=== PATIENT | female | born 1945 | race Caucasian/White ===

== ENCOUNTER 2016-11-02 17:38 | Observation (INO) | payer MEDICARE ==
[2016-11-02] MEDS ORDERED: NS 0.9% 1000 ML* 1,000 ML IV SCH (18:00)
--- NOTE | 2016-11-02 18:16 | RAD ---
INDICATION: Short of breath COMPARISON: June 02, 2016 TECHNIQUE: An AP portable view obtained at 1755 hours is submitted. FINDINGS: Bones/Soft Tissues: There are no acute bony findings. Cardiomediastinal: The heart is mildly prominent. There is uncoiling of the aorta with prominence of the ascending aorta, unchanged. Central hilar structures and pulmonary interstitium are prominent compatible with moderate interstitial congestion. Lungs: There is no focal consolidation. Pleura: There are no pleural effusions. Other: None IMPRESSION: MODERATE VASCULAR CONGESTIVE FINDINGS.
[2016-11-02 18:26] LABS: Hematocrit 44 % (35-47); Hemoglobin 14.4 g/dl (12.0-16.0); Mean Corpuscular HGB Conc 33 g/dl (31-36); Mean Corpuscular Hemoglobin 28 pg (27-31); Mean Corpuscular Volume 86 fL (80-97); Mean Platelet Volume 9 um3 (7.4-10.4); Red Blood Count 5.06 10^6/ul (4.0-5.4); Red Cell Distribution Width 15 % (10.5-15); White Blood Count 7.6 10^3/ul (3.5-10.8)
[2016-11-02 18:41] LABS: Albumin 3.9 g/dL (3.2-5.2); BUN/Creatinine Ratio 11.8 (8-20); C Reactive Protein 5.28 mg/L (< 5.00); Calcium 9.2 mg/dL (8.6-10.3); EGFR African American 96.2 (>60); EGFR Non-African American 74.8 (>60); Globulin 3.3 g/dL (2-4); Magnesium 2.1 mg/dL (1.9-2.7); Potassium 3.5 mmol/L (3.5-5.0); Total Bilirubin 0.5 mg/dL (0.2-1.0); Total Protein 7.2 g/dL (6.4-8.9)
[2016-11-02 18:44] LABS: Urine Bilirubin Negative (Negative); Urine Glucose Negative (Negative); Urine Nitrite Negative (Negative)
[2016-11-02 18:48] LABS: Troponin I 0.04 ng/mL (<0.04)
--- NOTE | 2016-11-02 20:16 | ED ---
Juana Collier Michael, scribed for Ron Cooper MD on 11/02/16 at 1801 . HPI Chest Pain - HPI Summary HPI Summary: 71 y/o female was BIBA to the ED presenting with left lower sternal chest pain that started this afternoon at 1230. The pt reports that the chest pain started intermittently, and as the day went on, the chest pain become constant. She describes the chest pain as squeezing and sharp. She was given nitro in the ambulance, which alleviated the CP. The pt also c/o weakness/pain in the bilateral LE, SOB, and nausea. Her blood pressure was elevated to 234/129, and usually it is in the 140s. The pt denies diaphoresis. Her bilateral LE weakness and pain started yesterday. She was unable to ambulate normally today. The pt states that she has a hx of mitochondrial disease and aortic stenosis. She had a cardiac catheterization at [facility]. - History of Current Complaint Chief Complaint: EDChestPainROMI Hx Obtained From: Patient, Medical Records Onset/Duration: Started Hours Ago Time of Onset: 12:30 Timing: Constant Initial Severity: Mild Current Severity: Moderate Chest Pain Location: Lower Sternal - left Character: Pressure/Squeezing, Sharp/Stabbing Aggravating Factor(s): Nothing Alleviating Factor(s): NTG 123 Associated Signs and Symptoms: Positive: Weakness, Shortness of Breath, Swelling - bilat LE, Nausea, Other: - CP. Negative: Diaphoresis - Additional Pertinent History Primary Care Physician: JEFFREY - Allergy/Home Medications Allergies/Adverse Reactions: Allergies Allergy/AdvReac Type Severity Reaction Status Date / Time Albuterol Allergy Severe Swelling Verified 11/02/16 17:51 Of Face,Lips,& Throat Fluticasone Allergy Severe Swelling Verified 11/02/16 17:51 [From Advair Diskus] Of Face,Lips,& Throat Lidocaine Allergy Severe Swelling Verified 11/02/16 17:51 Milk Protein Extract Allergy Severe Swelling Verified 11/02/16 17:51 [From Advair Diskus] Of Face,Lips,& Throat Pirbuterol [From Maxair] Allergy Severe Swelling Verified 11/02/16 17:51 Of Face,Lips,& Throat Salmeterol Allergy Severe Swelling Verified 11/02/16 17:51 [From Advair Diskus] Of Face,Lips,& Throat Amlodipine [From Norvasc] Allergy Intermediate Swelling Verified 11/02/16 17:51 Clindamycin Allergy Intermediate Hives Verified 11/02/16 17:51 Iodine Allergy Intermediate Swelling Verified 11/02/16 17:51 Latex Allergy Intermediate Rash Verified 11/02/16 17:51 Levofloxacin [From Levaquin] Allergy Intermediate Hives Verified 11/02/16 17:51 Metoprolol [From Toprol XL] Allergy Intermediate Rash Verified 11/02/16 17:51 Penicillins [PCN] Allergy Intermediate Hives Verified 11/02/16 17:51 Rofecoxib [From Vioxx] Allergy Intermediate Hives Verified 11/02/16 17:51 Streptomycin Allergy Intermediate Hives Verified 11/02/16 17:51 Atenolol Allergy Unknown Unknown Verified 11/02/16 17:51 Reaction Details Beta Adrenergic Blockers Allergy Unknown Unknown Verified 11/02/16 17:51 Reaction Details Epinephrine Allergy Unknown Unknown Verified 11/02/16 17:51 Reaction Details Hydrochlorothiazide Allergy Unknown Unknown Verified 11/02/16 17:51 [From Hyzaar] Reaction Details Labetalol Allergy Unknown Unknown Verified 11/02/16 17:51 Reaction Details Lisinopril [From Prinivil] Allergy Unknown Unknown Verified 11/02/16 17:51 Reaction Details Losartan [From Hyzaar] Allergy Unknown Unknown Verified 11/02/16 17:51 Reaction Details Propofol Allergy Unknown Unknown Verified 11/02/16 17:51 Reaction Details Sulfites Allergy Unknown Unknown Verified 11/02/16 17:51 Reaction Details Terazosin [From Hytrin] Allergy Unknown Unknown Verified 11/02/16 17:51 Reaction Details Valsartan [From Diovan] Allergy Unknown Unknown Verified 11/02/16 17:51 Reaction Details Gluten Meal Allergy GI Upset Verified 11/02/16 19:06 Iodinated Diagnostic Agents Allergy Itching Verified 11/02/16 19:06 PMH/Surg Hx/FS Hx/Imm Hx Endocrine/Hematology History: Denies: Hx Diabetes Cardiovascular History: Reports: Hx Hypertension, Hx Valvular Heart Disease, Other Cardiovascular Problems/Disorders - AORTIC STENOSIS, Mitral valve prolapse without regurgitation Denies: Hx Pacemaker/ICD Respiratory History: Reports: Hx Asthma, Hx Seasonal Allergies GI History: Reports: Hx Gall Bladder Disease, Hx Gastroesophageal Reflux Disease , Hx Ileostomy, Other GI Disorders - CELIAC, rectal prolapse, colostomy and reversal Denies: Hx Obstructive Bowel History: Reports: Other Problems/Disorders - "bladder repair" Musculoskeletal History: Reports: Hx Back Problems, Other Musculoskeletal History - sciatica, saccroiliac joint dysfunction Denies: Hx Osteoporosis Sensory History: Reports: Hx Cataracts - 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 CERVICAL POLYP REMOVAL (1974). TUBAL LIGATION (1974). GALLBLADDER. BLADDER REPAIR (1984). UPPER LUBE COLOSTOMY REVERSAL. PROLAPSE OF RECTUM. OPEN REDUCTION OF LT ELBOW - Family History Known Family History: Positive: Cardiac Disease, Respiratory Disease, Other - Cancer - Social History Occupation: Retired Lives: Alone Alcohol Use: None Hx Substance Use: No Substance Use Type: Reports: None Hx Tobacco Use: Yes Smoking Status (MU): Former Smoker Review of Systems Negative: Skin Diaphoresis Positive: Chest Pain Positive: Shortness Of Breath Positive: Nausea Positive: Other - bilat LE swelling and pain All Other Systems Reviewed And Are Negative: Yes Physical Exam Triage Information Reviewed: Yes Vital Signs On Initial Exam: Initial Vitals Temp Pulse Resp BP Pulse Ox 98.4 F 104 22 234/129 99 11/02/16 18:00 11/02/16 18:00 11/02/16 18:00 11/02/16 18:00 11/02/16 18:00 Vital Signs Reviewed: Yes Appearance: Positive: Well-Appearing, No Pain Distress Skin: Positive: Warm, Skin Color Reflects Adequate Perfusion, Dry Head/Face: Positive: Normal Head/Face Inspection Eyes: Positive: EOMI, EVA ENT: Positive: Normal ENT inspection Neck: Positive: Supple, Nontender Respiratory/Lung Sounds: Positive: Clear to Auscultation, Breath Sounds Present Cardiovascular: Positive: Tachycardia Abdomen Description: Positive: Nontender, Soft Bowel Sounds: Positive: Present Musculoskeletal: Positive: Normal, Strength/ROM Intact Neurological: Positive: Normal, Sensory/Motor Intact, Alert, Oriented to Person Place, Time Psychiatric: Positive: Affect/Mood Appropriate Diagnostics - Vital Signs Vital Signs Temp Pulse Resp BP Pulse Ox 11/02/16 20:00 20 185/86 11/02/16 19:30 102 20 187/87 100 11/02/16 19:00 91 14 168/88 99 11/02/16 18:30 101 21 190/101 100 11/02/16 18:16 98.4 F 102 16 190/101 99 11/02/16 18:00 98.4 F 104 22 234/129 99 - Laboratory Lab Results: Lab Results 11/02/16 11/02/16 11/02/16 Range/Units 17:40 17:40 17:40 WBC 7.6 (3.5-10.8) 10^3/ul RBC 5.06 (4.0-5.4) 10^6/ul Hgb 14.4 (12.0-16.0) g/dl Hct 44 (35-47) % MCV 86 (80-97) fL MCH 28 (27-31) pg MCHC 33 (31-36) g/dl RDW 15 (10.5-15) % Plt Count 232 (150-450) 10^3/ul MPV 9 (7.4-10.4) um3 Neut % (Auto) 58.9 (38-83) % Lymph % (Auto) 28.2 (25-47) % Lassen % (Auto) 11.4 H (1-9) % Eos % (Auto) 1.2 (0-6) % Baso % (Auto) 0.3 (0-2) % Absolute Neuts (auto) 4.5 (1.5-7.7) 10^3/ul Absolute Lymphs (auto) 2.1 (1.0-4.8) 10^3/ul Absolute Monos (auto) 0.9 H (0-0.8) 10^3/ul Absolute Eos (auto) 0.1 (0-0.6) 10^3/ul Absolute Basos (auto) 0 (0-0.2) 10^3/ul Absolute Nucleated RBC 0 10^3/ul Nucleated RBC % 0 INR (Anticoag Therapy) 0.90 (0.89-1.11) APTT 32.8 (26.0-36.3) seconds Sodium 137 (133-145) mmol/L Potassium 3.5 (3.5-5.0) mmol/L Chloride 100 L (101-111) mmol/L Carbon Dioxide 31 (22-32) mmol/L Anion Gap 6 (2-11) mmol/L BUN 9 (6-24) mg/dL Creatinine 0.76 (0.51-0.95) mg/dL Est GFR ( Amer) 96.2 (>60) Est GFR (Non-Af Amer) 74.8 (>60) BUN/Creatinine Ratio 11.8 (8-20) Glucose 97 (70-100) mg/dL Lactic Acid (0.5-2.0) mmol/L Calcium 9.2 (8.6-10.3) mg/dL Magnesium 2.1 (1.9-2.7) mg/dL Total Bilirubin 0.50 (0.2-1.0) mg/dL AST 21 (13-39) U/L ALT 24 (7-52) U/L Alkaline Phosphatase 81 (34-104) U/L Total Creatine Kinase 146 (10-223) U/L CK-MB (CK-2) 5.6 (0.6-6.3) ng/mL Troponin I 0.04 H* (<0.04) ng/mL C-Reactive Protein 5.28 H (< 5.00) mg/L B-Natriuretic Peptide ( - 100) pg/mL Total Protein 7.2 (6.4-8.9) g/dL Albumin 3.9 (3.2-5.2) g/dL Globulin 3.3 (2-4) g/dL Albumin/Globulin Ratio 1.2 (1-3) Lipase 25 (11.0-82.0) U/L Urine Color Urine Appearance Urine pH (5-9) Ur Specific [place] (1.010-1.030) Urine Protein (Negative) Urine Ketones (Negative) Urine Blood (Negative) Urine Nitrate (Negative) Urine Bilirubin (Negative) Urine Urobilinogen (Negative) Ur Leukocyte Esterase (Negative) Urine Glucose (Negative) 11/02/16 11/02/16 11/02/16 Range/Units 17:40 17:40 18:25 WBC (3.5-10.8) 10^3/ul RBC (4.0-5.4) 10^6/ul Hgb (12.0-16.0) g/dl Hct (35-47) % MCV (80-97) fL MCH (27-31) pg MCHC (31-36) g/dl RDW (10.5-15) % Plt Count (150-450) 10^3/ul MPV (7.4-10.4) um3 Neut % (Auto) (38-83) % Lymph % (Auto) (25-47) % Lassen % (Auto) (1-9) % Eos % (Auto) (0-6) % Baso % (Auto) (0-2) % Absolute Neuts (auto) (1.5-7.7) 10^3/ul Absolute Lymphs (auto) (1.0-4.8) 10^3/ul Absolute Monos (auto) (0-0.8) 10^3/ul Absolute Eos (auto) (0-0.6) 10^3/ul Absolute Basos (auto) (0-0.2) 10^3/ul Absolute Nucleated RBC 10^3/ul Nucleated RBC % INR (Anticoag Therapy) (0.89-1.11) APTT (26.0-36.3) seconds Sodium (133-145) mmol/L Potassium (3.5-5.0) mmol/L Chloride (101-111) mmol/L Carbon Dioxide (22-32) mmol/L Anion Gap (2-11) mmol/L BUN (6-24) mg/dL Creatinine (0.51-0.95) mg/dL Est GFR ( Amer) (>60) Est GFR (Non-Af Amer) (>60) BUN/Creatinine Ratio (8-20) Glucose (70-100) mg/dL Lactic Acid 1.5 (0.5-2.0) mmol/L Calcium (8.6-10.3) mg/dL Magnesium (1.9-2.7) mg/dL Total Bilirubin (0.2-1.0) mg/dL AST (13-39) U/L ALT (7-52) U/L Alkaline Phosphatase (34-104) U/L Total Creatine Kinase (10-223) U/L CK-MB (CK-2) (0.6-6.3) ng/mL Troponin I (<0.04) ng/mL C-Reactive Protein (< 5.00) mg/L B-Natriuretic Peptide 160 H ( - 100) pg/mL Total Protein (6.4-8.9) g/dL Albumin (3.2-5.2) g/dL Globulin (2-4) g/dL Albumin/Globulin Ratio (1-3) Lipase (11.0-82.0) U/L Urine Color Straw Urine Appearance Clear Urine pH 7.0 (5-9) Ur Specific [place] 1.004 L (1.010-1.030) Urine Protein Negative (Negative) Urine Ketones Negative (Negative) Urine Blood Negative (Negative) Urine Nitrate Negative (Negative) Urine Bilirubin Negative (Negative) Urine Urobilinogen Negative (Negative) Ur Leukocyte Esterase Negative (Negative) Urine Glucose Negative (Negative) Result Diagrams: 11/02/16 17:40 11/02/16 17:40 Lab Statement: Any lab studies that have been ordered have been reviewed, and results considered in the medical decision making process. - Radiology CXR Xray Interpretation: Positive (See Comments) - MODERATE VASCULAR CONGESTIVE FINDINGS. Radiology Interpretation Completed By: Radiologist - EKG EK EKG Rhythm: Sinus Tachycardia Ectopy: None EKG Interpretation: LVH. [place] T abnormalities at inferior leads. Chest Pain Course/Dx - Course Course Of Treatment: Pt will be admitted to [facility] and was accepted by Dr. Alvarado at 1915. ADMIT HOSPITALIST STABLE. - Diagnoses Provider Diagnoses: Chest pain Discharge - Discharge Plan Condition: Stable Disposition: ADMITTED TO [facility] Discharge Disposition Comment: Accepted as an admission by Dr. Alvarado Referrals: Daniella Raoms MD [Primary Care Provider] - The documentation as recorded by the Juana chino Michael accurately reflects the service I personally performed and the decisions made by me, Ron Cooper MD.
[2016-11-02] MEDS ORDERED: GuaiFENesin DM* 5 ML UDC PO PRN (20:34)
[2016-11-02] MEDS ORDERED: Senna TAB PO PRN (20:34)
[2016-11-02] MEDS ORDERED: Glycerin ADULT SUPP PR PRN (20:34)
[2016-11-02] MEDS ORDERED: Docusate CAP* 100 MG PO PRN (20:34)
[2016-11-02] MEDS ORDERED: Nystatin TOP POWDER* 15 GM BTL TOPICAL PRN (20:34)
[2016-11-02] MEDS ORDERED: Ondansetron TAB* 4 MG PO PRN (20:34)
[2016-11-02] MEDS ORDERED: Levalbuterol HFA INHALER* 1 PUFF MDI INH PRN (20:34)
[2016-11-02] MEDS ORDERED: Polyethylene Glycol 3350* 17 GM PACKET PO PRN (20:34)
[2016-11-02] MEDS ORDERED: Sucralfate TAB* 1 GM PO PRN (20:34)
[2016-11-02] MEDS ORDERED: Levalbuterol 1.25MG/0.5ML NEB INH PRN (20:34)
[2016-11-02] MEDS ORDERED: Levalbuterol 0.63MG/3ML NEB INH PRN (20:34)
[2016-11-02] MEDS ORDERED: Mometasone 220 MCG MDI INH SCH (21:00)
[2016-11-02] MEDS ORDERED: Ramipril CAP* 10 MG PO SCH (21:00)
[2016-11-02] MEDS ORDERED: Acetaminophen TAB* 325 MG PO PRN (22:28)
[2016-11-02] MEDS: Sodium Chloride 2% OPTH.SOL* 15 ML BTL LEFT EYE SCH (23:25)
[2016-11-02] MEDS: Hydrocortisone SUPP* 25 MG SUPP (2.5%) PR SCH (23:29)
[2016-11-03] MEDS ORDERED: PTO: Levalbuterol HFA INHALER* 1 PUFF MDI INH PRN (01:12)
[2016-11-03] MEDS ORDERED: [UNRECOGNIZED DRUG - OTHER] RIGHT EYE SCH (01:30)
[2016-11-03] MEDS ORDERED: FLUOROMETHOLONE 0.1% RIGHT EYE SCH (01:30)
--- NOTE | 2016-11-03 02:52 | HP ---
HOSPITAL MEDICINE HISTORY AND PHYSICAL: DATE OF ADMISSION: 11/02/16 PRIMARY CARE PHYSICIAN: Dr. Sheridan. ATTENDING PHYSICIAN: Dr. Vitaliy Alvarado *(dictation provided by Giulia Swann NP). CHIEF COMPLAINT: Chest pain and shortness of breath. HISTORY OF PRESENT ILLNESS: Ms. Ortiz is a 71-year-old female with multiple past medical complaints including mitochondrial myopathy, icwomwbh-sf-rwijth aortic stenosis, hypertension, asthma, celiac disease and chronic pain, who presents today to the hospital with concern for chest pain and shortness of breath. Ms. Ortiz states that she recently had symptoms of a urinary tract infection with bladder spasms and frequency. For that, she was treated with nitrofurantoin, it turns out that her urine culture was negative, but she did complete the course of medication. Ms. Ortiz has a long history of intolerance to medications as she believes that all of her symptoms are related to nitrofurantoin. Symptoms included headache, chills, nausea, burning pain in her legs, chest pain, and dyspnea. Today, she was up washing dishes and straightening her home when she developed what she described as an angina to the center of her chest as well as dyspnea on exertion and she felt very unwell. She tried to use her nebulizers, but this did not help with her asthma or her feeling of shortness of breath; and therefore, she called the emergency medical services to be brought to the emergency room. Ms. Ortiz has what she describes as a mitochondrial myopathy that was diagnosed at [facility]. She is being worked up for a possible aortic valve replacement at [facility]. She states she had a cardiac catheterization and it was negative in August of 2016. In the emergency room, Ms. Ortiz had a troponin that was 0.04, which was the highest that we have seen for her. She normally runs 0.03. She had an EKG, which showed no evidence of ischemia and a chest x-ray that was negative. The remainder of her workup was unremarkable. Based on Ms. Ortiz's presentation with concern for chest pain, Hospital Medicine was called regarding admission. PAST MEDICAL HISTORY: 1. Mitochondrial myopathy. 2. Atnucezg-ef-oneegx aortic stenosis. 3. Hypertension. 4. Asthma. 5. Celiac disease. 6. History of cholecystectomy. 7. History of traumatic rectal tear with colostomy, now reversed. 8. Migraines. MEDICATIONS: 1. Astepro 0.1% nasal spray 2 sprays nasally b.i.d. 2. Azelastine and fluticasone 2 sprays both nares daily. 3. Calcium carbonate with cholecalciferol 1 tab p.o. daily. 4. Cholecalciferol 50,000 units p.o. weekly. 5. Coenzyme Q10 400 mg p.o. daily. 6. Epinephrine 0.15 mg IM p.r.n. 7. Ranitidine 150 mg po b.i.d. 8. Fexofenadine 60 mg p.o. daily. 9. Fluticasone 100 mcg 3 puffs inhaled b.i.d. 10. Hydrocortisone rectally 2.5% as needed. 11. L-Carnitine tartrate 500 mg p.o. daily. 12. Magnesium 600 mg p.o. daily. 13. Nystatin with triamcinolone as needed. 15. Polyethylene glycol, both eyes t.i.d. 16. Docusate 100 mg p.o. b.i.d. 17. Fluticasone inhaler 220 mcg 2 puffs inhaled b.i.d. 18. Fluticasone nasal spray 2 sprays both nares daily. 19. Folic acid 1 mg p.o. daily. 20. Guaifenesin DM 5 mL p.o. q.6 hours p.r.n. 21. Hydrocortisone suppository 25 mg per rectum b.i.d. 22. Lactulose 30 mL p.o. daily. 23. Levalbuterol inhaler p.r.n. 24. Levothyroxine 200 mcg p.o. daily. 25. Nystatin topical powder 1 application topical b.i.d. 26. Ondansetron 8 mg p.o. q.6 hours p.r.n. 27. MiraLAX 17 g p.o. daily p.r.n. 30. Verapamil 40 mg p.o. daily. 31. Senna 1 tab p.o. t.i.d. p.r.n. 32. Sodium chloride 2% left eye 4 times a day. 33. Sucralfate 1 g p.o. b.i.d. prn. ALLERGIES: ALBUTEROL, FLUTICASONE, though she is on this medication. LIDOCAINE , PIRBUTEROL, SALMETEROL, AMLODIPINE, CLINDAMYCIN, IODINE, LATEX, LEVOFLOXACIN, METOPROLOL, PENICILLIN, ROFECOXIB, STREPTOMYCIN, ATENOLOL, BETA ADRENERGIC BLOCKERS, EPINEPHRINE, HYDROCHLOROTHIAZIDE, LABETALOL, LISINOPRIL, LOSARTAN, PROPOFOL, SULFIDE, TERAZOSIN, VALSARTAN, GLUTEN MEALS, IODINATED DIAGNOSTIC AGENTS. FAMILY HISTORY: Reviewed and noncontributory. Note that the patient's both parents from cancer. SOCIAL HISTORY: The patient was a smoker for approximately 2 years, but quit over 50 years ago. No alcohol or drug use. The patient states her daughters, Luzmaria and Yaneli, are the healthcare proxies. REVIEW OF SYSTEMS: A 14-point review of systems was completed with Ms. Ortiz and all those not mentioned above were negative. PHYSICAL EXAMINATION GENERAL: Ms. Ortiz was sitting in the bed. She is in no acute distress. She is calm and cooperative with my examination. VITAL SIGNS: Temperature 98.4, heart rate 102, respiratory rate 20, O2 saturation 100% on room air, blood pressure 187/87. LUNGS: Clear to auscultation bilaterally. HEART: S1, S2 with a systolic murmur at the sternal border. ABDOMEN: Soft and nontender with bowel sounds positive x4. EXTREMITIES: No cyanosis or edema. SKIN: Intact. NEUROLOGIC: She is alert and oriented x3. Moves all extremities equally. There is no facial asymmetry or focal weakness. Extraocular movements are intact. DIAGNOSTIC STUDIES/LAB DATA: WBC 7.6, hemoglobin 14.4, hematocrit 44, platelet count 232. INR 0.90. Sodium 137, potassium 3.5, chloride 100, serum bicarbonate 31, BUN 9, creatinine 0.76, glucose 97. Troponin 0.04. Lactic acid 1.5. CRP is 5.28. BNP 116. Urine shows no evidence of infection. Chest x-ray shows moderate vascular congestive findings. EKG shows sinus rhythm, no evidence of ischemia. ASSESSMENT: Ms. Ortiz is a 71-year-old female with a past medical history of mitochondrial myopathy, qazjfdeq-wp-requdp aortic stenosis, hypertension, asthma and celiac disease, who presents today to the hospital with concern for multiple complaints, but primarily chest pain and shortness of breath. Our plans are for observation in the hospital for the followin. Chest pain, shortness of breath. I do note that the patient had a negative cardiac catheterization in August of this year, but she is quite concerned about the chest pain and the level of dyspnea. I suspect that perhaps these symptoms are related to her scejycme-pe-seundg aortic stenosis, which she is following up with at [facility]. Regardless, I think the patient has an elevated troponin and therefore would benefit from trending of those over the next few hours. The patient will have telemetry monitoring. Any further testing will be based on clinical course. Thus far, the patient is feeling much more comfortable after receiving nitro paste and oxygen. 2. Hypertension. The patient's blood pressure is elevated in the emergency room, is similar to past admissions. She has high blood pressure, but is resistant to trying any new medications based on her multiple allergies. Plan at this point is to continue her home medication regimen and to offer to treat for any blood pressure greater than 180. 3. Hypothyroidism. Continue levothyroxine. 4. DVT prophylaxis with SCDs as I do not want to introduce any new medication as the patient with multiple allergies and she has refused all previous medications in the past. 5. Code status is full code. 6. Disposition to telemetry floor. TIME SPENT: Approximately 60 minutes were spent on the admission of the this patient, more than half time spent with the patient at bedside reviewing the events leading up to this hospitalization, performing the physical examination, and reviewing the plan of care. GIULIA SWANN NP CC: Dr. Sheridan* [id number]/[facility] #: [id number] [place]
[2016-11-03] MEDS: Levothyroxine TAB* 100 MCG TAB PO SCH ×2 (05:23→05:25)
[2016-11-03] MEDS ORDERED: SCOP/HYOS/ATR/PB(NF) 10 ML UDC PO SCH (09:00)
[2016-11-03] MEDS ORDERED: Fluticasone NASAL SPRAY 50MCG* 16 gm SPRAY BTL BOTH NARES SCH (09:00)
[2016-11-03] MEDS ORDERED: Verapamil TAB* 80 MG PO SCH ×2 (09:00→21:00)
[2016-11-03] MEDS ORDERED: Folic Acid TAB* 1 MG PO SCH (09:00)
[2016-11-03] MEDS ORDERED: Omeprazole CAP* 20 MG PO SCH (10:00)
[2016-11-03] MEDS ORDERED: Omeprazole CAP* 20 MG ONE (10:03)
[2016-11-03] MEDS: Hydrocortisone SUPP* 25 MG SUPP (2.5%) PR SCH (10:27)
[2016-11-03] MEDS: Sodium Chloride 2% OPTH.SOL* 15 ML BTL LEFT EYE SCH ×2 (10:28→13:57)
[2016-11-03] MEDS ORDERED: Potassium Chlor TAB* 20 MEQ TAB.ER PO ONE (10:28)
--- NOTE | 2016-11-03 10:28 | PN ---
Subjective Date of Service: 11/03/16 Interval History: Patient seen and examined at bedside. She reports feeling much better after receiving IVF this morning. She also reports improvement with nitro patch, received yesterday. She feels that her recent macrodantin prescription for a presumed UTI has contributed to her symptoms and complaints. She states that she didn't have a UTI but continued to take the medicine because no one told her that the urine culture was negative. She denies any SOB, abd pain, n/v this morning. Denies CP this AM and is hopeful to go home. She reports a cardiac catheterization in August that was "completely clean." Telemetry: SR 80s-90s Family History: Unchanged from Admission Social History: Unchanged from Admission Past Medical History: Unchanged from Admission Objective Active Medications: Acetaminophen (Tylenol Tab*) 650 mg PO Q8H PRN PRN Reason: PAIN Docusate Sodium (Colace Cap*) 100 mg PO BID PRN PRN Reason: CONSTIPATION Fluorometholone Acetate (Fml 0.1% Opth.Susp*) 1 drop [facility] Last Admin: 11/03/16 02:44 Dose: 1 drop Fluticasone Propionate (Flonase Nasal [place] 50mcg*) 2 spray BOTH NARES DAILY SUSY Fluticasone Propionate (Flovent Hfa 220 Mcg(Nf)) 3 puff INH BID SUSY Folic Acid (Folvite Tab*) 1 mg PO DAILY SUSY Glycerin (Glycerin Adult Supp*) 1 supp NC DAILY PRN PRN Reason: CONSTIPATION Hydrocortisone (Anusol Hc Supp*) 25 mg NC BID [facility] Last Admin: 11/02/16 23:29 Dose: 25 mg Sodium Chloride (Ns 0.9% 1000 Ml*) 1,000 mls @ 150 mls/hr IV PER [facility] Last Admin: 11/02/16 18:41 Dose: 150 mls/hr Lactulose (Lactulose*) 30 ml PO DAILY PRN PRN Reason: CONSTIPATION Levalbuterol HCl (Xopenex 0.63mg/3ml Neb*) 0.63 mg INH Q4H PRN PRN Reason: SHORTNESS OF BREATH Levalbuterol HCl (Xopenex Hfa Inhaler*) 2 puff INH Q4H PRN PRN Reason: SHORTNESS OF BREATH Last Admin: 11/03/16 01:17 Dose: 2 puff Levothyroxine Sodium (Synthroid Tab*) 200 mcg PO 0600 [facility] Last Admin: 11/03/16 05:25 Dose: Not Given Omeprazole (Prilosec Cap*) 20 mg PO DAILY@0600 [facility] Polyethylene Glycol/Electrolytes (Miralax*) 17 gm PO DAILY PRN PRN Reason: CONSTIPATION Potassium Chloride (Klor Con Er Tab*) 40 meq PO ONCE ONE Stop: 11/03/16 10:29 Senna (Senokot Tab*) 1 tab PO TID PRN PRN Reason: CONSTIPATION Sodium Chloride (Hypertonic) (Dora 128 Opth 2% Yin*) 1 drop LEFT EYE QID [facility] Last Admin: 11/02/16 23:25 Dose: 1 drop Sucralfate (Carafate*) 1 gm PO BID PRN PRN Reason: INDIGESTION Verapamil HCl (Calan Tab*) 40 mg PO DAILY [facility] Vital Signs 11/02/16 11/02/16 11/02/16 21:00 21:30 22:20 Temperature 98.5 F Pulse Rate 98 90 100 Respiratory 18 17 19 Rate Blood Pressure 178/90 130/67 170/100 (mmHg) O2 Sat by Pulse 93 91 96 Oximetry 11/03/16 11/03/16 11/03/16 03:39 07:23 07:47 Temperature 98.5 F 98.4 F Pulse Rate 95 95 Respiratory 20 16 Rate Blood Pressure 162/78 154/74 (mmHg) O2 Sat by Pulse 95 95 94 Oximetry Oxygen Devices in Use Now: None Appearance: Female patient, lying flat in bed, in NAD Eyes: PERRLA Ears/Nose/Mouth/Throat: Mucous Membranes Moist Neck: NL Appearance and Movements; NL JVP Respiratory: Symmetrical Chest Expansion and Respiratory Effort, Clear to Auscultation Cardiovascular: RRR - systolic murmur 3/6 heard at right sternal border Abdominal: NL Sounds; No Tenderness; No Distention Extremities: No Edema Skin: No Rash or Ulcers Neurological: Alert and Oriented x 3 Lines/Tubes/Other Access: Clean, Dry and Intact Peripheral IV Result Diagrams: 11/02/16 17:40 11/02/16 17:40 Additional Lab and Data: Lab Results 11/02/16 11/02/16 11/02/16 Range/Units 17:40 17:40 17:40 WBC 7.6 (3.5-10.8) 10^3/ul RBC 5.06 (4.0-5.4) 10^6/ul Hgb 14.4 (12.0-16.0) g/dl Hct 44 (35-47) % MCV 86 (80-97) fL MCH 28 (27-31) pg MCHC 33 (31-36) g/dl RDW 15 (10.5-15) % Plt Count 232 (150-450) 10^3/ul MPV 9 (7.4-10.4) um3 Neut % (Auto) 58.9 (38-83) % Lymph % (Auto) 28.2 (25-47) % [place] % (Auto) 11.4 H (1-9) % Eos % (Auto) 1.2 (0-6) % Baso % (Auto) 0.3 (0-2) % Absolute Neuts (auto) 4.5 (1.5-7.7) 10^3/ul Absolute Lymphs (auto) 2.1 (1.0-4.8) 10^3/ul Absolute Monos (auto) 0.9 H (0-0.8) 10^3/ul Absolute Eos (auto) 0.1 (0-0.6) 10^3/ul Absolute Basos (auto) 0 (0-0.2) 10^3/ul Absolute Nucleated RBC 0 10^3/ul Nucleated RBC % 0 INR (Anticoag Therapy) 0.90 (0.89-1.11) APTT 32.8 (26.0-36.3) seconds Sodium 137 (133-145) mmol/L Potassium 3.5 (3.5-5.0) mmol/L Chloride 100 L (101-111) mmol/L Carbon Dioxide 31 (22-32) mmol/L Anion Gap 6 (2-11) mmol/L BUN 9 (6-24) mg/dL Creatinine 0.76 (0.51-0.95) mg/dL Est GFR ( Amer) 96.2 (>60) Est GFR (Non-Af Amer) 74.8 (>60) BUN/Creatinine Ratio 11.8 (8-20) Glucose 97 (70-100) mg/dL Lactic Acid (0.5-2.0) mmol/L Calcium 9.2 (8.6-10.3) mg/dL Magnesium 2.1 (1.9-2.7) mg/dL Total Bilirubin 0.50 (0.2-1.0) mg/dL AST 21 (13-39) U/L ALT 24 (7-52) U/L Alkaline Phosphatase 81 (34-104) U/L Total Creatine Kinase 146 (10-223) U/L CK-MB (CK-2) 5.6 (0.6-6.3) ng/mL Troponin I 0.04 H* (<0.04) ng/mL C-Reactive Protein 5.28 H (< 5.00) mg/L B-Natriuretic Peptide ( - 100) pg/mL Total Protein 7.2 (6.4-8.9) g/dL Albumin 3.9 (3.2-5.2) g/dL Globulin 3.3 (2-4) g/dL Albumin/Globulin Ratio 1.2 (1-3) Lipase 25 (11.0-82.0) U/L Urine Color Urine Appearance Urine pH (5-9) Ur Specific [place] (1.010-1.030) Urine Protein (Negative) Urine Ketones (Negative) Urine Blood (Negative) Urine Nitrate (Negative) Urine Bilirubin (Negative) Urine Urobilinogen (Negative) Ur Leukocyte Esterase (Negative) Urine Glucose (Negative) 11/02/16 11/02/16 11/02/16 Range/Units 17:40 17:40 18:25 WBC (3.5-10.8) 10^3/ul RBC (4.0-5.4) 10^6/ul Hgb (12.0-16.0) g/dl Hct (35-47) % MCV (80-97) fL MCH (27-31) pg MCHC (31-36) g/dl RDW (10.5-15) % Plt Count (150-450) 10^3/ul MPV (7.4-10.4) um3 Neut % (Auto) (38-83) % Lymph % (Auto) (25-47) % [place] % (Auto) (1-9) % Eos % (Auto) (0-6) % Baso % (Auto) (0-2) % Absolute Neuts (auto) (1.5-7.7) 10^3/ul Absolute Lymphs (auto) (1.0-4.8) 10^3/ul Absolute Monos (auto) (0-0.8) 10^3/ul Absolute Eos (auto) (0-0.6) 10^3/ul Absolute Basos (auto) (0-0.2) 10^3/ul Absolute Nucleated RBC 10^3/ul Nucleated RBC % INR (Anticoag Therapy) (0.89-1.11) APTT (26.0-36.3) seconds Sodium (133-145) mmol/L Potassium (3.5-5.0) mmol/L Chloride (101-111) mmol/L Carbon Dioxide (22-32) mmol/L Anion Gap (2-11) mmol/L BUN (6-24) mg/dL Creatinine (0.51-0.95) mg/dL Est GFR ( Amer) (>60) Est GFR (Non-Af Amer) (>60) BUN/Creatinine Ratio (8-20) Glucose (70-100) mg/dL Lactic Acid 1.5 (0.5-2.0) mmol/L Calcium (8.6-10.3) mg/dL Magnesium (1.9-2.7) mg/dL Total Bilirubin (0.2-1.0) mg/dL AST (13-39) U/L ALT (7-52) U/L Alkaline Phosphatase (34-104) U/L Total Creatine Kinase (10-223) U/L CK-MB (CK-2) (0.6-6.3) ng/mL Troponin I (<0.04) ng/mL C-Reactive Protein (< 5.00) mg/L B-Natriuretic Peptide 160 H ( - 100) pg/mL Total Protein (6.4-8.9) g/dL Albumin (3.2-5.2) g/dL Globulin (2-4) g/dL Albumin/Globulin Ratio (1-3) Lipase (11.0-82.0) U/L Urine Color Straw Urine Appearance Clear Urine pH 7.0 (5-9) Ur Specific [place] 1.004 L (1.010-1.030) Urine Protein Negative (Negative) Urine Ketones Negative (Negative) Urine Blood Negative (Negative) Urine Nitrate Negative (Negative) Urine Bilirubin Negative (Negative) Urine Urobilinogen Negative (Negative) Ur Leukocyte Esterase Negative (Negative) Urine Glucose Negative (Negative) Assess/Plan/Problems-Billing Assessment: Ms. Ortiz is a 71 yo female with a PMH of , mitochondrial myopathy, HTN, asthma, and celiac disease who presented to the ED on 11/02/16 with concern for multiple complaints, but primarily chest pain and SOB. - Patient Problems (1) Chest pain Code(s): R07.9 - CHEST PAIN, UNSPECIFIED Comment: Denies CP, SOB this AM. Reports improvement in symptoms with IVF. Suspect secondary to aortic stenosis. Troponins stable at 0.04 and 0.05. EKG without evidence of ischemia. Patient had a cardiac catheterization in August 2016 at [facility] that was negative. No further inpatient testing indicated. Pt to follow up with PCP and Dr. Goldsmith regarding continued management of CAD risk factors. (2) Hypertension Code(s): I10 - ESSENTIAL (PRIMARY) HYPERTENSION Comment: Continue home regimen; unable to tolerate new anti-hypertensives and has multiple allergies. SBP now down to 150s, asymptomatic, will monitor. Recommend low sodium diet. Will discuss medications with PCP and primary branch services manager. (3) GERD (gastroesophageal reflux disease) Code(s): K21.9 - GASTRO-ESOPHAGEAL REFLUX DISEASE WITHOUT ESOPHAGITIS Comment : Continue PPI. (4) Hypothyroidism Code(s): E03.9 - HYPOTHYROIDISM, UNSPECIFIED Comment: Continue levothyroxine. (5) DVT prophylaxis Code(s): MAF4853 - Comment: SCDs Status and Disposition: OBV admit, d/c to home.
[2016-11-03 12:49] VITALS: BP 162/85
[2016-11-03] MEDS: FLUTICASONE 220 MCG INH SCH ×2 (13:57→14:06)
--- NOTE | 2016-11-04 14:17 | DS ---
DISCHARGE SUMMARY: DATE OF ADMISSION: 11/02/16 DATE OF DISCHARGE: 11/03/16 PROVIDER: Flakita Sweet NP ATTENDING PHYSICIAN: Dr. Jerome Garcia *(as dictated by Flakita Sweet NP). PRIMARY CARE PHYSICIAN: Dr. Sheridan. PRIMARY FINANCIAL AID DIRECTOR: Dr. Isiah Goldsmith. PRIMARY DISCHARGE DIAGNOSES: 1. Chest pain. 2. Hypertension. SECONDARY DISCHARGE DIAGNOSES: 1. Mitochondrial myopathy. 2. [id number]-kd-ymsxpy aortic stenosis. 3. Asthma. 4. Celiac disease. 5. History of cholecystectomy. 6. History of traumatic rectal tear with colostomy, now reversed. 7. Migraines. HOME MEDICATIONS AT DISCHARGE: 1. Tylenol 650 mg q. 8 hours p.r.n. 2. Nystatin suspension 100,000 units 4 times a day p.r.n. 3. Flovent one puff inhaled b.i.d. 4. Zantac 150 mg b.i.d. 5. Verapamil 40 mg daily. 6. Fluticasone one puff inhaled b.i.d. 7. Nystatin-triamcinolone one application topical daily p.r.n. 8. Magnesium 300 mg daily. 9. Folic acid 1 mg daily. 10. Cholecalciferol 50,000 units weekly. 11. Levalbuterol inhaler two puffs inhaled q. 4 hours p.r.n. 12. Xopenex nebulizer one treatment inhaled q. 4 hours p.r.n. 13. Hydrocortisone suppository 25 mg per rectum b.i.d. 14. Azelastine two sprays nasal b.i.d. 15. Dora ophthalmic solution 2% one drop left eye q.i.d. 16. HypoTears one drop both eyes t.i.d. 17. Hydrocortisone 2.5% topical daily p.r.n. 18. Carafate 1 g b.i.d. p.r.n. 19. Zofran 8 mg q. 6 hours p.r.n. 20. Glycerine 2 g per rectum daily p.r.n. 21. Senna one tab t.i.d. p.r.n. 22. Lactulose 30 mL daily p.r.n. 23. Docusate 100 mg b.i.d. p.r.n. 24. MiraLAX 17 g daily p.r.n. 25. Levothyroxine 200 mcg daily. 26. L-Carnitine 500 mg daily. 27. Coenzyme Q10 400 mg daily. 28. Calcium 500 plus vitamin D one tab daily. 29. Robitussin 5 mL q. 6 hours p.r.n. 30. Cassie 60 mg daily. 31. Flonase nasal spray two sprays to both nares daily. 32. Epinephrine pen p.r.n. allergic reaction. 33. Dymista two sprays to both nares daily. HOSPITAL COURSE OF STAY: For full details, please refer to the H and P provided by Giulia Swann on 11/02/16. In summary, Ms. Ortiz is a 71-year-old female with a past medical history as stated above, presented to the hospital with concern for chest pain and shortness of breath. This was also compounded by a recent urinary tract infection with bladder spasms and frequency. The patient states that she was treated with nitrofurantoin but it turned out that her culture was negative. However, she had not been notified in time and she completed her course of medication. She reports that she has a long history of medication intolerance and believes that her symptoms that she presented with to the ER secondary to the nitrofurantoin, these symptoms include headache, chills, nausea, burning pain in her legs, chest pain and dyspnea. The patient was noted to have a troponin at 0.04, which was mildly above what she has had in the past for baseline, she normally runs 0.03. Her EKG showed no evidence of ischemia and a chest x-ray was negative. However, the patient was concerned for symptoms and the patient was admitted for further observation overnight. The patient was given IV hydration and was monitored on telemetry. There are no significant changes or arrhythmias noted to her telemetry and her EKG in the morning was similar to appearance of previous EKGs with no signs of acute ischemia. In fact, the following morning, the patient states that she felt much better after receiving IV fluids. She did require nitroglycerin; however, given her history of nucelejs-ej-[id number] aortic stenosis, I asked the patient to discuss this with her patient accounts clerk. Additionally, she does have multiple medication allergies and I feel that any new medication additions should be discussed with her PCP and patient accounts clerk in order to allow for appropriate monitoring. Again, it is noted that the patient did recently have a cardiac catheterization at the [facility]. I did obtain a copy of the records and her left heart catheterization findings read as follows: LM is normal, LAD is normal, LCX is normal. RCA is normal, dominant. Bilateral renal arteries are normal. Impression: Normal coronary arteries. No renal artery stenosis. Please refer to the full records from [facility] in the medical record. In terms of the patient's blood pressure, it had been elevated as has been in previous admissions. The patient is resistant to trying any new medications based on her multiple allergies. Prior to discharge, the patient's systolic blood pressure is 154 and diastolic 74, which is improved from earlier this admission. The patient requested to go home and states that she will follow up with Dr. Sheridan and has an appointment for Thursday that she has scheduled herself. She also has an appointment in a few weeks with Dr. Goldsmith, which she is also aware of. She denies any new concerns or complaints and feels stable to go home. CONCERNS AT DISCHARGE: Ms. Ortiz will be discharged to home on 11/03/16 with the plan to follow up with her PCP and Cardiology as previously mentioned. DIET: Heart healthy, low sodium diet. The patient maintains a gluten-free diet as well. ACTIVITY: As tolerated. CONDITION: Stable. DISPOSITION: To home. TIME SPENT: Time spent on this discharge was approximately 45 minutes. Again, this is only a brief summary of the patient's hospital course of stay. For full details, please refer to the full medical record. If you have any further questions or further concerns, please feel free to contact me at [phone]. FLAKITA SWEET NP CC: Dr. Jamal Sheridan; Dr. Isiah Goldsmith, Cardiology * [id number]/[facility] #: [id number] [place]
== END 2016-11-03 15:00 | disposition home or self-care (01) ==
LOC: ED 17:38 → MEDTELE 20:37
PROVIDERS: ADMIT Hospitalist; ATTEND Internal Medicine
DX: R07.9 Chest pain, unspecified (principal); I10 Essential (primary) hypertension; G71.3 Mitochondrial myopathy, not elsewhere classified; I35.0 Nonrheumatic aortic (valve) stenosis; J45.909 Unspecified asthma, uncomplicated; K90.0 Celiac disease; R06.02 Shortness of breath; Z88.1 Allergy status to other antibiotic agents; Z88.0 Allergy status to penicillin; Z88.2 Allergy status to sulfonamides; Z87.891 Personal history of nicotine dependence
CPT/HCPCS: 36415; 71010; 80053; 81003; 82550; 82553; 83605; 83690; 83735; 83880; 84484; 85025; 85610; 85730; 86140; 93005; 99285; A9270-GY; G0378

== ENCOUNTER 2016-12-04 12:53 | Emergency (ER) | payer MEDICARE ==
[2016-12-04] MEDS ORDERED: NS 0.9% 1000 ML* 1,000 ML IV ONE (14:08)
[2016-12-04 14:54] LABS: Hematocrit 43 % (35-47); Hemoglobin 13.8 g/dl (12.0-16.0); Mean Corpuscular HGB Conc 32 g/dl (31-36); Mean Corpuscular Hemoglobin 28 pg (27-31); Mean Corpuscular Volume 86 fL (80-97); Mean Platelet Volume 9 um3 (7.4-10.4); Red Blood Count 4.96 10^6/ul (4.0-5.4); Red Cell Distribution Width 15 % (10.5-15); White Blood Count 7.7 10^3/ul (3.5-10.8)
[2016-12-04 15:04] LABS: Urine Bilirubin Negative (Negative); Urine Glucose Negative (Negative); Urine Nitrite Negative (Negative)
[2016-12-04 15:09] LABS: Troponin I 0.03 ng/mL (<0.04)
[2016-12-04 15:11] LABS: Albumin 3.9 g/dL (3.2-5.2); C Reactive Protein 8.09 mg/L (< 5.00); Calcium 9.3 mg/dL (8.6-10.3); EGFR African American 97.7 (>60); Globulin 3.1 g/dL (2-4); Magnesium 2.1 mg/dL (1.9-2.7); Potassium 4.2 mmol/L (3.5-5.0); Total Bilirubin 0.7 mg/dL (0.2-1.0)
--- NOTE | 2016-12-04 15:12 | RAD ---
INDICATION: Shortness of breath. COMPARISON: Comparison is made with prior chest x-ray studies from August 08, 2015, June 02, 2016 and November 02, 2016. TECHNIQUE: A portable view of the chest was obtained. FINDINGS: The heart is moderately enlarged and unchanged from the prior exam. There is mild prominence of the interstitial markings. The lungs are otherwise clear. No pleural effusion is seen. IMPRESSION: MILD INTERSTITIAL PROMINENCE LIKELY CHRONIC ALTHOUGH MILD CONGESTIVE CHANGES CANNOT BE RULED OUT.
[2016-12-04 15:35] LABS: TSH (Thyroid Stimulating Horm) 0.94 mcIU/mL (0.34-5.60)
[2016-12-04 16:44] VITALS: BP 186/88
--- NOTE | 2016-12-04 17:01 | ED ---
Yonis Collier Billy, scribed for Evans Buck MD on 12/04/16 at 1359 . Complex/Multi-Sys Presentation - HPI Summary HPI Summary: Patient is a 71 year-old female coming to [facility] for evaluation of shortness of breath and lightheadedness for the last 2 days. Patient also states that she feels very "dry," stating that her skin and oral mucosa burn. Patient also reports bilateral flank pain, decreased urine output, nausea, and suprapubic soreness. Patient was admitted to [facility] one month ago for chest pain. - History Of Current Complaint Chief Complaint: EDShortnessOfBreath Time Seen by Provider: 12/04/16 13:48 Hx Obtained From: Patient Onset/Duration: Gradual Onset, Lasting Days, Still Present Timing: Constant Severity Currently: Moderate Severity Initially: Moderate Location: Pain At: Aggravating Factor(s): none Alleviating Factor(s): none Associated Signs And Symptoms: Positive: SOB, Nausea, Abdominal Pain - suprapubic pressure, Dysuria, Other - flank pain, lightheaded - Allergies/Home Medications Allergies/Adverse Reactions: Allergies Allergy/AdvReac Type Severity Reaction Status Date / Time Albuterol Allergy Severe Swelling Verified 11/02/16 17:51 Of Face,Lips,& Throat Fluticasone Allergy Severe Swelling Verified 11/02/16 17:51 [From Advair Diskus] Of Face,Lips,& Throat Lidocaine Allergy Severe Swelling Verified 11/02/16 17:51 Milk Protein Extract Allergy Severe Swelling Verified 11/02/16 17:51 [From Advair Diskus] Of Face,Lips,& Throat Pirbuterol [From Maxair] Allergy Severe Swelling Verified 11/02/16 17:51 Of Face,Lips,& Throat Salmeterol Allergy Severe Swelling Verified 11/02/16 17:51 [From Advair Diskus] Of Face,Lips,& Throat Amlodipine [From Norvasc] Allergy Intermediate Swelling Verified 11/02/16 17:51 Clindamycin Allergy Intermediate Hives Verified 11/02/16 17:51 Iodine Allergy Intermediate Swelling Verified 11/02/16 17:51 Latex Allergy Intermediate Rash Verified 11/02/16 17:51 Levofloxacin [From Levaquin] Allergy Intermediate Hives Verified 11/02/16 17:51 Metoprolol [From Toprol XL] Allergy Intermediate Rash Verified 11/02/16 17:51 Penicillins [PCN] Allergy Intermediate Hives Verified 11/02/16 17:51 Rofecoxib [From Vioxx] Allergy Intermediate Hives Verified 11/02/16 17:51 Streptomycin Allergy Intermediate Hives Verified 11/02/16 17:51 Atenolol Allergy Unknown Unknown Verified 11/02/16 17:51 Reaction Details Beta Adrenergic Blockers Allergy Unknown Unknown Verified 11/02/16 17:51 Reaction Details Epinephrine Allergy Unknown Unknown Verified 11/02/16 17:51 Reaction Details Hydrochlorothiazide Allergy Unknown Unknown Verified 11/02/16 17:51 [From Hyzaar] Reaction Details Labetalol Allergy Unknown Unknown Verified 11/02/16 17:51 Reaction Details Lisinopril [From Prinivil] Allergy Unknown Unknown Verified 11/02/16 17:51 Reaction Details Losartan [From Hyzaar] Allergy Unknown Unknown Verified 11/02/16 17:51 Reaction Details Propofol Allergy Unknown Unknown Verified 11/02/16 17:51 Reaction Details Sulfites Allergy Unknown Unknown Verified 11/02/16 17:51 Reaction Details Terazosin [From Hytrin] Allergy Unknown Unknown Verified 11/02/16 17:51 Reaction Details Valsartan [From Diovan] Allergy Unknown Unknown Verified 11/02/16 17:51 Reaction Details Gluten Meal Allergy GI Upset Verified 11/02/16 19:06 Iodinated Diagnostic Agents Allergy Itching Verified 11/02/16 19:06 PMH/Surg Hx/FS Hx/Imm Hx Endocrine/Hematology History: Denies: Hx Diabetes Cardiovascular History: Reports: Hx Hypertension, Hx Valvular Heart Disease, Other Cardiovascular Problems/Disorders - AORTIC STENOSIS, Mitral valve prolapse without regurgitation Denies: Hx Pacemaker/ICD Respiratory History: Reports: Hx Asthma, Hx Seasonal Allergies GI History: Reports: Hx Gall Bladder Disease, Hx Gastroesophageal Reflux Disease , Hx Ileostomy, Other GI Disorders - CELIAC, rectal prolapse, colostomy and reversal Denies: Hx Obstructive Bowel History: Reports: Other Problems/Disorders - "bladder repair" Musculoskeletal History: Reports: Hx Back Problems, Other Musculoskeletal History - sciatica, saccroiliac joint dysfunction Denies: Hx Osteoporosis Sensory History: Reports: Hx Cataracts - 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 CERVICAL POLYP REMOVAL (1974). TUBAL LIGATION (1974). GALLBLADDER. BLADDER REPAIR (1984). UPPER LUBE COLOSTOMY REVERSAL. PROLAPSE OF RECTUM. OPEN REDUCTION OF LT ELBOW Infectious Disease History: Denies: Traveled Outside the [place] in Last 30 Days - Family History Known Family History: Positive: Cardiac Disease, Respiratory Disease, Other - Cancer - Social History Alcohol Use: None Hx Substance Use: No Substance Use Type: Reports: None Hx Tobacco Use: Yes Smoking Status (MU): Former Smoker Review of Systems Positive: Other - feels dry Positive: Shortness Of Breath Positive: Abdominal Pain, Nausea Positive: see HPI, flank pain Neurological: Other - lightheaded All Other Systems Reviewed And Are Negative: Yes Physical Exam - Summary Physical Exam Summary: The patient is well-nourished in no acute distress and in no acute pain. The skin is warm and dry and skin color reflects adequate perfusion. HEENT: The head is normocephalic and atraumatic. The pupils are equal and reactive. The conjunctivae are clear and without drainage. Nares are patent and without drainage. Mouth reveals dry mucous membranes and the throat is without erythema and exudate. The external ears are intact. The ear canals are patent and without drainage. The tympanic membranes are intact. Neck is supple with full range of motion and non-tender. There are no carotid bruits. There is no neck vein distension. Respiratory: Chest is non-tender. Lungs are clear to auscultation and breath sounds are symmetrical and equal. Cardiovascular: Hear is regular rate and rhythm. There is no murmur or rub auscultated. Abdomen: There is tenderness over the bladder. There are normal bowel sounds heard in all four quadrants and there is no organomegaly palpated. Musculoskeletal: There is tenderness over the lower lumbar sacral spine. Extremities are non-tender with full range of motion. There is good capillary refill. Mild pretibial edema. Neurological: Patient is alert and oriented to person, place and time. The patient has symmetrical motor strength in all four extremities. Psychiatric: Anxious. Triage Information Reviewed: Yes Vital Signs On Initial Exam: Initial Vitals Temp Pulse Resp BP Pulse Ox 98.1 F 100 18 187/97 98 12/04/16 12:57 12/04/16 12:57 12/04/16 12:57 12/04/16 12:57 12/04/16 12:57 Vital Signs Reviewed: Yes Diagnostics - Vital Signs Vital Signs Temp Pulse Resp BP Pulse Ox 12/04/16 12:57 98.1 F 100 18 187/97 98 - Laboratory Lab Results: Lab Results 12/04/16 12/04/16 12/04/16 Range/Units 14:32 14:32 14:32 WBC 7.7 (3.5-10.8) 10^3/ul RBC 4.96 (4.0-5.4) 10^6/ul Hgb 13.8 (12.0-16.0) g/dl Hct 43 (35-47) % MCV 86 (80-97) fL MCH 28 (27-31) pg MCHC 32 (31-36) g/dl RDW 15 (10.5-15) % Plt Count 221 (150-450) 10^3/ul MPV 9 (7.4-10.4) um3 Neut % (Auto) 63.8 (38-83) % Lymph % (Auto) 24.9 L (25-47) % Collin % (Auto) 9.8 H (1-9) % Eos % (Auto) 1.1 (0-6) % Baso % (Auto) 0.4 (0-2) % Absolute Neuts (auto) 4.9 (1.5-7.7) 10^3/ul Absolute Lymphs (auto) 1.9 (1.0-4.8) 10^3/ul Absolute Monos (auto) 0.8 (0-0.8) 10^3/ul Absolute Eos (auto) 0.1 (0-0.6) 10^3/ul Absolute Basos (auto) 0 (0-0.2) 10^3/ul Absolute Nucleated RBC 0 10^3/ul Nucleated RBC % 0 Sodium 138 (133-145) mmol/L Potassium 4.2 (3.5-5.0) mmol/L Chloride 102 (101-111) mmol/L Carbon Dioxide 30 (22-32) mmol/L Anion Gap 6 (2-11) mmol/L BUN 9 (6-24) mg/dL Creatinine 0.75 (0.51-0.95) mg/dL Est GFR ( Amer) 97.7 (>60) Est GFR (Non-Af Amer) 76.0 (>60) BUN/Creatinine Ratio 12.0 (8-20) Glucose 102 H (70-100) mg/dL Lactic Acid (0.5-2.0) mmol/L Calcium 9.3 (8.6-10.3) mg/dL Magnesium 2.1 (1.9-2.7) mg/dL Total Bilirubin 0.70 (0.2-1.0) mg/dL AST 22 (13-39) U/L ALT 25 (7-52) U/L Alkaline Phosphatase 71 (34-104) U/L Troponin I 0.03 (<0.04) ng/mL C-Reactive Protein 8.09 H (< 5.00) mg/L B-Natriuretic Peptide ( - 100) pg/mL Total Protein 7.0 (6.4-8.9) g/dL Albumin 3.9 (3.2-5.2) g/dL Globulin 3.1 (2-4) g/dL Albumin/Globulin Ratio 1.3 (1-3) TSH 0.94 (0.34-5.60) mcIU/mL Urine Color Straw Urine Appearance Clear Urine pH 8.0 (5-9) Ur Specific [place] 1.005 L (1.010-1.030) Urine Protein Negative (Negative) Urine Ketones Negative (Negative) Urine Blood Negative (Negative) Urine Nitrate Negative (Negative) Urine Bilirubin Negative (Negative) Urine Urobilinogen Negative (Negative) Ur Leukocyte Esterase Negative (Negative) Urine Glucose Negative (Negative) 12/04/16 12/04/16 Range/Units 14:32 14:32 WBC (3.5-10.8) 10^3/ul RBC (4.0-5.4) 10^6/ul Hgb (12.0-16.0) g/dl Hct (35-47) % MCV (80-97) fL MCH (27-31) pg MCHC (31-36) g/dl RDW (10.5-15) % Plt Count (150-450) 10^3/ul MPV (7.4-10.4) um3 Neut % (Auto) (38-83) % Lymph % (Auto) (25-47) % Collin % (Auto) (1-9) % Eos % (Auto) (0-6) % Baso % (Auto) (0-2) % Absolute Neuts (auto) (1.5-7.7) 10^3/ul Absolute Lymphs (auto) (1.0-4.8) 10^3/ul Absolute Monos (auto) (0-0.8) 10^3/ul Absolute Eos (auto) (0-0.6) 10^3/ul Absolute Basos (auto) (0-0.2) 10^3/ul Absolute Nucleated RBC 10^3/ul Nucleated RBC % Sodium (133-145) mmol/L Potassium (3.5-5.0) mmol/L Chloride (101-111) mmol/L Carbon Dioxide (22-32) mmol/L Anion Gap (2-11) mmol/L BUN (6-24) mg/dL Creatinine (0.51-0.95) mg/dL Est GFR ( Amer) (>60) Est GFR (Non-Af Amer) (>60) BUN/Creatinine Ratio (8-20) Glucose (70-100) mg/dL Lactic Acid 1.0 (0.5-2.0) mmol/L Calcium (8.6-10.3) mg/dL Magnesium (1.9-2.7) mg/dL Total Bilirubin (0.2-1.0) mg/dL AST (13-39) U/L ALT (7-52) U/L Alkaline Phosphatase (34-104) U/L Troponin I (<0.04) ng/mL C-Reactive Protein (< 5.00) mg/L B-Natriuretic Peptide 148 H ( - 100) pg/mL Total Protein (6.4-8.9) g/dL Albumin (3.2-5.2) g/dL Globulin (2-4) g/dL Albumin/Globulin Ratio (1-3) TSH (0.34-5.60) mcIU/mL Urine Color Urine Appearance Urine pH (5-9) Ur Specific [place] (1.010-1.030) Urine Protein (Negative) Urine Ketones (Negative) Urine Blood (Negative) Urine Nitrate (Negative) Urine Bilirubin (Negative) Urine Urobilinogen (Negative) Ur Leukocyte Esterase (Negative) Urine Glucose (Negative) Result Diagrams: 12/04/16 14:32 12/04/16 14:32 Lab Statement: Any lab studies that have been ordered have been reviewed, and results considered in the medical decision making process. - Radiology CXR Radiology Interpretation Completed By: Radiologist - MILD INTERSTITIAL PROMINENCE LIKELY CHRONIC ALTHOUGH MILD CONGESTIVE CHANGES CANNOT BE RULED OUT. - EKG 1524 EKG Interpretation: NSR 88 bpm, normal axis, nonspecific ST changes, no STEMI Re-Evaluation - Re-Evaluation First Eval Re-Evaluation Time: 16:24 Comment: Labs and imaging reviewed. Second Eval Re-Evaluation Time: 16:27 Comment: Abdomen hurts, but the patient agrees with plan for discharge. Complex Multi-Symp Course/Dx Assessment/Plan: 71 year-old female to the ED with a complaint of SOB, dehydration, flank pain, and lightheadedness. CXR shows mild interstitial prominence likely chronic although mild congestive changes cannot be ruled out. EKG shows NSR with no STEMI. In the ED course, patient was hydrated with IV fluids. Labs reviewed. Patient was re-evaluated, and agrees with plan for discharge. She will follow up with PCP Dr. Sheridan. - Diagnoses Differential Diagnoses/HQI/PQRI: Metabolic Abnormality, Urinary Tract Infection , Other - dehydration, chf, mi, hypokalemia Provider Diagnoses: Dehydration, Weakness Discharge - Discharge Plan Condition: Stable Disposition: HOME Patient Education Materials: Dehydration (ED), Weakness (ED) Referrals: Jamal Sheridan MD [Primary Care Provider] - The documentation as recorded by the Yonis chino Billy accurately reflects the service I personally performed and the decisions made by , Evans Buck MD.
== END 2016-12-04 16:44 | disposition home or self-care (01) ==
LOC: ED 12:53
DX: E86.0 Dehydration (principal); R53.1 Weakness; R06.02 Shortness of breath; R11.0 Nausea; R10.9 Unspecified abdominal pain; R30.0 Dysuria; Z87.891 Personal history of nicotine dependence
CPT/HCPCS: 36415; 71010; 80053; 81003; 83605; 83735; 83880; 84443; 84484; 85025; 86140; 93005; 99283

== ENCOUNTER 2017-05-14 15:06 | Emergency (ER) | payer MEDICARE ==
[2017-05-14] MEDS ORDERED: NS 0.9% 1000 ML* 1,000 ML IV SCH (16:30)
[2017-05-14 17:00] LABS: Urine Bacteria Absent (Absent); Urine Bilirubin Negative (Negative); Urine Glucose Negative (Negative); Urine Nitrite Negative (Negative)
[2017-05-14 17:22] LABS: Hematocrit 44 % (35-47); Hemoglobin 14.4 g/dl (12.0-16.0); Mean Corpuscular HGB Conc 33 g/dl (31-36); Mean Corpuscular Hemoglobin 30 pg (27-31); Mean Corpuscular Volume 91 fL (80-97); Mean Platelet Volume 9 um3 (7.4-10.4); Red Blood Count 4.83 10^6/ul (4.0-5.4); Red Cell Distribution Width 15 % (10.5-15); White Blood Count 7.9 10^3/ul (3.5-10.8)
[2017-05-14 17:46] LABS: Albumin 3.7 g/dL (3.2-5.2); BUN/Creatinine Ratio 16.4 (8-20); C Reactive Protein 6.05 mg/L (< 5.00); Calcium 9.1 mg/dL (8.6-10.3); EGFR African American 100.5 (>60); EGFR Non-African American 78.1 (>60); Potassium 4.1 mmol/L (3.5-5.0); Total Bilirubin 0.6 mg/dL (0.2-1.0); Total Protein 6.7 g/dL (6.4-8.9)
[2017-05-14 17:48] LABS: Troponin I 0.03 ng/mL (<0.04)
--- NOTE | 2017-05-14 17:49 | RAD ---
Indication: Chest and LEFT shoulder pain radiating into the clavicle without proceeding injury. History of aortic stenosis and mitral valve prolapse. History of tobacco use and asthma. Comparison: December 04, 2016 Technique: Upright AP 1710 hours Report: Cardiomegaly. Mild prominence of the central pulmonary vasculature. Diffuse mild prominence of the interstitial markings with subtle thickened peripheral interlobular septa similar to the prior exam. Grossly clear pleural spaces. IMPRESSION: The constellation of findings favors mild pulmonary vascular congestion and interstitial edema.
[2017-05-14 18:17] LABS: TSH (Thyroid Stimulating Horm) 1.64 mcIU/mL (0.34-5.60)
--- NOTE | 2017-05-14 19:17 | RAD ---
Indication: LEFT shoulder pain with range of motion. Comparison: No relevant prior exams available on the [facility] PACS for comparison. Technique: Internal rotation AP, external rotation Grashey, scapular Y, axillary views LEFT shoulder Report: Normal acromioclavicular and glenohumeral joint alignment. Negative for fracture. Moderate osteophytosis at the acromioclavicular joint. Mild osteophytic lipping at the glenohumeral joint without significant glenohumeral joint space narrowing. Negative for fracture. Moderate burden of calcific tendinopathy at the level of the supraspinatus tendon. Unremarkable soft tissue contours. IMPRESSION: 1. 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 2. Calcific tendinopathy of the supraspinatus tendon.
--- NOTE | 2017-05-14 20:08 | ED ---
Carmine Collier Benjamin, scribed for Ron Cooper MD on 05/14/17 at 1705 . HPI Chest Pain - HPI Summary HPI Summary: 72yo female c/o sudden onset of CP today at 12:30 along with some SOB. Pain was constant until 14:30. Pt points the pain in left lower chest that spread up his left anterior and left upper chest. 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 Pt also reported DIAZ and blurry vision, but denies any nausea or diaphoresis. CP, blurry vision, and DIAZ are all gone after receiving oxygen in the ED. Pain was 5-6/10 scale. 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 Pt usually does not get CP and last CP was months ago. Pt had brief CP yesterday and then again CP, which worried her to come in. - History of Current Complaint Chief Complaint: EDChestPainROMI Time Seen by Provider: 05/14/17 16:38 Hx Obtained From: Patient Onset/Duration: Started Hours Ago - at 12:30 today, Still Present Timing: Constant Initial Severity: Mild Current Severity: Mild Pain Intensity: 3 Pain Scale Used: 0-10 Numeric Chest Pain Location: Left Anterior Chest Pain Radiates: No Aggravating Factor(s): Exertion - even minor exertion aggravates Alleviating Factor(s): Rest Associated Signs and Symptoms: Positive: Vision Changes - blurry vision, Headaches, Shortness of Breath - Additional Pertinent History Primary Care Physician: [id number] - Allergy/Home Medications Allergies/Adverse Reactions: Allergies Allergy/AdvReac Type Severity Reaction Status Date / Time Albuterol Allergy Severe Swelling Verified 05/14/17 15:59 Of Face,Lips,& Throat Fluticasone Allergy Severe Swelling Verified 05/14/17 15:59 [From Advair Diskus] Of Face,Lips,& Throat Lidocaine Allergy Severe Swelling Verified 05/14/17 15:59 Milk Protein Extract Allergy Severe Swelling Verified 05/14/17 15:59 [From Advair Diskus] Of Face,Lips,& Throat Pirbuterol [From Maxair] Allergy Severe Swelling Verified 05/14/17 15:59 Of Face,Lips,& Throat Salmeterol Allergy Severe Swelling Verified 05/14/17 15:59 [From Advair Diskus] Of Face,Lips,& Throat Amlodipine [From Norvasc] Allergy Intermediate Swelling Verified 05/14/17 15:59 Clindamycin Allergy Intermediate Hives Verified 05/14/17 15:59 Iodine Allergy Intermediate Swelling Verified 05/14/17 15:59 Latex Allergy Intermediate Rash Verified 05/14/17 15:59 Levofloxacin [From Levaquin] Allergy Intermediate Hives Verified 05/14/17 15:59 Metoprolol [From Toprol XL] Allergy Intermediate Rash Verified 05/14/17 15:59 Penicillins [PCN] Allergy Intermediate Hives Verified 05/14/17 15:59 Rofecoxib [From Vioxx] Allergy Intermediate Hives Verified 05/14/17 15:59 Streptomycin Allergy Intermediate Hives Verified 05/14/17 15:59 Atenolol Allergy Unknown Unknown Verified 05/14/17 15:59 Reaction Details Beta Adrenergic Blockers Allergy Unknown Unknown Verified 05/14/17 15:59 Reaction Details Epinephrine Allergy Unknown Unknown Verified 05/14/17 15:59 Reaction Details Hydrochlorothiazide Allergy Unknown Unknown Verified 05/14/17 15:59 [From Hyzaar] Reaction Details Labetalol Allergy Unknown Unknown Verified 05/14/17 15:59 Reaction Details Lisinopril [From Prinivil] Allergy Unknown Unknown Verified 05/14/17 15:59 Reaction Details Losartan [From Hyzaar] Allergy Unknown Unknown Verified 05/14/17 15:59 Reaction Details Propofol Allergy Unknown Unknown Verified 05/14/17 15:59 Reaction Details Sulfites Allergy Unknown Unknown Verified 05/14/17 15:59 Reaction Details Terazosin [From Hytrin] Allergy Unknown Unknown Verified 05/14/17 15:59 Reaction Details Valsartan [From Diovan] Allergy Unknown Unknown Verified 05/14/17 15:59 Reaction Details Gluten Meal Allergy GI Upset Verified 05/14/17 15:59 Iodinated Diagnostic Agents Allergy Itching Verified 05/14/17 15:59 PMH/Surg Hx/FS Hx/Imm Hx Endocrine/Hematology History: Denies: Hx Diabetes Cardiovascular History: Reports: Hx Hypertension, Hx Valvular Heart Disease, Other Cardiovascular Problems/Disorders - AORTIC STENOSIS, Mitral valve prolapse without regurgitation Denies: Hx Pacemaker/ICD Respiratory History: Reports: Hx Asthma, Hx Seasonal Allergies GI History: Reports: Hx Gall Bladder Disease, Hx Gastroesophageal Reflux Disease , Hx Ileostomy, Other GI Disorders - CELIAC, rectal prolapse, colostomy and reversal Denies: Hx Obstructive Bowel History: Reports: Other Problems/Disorders - "bladder repair" Musculoskeletal History: Reports: Hx Back Problems, Other Musculoskeletal History - sciatica, saccroiliac joint dysfunction Denies: Hx Osteoporosis Sensory History: Reports: Hx Cataracts - 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 CERVICAL POLYP REMOVAL (1974). TUBAL LIGATION (1974). GALLBLADDER. BLADDER REPAIR (1984). UPPER LUBE COLOSTOMY REVERSAL. PROLAPSE OF RECTUM. OPEN REDUCTION OF LT ELBOW Infectious Disease History: No Infectious Disease History: Denies: Traveled Outside the [place] in Last 30 Days - Family History Known Family History: Positive: Cardiac Disease, Respiratory Disease, Other - Cancer - Social History Occupation: Retired Lives: Alone Alcohol Use: None Hx Substance Use: No Substance Use Type: Reports: None Hx Tobacco Use: Yes Smoking Status (MU): Former Smoker Review of Systems Constitutional: Negative Positive: Blurred Vision ENT: Negative Positive: Chest Pain Positive: Shortness Of Breath Gastrointestinal: Negative Genitourinary: Negative Musculoskeletal: Negative Skin: Negative Positive: Headache Psychological: Normal All Other Systems Reviewed And Are Negative: Yes Physical Exam Triage Information Reviewed: Yes Vital Signs On Initial Exam: Initial Vitals Temp Pulse Resp BP Pulse Ox 98.9 F 91 16 182/77 97 05/14/17 15:25 05/14/17 15:25 05/14/17 15:25 05/14/17 15:25 05/14/17 15:25 Vital Signs Reviewed: Yes Appearance: Positive: Well-Appearing, No Pain Distress, Obese Skin: Positive: Warm, Skin Color Reflects Adequate Perfusion, Dry Head/Face: Positive: Normal Head/Face Inspection Eyes: Positive: EOMI, EVA ENT: Positive: Normal ENT inspection, Hearing grossly normal Neck: Positive: Supple, Nontender Respiratory/Lung Sounds: Positive: Clear to Auscultation, Breath Sounds Present Cardiovascular: Positive: RRR, Pulses are Symmetrical in both Upper and Lower Extremities, Murmur Abdomen Description: Positive: Nontender, Soft Bowel Sounds: Positive: Present Musculoskeletal: Positive: Strength/ROM Intact Neurological: Positive: Normal, Sensory/Motor Intact, Alert, Oriented to Person Place, Time Psychiatric: Positive: Affect/Mood Appropriate - Carin Coma Scale Coma Scale Total: 15 Diagnostics - Vital Signs Vital Signs Temp Pulse Resp BP Pulse Ox 05/14/17 16:00 91 19 180/86 97 05/14/17 15:47 99 17 95 05/14/17 15:45 182/77 05/14/17 15:25 98.9 F 91 16 182/77 97 - Laboratory Lab Results: Lab Results 05/14/17 Range/Units 16:40 Urine Color Straw Urine Appearance Clear Urine pH 7.0 (5-9) Ur Specific [place] 1.006 L (1.010-1.030) Urine Protein Negative (Negative) Urine Ketones Negative (Negative) Urine Blood Negative (Negative) Urine Nitrate Negative (Negative) Urine Bilirubin Negative (Negative) Urine Urobilinogen Negative (Negative) Ur Leukocyte Esterase 1+ H (Negative) Urine WBC (Auto) Trace(0-5/hpf) (Absent) Urine RBC (Auto) Absent (Absent) Ur Squamous Epith Cells Present H (Absent) Urine Bacteria Absent (Absent) Urine Glucose Negative (Negative) Result Diagrams: 05/14/17 17:10 05/14/17 17:10 Lab Statement: Any lab studies that have been ordered have been reviewed, and results considered in the medical decision making process. - Radiology CXR Xray Interpretation: Positive (See Comments) - IMPRESSION: The constellation of findings favors mild pulmonary vascular congestion and interstitial edema. Radiology Interpretation Completed By: Radiologist - ED physician has reviewed this radiology report and agrees. - EKG 1520. Cardiac Rate: NL - 90bpm EKG Rhythm: Sinus Rhythm Ectopy: None EKG Interpretation: LVH Chest Pain Course/Dx - Course Course Of Treatment: Reviewed pts medication and allergy lists. High blood pressure noted. Admit hospitalist. No critical care time. - Diagnoses Provider Diagnoses: Chest pain, Left shoulder pain Discharge - Discharge Plan Condition: Stable Disposition: ADMITTED TO [facility] Referrals: Jamal Sheridan MD [Primary Care Provider] - The documentation as recorded by the Carmine chino Benjamin accurately reflects the service I personally performed and the decisions made by , Ron Cooper MD.
[2017-05-14 22:38] VITALS: BP 119/69
--- NOTE | 2017-05-15 00:40 | CONS ---
CC: Dr. Ron Cooper, Dr. Vitaliy Alvarado * CONSULTATION REPORT: DATE OF CONSULT: 05/14/17 - EMERGENCY DEPT CONSULTING PROVIDER: Dr. Ron Cooper MY ATTENDING PHYSICIAN WHILE IN THE HOSPITAL: Dr. Vitaliy Alvarado (dictated by CHAPO Steele) REASON FOR CONSULTATION: To evaluate for the appropriateness of admission. HISTORY OF PRESENT ILLNESS: Pati Ortiz is a 72-year-old female with past medical history significant for aortic stenosis, hypertension, mitochondrial myopathy, asthma, celiac disease, chronic pain, who presents today with primarily over a day of intermittent chest pain and shortness of breath that is worse with activity. The patient states that the pain is somewhat squeezing and is over "her whole heart" and is moderate in intensity. The patient states that she has had similar pain in the past and has come to the emergency department, but that this pain felt different. The patient states that she also had pain in her shoulder which was hit by an elevator door recently and she has been using more often for pushing around her rollator walker. In addition to these complaints, the patient has a myriad of other complaints including weakness, headache, nausea, dry heaves, muscle pain, blurred vision, bladder spasms, GERD, flank pain, intestinal spasms, constipation, and pain in her rectum. The patient has a long medical history and is currently being worked up for complications of her mitochondrial myopathy, including autonomic neuropathy as well as peripheral neuropathy at [facility] where she is also being evaluated for a TAVR for her aortic valve. The patient, according to reports from the [facility], had an entirely benign cardiac catheterization on 08/26/16. The patient currently has a troponin of 0.03; otherwise, her only significant laboratory findings were CRP of 6.05 and a BNP of 121. The patient's troponin is usually around 0.03 and never strays much below or above that figure. The patient, throughout the course of the interview , seems to be more concerned about her overall diagnoses than her current chest pain and states that it would actually be great if she could go home tonight. PAST MEDICAL HISTORY: 1. Aortic stenosis. 2. Hypertension. 3. Asthma. 4. Celiac disease. 5. Chronic pain. 6. Mitochondrial myopathy. 7. Traumatic rectal tear with colostomy, now reversed. 8. Migraines. PAST SURGICAL HISTORY: Cholecystectomy and colostomy with reversal. MEDICATIONS: The patient's medications are: 1. Sucralfate 1 g p.o. b.i.d. as needed. 2. MiraLAX 17 g p.o. daily as needed. 3. Ondansetron 8 mg p.o. q.6 hours as needed. 4. Levothyroxine 200 mcg p.o. daily. 5. Lactulose 30 mL p.o. daily. 6. Fluticasone 2 sprays both nares daily. 7. Senna unknown dose one tablet t.i.d. p.r.n.. 8. Docusate 100 mg p.o. b.i.d. p.r.n. 9. Calcium carbonate one tablet p.o. daily. 10. Nystatin-triamcinolone 100,000-0.1 units per gram 1 topical daily. 11. Cassie 60 mg p.o. daily. 12. Folic acid 1 mg p.o. daily. 13. L-Carnitine 500 mg p.o. daily. 14. Polyethylene glycol/polyvinyl 1 drop both eyes t.i.d. 15. Sodium chloride ophthalmic solution 1 drop left eye q.i.d. 16. Hydrocortisone suppository 25 mg per rectum b.i.d. 17. Hydrocortisone rectal 2.5% topical daily. 18. Xopenex 0.63 mg inhalation q.4 hours p.r.n. 19. EpiPen. 20. Coenzyme Q10 400 mg p.o. daily. 21. Azelastine 2 sprays nasal b.i.d. 22. Glycerin 2 g p.r. daily. 23. Robitussin 5 mL p.o. q.6 hours p.r.n. 24. Fluticasone 1 puff b.i.d. 25. Magnesium 300 mg daily. 26. Verapamil 40 mg p.o. b.i.d. 27. Zantac 150 mg p.o. b.i.d. 28. Tylenol 650 mg p.o. q.8 hours. 29. Nystatin 1000 mg p.o. q.i.d. as needed. ALLERGIES: ALBUTEROL - swelling of the face, lips, and throat FLUTICASONE, LIDOCAINE, MILK PROTEIN EXTRACT, PIRBUTEROL, SALMETEROL, AMLODIPINE, CLINDAMYCIN , IODINE, LATEX, LEVOTHYROXINE, METOPROLOL, PENICILLIN, ROFECOXIB, STREPTOMYCIN , ATENOLOL, BETA-BLOCKERS, EPINEPHRINE, HYDROCHLOROTHIAZIDE, LABETALOL, LISINOPRIL, LOSARTAN, PROPOFOL, SULFATES, TERAZOSIN, VALSARTAN, GLUTEN MEAL, IODINATED DIAGNOSTIC AGENTS. FAMILY HISTORY: The patient denies any significant family history except for "all of her family from cancer 100%." The patient states that her daughter inherited her mitochondrial myelopathy syndrome and has hypertrophic cardiomyopathy. SOCIAL HISTORY: Tobacco. The patient denies the use of tobacco, alcohol or illicit drugs. The patient does not work. The patient has 3 children and lives at [facility]. REVIEW OF SYSTEMS: Pertinent positives are recorded in the HPI. All other review of systems were negative. PHYSICAL EXAM: Vital Signs: At the time of evaluation pulse 91, oxygen saturation 95%, blood pressure 140/73, temperature on arrival 98.9, respiratory rate 20. General: The patient is a 72-year-old female who appears her stated age, sitting in the ED stretcher visibly anxious, but in no other acute distress. HEENT: Head is normocephalic and atraumatic. Sclerae anicteric. Pupils equal , round, and reactive to light. The patient has a bandage below her left eye from a basal cell carcinoma removal. Pharynx is nonerythematous. Mucous membranes moist. Neck: Supple, tender around the area of the anterior lymph node chain. No lymphadenopathy. Cardiac: 3/6 systolic ejection murmur heard best at the right second intercostal space at the sternal border. No other murmurs, clicks, gallops, or rubs. Radial, posterior tibial, and dorsalis pedis pulses 2+ bilaterally. Respiratory: Clear to auscultation bilaterally. No wheezes, rales or rhonchi. Good air exchange bilaterally. Abdomen: Nondistended, obese, tender to palpation. Bowel sounds are hyperactive in all 4 quadrants. Tender to palpation , light and deep, with apparent allodynia in all 4 quadrants. No hepatosplenomegaly. Skin: [place], dry, intact. Neuro: The patient endorses decrease in sensation on the left side of her face as well as decrease in hearing in her left ear as compared to the right. Cranial nerves II through XII otherwise intact. Cash Posting Clerk strength intact and equal bilaterally. Sensation to light touch present in both the distal upper and lower extremities. Psych: The patient is alert and oriented x3. Pleasant mood and affect despite somewhat anxious and speaks with pressured sadia. DIAGNOSTIC STUDIES/LABORATORY DATA: White blood cells 7.9, hemoglobin 14.4, hematocrit 44, platelets 223. INR 0.86, APTT 32.8. D-dimer 200. Sodium 139, potassium 4.1, chloride 103, carbon dioxide 31, anion gap 5, BUN 12, creatinine 0.73, glucose 99, AST 22, ALT 26. CK-MB 5.7, troponin I 0.03, creatine kinase 134, CRP 6.05, BNP 121, TSH 1.64. Urine: straw colored, clear, +1 leukocyte esterase, squamous epithelial cells present, all others negative. Shoulder x-ray shows moderate AC joint osteoarthritis and glenohumeral joint osteoarthritis and calcific tendinopathy of supraspinatus tendon. Chest x-ray read as a constellation of findings favors mild pulmonary vascular congestion and interstitial edema. Electrocardiogram: Left axis deviation, left ventricular hypertrophy by Sokolov - Landaverde criteria. No significant ST segment changes. Nothing else of note. IMPRESSION: The patient is a 72-year-old female with a myriad of medical complaints and a complex past medical history. The patient had an absolutely normal cardiac catheterization at the [facility] on 08/26/16. The patient has known severe aortic stenosis, which would more than adequately explain her symptoms. We would recommend drawing a final troponin. If that is negative, we would recommend sending the patient home, to follow up with the [facility] to schedule the TAVR and obtain definitive treatment for this condition. Aortic stenosis: Severe. The patient has aortic stenosis demonstrated on several echocardiograms, for which she is being currently evaluated by the [facility] for a TAVR. There is no other treatment for the patient that can be provided by this institution for this condition at this time. The patient is currently normotensive despite being hypertensive upon admission, probably due to stress of the situation. The patient is on optimal antihypertensive therapy given what her significant list of allergies allows. Mitochondrial myopathy: The patient is best served following up with experts in mitochondrial myopathy, which she is already seeing at the [facility] and obtaining a definitive diagnosis to explain her myriad of complaints. Asthma. Continue with current home regimen. Celiac disease: I would recommend continued gluten avoidance. Chronic pain. Continue with the patient's home pain medication regimen. Disposition: The patient will be discharged home by ED staff pending second negative troponin. TIME SPENT: Approximately 60 minutes were spent on this consult, 40 minutes of which was spent [id number] with the patient obtaining history and physical and explaining the treatment plan. This plan has been discussed with my attending physician, Dr. Vitaliy Alvarado; Dr. Isiah Goldsmith, the scuba instructor; and Dr. Ron Cooper, the emergency department physician and everyone is in agreement with this plan. CHAPO STEELE [id number]/[facility] #: [id number] CHANDLER
== END 2017-05-14 22:36 | disposition home or self-care (01) ==
LOC: ED 15:06
DX: R07.9 Chest pain, unspecified (principal); R06.02 Shortness of breath; Z87.891 Personal history of nicotine dependence; H53.8 Other visual disturbances; M25.512 Pain in left shoulder
CPT/HCPCS: 36415; 71010; 80053; 81003; 81015; 82550; 82553; 83605; 83690; 83735; 83880; 84443; 84484; 85025; 85379; 85610; 85730; 86140; 87086; 93005; 99283

== ENCOUNTER 2017-05-30 13:45 | Emergency (ER) | payer MEDICARE ==
[2017-05-30] MEDS ORDERED: HYDROcodone/ACETAMIN 5-325 MG* 1 TAB PO ONE (14:41)
--- NOTE | 2017-05-30 15:31 | RAD ---
INDICATION: LEFT lower rib pain since 3:00 AM. Aortic stenosis and mitral valve prolapse. History of tobacco use. COMPARISON: May 14, 2017 TECHNIQUE: Dual energy PA and routine lateral views of the chest were obtained. REPORT: Moderately coarse interstitial markings without significant change accounting for minor differences in technique. Minimal linear subsegmental atelectasis at the LEFT lower lung zone without change. No new pulmonary consolidation evident. Negative for pleural effusion or pneumothorax. Negative for cardiomegaly. Prominent central pulmonary vasculature with peripheral attenuation suspicious for pulmonary arterial hypertension. No rib fracture visualized. Multilevel osteoporotic thoracic compression fractures without change compared with a lateral chest radiograph from June 02, 2016. IMPRESSION: 1. Stigmata of probable chronic obstructive pulmonary disease and pulmonary arterial hypertension. No superimposed acute pulmonary or cardiac process evident. 2. Multilevel osteoporotic thoracic compression fractures without change compared with a lateral chest radiograph from June 02, 2016.
[2017-05-30 17:29] VITALS: BP 176/83
--- NOTE | 2017-05-31 | ED ---
Alona Collier Emily, scribed for Serg Quinones MD on 05/30/17 at 1520 . Abdominal Pain/Female - HPI Summary HPI Summary: This patient is a 72 year old F presenting to [facility] accompanied by family with a chief complaint of left rib pain since this afternoon. Pt reported hearing a pop upon reaching to open a window. Pain started immediately after pt heard the noise. The CC is described as sharp. The patient rates the pain 10/10 in severity. Symptoms aggravated by movement. Symptoms alleviated by nothing. Patient reports nausea and vomiting. - History of Current Complaint Chief Complaint: EDChestWallPain Stated Complaint: LT SIDE RIB PAIN Time Seen by Provider: 05/30/17 14:13 Hx Obtained From: Patient Onset/Duration: Sudden Onset, Lasting Hours Timing: Hours Severity Initially: Severe Severity Currently: Severe Pain Intensity: 10 Pain Scale Used: 0-10 Numeric Character: Sharp Aggravating Factor(s): Movement Alleviating Factor(s): Nothing Associated Signs and Symptoms: Positive: Nausea, Vomiting Allergies/Adverse Reactions: Allergies Allergy/AdvReac Type Severity Reaction Status Date / Time Albuterol Allergy Severe Swelling Verified 05/30/17 13:52 Of Face,Lips,& Throat Fluticasone Allergy Severe Swelling Verified 05/30/17 13:52 [From Advair Diskus] Of Face,Lips,& Throat Lidocaine Allergy Severe Swelling Verified 05/30/17 13:52 Milk Protein Extract Allergy Severe Swelling Verified 05/30/17 13:52 [From Advair Diskus] Of Face,Lips,& Throat Pirbuterol [From Maxair] Allergy Severe Swelling Verified 05/30/17 13:52 Of Face,Lips,& Throat Salmeterol Allergy Severe Swelling Verified 05/30/17 13:52 [From Advair Diskus] Of Face,Lips,& Throat Amlodipine [From Norvasc] Allergy Intermediate Swelling Verified 05/30/17 13:52 Clindamycin Allergy Intermediate Hives Verified 05/30/17 13:52 Iodine Allergy Intermediate Swelling Verified 05/30/17 13:52 Latex Allergy Intermediate Rash Verified 05/30/17 13:52 Levofloxacin [From Levaquin] Allergy Intermediate Hives Verified 05/30/17 13:52 Metoprolol [From Toprol XL] Allergy Intermediate Rash Verified 05/30/17 13:52 Penicillins [PCN] Allergy Intermediate Hives Verified 05/30/17 13:52 Rofecoxib [From Vioxx] Allergy Intermediate Hives Verified 05/30/17 13:52 Streptomycin Allergy Intermediate Hives Verified 05/30/17 13:52 Atenolol Allergy Unknown Unknown Verified 05/30/17 13:52 Reaction Details Beta Adrenergic Blockers Allergy Unknown Unknown Verified 05/30/17 13:52 Reaction Details Epinephrine Allergy Unknown Unknown Verified 05/30/17 13:52 Reaction Details Hydrochlorothiazide Allergy Unknown Unknown Verified 05/30/17 13:52 [From Hyzaar] Reaction Details Labetalol Allergy Unknown Unknown Verified 05/30/17 13:52 Reaction Details Lisinopril [From Prinivil] Allergy Unknown Unknown Verified 05/30/17 13:52 Reaction Details Losartan [From Hyzaar] Allergy Unknown Unknown Verified 05/30/17 13:52 Reaction Details Propofol Allergy Unknown Unknown Verified 05/30/17 13:52 Reaction Details Sulfites Allergy Unknown Unknown Verified 05/30/17 13:52 Reaction Details Terazosin [From Hytrin] Allergy Unknown Unknown Verified 05/30/17 13:52 Reaction Details Valsartan [From Diovan] Allergy Unknown Unknown Verified 05/30/17 13:52 Reaction Details Gluten Meal Allergy GI Upset Verified 05/30/17 13:52 Iodinated Diagnostic Agents Allergy Itching Verified 05/30/17 13:52 PMH/Surg Hx/FS Hx/Imm Hx Previously Healthy: No Endocrine/Hematology History: Denies: Hx Diabetes Cardiovascular History: Reports: Hx Hypertension, Hx Valvular Heart Disease, Other Cardiovascular Problems/Disorders - AORTIC STENOSIS, Mitral valve prolapse without regurgitation Denies: Hx Pacemaker/ICD Respiratory History: Reports: Hx Asthma, Hx Seasonal Allergies GI History: Reports: Hx Gall Bladder Disease, Hx Gastroesophageal Reflux Disease , Hx Ileostomy, Other GI Disorders - CELIAC, rectal prolapse, colostomy and reversal Denies: Hx Obstructive Bowel History: Reports: Other Problems/Disorders - "bladder repair" Musculoskeletal History: Reports: Hx Back Problems, Other Musculoskeletal History - sciatica, saccroiliac joint dysfunction Denies: Hx Osteoporosis Sensory History: Reports: Hx Cataracts - 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 CERVICAL POLYP REMOVAL (1974). TUBAL LIGATION (1974). GALLBLADDER. BLADDER REPAIR (1984). UPPER LUBE COLOSTOMY REVERSAL. PROLAPSE OF RECTUM. OPEN REDUCTION OF LT ELBOW Infectious Disease History: No Infectious Disease History: Denies: Traveled Outside the [place] in Last 30 Days - Family History Known Family History: Positive: Cardiac Disease, Respiratory Disease, Other - Cancer - Social History Occupation: Retired Lives: Alone Alcohol Use: None Hx Substance Use: No Substance Use Type: Reports: None Hx Tobacco Use: Yes Smoking Status (MU): Former Smoker Review of Systems Negative: Fever Positive: Abdominal Pain - Left rib pain, Vomiting, Nausea All Other Systems Reviewed And Are Negative: Yes Physical Exam Triage Information Reviewed: Yes Vital Signs On Initial Exam: Initial Vitals Temp Pulse Resp BP Pulse Ox 97.7 F 90 20 169/85 93 05/30/17 13:47 05/30/17 13:47 05/30/17 13:47 05/30/17 13:47 05/30/17 13:47 Vital Signs Reviewed: Yes Appearance: Positive: Well-Appearing, No Pain Distress, Obese Skin: Positive: Warm, Skin Color Reflects Adequate Perfusion, Dry Head/Face: Positive: Normal Head/Face Inspection Eyes: Positive: Normal ENT: Positive: Normal ENT inspection Neck: Positive: Supple, Nontender Cardiovascular: Positive: RRR Abdomen Description: Positive: Soft, Other: - Tender on left lower chest wall Musculoskeletal: Positive: Normal Neurological: Positive: Normal Psychiatric: Positive: Affect/Mood Appropriate - [place] Coma Scale Coma Scale Total: 15 Diagnostics - Vital Signs Vital Signs Temp Pulse Resp BP Pulse Ox 05/30/17 14:39 100 93 05/30/17 14:37 177/96 05/30/17 13:47 97.7 F 90 20 169/85 93 - Laboratory Lab Statement: Any lab studies that have been ordered have been reviewed, and results considered in the medical decision making process. - Radiology CXR Radiology Interpretation Completed By: Radiologist - CXR reveals read by radiologist reveals 1. Stigmata of probable chronic obstructive pulmonary disease and pulmonary arterial hypertension. No superimposed acute pulmonary or cardiac process evident. 2. Multilevel osteoporotic thoracic compression fractures without change compared with a lateral chest radiograph from June 02, 2016. ED physician has reviewed this radiology report and agrees. Abdominal Pain Fem Course/Dx - Course Course Of Treatment: No fracture was definitively seen on CXR but we discussed the possiblility that it has been missed. She was treated for pain and given an incentive spirometer. - Diagnoses Provider Diagnoses: Rib injury Discharge - Discharge Plan Condition: Stable Disposition: HOME Prescriptions: HYDROcodone/ACETAMIN 5-325 MG* [[place] 5-325 TAB*] 1 tab PO Q6H PRN #20 tab MDD 4 PRN Reason: Pain Patient Education Materials: Rib Fracture (ED), Rib Contusion (ED) Referrals: Jamal Sheridan MD [Primary Care Provider] - Additional Instructions: TAKE IBUPROFEN NEEDED FOR PAIN. RETURN TO THE EMERGENCY DEPARTMENT FOR CHANGING OR WORSENING SYMPTOMS. The documentation as recorded by the Alona chino Emily accurately reflects the service I personally performed and the decisions made by me, Serg Quinones MD.
== END 2017-05-30 17:28 | disposition home or self-care (01) ==
LOC: ED 13:45
DX: R11.2 Nausea with vomiting, unspecified (principal); Z87.891 Personal history of nicotine dependence; R10.9 Unspecified abdominal pain; R07.81 Pleurodynia
CPT/HCPCS: 71020; 99282

== ENCOUNTER 2017-09-17 16:28 | Emergency (ER) | payer MEDICARE ==
[2017-09-17 17:55] LABS: ABS Basophils 0 10^3/ul (0-0.2); ABS Eosinophils 0.1 10^3/ul (0-0.6); ABS Lymphocytes 1.6 10^3/ul (1.0-4.8); ABS Monocytes 0.8 10^3/ul (0-0.8); ABS Neutrophils 5.5 10^3/ul (1.5-7.7); ABS Nucleated RBC 0 10^3/ul; Eosinophil % 0.7 % (0-6); Hematocrit 45 % (35-47); Lymphocyte % 20.4 % (25-47); Mean Corpuscular HGB Conc 34 g/dl (31-36); Mean Corpuscular Hemoglobin 30 pg (27-31); Mean Corpuscular Volume 90 fL (80-97); Mean Platelet Volume 9 um3 (7.4-10.4); Nucleated Red Blood Cells % 0.2; Platelet Count 217 10^3/ul (150-450); Red Blood Count 4.96 10^6/ul (4.0-5.4); Red Cell Distribution Width 14 % (10.5-15)
[2017-09-17 18:05] LABS: INR 0.93 (0.77-1.02)
[2017-09-17 18:10] LABS: EGFR Non-African American 73.5 (>60)
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
--- NOTE | 2017-09-17 20:10 | RAD ---
INDICATION: Left elbow pain COMPARISON: None TECHNIQUE: AP, lateral, and oblique views were obtained. FINDINGS: There are no acute bony findings. There are postoperative changes about the radial head with 2 orthopedic screws. There is minor spurring about the coronoid process. The elbow articulates normally. There is no effusion. IMPRESSION: POSTOPERATIVE CHANGE. NO ACUTE BONY FINDINGS.
--- NOTE | 2017-09-17 20:11 | RAD ---
INDICATION: Left humeral pain COMPARISON: None TECHNIQUE: AP, lateral, and oblique views were obtained. FINDINGS: The bony structures, joint spaces, and soft tissues are normal for age. IMPRESSION: NO ACUTE BONY FINDINGS.
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
[2017-09-17 21:59] VITALS: BP 177/76
== END 2017-09-17 21:58 | disposition home or self-care (01) ==
LOC: ED 16:28
DX: S40.019A Contusion of unspecified shoulder, initial encounter (principal); S20.219A Contusion of unspecified front wall of thorax, initial encounter; R51 Headache; R06.02 Shortness of breath; R00.2 Palpitations; Z86.79 Personal history of other diseases of the circulatory system; Z87.891 Personal history of nicotine dependence; M79.602 Pain in left arm; V49.9XXA Car occupant (driver) (passenger) injured in unspecified traffic accident, initial encounter; Y92.9 Unspecified place or not applicable
CPT/HCPCS: 36415; 70450; 71250; 72125; 74176; 80053; 82550; 82553; 83690; 83880; 84484; 85025; 85610; 85730; 93005; 99282

== ENCOUNTER → 2017-10-04 17:28 | Emergency (ER) | payer MEDICARE ==
[2017-10-04 19:53] LABS: ABS Basophils 0.1 10^3/ul (0-0.2); ABS Eosinophils 0.1 10^3/ul (0-0.6); ABS Lymphocytes 2.1 10^3/ul (1.0-4.8); ABS Monocytes 0.8 10^3/ul (0-0.8); ABS Neutrophils 5.8 10^3/ul (1.5-7.7); ABS Nucleated RBC 0 10^3/ul; Eosinophil % 0.9 % (0-6); Hematocrit 46 % (35-47); Hemoglobin 15.6 g/dl (12.0-16.0); Lymphocyte % 23.4 % (25-47); Mean Corpuscular HGB Conc 34 g/dl (31-36); Mean Corpuscular Hemoglobin 30 pg (27-31); Mean Corpuscular Volume 91 fL (80-97); Mean Platelet Volume 9 um3 (7.4-10.4); Nucleated Red Blood Cells % 0; Platelet Count 184 10^3/ul (150-450); Red Blood Count 5.13 10^6/ul (4.0-5.4); Red Cell Distribution Width 14 % (10.5-15); White Blood Count 8.8 10^3/ul (3.5-10.8)
[2017-10-04 20:08] LABS: INR 0.86 (0.77-1.02)
--- NOTE | 2017-10-04 20:13 | RAD ---
INDICATION: Dizziness COMPARISON: N 23 2016 TECHNIQUE: An AP portable view obtained at 2006 hours is submitted. FINDINGS: Bones/Soft Tissues: There are no acute bony findings. Cardiomediastinal: The cardiomediastinal silhouette is enlarged. The pulmonary interstitium is mildly prominent Lungs: There are no infiltrates. Pleura: There are no pleural effusions. Other: None IMPRESSION: ENLARGED CARDIAC SILHOUETTE WITH MILDLY PROMINENT INTERSTITIUM, UNCHANGED.
[2017-10-04 20:15] LABS: EGFR Non-African American 79.4 (>60)
[2017-10-04 20:18] VITALS: BP 187/70
--- NOTE | 2017-10-04 20:44 | RAD ---
INDICATION: Transient ischemic attack COMPARISON: September 17, 2017 TECHNIQUE: Noncontrast axial source images were acquired from the skull base to the vertex. FINDINGS: Ventricles/sulci: The ventricles and cisterns are normal in size and configuration for age. Brain parenchyma: There is mild periventricular and subcortical white matter change compatible with chronic ischemia. Intracranial hemorrhage:None. Extra-axial spaces: There are no abnormal extra axial fluid collections or evidence of extra-axial mass. Calvarium: There is no calvarial fracture or other calvarial abnormality. Scalp: There is no evidence of scalp or extracalvarial soft tissue abnormality. Paranasal sinuses/mastoid: The paranasal sinuses and mastoid air cells are clear. Other: None. IMPRESSION: MINOR CHRONIC MICROVASCULAR ISCHEMIA. NO ACUTE FINDINGS
--- NOTE | 2017-10-04 21:44 | ED ---
Ebony Collier Thomas, scribed for Rachid Holland on 10/04/17 at 1925 . Throat Pain/Nasal Congestion - HPI Summary HPI Summary: The patient is a 72 year old female presenting to the emergency department complaining of visual disturbances in both eyes that began three days ago. She describes white lightning bolts out of both eyes and white curly-Qs. The disturbances are intermittent. She has a history of vitreous detachments in both eyes (one 15 years ago and one 6 years ago). The patient had an aortic valve replacement four days ago at [facility] and was discharged yesterday. She spoke with the nurse hotline at [facility], (phone number 1 - ), who referred her to the emergency department. The symptoms are aggravated by turning her head to the side. The patient additionally complains of arthralgia, chills, and abdominal discomfort. The patient reports that she had right-sided facial numbness three days ago that is relieved in the emergency department. The patient denies fever and extremity weakness. She is on Plavix and ASA. - History of Current Complaint Chief Complaint: EDGeneral Time Seen by Provider: 10/04/17 19:13 Hx Obtained From: Patient Onset/Duration: Lasting Days - 3, Still Present Severity: Moderate Associated Signs And Symptoms: Positive: Negative - fever, extremity weakness Cough: None Related History: Other (Noted In Comments) - Aortic valve replacement four days ago - Allergies/Home Medications Allergies/Adverse Reactions: Allergies Allergy/AdvReac Type Severity Reaction Status Date / Time Albuterol Allergy Severe Swelling Verified 09/17/17 17:05 Of Face,Lips,& Throat Fluticasone Allergy Severe Swelling Verified 09/17/17 17:05 [From Advair Diskus] Of Face,Lips,& Throat Lidocaine Allergy Severe Swelling Verified 09/17/17 17:05 Milk Protein Extract Allergy Severe Swelling Verified 09/17/17 17:05 [From Advair Diskus] Of Face,Lips,& Throat Pirbuterol [From Maxair] Allergy Severe Swelling Verified 09/17/17 17:05 Of Face,Lips,& Throat Salmeterol Allergy Severe Swelling Verified 09/17/17 17:05 [From Advair Diskus] Of Face,Lips,& Throat Amlodipine [From Norvasc] Allergy Intermediate Swelling Verified 09/17/17 17:05 Clindamycin Allergy Intermediate Hives Verified 09/17/17 17:05 Iodine Allergy Intermediate Swelling Verified 09/17/17 17:05 Latex Allergy Intermediate Rash Verified 09/17/17 17:05 Levofloxacin [From Levaquin] Allergy Intermediate Hives Verified 09/17/17 17:05 Metoprolol [From Toprol XL] Allergy Intermediate Rash Verified 09/17/17 17:05 Penicillins [PCN] Allergy Intermediate Hives Verified 09/17/17 17:05 Rofecoxib [From Vioxx] Allergy Intermediate Hives Verified 09/17/17 17:05 Streptomycin Allergy Intermediate Hives Verified 09/17/17 17:05 Atenolol Allergy Unknown Unknown Verified 09/17/17 17:05 Reaction Details Beta Adrenergic Blockers Allergy Unknown Unknown Verified 09/17/17 17:05 Reaction Details Epinephrine Allergy Unknown Unknown Verified 09/17/17 17:05 Reaction Details Hydrochlorothiazide Allergy Unknown Unknown Verified 09/17/17 17:05 [From Hyzaar] Reaction Details Labetalol Allergy Unknown Unknown Verified 09/17/17 17:05 Reaction Details Lisinopril [From Prinivil] Allergy Unknown Unknown Verified 09/17/17 17:05 Reaction Details Losartan [From Hyzaar] Allergy Unknown Unknown Verified 09/17/17 17:05 Reaction Details Propofol Allergy Unknown Unknown Verified 09/17/17 17:05 Reaction Details Sulfites Allergy Unknown Unknown Verified 09/17/17 17:05 Reaction Details Terazosin [From Hytrin] Allergy Unknown Unknown Verified 09/17/17 17:05 Reaction Details Valsartan [From Diovan] Allergy Unknown Unknown Verified 09/17/17 17:05 Reaction Details Famotidine Allergy Hives/Diff. Verified 09/17/17 17:05 Breathing/I tching Gluten Meal Allergy GI Upset Verified 09/17/17 17:05 Iodinated Diagnostic Agents Allergy Itching Verified 09/17/17 17:05 PMH/Surg Hx/FS Hx/Imm Hx Endocrine/Hematology History: Denies: Hx Diabetes Cardiovascular History: Reports: Hx Hypertension, Hx Valvular Heart Disease, Other Cardiovascular Problems/Disorders - AORTIC STENOSIS, Mitral valve prolapse without regurgitation Denies: Hx Pacemaker/ICD Respiratory History: Reports: Hx Asthma, Hx Seasonal Allergies GI History: Reports: Hx Gall Bladder Disease, Hx Gastroesophageal Reflux Disease , Hx Ileostomy, Other GI Disorders - CELIAC, rectal prolapse, colostomy and reversal Denies: Hx Obstructive Bowel History: Reports: Other Problems/Disorders - "bladder repair" Musculoskeletal History: Reports: Hx Back Problems, Other Musculoskeletal History - sciatica, saccroiliac joint dysfunction Denies: Hx Osteoporosis Sensory History: Reports: Hx Cataracts - 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 CERVICAL POLYP REMOVAL (1974). TUBAL LIGATION (1974). GALLBLADDER. BLADDER REPAIR (1984). UPPER LUBE COLOSTOMY AND REVERSAL. PROLAPSE OF RECTUM. OPEN REDUCTION OF LT ELBOW - Immunization History Immunizations Up to Date: Yes Infectious Disease History: Yes Infectious Disease History: Denies: Traveled Outside the [place] in Last 30 Days - Family History Known Family History: Positive: Cardiac Disease, Respiratory Disease, Other - Cancer - Social History Alcohol Use: None Hx Substance Use: No Substance Use Type: Reports: None Hx Tobacco Use: Yes Smoking Status (MU): Former Smoker Review of Systems Positive: Chills. Negative: Fever Positive: Other - Visual disturbances Positive: Other - Abdominal discomfort Positive: Arthralgia Positive: Numbness - right-sided facial. Negative: Weakness All Other Systems Reviewed And Are Negative: Yes Physical Exam - Summary Physical Exam Summary: Appearance: Well appearing, no pain distress Skin: warm, dry, reflects adequate perfusion Head/face: normal Eyes: EOMI, EVA ENT: normal Neck: supple, non-tender Respiratory: CTA, breath sounds present Cardiovascular: RRR, pulses symmetrical Abdomen: non-tender, soft Bowel: present Musculoskeletal: normal, strength/ROM intact Extremities: She has a bruise over the right groin. Neuro: normal, sensory motor intact, A&Ox3, NIH Stroke Scale = 0 Triage Information Reviewed: Yes Vital Signs On Initial Exam: Initial Vitals Temp Pulse Resp BP Pulse Ox 97.7 F 86 16 170/73 96 10/04/17 17:53 10/04/17 17:53 10/04/17 17:53 10/04/17 17:53 10/04/17 17:53 Vital Signs Reviewed: Yes Diagnostics - Vital Signs Vital Signs Temp Pulse Resp BP Pulse Ox 10/04/17 17:53 97.7 F 86 16 170/73 96 - Laboratory Lab Results: Lab Results 10/04/17 10/04/17 10/04/17 Range/Units 19:45 19:45 19:45 WBC 8.8 (3.5-10.8) 10^3/ul RBC 5.13 (4.0-5.4) 10^6/ul Hgb 15.6 (12.0-16.0) g/dl Hct 46 (35-47) % MCV 91 (80-97) fL MCH 30 (27-31) pg MCHC 34 (31-36) g/dl RDW 14 (10.5-15) % Plt Count 184 (150-450) 10^3/ul MPV 9 (7.4-10.4) um3 Neut % (Auto) 66.2 (38-83) % Lymph % (Auto) 23.4 L (25-47) % [place] % (Auto) 8.9 (1-9) % Eos % (Auto) 0.9 (0-6) % Baso % (Auto) 0.6 (0-2) % Absolute Neuts (auto) 5.8 (1.5-7.7) 10^3/ul Absolute Lymphs (auto) 2.1 (1.0-4.8) 10^3/ul Absolute Monos (auto) 0.8 (0-0.8) 10^3/ul Absolute Eos (auto) 0.1 (0-0.6) 10^3/ul Absolute Basos (auto) 0.1 (0-0.2) 10^3/ul Absolute Nucleated RBC 0 10^3/ul Nucleated RBC % 0 INR (Anticoag Therapy) 0.86 (0.77-1.02) APTT 36.9 H (26.0-36.3) seconds Sodium 137 (133-145) mmol/L Potassium 4.2 (3.5-5.0) mmol/L Chloride 101 (101-111) mmol/L Carbon Dioxide 29 (22-32) mmol/L Anion Gap 7 (2-11) mmol/L BUN 11 (6-24) mg/dL Creatinine 0.72 (0.51-0.95) mg/dL Est GFR ( Amer) 102.1 (>60) Est GFR (Non-Af Amer) 79.4 (>60) BUN/Creatinine Ratio 15.3 (8-20) Glucose 101 H (70-100) mg/dL Calcium 9.8 (8.6-10.3) mg/dL Total Bilirubin 0.80 (0.2-1.0) mg/dL AST 23 (13-39) U/L ALT 27 (7-52) U/L Alkaline Phosphatase 78 (34-104) U/L Total Protein 7.5 (6.4-8.9) g/dL Albumin 4.0 (3.2-5.2) g/dL Globulin 3.5 (2-4) g/dL Albumin/Globulin Ratio 1.1 (1-3) Result Diagrams: 10/04/17 19:45 10/04/17 19:45 Lab Statement: Any lab studies that have been ordered have been reviewed, and results considered in the medical decision making process. - Radiology CXR Xray Interpretation: No Acute Changes - ENLARGED CARDIAC SILHOUETTE WITH MILDLY PROMINENT INTERSTITIUM, UNCHANGED. Dr. Holland has reviewed this report. Radiology Interpretation Completed By: Radiologist - CT CT Brain CT Interpretation: No Acute Changes - MINOR CHRONIC MICROVASCULAR ISCHEMIA. NO ACUTE FINDINGS. Dr. Holland has reviewed this report. CT Interpretation Completed By: Radiologist - EKG 19:49 Cardiac Rate: NL EKG Rhythm: Sinus Rhythm - at 93 BPM EKG Interpretation: Flipped T waves. EENT Course/Dx - Course Assessment/Plan: The patient is a 72 year old female presenting to the emergency department complaining of visual disturbances in both eyes that began three days ago. Bloodwork was obtained. EKG shows sinus rhythm with flipped T waves. CT Brain shows MINOR CHRONIC MICROVASCULAR ISCHEMIA. NO ACUTE FINDINGS. CXR shows ENLARGED CARDIAC SILHOUETTE WITH MILDLY PROMINENT INTERSTITIUM, UNCHANGED. The patient will be transferred to [facility] Emergency Department because there is no ophthalmology coverage at [facility]. Dr. Michaud, ED physician at [facility], accepts the patient for transfer. Diagnosis is Vitreous detachment vs retinal detachment. - Differential Diagnoses Differential Diagnoses: Other - tia/vitrious detachment/retinal detachment/s/p aortic stenosis surgery - Diagnoses Provider Diagnoses: Vitreous detachment vs retinal detachm. - Provider Notifications Discussed Care Of Patient With: Keily - ED Physician at [facility] Time Discussed With Above Provider: 21:01 Instructed by Provider To: Transfer - Dr. Michaud accepts the patient Discharge - Discharge Plan Condition: Stable Disposition: TRANS HIGHER LVL OF CARE FAC Discharge Disposition Comment: Accepted by Dr. Michaud, [facility] ED Physician. Referrals: Ofe Beck MD [Primary Care Provider] - NIH Scale - NIH Scale Level of Consciousness: Alert/Keenly Responsive Ask Patient the Month and His/Her Age: Both Correct Ask Pt to Open/Close Eyes and Improvement Nurse/Release Non-Paretic Hand: Both Correctly Best Gaze (Only Horizontal Eye Movement): Normal Visual Field Testing: No Visual Loss Facial Paresis-Pt to Smile & Close Eyes or Grimace Symmetry: Normal/Symmetrical Motor Function - Right Arm: No Drift-Holds 10 Seconds Motor Function - Left Arm: No Drift-Holds 10 Seconds Motor Function - Right Leg: No Drift-Holds 10 Seconds Motor Function - Left Leg: No Drift-Holds 10 Seconds Limb Ataxia-Must be out of Proportion to Weakness Present: Absent Sensory (Use Pinprick to Test Arms/Legs/Trunk/Face): Normal Best Language (Describe Picture, Name Items): No Aphasia Dysarthria (Read Several Words): Normal Extinction and Inattention: No Abnormality Total Score: 0 The documentation as recorded by the Ebony chino Thomas accurately reflects the service I personally performed and the decisions made by , Rachid Holland.
== END | disposition short-term general hospital (02) ==
LOC: ED 17:28
DX: H53.9 Unspecified visual disturbance (principal); Z79.82 Long term (current) use of aspirin; Z79.02 Long term (current) use of antithrombotics/antiplatelets; I10 Essential (primary) hypertension; I34.1 Nonrheumatic mitral (valve) prolapse; J45.909 Unspecified asthma, uncomplicated
CPT/HCPCS: 36415; 70450; 71045; 80053; 85025; 85610; 85730; 93005; 99283

== ENCOUNTER → 2017-11-25 16:33 | Emergency (ER) | payer MEDICARE ==
[~2017-11-25 16:33] MED LIST: Magnesium CITRATE* 300 ML BTL PO ONE; Polyethylene Glycol 3350* 17 GM PACKET PO ONE
[2017-11-25 18:28] LABS: Hematocrit 44 % (35-47); Hemoglobin 14.6 g/dl (12.0-16.0); Mean Corpuscular HGB Conc 33 g/dl (31-36); Mean Corpuscular Hemoglobin 30 pg (27-31); Mean Corpuscular Volume 89 fL (80-97); Mean Platelet Volume 8.7 um3 (7.4-10.4); Platelet Count 194 10^3/ul (150-450); Red Cell Distribution Width 14 % (10.5-15); White Blood Count 8.3 10^3/ul (3.5-10.8)
[2017-11-25 18:42] LABS: EGFR Non-African American 73.5 (>60)
--- NOTE | 2017-11-25 18:51 | RAD ---
HISTORY: Positive bowel movements, nausea COMPARISONS: April 01, 2016 VIEWS: Frontal views of the abdomen. FINDINGS: BOWEL: There is a nonobstructive bowel gas pattern. There is a large amount of stool within the colon. CALCULI: There are no abnormal calculi. BONES AND SOFT TISSUES: Degenerative changes noted of the spine. OTHER FINDINGS: The lung bases are clear. There is no subphrenic gas. A vascular stent is noted over the expected location of the aortic outflow tract. IMPRESSION: NONOBSTRUCTIVE BOWEL GAS PATTERN. LARGE AMOUNT OF STOOL THROUGHOUT THE COLON.
[2017-11-25 20:07] LABS: Urine Appearance Clear; Urine Blood Negative (Negative); Urine Color Straw; Urine Ketones Negative (Negative); Urine Protein Negative (Negative); Urine Specific Gravity 1.003 (1.010-1.030); Urine Urobilinogen Negative (Negative)
[2017-11-25 23:48] VITALS: BP 179/106
--- NOTE | 2017-11-28 13:22 | ED ---
Dariela Collier Nilda, scribed for Blake Caba MD on 11/25/17 at 1807 . GI/ HPI - HPI Summary HPI Summary: This patient is a 72 year old F presenting to [facility] with a chief complaint of constant RLQ abd pain and constipation for the past 10 days. The patient rates the current pain 0/10 in severity. Symptoms aggravated by sitting up, and alleviated by nothing including milk of magnesia, lactulose, and other OTC medications. Patient reports swollen rectum, chills, nausea, DIAZ, parathesia in bilat LE, and joints popping (past few days). Patient states shes been trying to drink fluids but that its not enough. She notes she often has constipation after Antihistamine use and she recently used antihistamine due to seasonal allergies. Patient states allergies to medications with Poly glycol which cause rash and swelling. PMHx includes mitochondrial disease, gastroparesis and diverticulosis. - History of Current Complaint Chief Complaint: EDHypertension Stated Complaint: HIGH BLOOD PRESSURE/PAIN Hx Obtained From: Patient Onset/Duration: Started Days Ago, Still Present Timing: Constant Pain Intensity: 0 Location of Pain: RLQ Associated Signs and Symptoms: Positive: Other: - RLQ pain, constipation, swollen rectum, chills, nausea, DIAZ, parathesia in bilat LE, and joints popping ( past few days). Aggravating Factor(s): Sitting Alleviating Factor(s): Nothing - Additional Pertinent History Primary Care Physician: JEFFREY - Allergy/Home Medications Allergies/Adverse Reactions: Allergies Allergy/AdvReac Type Severity Reaction Status Date / Time MS Albuterol [Albuterol] Allergy Severe Swelling Verified 09/17/17 17:05 Of Face,Lips,& Throat MS Fluticasone Allergy Severe Swelling Verified 09/17/17 17:05 [From Advair Diskus] Of Face,Lips,& Throat MS Lidocaine [Lidocaine] Allergy Severe Swelling Verified 09/17/17 17:05 MS Milk Protein Extract Allergy Severe Swelling Verified 09/17/17 17:05 [From Advair Diskus] Of Face,Lips,& Throat MS Pirbuterol [From Maxair] Allergy Severe Swelling Verified 09/17/17 17:05 Of Face,Lips,& Throat MS Salmeterol Allergy Severe Swelling Verified 09/17/17 17:05 [From Advair Diskus] Of Face,Lips,& Throat MS Amlodipine [From Norvasc] Allergy Intermediate Swelling Verified 09/17/17 17: 05 MS Clindamycin [Clindamycin] Allergy Intermediate Hives Verified 09/17/17 17:05 MS Iodine [Iodine] Allergy Intermediate Swelling Verified 09/17/17 17:05 MS Latex [Latex] Allergy Intermediate Rash Verified 09/17/17 17:05 MS Levofloxacin Allergy Intermediate Hives Verified 09/17/17 17:05 [From Levaquin] MS Metoprolol Allergy Intermediate Rash Verified 09/17/17 17:05 [From Toprol XL] MS Penicillins [PCN] Allergy Intermediate Hives Verified 09/17/17 17:05 MS Rofecoxib [From Vioxx] Allergy Intermediate Hives Verified 09/17/17 17:05 MS Streptomycin Allergy Intermediate Hives Verified 09/17/17 17:05 [Streptomycin] MS Atenolol [Atenolol] Allergy Unknown Unknown Verified 09/17/17 17:05 Reaction Details MS Beta Adrenergic Blockers Allergy Unknown Unknown Verified 09/17/17 17:05 [Beta Adrenergic Blockers] Reaction Details MS Epinephrine [Epinephrine] Allergy Unknown Unknown Verified 09/17/17 17:05 Reaction Details MS Hydrochlorothiazide Allergy Unknown Unknown Verified 09/17/17 17:05 [From Hyzaar] Reaction Details MS Labetalol [Labetalol] Allergy Unknown Unknown Verified 09/17/17 17:05 Reaction Details MS Lisinopril [From Prinivil] Allergy Unknown Unknown Verified 09/17/17 17:05 Reaction Details MS Losartan [From Hyzaar] Allergy Unknown Unknown Verified 09/17/17 17:05 Reaction Details MS Propofol [Propofol] Allergy Unknown Unknown Verified 09/17/17 17:05 Reaction Details MS Sulfites [Sulfites] Allergy Unknown Unknown Verified 09/17/17 17:05 Reaction Details MS Terazosin [From Hytrin] Allergy Unknown Unknown Verified 09/17/17 17:05 Reaction Details MS Valsartan [From Diovan] Allergy Unknown Unknown Verified 09/17/17 17:05 Reaction Details MS Famotidine [Famotidine] Allergy Hives/Diff. Verified 09/17/17 17:05 Breathing/I tching MS Gluten Meal [Gluten Meal] Allergy GI Upset Verified 09/17/17 17:05 MS Iodinated Diagnostic Allergy Itching Verified 09/17/17 17:05 Agents [Iodinated Diagnostic Agents] Home Medications: Home Medications Aspirin EC Low Dose* [Ecotrin EC Low Dose 81 MG*] 81 mg PO QAM 11/25/17 [ History Confirmed 11/25/17] Esomeprazole(NF) [NEXium(NF)] 20 mg PO DAILY 11/25/17 [History Confirmed ] Magnesium Gluconate 500 mg PO DAILY 11/25/17 [History Confirmed 11/25/17] prednisoLONE 1% OPHTH.SUSP* [Pred Forte 1%*] 1 drop BOTH EYES DAILY 11/25/17 [ History Confirmed 11/25/17] PMH/Surg Hx/FS Hx/Imm Hx Endocrine/Hematology History: Denies: Hx Diabetes Cardiovascular History: Reports: Hx Hypertension, Hx Valvular Heart Disease, Other Cardiovascular Problems/Disorders - AORTIC STENOSIS, Mitral valve prolapse without regurgitation Denies: Hx Pacemaker/ICD Respiratory History: Reports: Hx Asthma, Hx Seasonal Allergies GI History: Reports: Hx Gall Bladder Disease, Hx Gastroesophageal Reflux Disease , Hx Ileostomy, Other GI Disorders - CELIAC, rectal prolapse, colostomy and reversal Denies: Hx Obstructive Bowel History: Reports: Other Problems/Disorders - "bladder repair" Musculoskeletal History: Reports: Hx Back Problems, Other Musculoskeletal History - sciatica, saccroiliac joint dysfunction Denies: Hx Osteoporosis Sensory History: Reports: Hx Cataracts - 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 CERVICAL POLYP REMOVAL (1974). TUBAL LIGATION (1974). GALLBLADDER. BLADDER REPAIR (1984). UPPER LUBE COLOSTOMY AND REVERSAL. PROLAPSE OF RECTUM. OPEN REDUCTION OF LT ELBOW Infectious Disease History: No Infectious Disease History: Denies: Traveled Outside the [place] in Last 30 Days - Family History Known Family History: Positive: Cardiac Disease, Respiratory Disease, Other - Cancer - Social History Alcohol Use: None Hx Substance Use: No Substance Use Type: Reports: None Hx Tobacco Use: Yes Smoking Status (MU): Former Smoker Review of Systems Positive: Chills. Negative: Fever Negative: Erythema Negative: Sore Throat Negative: Chest Pain Negative: Shortness Of Breath, Cough Positive: Abdominal Pain, Nausea, Other - constipation, swollen rectum. Negative: Vomiting Negative: dysuria, hematuria Positive: Other - joints "popping". Negative: Myalgia, Edema Negative: Rash Neurological: Other - negative dizziness Positive: Headache, Paresthesia - bilat LE All Other Systems Reviewed And Are Negative: Yes Physical Exam - Summary Physical Exam Summary: Constitutional: Well-developed, Well-nourished, Alert. (-) Distressed Skin: Warm, Dry HENT: Normocephalic; Atraumatic Eyes: Conjunctiva normal Neck: Musculoskeletal ROM normal neck. (-) JVD, (-) Stridor, (-) Tracheal deviation Cardio: Rhythm regular, rate normal, Heart sounds normal; Intact distal pulses; The pedal pulses are 2+ and symmetric. Radial pulses are 2+ and symmetric. (-) Murmur Pulmonary/Chest wall: Effort normal. (-) Respiratory distress, (-) Wheezes, (-) Rales Abd: Soft, (-) Tenderness, (+) Mild Distension, (-) Guarding, (-) Rebound Musculoskeletal: (-) Edema Lymph: (-) Cervical adenopathy Neuro: Alert, Oriented x3 Psych: Mood and affect Normal Triage Information Reviewed: Yes Vital Signs On Initial Exam: Initial Vitals Temp Pulse Resp BP Pulse Ox 96.9 F 100 20 201/96 96 11/25/17 16:48 11/25/17 16:48 11/25/17 16:48 11/25/17 16:48 11/25/17 16:48 Vital Signs Reviewed: Yes Diagnostics - Vital Signs Vital Signs Temp Pulse Resp BP Pulse Ox 11/25/17 18:01 192/92 11/25/17 17:58 92 24 97 11/25/17 17:35 161/72 11/25/17 17:26 91 95 11/25/17 17:24 176/78 11/25/17 16:48 96.9 F 100 20 201/96 96 - Laboratory Result Diagrams: 11/25/17 18:16 11/25/17 18:16 Lab Statement: Any lab studies that have been ordered have been reviewed, and results considered in the medical decision making process. - Radiology Abd XR Radiology Interpretation Completed By: Radiologist - Abd XR, per radiologist, reveals non-obstructive bowel gas pattern. Large amount of stool throughout the colon. Dr. Caba has reviewed this radiology report. - EKG 2254 Cardiac Rate: NL EKG Rhythm: Sinus Rhythm - 95 bpm EKG Interpretation: no STEMI EKG Comparison: No Significant Change Re-Evaluation - Re-Evaluation First Eval Re-Evaluation Time: 23:00 Comment: Reviewed labs, imaging, and D/C plan. Pt agreeable to D/C. GIGU Course/Dx - Course Assessment/Plan: This patient is a 72 year old F presenting to [facility] with a chief complaint of constant RLQ abd pain and constipation for the past 10 days. The patient rates the current pain 0/10 in severity. Symptoms aggravated by sitting up, and alleviated by nothing including milk of magnesia, lactulose, and other OTC medications. Patient reports swollen rectum, chills, nausea, DIAZ, parathesia in bilat LE, and joints popping (past few days). Patient states shes been trying to drink fluids but that its not enough. She notes she often has constipation after Antihistamine use and she recently used antihistamine due to seasonal allergies. Patient states allergies to medications with Poly glycol which cause rash and swelling. PMHx includes mitochondrial disease, gastroparesis and diverticulosis. An EKG reveals NSR 95 bpm, no STEMI, no change. Abd XR, per radiologist, reveals non-obstructive bowel gas pattern. Large amount of stool throughout the colon. Dr. Caba has reviewed this radiology report. I have no concern for small bowel obstruction. Patient showed no signs of toxicity in ED. Abd exam was benign. Pt tolerated PO. Pt states she is willing to take Suprep. Pt given coffee and ambulating in ED to help move bowels. Patient advised to drink prune juice and eat bananas. Pt states multiple laxatives have failed. HTN has been asymptomatic. There's no indication for change in management for HTN. We left a message with the [facility] certified concierge for her PCP office that she needs a follow up appointment. Pt will be D/C with Dx of constipation and HTN, f/u with PCP, Dr. Vazquez, and Dr. Goldsmith, and a prescription for Suprep Bowel Prep Kit. Pt understands and is agreeable with this plan. - Diagnoses Provider Diagnoses: HTN (hypertension), Constipation Discharge - Sign-Out/Discharge Documenting (check all that apply): Discharge - Discharge Plan Condition: Stable Disposition: HOME Prescriptions: Sodium, Potassium,Mag Sulfates [Suprep Bowel Prep Kit] 354 ml PO ONCE #1 [email or web address] Patient Education Materials: Constipation (ED), Hypertension (ED) Referrals: Yaakov Vazquez MD [Medical Doctor] - 3 Days Isiah Goldsmith DO [Medical Doctor] - 3 Days Ofe Beck MD [Primary Care Provider] - Additional Instructions: Follow up with Dr. Vazquez in 2-3 days. Follow up with Dr. Goldsmith in 3-5 days. RETURN TO THE EMERGENCY DEPARTMENT FOR CHANGING OR WORSENING SYMPTOMS. The documentation as recorded by the Dariela chino Nilda accurately reflects the service I personally performed and the decisions made by Rosales morrison Jerry, MD.
== END | disposition home or self-care (01) ==
LOC: ED 16:33
DX: I10 Essential (primary) hypertension (principal); K59.00 Constipation, unspecified; R10.31 Right lower quadrant pain; R11.0 Nausea; Z86.79 Personal history of other diseases of the circulatory system
CPT/HCPCS: 36415; 74018; 80053; 81003; 85027; 93005; 99283; A9270-GY

== ENCOUNTER 2018-05-06 16:17 | Emergency (ER) | payer MEDICARE ==
--- OUTSIDE RECORDS SUMMARY | 2018-05-06 16:24 | XMS REPORT ---
:1945 External Reference #:[id number] Author Organization [facility] Address [address] [place] [address] [place] [address] Phone [phone] Care Team Providers Name Role Phone Palma Slaughter MD Primary Care Physician Unavailable Payers Type Date Identification Numbers Payment Provider Subscriber Medicare Primary Policy Number: [id number] Medicare Reji Almendarez PayID: [id number] [address] [place] [address] [facility] Part B Policy Number: [id number] [facility] Reji Almendarez PayID: [id number] [address] [place] [address] Workers Compensation Effective: Policy Number: State Ajay Almendarez 2017 [id number] [employer] Onset: 2017 Group Number: [id number] [address] [place] [address] Problems Date Description Provider Status Onset: 11/07/2016 Mitochondrial myopathy Jamal Sheridan M.D.,FACP Active Note: red ragged fibers Onset: 02/13/2015 Obstructive sleep apnea of Mady Maldonado DNP, RN, Active adult [employer] Onset: 11/07/2016 Aortic stenosis, non-rheumatic Jamal Sheridan M.D., FACP Active Note: mod-severe Onset: 02/07/2016 Essential hypertension Daniella Ramos M.D. Active Onset: 02/07/2016 Age-related osteoporosis w/o Daniella Ramos M.D. Active current pathological fracture Onset: 02/07/2016 Moderate persistent asthma Daniella Ramos M.D. Active Onset: 02/07/2016 Griffith's esophagus Daniella Ramos M.D. Active Onset: 02/07/2016 Anxiety state Daniella Ramos M.D. Active Onset: 02/07/2016 Vitamin B deficiency Daniella Ramos M.D. Active Onset: 02/07/2016 Hypothyroidism Daniella Ramos M.D. Active Onset: 02/07/2016 Thoracic and lumbosacral neuritis Daniella Ramos M.D. Active Onset: 02/07/2016 Central sleep apnea syndrome Magnus Lucas M.D. Active Onset: 02/07/2016 Obesity Magnus Lucas M.D. Active Onset: 02/14/2016 Asthma without status asthmaticus Marcy Reeder MD Active Onset: 03/06/2016 Peanut-induced anaphylaxis Giulia Hanks M.D. Active Onset: 11/07/2016 Celiac disease Jamal Sheridan, Active Sathish,FACP Onset: 04/06/2017 Localized, primary osteoarthritis Miroslava Membreno M.D. Active of the pelvic region and thigh Onset: 02/07/2016 Disorder of bone Daniella Ramos M.D. Inactive Inactive: 11/07/2016 Onset: 02/07/2016 Aortic valve disorder Alan Harry M.D. Inactive Inactive: 11/07/2016 Family History Date Family Member(s) Problem(s) Comments General PGF lung/liver cancer ; PGM stomach cancer General MGF cancer of unknown origin ; MGM brain tumor Father TIA's Father Celiac Disease Father Glaucoma Father Hypertension Father Prostate Cancer Father B-cell lymphoma Onset: (age 81 Father lymphoma Years) Mother age 52 cancer Mother Ami Danlos type 4 Mother Breast Cancer Mother Migraine First Daughter Mitochondrial disease with genetic mutation, cardiomyopathy, diabetes, HTN First Brother eye cancer First Brother 76 First Brother optic neuropathy First Brother Asthma First Brother Glaucoma First Brother degenerative disc disease First Sister 48 First Sister Breast Cancer First Sister Ami Danlos type 4 First Sister Glaucoma First Sister Migraine First Sister raynauds First Sister TIA First Sister aneurysm First Sister Asthma First Sister eyelid cancer Social History Type Date Description Comments Marital Status Lives With [facility] [place], aide twice a week. Drives, also uses [employer] and [email or web address] Occupation Disabled Cigarette Use Former Cigarette Smoker ETOH Use 11/07/2016 Denies alcohol use Smoking Patient is a former smoker Recreational Drug Use Denies Drug Use Smoking when 17 years old for 2 years, then quit Daily Caffeine every other day ; herbal teas as well Daily Caffeine Comsumes on average 1 cup of decaff coffee per day Exercise Type/Frequency arm chair exercises; yoga Upper Sorbian Chi Exercise Type/Frequency Exercises sporadically General Hx Text lived in [facility] and moved to [place] after corneal transplant in 2014 to be near daughter. Allergies, Adverse Reactions, Alerts Date Description Reaction Status Severity Comments 12/15/19 Levaquin active 15 12/15/19 Aleve GI reaction active 15 12/15/19 Hyzaar active Musculosketal 15 12/15/19 Ibuprofen active GI Reaction 15 12/15/19 Latex active Rash 15 12/15/19 Lidocaine active Rash 15 12/15/19 Norvasc active dermatologic 15 reaction 12/15/19 Novocain active 15 12/15/19 Penicillin active Rash 15 12/15/19 Propofol active unknown 15 12/15/19 Streptomycin active Rash 15 12/15/19 Sulfites active Hypersensitive 15 crisis 12/15/19 Diovan active Arrhythrmias 15 12/15/19 Metoprolol active 15 11/15/19 Albuterol gi upset active Moderate 16 11/15/19 Atenolol unknown active Moderate 16 11/15/19 Cardizem CD swelling active Moderate constipation 16 11/15/19 Clindamycin Urticaria active Moderate 16 11/15/19 Epinephrine Urticaria active Moderate 16 11/15/19 Flonase Anaphylaxis active Severe 16 11/15/19 Hydrochlorothiazide unknown active Moderate 16 11/15/19 Iodine swelling active Moderate 16 11/15/19 Labetalol unknown active Moderate 16 01/15/20 Norvasc active 16 01/15/20 Hytrin active 16 05/28/20 Vioxx active 16 05/28/20 Clonidine active cognitive 16 dysfunction 06/18/20 Imdur abdominal pain, active Moderate to 16 swelling Severe 08/04/20 Hydralazine active 16 08/04/20 Isosorbide active severe reaction, 16 patient cannot recall specifics 09/05/20 Prednisone active 16 11/08/19 Macrobid active Severe 17 03/23/20 Spironolactone active severe 17 constipation, dehydration, headache, nausea 12/16/19 Peanut-containing Drug Anaphylaxis active Fatal 17 Products 01/05/[address] Bradford 17 12/15/19 Versed inactive HOSE SUSPENDER CUTTER Reaction 15 06/03/20 Verapamil inactive 16 Medications Medication Date Status Form Strength Qnty SIG Indications Ordering Provider Cassie Allergy 10/12 Active Tablets 60mg 1 by mouth Isiah S. every day Goldsmith, DO FACC [place] 05/30 Active Tablets 5-325mg 20tab 1 tab q 6 s hrs prn Ordering pain Provider Bebo Gregory 04/08 Active Misc 4 wheel M16.11 rolling librado Membreno M.D. with seat Hydrocodone-Acet 04/08 Active Tablets 5-325mg 45tab 1 tab by M25.551 Miroslava aminophen s mouth Haseeb, every 6 M.D. hours as needed for pain Ondansetron 01/21 Active Tablets 8mg 30tab take 1 by Dispers s mouth Ramos Sheridan, every 6 M.D.,FACP hours as needed for nausea Sucralfate 12/30 Active Suspension 1GM/10ML 500ml 10 milliliter Ramos Sheridan, s four M.D.,FACP times a day as needed Nystatin 12/15 Active Powder [id number] 30uni apply t/GM ts daily prn Ramos Sheridan, to M.D.,FACP affected area until rash clears Furosemide 12/15 Active Tablets 20mg 14tab take 1 s tablet Ramos Sheridan, every M.D.,FACP morning as needed Verapamil HCL 09/05 Active Tablets 40mg 360ta take2 Isiah S. bs tablet in , DO the FACC morning and 2 tab at night daily Exedrin Migraine 04/03 Active as needed Giulia Sathish Hanks Oxygen 03/25 Active Misc 1unit 1 l nc at s bedtime Ordering Provider Synthroid 02/12 Active Tablets 50mcg 120ta 4 by mouth Palma /2015 bs every day Sathish Slaughter Lactulose 02/12 Active Solution 10GM/15ML as directed as needed Anusol-HC 02/12 Active Cream 1 applicatio r twice a day or as needed Dora 128 02/12 Active Solution 2% apply 4 times a day to left eye Vitamin D 02/12 Active Tablets 50,000Uni weekly ts L-Carnitine 02/12 Active Capsules 500mg as directed, 1 dailyas needed Co-Enzyme Q10 02/12 Active Capsules 400mg 1 by mouth every day Folic Acid 02/12 Active Capsules 50mg 1 by mouth every day Nystatin-Triamci 02/12 Active Cream [id number]. apply Unknown lo 1Unit/GM- small % amount on affected areas as needed Flovent HFA Active Aerosol 220mcg/Ac inhale two Unknown t puffs by mouth twice a day Dymista Active Suspension 137-50mcg 1 spray Unknown / /Act each nostril daily Epipen JR 2-Arnaldo Active Solution 0.15mg/0. use if Unknown Auto-Inject 3ML needed for peanut allergy reaction Xopenex HFA Active Aerosol 45mcg/Act 45gm 2 puffs Marcy four times MD Varinder a day as needed Xopenex Active Nebulizer 1.25mg/3M 1 vial Unknown / L every 4 hours as needed Nystatin Oral Active Liquid 400,000/1 10 ml Unknown Suspension /0000 0ML swish and swallow twice a day as needed Tylenol Active Capsules 325mg take two tablets by mouth four times a day as needed-gen juan only Magnesium Active Capsules 300mg otc once a day Aspirin 81 Low Active Chewtabs 81mg 1 by mouth Unknown Dose /0000 every day Calcium 500 + D3 Active 1 daily Unknown Cortisone Active Tablets 25mg Unknown Acetate Bi-Pap Active at night Unknown Womens Gentle Active as needed Unknown Laxative Tussin Mucus + Active Syrup 100mg/5ML 10-20 ML Unknown Chest Congestion as needed every 4-6 hours Vitamin K Active Tablets 100mcg Unknown (Phytonadione) / Digest Gold Active Unknown / Zinc Active Tablets 50mg 0nce daily Unknown Potassium Active Tablets 99mg Unknown Lidocaine Active Cream as needed Roller Walker 04/08 Hx Misc M16.11 Miroslava Haseeb, - M.D. 04/08 Hydrocodone 04/06 Hx Tablets 5-300mg 90tab 1-2 M25.551 Miroslava Bitartrate/Aceta s tablets Haseeb, minophen - q12 hours M.D. 04/08 by mouth as needed pain Rolling Walker 04/06 Hx 1unit use at all M25.551 Miroslava s times for Haseeb, - ambulation M.D. 04/21 dx - severe r hip oa Ondansetron 01/21 Hx Tablets 8mg 30tab take 1 by Dispers s mouth Ramos Sheridan, - every 6 M.D.,FACP 01/21 hours needed for nausea Sucralfate 12/30 Hx Tablets 1gm 480ta 2 teaspoon bs by mouth Ramos Sheridan, - qid as M.Ramos,FACP 12/30 needed Magnesium 11/13 Hx Solution 1.745GM/3 1unit 1 bottle 0ML s by mouth Ramos Sheridan, - x1 (PT MJared,FACP 01/17 does not take) Nexium 11/[address] 20mg 180ca 1 by mouth ps twice a Ramos Sheridan, - day M.D.,FACP 01/22 Spironolactone 11/07 Hx Tablets 25mg 30tab 1 by mouth s every day Rmaos Sheridan, - ( pt stop M.D.,FACP 11/21 taking, last week 11/21/16 Macrobid 10/28 Hx Capsules 100mg 14cap 1 cap by N39.0 Donnell s mouth q12 Divehi, FORMULA BOTTLER - hours x 7 Verapamil HCL 08/04 Hx Tablets 40mg 90tab take one Isiah S. s tablet as Agus, DO - needed for FACC 09/05 htn Hydralazine HCL 06/19 Hx Tablets 10mg 90tab 1 by mouth Isiah S. s three Agus, DO - times a FAC 08/04 day ( stop taking ) Isosorbide 06/03 Hx Tablets ER 30mg 30tab Take 12 Isiah Cruz Mononitrate ER 24HR s tablet by Agus, DO - mouth for FACC 06/18 then start taking once daily Prednisone 05/30 Hx Tablets 10mg take as directed - 06/11 Flovent Diskus 05/30 Hx Aerosol 100mcg/Bl 1 puff ist twice a - day 11/07 Prednisone 05/29 Hx Tablets 50mg 2tabs 1 tab 12 Isiah S. hours Agus, DO - before FACC 08/07 procedure and 1 tab 1 hour before procedure. Verapamil HCL ER 05/28 Hx Caps ER 100mg 30cap Take 12 I10 Isiah S. 24HR s tablet by Agus, DO - mouth for FACC 05/28 and if well tolerated increase to once daily Verapamil HCL 05/28 Hx Tablets 120mg 1 by mouth I10 Isiah S. every Goldsmith, DO - morning FACC 05/28 and 1 tab by mouth every night Verapamil HCL ER 05/28 Hx Tablets ER 120mg 30tab Take 2 Isiah S. s tablet by Agus, DO - mouth for FACC 06/03 and if well tolerated increase to once daily Aldactone 04/03 Hx Tablets 25mg 40tab 1/2 by Alan /2015 s mouth Gladys Soares M.D. 05/01 Xifaxan 02/12 Hx Tablets 550mg 1 by mouth twice a - day 02/12 Hydrocodone-Acet 01/14 Hx Tablets 5-325mg 45tab 1-2 by Cara.[id number] Shy aminophen s mouth per Sofia, - day as FORMULA BOTTLER 06/02 needed Fluticasone 12/12 Hx Suspension 50mcg/Act 16gm 1 Daniella Propionate intranasal Ramos, - puff to Sathish 03/25 nostril daily Ranitidine 150 12/05 Hx Tablets 150mg 60tab 1 tab by K22.70 Daniella Maximum Strength /2015 s mouth 2x Richard, - per dayas Sathish 03/24 needed for reflux Flonase Allergy 02/12 Hx Suspension 50mcg/Act 1 Richard, Relief intranasal Daniella, - puff to 12/12 each nostril daily Xopenex HFA 02/12 Hx Aerosol 45mcg/Act 2 puffs as needed - 11/14 Xopenex 02/12 Hx Nebulizer 0.63mg/3M 72ml 1 vial Daniella /2014 L every 4-6 Richard - hours as Sathish 05/28 needed code j45.20 last visit 12/06/15. Dulera 02/12 Hx Aerosol 100-5mcg/ 2 puff Act twice a - day 01/14 Carafate 02/12 Hx Suspension 1GM/10ML 420ml 2 teaspoon Jamal by mouth Ramos Sheridan, - qid as Sathish,FACP 12/30 needed Miralax 02/12 Hx Packet [id number] 17 gm every day - as needed 01/06 Glycerin (Adult) 02/12 Hx Suppository 2gm tid after eating - 01/06 Cortisone Cream 02/12 Hx 2.5% apply rectally - as needed 01/06 Hypotears 02/12 Hx Solution 1-1% instill 1 drop both - eyes three 01/06 times day(per pt up to 7 times a day) Optivar 08 Hx as needed in left - eye 01/22 Claritin 08 Hx Liquid as needed Unknown as - directed 12/05 Nexium [address] 40mg 1 by mouth every day - 11/14 Meloxicam 0000 Hx Tablets 7.5mg take 1 tab Unknown /0000 by mouth - two t imes 01/14 a day with food Cassie Allergy 0000 Hx Tablets 60mg 1 by mouth Unknown /0000 every day - prn 01/06 Calcium 500+D Hx Tablets 500-400mg 1 by mouth Unknown High Potency /0000 -Unit daily - 08/07 Verapamil HCL Hx Tablets 40mg 1 by mouth Unknown /0000 every day - 03/24 Colace Hx Capsules 100mg 1 by mouth Unknown /0000 up to 3 - times a Senna / Hx Tablets 8.6mg 1 po tid Unknown / prn does - not 01/22 with other meds Metronidazole Hx Tablets 250mg 1 po qid Unknown / - 03/24 Ondansetron HCL Hx Tablets 8mg 30tab take 1 by Jamal / s mouth Ramos Sheridan, - every 6 M.D.,FACP 01/21 hours needed for nausea Hx Tablets 16.2mg 1/2 po Unknown / every 6 - hours prn 08/07 abd Fluorometholone Hx Suspension 0.1% Unknown / - 03/24 Linzess Hx Unknown / - 03/[address] 40mg 1 by mouth Unknown /0000 every - day(pt not 08/07 every day only when on Abt and when doctor puts pt back on it) Cardizem Hx Tablets 30mg 60tab 1 tablet Alan / s twice a Aurea Harry, - day (held M.D. 05/24 by pt since 05/24/16 due to possible allergic reaction) Azithromycin 00 Hx Tablets 250mg 2 tabs by Unknown /0000 mouth - every day 06/11 x1 day, tab by mouth every day x 4 days Prednisolone Hx Suspension 1% 1 gtt Weisenthal Acetate / Right eye , Tim, - only daily 10/09 Ranitidine 150 Hx Tablets 150mg one by Unknown Maximum Strength /0000 mouth - twice a 11/07 day ( taking) Hydrocortisone Hx Cream 2.5% Unknown / applied to - rectum as 01/06 Claritin 00/00 Hx Tablets 10mg 1 by mouth Unknown /0000 every day - as needed 10/09 Clopidogrel Hx Tablets 75mg 1 daily Unknown Bisulf /0000 - 01/22 Colace Hx Capsules 100mg 1 tab by Unknown /0000 mouth 2-3 - times a 01/22 day needed Vital Signs Date Vital Result Comment 04/20/2018 Height 66 inches 5'6" Weight 245.00 lb Heart Rate 88 /min BP Systolic Sitting 176 mmHg Lue lg cuff BP Diastolic Sitting 80 mmHg Lue lg cuff BP Systolic Standing 178 mmHg Lue lg cuff BP Diastolic Standing 88 mmHg Lue lg cuff BMI (Body Mass Index) 39.5 kg/m2 Ejection Fraction 60-65% Echo 10/30/17 04/15/2018 Height 66 inches 5'6" Weight 245.00 lb Heart Rate 102 /min BP Systolic Sitting 160 mmHg BP Diastolic Sitting 86 mmHg Respiratory Rate 14 /min O2 % BldC Oximetry 95 % BMI (Body Mass Index) 39.5 kg/m2 03/24/2018 Height 66 inches 5'6" Weight 246.12 lb Heart Rate 80 /min BP Systolic Sitting 160 mmHg Lue large cuff BP Diastolic Sitting 78 mmHg Lue large cuff Respiratory Rate 16 /min O2 % BldC Oximetry 96 % BMI (Body Mass Index) 39.7 kg/m2 01/22/2018 Height 66 inches 5'6" Weight 241.00 lb Heart Rate 91 /min BP Systolic 160 mmHg BP Diastolic 86 mmHg Body Temperature 98.8 F O2 % BldC Oximetry 95 % BMI (Body Mass Index) 38.9 kg/m2 10/12/2017 Height 66 inches 5'6" Weight 244.25 lb without shoes Heart Rate 82 /min irreg BP Systolic Sitting 170 mmHg Rue lg cuff BP Diastolic Sitting 90 mmHg Rue lg cuff BP Systolic Standing 180 mmHg Rue lg cuff BP Diastolic Standing 82 mmHg Rue lg cuff Respiratory Rate 17 /min BMI (Body Mass Index) 39.4 kg/m2 09/25/2017 Height 65 inches 5'5" Weight 248.00 lb Heart Rate 55 /min Respiratory Rate 18 /min Body Temperature 98.3 F Pain Level 10 BMI (Body Mass Index) 41.3 kg/m2 04/21/2017 Heart Rate 106 /min BP Systolic Sitting 170 mmHg BP Diastolic Sitting 92 mmHg Body Temperature 98.7 F O2 % BldC Oximetry 96 % 04/06/2017 Height 68 inches 5'8" Weight 252.00 lb Heart Rate 100 /min BP Systolic 162 mmHg BP Diastolic 96 mmHg Respiratory Rate 20 /min Body Temperature 98.7 F Pain Level 7 BMI (Body Mass Index) 38.3 kg/m2 04/01/2017 Height 68 inches 5'8" Weight 252.12 lb Heart Rate 102 /min BP Systolic 156 mmHg BP Diastolic 84 mmHg Body Temperature 98.4 F O2 % BldC Oximetry 91 % BMI (Body Mass Index) 38.3 kg/m2 2017 Weight 251.50 lb Heart Rate 94 /min BP Systolic Sitting 168 mmHg BP Diastolic Sitting 94 mmHg Body Temperature 98.4 F O2 % BldC Oximetry 96 % 12/15/2016 Weight 253.00 lb Heart Rate 106 /min BP Systolic Sitting 190 mmHg 185/96 on home unit BP Diastolic Sitting 96 mmHg 185/96 on home unit BP Systolic Recheck 170 mmHg BP Diastolic Recheck 86 mmHg Body Temperature 99.1 F O2 % BldC Oximetry 97 % 11/27/2016 Weight 254.00 lb with shoes Heart Rate 90 /min BP Systolic Sitting 160 mmHg Lue lg cuff BP Diastolic Sitting 90 mmHg Lue lg cuff BP Systolic Standing 160 mmHg Lue lg cuff BP Diastolic Standing 94 mmHg Lue lg cuff Respiratory Rate 17 /min Ejection Fraction >54% date 08/25/16 ECHO 11/07/2016 Weight 250.50 lb Heart Rate 105 /min BP Systolic 180 mmHg BP Diastolic 94 mmHg BP Systolic Recheck 180 mmHg BP Diastolic Recheck 88 mmHg Body Temperature 98.4 F O2 % BldC Oximetry 94 % 10/28/2016 Weight 248.00 lb Heart Rate 100 /min BP Systolic Sitting 144 mmHg BP Diastolic Sitting 90 mmHg Respiratory Rate 14 /min Body Temperature 98.1 F O2 % BldC Oximetry 96 % 09/05/2016 Weight 246.00 lb Heart Rate 92 /min BP Systolic Sitting 164 mmHg LA large cuff BP Diastolic Sitting 88 mmHg LA large cuff BP Systolic Standing 170 mmHg LA BP Diastolic Standing 90 mmHg LA Respiratory Rate 18 /min 08/04/2016 Weight 252.00 lb with shoes Heart Rate 86 /min BP Systolic 178 mmHg Rue lg cuff BP Diastolic 92 mmHg Rue lg cuff BP Systolic Sitting 170 mmHg Lue lg cuff BP Diastolic Sitting 82 mmHg Lue lg cuff Respiratory Rate 16 /min 06/11/2016 Weight 251.00 lb Heart Rate 96 /min BP Systolic Sitting 184 mmHg BP Diastolic Sitting 86 mmHg Body Temperature 98.2 F O2 % BldC Oximetry 96 % 06/02/2016 Height 68 inches 5'8" Weight 250.50 lb Heart Rate 112 /min BP Systolic Sitting 210 mmHg made aware BP Diastolic Sitting 106 mmHg made aware Respiratory Rate 20 /min O2 % BldC Oximetry 98 % BMI (Body Mass Index) 38.1 kg/m2 05/28/2016 Height 68 inches 5'8" Weight 250.50 lb no shoes Heart Rate 92 /min BP Systolic Sitting 168 mmHg Ra lrg cuff BP Diastolic Sitting 90 mmHg Ra lrg cuff BP Systolic Standing 162 mmHg Ra lrg cuff BP Diastolic Standing 100 mmHg Ra lrg cuff Respiratory Rate 18 /min BMI (Body Mass Index) 38.1 kg/m2 Ejection Fraction 55-60% 03/21/16 04/03/2016 Weight 245.00 lb Heart Rate 107 /min BP Systolic Sitting 180 mmHg BP Diastolic Sitting 94 mmHg Body Temperature 99.3 F 03/25/2016 Height 64.5 inches 5'4.50" Weight 246.25 lb w/o shoes Heart Rate 84 /min BP Systolic Sitting 198 mmHg LA lg cuff BP Diastolic Sitting 98 mmHg LA lg cuff BMI (Body Mass Index) 41.6 kg/m2 Ejection Fraction 55-60% Echo 03/21/16 02/27/2016 Height 64.5 inches 5'4.50" Weight 244.00 lb Pain Level 2 BMI (Body Mass Index) 41.2 kg/m2 02/14/2016 Height 64.5 inches 5'4.50" Weight 244.00 lb Heart Rate 97 /min BP Systolic 178 mmHg BP Diastolic 94 mmHg Respiratory Rate 14 /min O2 % BldC Oximetry 98 % BMI (Body Mass Index) 41.2 kg/m2 01/25/2016 Height 64.5 inches 5'4.50" Weight 244.00 lb Pain Level 10 BMI (Body Mass Index) 41.2 kg/m2 01/15/2016 Weight 244.00 lb Heart Rate 102 /min BP Systolic Sitting 156 mmHg BP Diastolic Sitting 83 mmHg Body Temperature 98.4 F 12/18/2015 Height 64.5 inches 5'4.50" Weight 240.25 lb with shoes Heart Rate 86 /min BP Systolic 198 mmHg LA lrg cuff BP Diastolic 106 mmHg LA lrg cuff BP Systolic Sitting 198 mmHg LA repeat sitting BP Diastolic Sitting 98 mmHg LA repeat sitting BMI (Body Mass Index) 40.6 kg/m2 Ejection Fraction 55%- 60% Echocardiogram 03/01/15 12/06/2015 Height 64.5 inches 5'4.50" Weight 244.00 lb Heart Rate 101 /min BP Systolic 162 mmHg BP Diastolic 80 mmHg Body Temperature 98.7 F O2 % BldC Oximetry 96 % BMI (Body Mass Index) 41.2 kg/m2 11/15/2015 Height 64.5 inches 5'4.50" Weight 245.00 lb Heart Rate 104 /min BP Systolic 171 mmHg BP Diastolic 89 mmHg Body Temperature 99.4 F O2 % BldC Oximetry 95 % BMI (Body Mass Index) 41.4 kg/m2 09/25/2015 Height 68 inches 5'8" Weight 240.00 lb Heart Rate 95 /min BP Systolic Sitting 158 mmHg BP Diastolic Sitting 96 mmHg Respiratory Rate 18 /min O2 % BldC Oximetry 95 % BMI (Body Mass Index) 36.5 kg/m2 05/11/2015 Heart Rate 102 /min BP Systolic Sitting 166 mmHg BP Diastolic Sitting 92 mmHg O2 % BldC Oximetry 97 % 02/13/2015 Height 68 inches 5'8" Weight 237.00 lb Heart Rate 100 /min BP Systolic Sitting 150 mmHg BP Diastolic Sitting 90 mmHg Respiratory Rate 20 /min O2 % BldC Oximetry 98 % BMI (Body Mass Index) 36.0 kg/m2 12/14/2014 Height 68 inches 5'8" Weight 238.25 lb Heart Rate 95 /min BP Systolic Sitting 176 mmHg BP Diastolic Sitting 102 mmHg Respiratory Rate 20 /min Body Temperature 99.3 F O2 % BldC Oximetry 97 % BMI (Body Mass Index) 36.2 kg/m2 Neck Circumference in inches 15.5 Results Test Date Test Result H/L Range Note Comp Metabolic Panel 02/08/2018 Sodium 140 mmol/L 139-145 Potassium 4.3 mmol/L 3.5-5.0 Chloride 101 mmol/L 101-111 Co2 Carbon Dioxide 29 mmol/L 22-32 Anion Gap 10 mmol/L 2-11 Glucose 91 mg/dL 70-100 Blood Urea Nitrogen 11 mg/dL 6-24 Creatinine 0.73 mg/dL 0.51-0.95 BUN/Creatinine Ratio 15.1 8-20 Calcium 9.1 mg/dL 8.6-10.3 Total Protein 6.8 g/dL 6.4-8.9 Albumin 4.0 g/dL 3.2-5.2 Globulin 2.8 g/dL 2-4 Albumin/Globulin Ratio 1.4 1-3 Total Bilirubin 0.60 mg/dL 0.2-1.0 Alkaline Phosphatase 87 U/L 34-104 Alt 23 U/L 7-52 Ast 22 U/L 13-39 Egfr Non- 77.9 >60 Egfr 100.2 >60 1 CBC Auto Diff 02/08/2018 White Blood Count 6.3 10^3/uL 3.5-10.8 Red Blood Count 5.02 10^6/uL 4.0-5.4 Hemoglobin 15.4 g/dL 12.0-16.0 Hematocrit 46 % 35-47 Mean Corpuscular Volume 91 fL 80-97 Mean Corpuscular Hemoglobin 31 pg 27-31 Mean Corpuscular HGB Conc 34 g/dL 31-36 Red Cell Distribution Width 15 % 10.5-15 Platelet Count 200 10^3/uL 150-450 Mean Platelet Volume 8.8 um3 7.4-10.4 Abs Neutrophils 3.6 10^3/uL 1.5-7.7 Abs Lymphocytes 1.8 10^3/uL 1.0-4.8 Abs Monocytes 0.8 10^3/uL 0-0.8 Abs Eosinophils 0.1 10^3/uL 0-0.6 Abs Basophils 0 10^3/uL 0-0.2 Abs Nucleated RBC 0 10^3/uL Granulocyte % 57.3 % 38-83 Lymphocyte % 28.2 % 25-47 Monocyte % 13.0 % High 0-7 Eosinophil % 1.1 % 0-6 Basophil % 0.4 % 0-2 Nucleated Red Blood Cells % 0 Laboratory test finding 05/14/2017 Troponin-I (TnI) 0.03 ng/mL <0.04 Urine Culture And 05/14/2017 Urine Culture SEE RESULT BELOW 2 Sensitivities CBC Auto Diff 05/14/2017 White Blood Count 7.9 10^3/uL 3.5-10.8 Red Blood Count 4.83 10^6/uL 4.0-5.4 Hemoglobin 14.4 g/dL 12.0-16.0 Hematocrit 44 % 35-47 Mean Corpuscular Volume 91 fL 80-97 Mean Corpuscular Hemoglobin 30 pg 27-31 Mean Corpuscular HGB Conc 33 g/dL 31-36 Red Cell Distribution Width 15 % 10.5-15 Platelet Count 223 10^3/uL 150-450 Mean Platelet Volume 9 um3 7.4-10.4 Abs Neutrophils 5.0 10^3/uL 1.5-7.7 Abs Lymphocytes 2.1 10^3/uL 1.0-4.8 Abs Monocytes 0.6 10^3/uL 0-0.8 Abs Eosinophils 0.1 10^3/uL 0-0.6 Abs Basophils 0.1 10^3/uL 0-0.2 Abs Nucleated RBC 0 10^3/uL Granulocyte % 63.0 % 38-83 Lymphocyte % 27.1 % 25-47 Monocyte % 7.9 % 1-9 Eosinophil % 1.1 % 0-6 Basophil % 0.9 % 0-2 Nucleated Red Blood Cells % 0 Inr/Protime 05/14/2017 Inr 0.86 Low 0.89-1.11 Laboratory test finding 05/14/2017 Partial Thrombo Time 32.8 seconds 26.0 -36.3 PTT D Dimer Quantitative < 200 ng/mL Less Than 230 3 Lactic Acid 0.8 mmol/L 0.5-2.0 4 B-Type Natriuretic Peptide BNP 121 pg/mL High 5 Comp Metabolic Panel 05/14/2017 Sodium 139 mmol/L 133-145 Potassium 4.1 mmol/L 3.5-5.0 Chloride 103 mmol/L 101-111 Co2 Carbon Dioxide 31 mmol/L 22-32 Anion Gap 5 mmol/L 2-11 Glucose 99 mg/dL 70-100 Blood Urea Nitrogen 12 mg/dL 6-24 Creatinine 0.73 mg/dL 0.51-0.95 BUN/Creatinine Ratio 16.4 8-20 Calcium 9.1 mg/dL 8.6-10.3 Total Protein 6.7 g/dL 6.4-8.9 Albumin 3.7 g/dL 3.2-5.2 Globulin 3.0 g/dL 2-4 Albumin/Globulin Ratio 1.2 1-3 Total Bilirubin 0.60 mg/dL 0.2-1.0 Alkaline Phosphatase 81 U/L 34-104 Alt 26 U/L 7-52 Ast 22 U/L 13-39 Egfr Non- 78.1 >60 Egfr 100.5 >60 6 Laboratory test finding 05/14/2017 Magnesium 2.0 mg/dL 1.9-2.7 Lipase 24 U/L 11.0-82.0 Creatine Kinase(CK) 134 U/L 10-223 C Reactive Protein 6.05 mg/L High < 5.00 7 Troponin-I (TnI) 0.03 ng/mL <0.04 CKMB 05/14/2017 CKMB ng/mL 5.7 ng/mL 0.6-6.3 Laboratory test finding 05/14/2017 TSH (Thyroid Stim Horm) 1.64 mcIU/mL 0.34-5.60 Urinalysis Profile 05/14/2017 Urine Color Straw Urine Appearance Clear Urine Specific [place] 1.006 Low 1.010-1.030 Urine pH 7.0 5-9 Urine Urobilinogen Negative Negative Urine Ketones Negative Negative Urine Protein Negative Negative Urine Leukocytes 1+ Negative Urine Blood Negative Negative Urine Nitrite Negative Negative Urine Bilirubin Negative Negative Urine Glucose Negative Negative Urine White Blood Cell Trace(0-5/hpf) Absent Urine Red Blood Cell Absent Absent Urine Bacteria Absent Absent Urine Squamous Epithelial Cell Present Absent Vitamin B12 And Folate Serum 04/10/2017 Vitamin B12 > 1450 pg/mL High 180- 914 8 Folic Acid (Folate) 11.91 ng/mL >3.99 Laboratory test finding 04/10/2017 Vitamin D Total 25(Oh) 34.6 ng/mL 30- 50 Basic Metabolic Panel 04/10/2017 Sodium 138 mmol/L 133-145 Potassium 4.2 mmol/L 3.5-5.0 Chloride 102 mmol/L 101-111 Co2 Carbon Dioxide 30 mmol/L 22-32 Anion Gap 6 mmol/L 2-11 Glucose 99 mg/dL 70-100 Blood Urea Nitrogen 9 mg/dL 6-24 Creatinine 0.74 mg/dL 0.51-0.95 BUN/Creatinine Ratio 12.2 8-20 Calcium 9.1 mg/dL 8.6-10.3 Egfr Non- 76.9 >60 Egfr 98.9 >60 9 Laboratory test finding 04/10/2017 Magnesium 2.1 mg/dL 1.9-2.7 Laboratory test finding 02/23/2017 Uric Acid 4.5 mg/dL 2.3-6.6 Basic Metabolic Panel 02/23/2017 Sodium 136 mmol/L 133-145 Potassium 4.2 mmol/L 3.5-5.0 Chloride 100 mmol/L Low 101-111 Co2 Carbon Dioxide 28 mmol/L 22-32 Anion Gap 8 mmol/L 2-11 Glucose 104 mg/dL High 70-100 Blood Urea Nitrogen 9 mg/dL 6-24 Creatinine 0.71 mg/dL 0.51-0.95 BUN/Creatinine Ratio 12.7 8-20 Calcium 9.2 mg/dL 8.6-10.3 Egfr Non- 80.7 >60 Egfr 103.8 >60 10 Laboratory test finding 02/23/2017 Erythrocyte Sed Rate 20 mm/Hr 0-40 Laboratory test finding 12/04/2016 B-Type Natriuretic Peptide 148 pg/mL High 11 BNP Urinalysis Profile 12/04/2016 Urine Color Straw Urine Appearance Clear Urine Specific [place] 1.005 Low 1.010-1.030 Urine pH 8.0 5-9 Urine Urobilinogen Negative Negative Urine Ketones Negative Negative Urine Protein Negative Negative Urine Leukocytes Negative Negative Urine Blood Negative Negative Urine Nitrite Negative Negative Urine Bilirubin Negative Negative Urine Glucose Negative Negative Laboratory test finding 12/04/2016 Lactic Acid 1.0 mmol/L 0.5-2.0 12 CBC Auto Diff 12/04/2016 White Blood Count 7.7 10^3/uL 3.5-10.8 Red Blood Count 4.96 10^6/uL 4.0-5.4 Hemoglobin 13.8 g/dL 12.0-16.0 Hematocrit 43 % 35-47 Mean Corpuscular Volume 86 fL 80-97 Mean Corpuscular Hemoglobin 28 pg 27-31 Mean Corpuscular HGB Conc 32 g/dL 31-36 Red Cell Distribution Width 15 % 10.5-15 Platelet Count 221 10^3/uL 150-450 Mean Platelet Volume 9 um3 7.4-10.4 Abs Neutrophils 4.9 10^3/uL 1.5-7.7 Abs Lymphocytes 1.9 10^3/uL 1.0-4.8 Abs Monocytes 0.8 10^3/uL 0-0.8 Abs Eosinophils 0.1 10^3/uL 0-0.6 Abs Basophils 0 10^3/uL 0-0.2 Abs Nucleated RBC 0 10^3/uL Granulocyte % 63.8 % 38-83 Lymphocyte % 24.9 % Low 25-47 Monocyte % 9.8 % High 1-9 Eosinophil % 1.1 % 0-6 Basophil % 0.4 % 0-2 Nucleated Red Blood Cells % 0 Laboratory test finding 12/04/2016 Troponin-I (TnI) 0.03 ng/mL <0.04 13 Comp Metabolic Panel 12/04/2016 Sodium 138 mmol/L 133-145 Potassium 4.2 mmol/L 3.5-5.0 Chloride 102 mmol/L 101-111 Co2 Carbon Dioxide 30 mmol/L 22-32 Anion Gap 6 mmol/L 2-11 Glucose 102 mg/dL High 70-100 Blood Urea Nitrogen 9 mg/dL 6-24 Creatinine 0.75 mg/dL 0.51-0.95 BUN/Creatinine Ratio 12.0 8-20 Calcium 9.3 mg/dL 8.6-10.3 Total Protein 7.0 g/dL 6.4-8.9 Albumin 3.9 g/dL 3.2-5.2 Globulin 3.1 g/dL 2-4 Albumin/Globulin Ratio 1.3 1-3 Total Bilirubin 0.70 mg/dL 0.2-1.0 Alkaline Phosphatase 71 U/L 34-104 Alt 25 U/L 7-52 Ast 22 U/L 13-39 Egfr Non- 76.0 >60 Egfr 97.7 >60 14 Laboratory test finding 12/04/2016 Magnesium 2.1 mg/dL 1.9-2.7 C Reactive Protein 8.09 mg/L High < 5.00 15 TSH (Thyroid Stim Horm) 0.94 mcIU/mL 0.34-5.60 Ua Routine 10/28/2016 Ua Specific [place] 1.005 Ua PH 7 Ua Color yellow Ua Appera cloudy Ua WBC small Ua Protein neg Ua Glucose neg Ua Ketones neg Ua Bilirubin neg Ua Urobilinogen norm Ua Nitrite neg Ua Occult Blood neg Urine Culture And 10/28/2016 Urine Culture SEE RESULT BELOW 16 Sensitivities Laboratory test finding 07/16/2016 TSH (Thyroid Stim 1.67 mcIU/mL 0.34- 5.60 Horm) T3 Free 3.20 pg/mL 2.5-3.9 Free T4 (Free Thyroxine) 1.04 ng/dL 0.61-1.12 Laboratory test finding 06/17/2016 Latex Allergen IgE <0.35 kU/L 17 Laboratory test finding 06/06/2016 Lactic Acid 1.9 mmol/L 0.5-2.0 18 Comp Metabolic Panel 06/06/2016 Sodium 137 mmol/L 133-145 Potassium 3.9 mmol/L 3.5-5.0 Chloride 101 mmol/L 101-111 Co2 Carbon Dioxide 28 mmol/L 22-32 Anion Gap 8 mmol/L 2-11 Glucose 116 mg/dL High 70-100 Blood Urea Nitrogen 10 mg/dL 6-24 Creatinine 0.69 mg/dL 0.51-0.95 BUN/Creatinine Ratio 14.5 8-20 Calcium 9.1 mg/dL 8.6-10.3 Total Protein 7.1 g/dL 6.4-8.9 Albumin 4.0 g/dL 3.2-5.2 Globulin 3.1 g/dL 2-4 Albumin/Globulin Ratio 1.3 1-3 Total Bilirubin 0.50 mg/dL 0.2-1.0 Alkaline Phosphatase 82 U/L 34-104 Alt 31 U/L 7-52 Ast 23 U/L 13-39 Egfr Non- 83.6 >60 Egfr 107.6 >60 19 Laboratory test finding 06/06/2016 Troponin-I (TnI) 0.03 ng/mL High <0.03 20 CBC Auto Diff 06/06/2016 White Blood Count 6.6 10^3/uL 3.5-10.8 Red Blood Count 5.01 10^6/uL 4.0-5.4 Hemoglobin 14.8 g/dL 12.0-16.0 Hematocrit 45 % 35-47 Mean Corpuscular Volume 90 fL 80-97 Mean Corpuscular Hemoglobin 30 pg 27-31 Mean Corpuscular HGB Conc 33 g/dL 31-36 Red Cell Distribution Width 14 % 10.5-15 Platelet Count 242 10^3/uL 150-450 Mean Platelet Volume 9 um3 7.4-10.4 Abs Neutrophils 4.2 10^3/uL 1.5-7.7 Abs Lymphocytes 1.7 10^3/uL 1.0-4.8 Abs Monocytes 0.5 10^3/uL 0-0.8 Abs Eosinophils 0.1 10^3/uL 0-0.6 Abs Basophils 0 10^3/uL 0-0.2 Abs Nucleated RBC 0.01 10^3/uL Granulocyte % 64.1 % 38-83 Lymphocyte % 26.4 % 25-47 Monocyte % 7.6 % 1-9 Eosinophil % 1.3 % 0-6 Basophil % 0.6 % 0-2 Nucleated Red Blood Cells % 0.1 Inr/Protime 06/06/2016 Inr 0.92 0.89-1.11 Urinalysis Profile 06/06/2016 Urine Color Straw Urine Appearance Clear Urine Specific [place] 1.005 Low 1.010-1.030 Urine pH 7.0 5-9 Urine Urobilinogen Negative Negative Urine Ketones Negative Negative Urine Protein Negative Negative Urine Leukocytes Negative Negative Urine Blood Negative Negative Urine Nitrite Negative Negative Urine Bilirubin Negative Negative Urine Glucose Negative Negative Laboratory test finding 06/06/2016 B-Type Natriuretic Peptide 89 pg/mL 21 BNP Laboratory test finding 06/02/2016 Troponin-I (TnI) 0.02 ng/mL <0.03 22 Creatine Kinase(CK) 155 U/L 10-223 Blood Culture SEE RESULT BELOW 23 Comp Metabolic Panel 06/02/2016 Sodium 135 mmol/L 133-145 Potassium 3.6 mmol/L 3.5-5.0 Chloride 99 mmol/L Low 101-111 Co2 Carbon Dioxide 26 mmol/L 22-32 Anion Gap 10 mmol/L 2-11 Glucose 172 mg/dL High 70-100 Blood Urea Nitrogen 10 mg/dL 6-24 Creatinine 0.71 mg/dL 0.51-0.95 BUN/Creatinine Ratio 14.1 8-20 Calcium 9.5 mg/dL 8.6-10.3 Total Protein 7.6 g/dL 6.4-8.9 Albumin 4.2 g/dL 3.2-5.2 Globulin 3.4 g/dL 2-4 Albumin/Globulin Ratio 1.2 1-3 Total Bilirubin 0.60 mg/dL 0.2-1.0 Alkaline Phosphatase 86 U/L 34-104 Alt 27 U/L 7-52 Ast 20 U/L 13-39 Egfr Non- 80.9 >60 Egfr 104.1 >60 24 Laboratory test finding 06/02/2016 Lactic Acid 3.2 mmol/L High 0.5-2.0 25 B-Type Natriuretic Peptide BNP 211 pg/mL High 26 CBC Auto Diff 06/02/2016 White Blood Count 10.2 10^3/uL 3.5-10.8 Red Blood Count 5.11 10^6/uL 4.0-5.4 Hemoglobin 15.1 g/dL 12.0-16.0 Hematocrit 46 % 35-47 Mean Corpuscular Volume 89 fL 80-97 Mean Corpuscular Hemoglobin 30 pg 27-31 Mean Corpuscular HGB Conc 33 g/dL 31-36 Red Cell Distribution Width 14 % 10.5-15 Platelet Count 259 10^3/uL 150-450 Mean Platelet Volume 9 um3 7.4-10.4 Abs Neutrophils 9.1 10^3/uL High 1.5-7.7 Abs Lymphocytes 0.9 10^3/uL Low 1.0-4.8 Abs Monocytes 0.1 10^3/uL 0-0.8 Abs Eosinophils 0 10^3/uL 0-0.6 Abs Basophils 0 10^3/uL 0-0.2 Abs Nucleated RBC 0 10^3/uL Granulocyte % 89.7 % High 38-83 Lymphocyte % 8.6 % Low 25-47 Monocyte % 1.5 % 1-9 Eosinophil % 0 % 0-6 Basophil % 0.2 % 0-2 Nucleated Red Blood Cells % 0 CKMB 02/29/2016 CKMB ng/mL 7.8 ng/mL High 0.6-6.3 CBC Auto Diff 02/29/2016 White Blood Count 7.2 10^3/uL 3.5-10.8 Red Blood Count 5.10 10^6/uL 4.0-5.4 Hemoglobin 15.0 g/dL 12.0-16.0 Hematocrit 46 % 35-47 Mean Corpuscular Volume 89 fL 80-97 Mean Corpuscular Hemoglobin 30 pg 27-31 Mean Corpuscular HGB Conc 33 g/dL 31-36 Red Cell Distribution Width 14 % 10.5-15 Platelet Count 274 10^3/uL 150-450 Mean Platelet Volume 9 um3 7.4-10.4 Abs Neutrophils 4.2 10^3/uL 1.5-7.7 Abs Lymphocytes 2.3 10^3/uL 1.0-4.8 Abs Monocytes 0.7 10^3/uL 0-0.8 Abs Eosinophils 0.1 10^3/uL 0-0.6 Abs Basophils 0 10^3/uL 0-0.2 Abs Nucleated RBC 0.05 10^3/uL Granulocyte % 57.4 % 38-83 Lymphocyte % 31.6 % 25-47 Monocyte % 9.6 % High 1-9 Eosinophil % 1.1 % 0-6 Basophil % 0.3 % 0-2 Nucleated Red Blood Cells % 0.7 Inr/Protime 02/29/2016 Inr 0.91 0.89-1.11 Laboratory test finding 02/29/2016 Partial Thrombo Time 36.5 seconds High 26.0-36.3 PTT Laboratory test finding 02/29/2016 Lipase 21 U/L 11.0-82.0 Creatine Kinase(CK) 201 U/L 10-223 Troponin-I (TnI) 0.03 ng/mL High <0.03 27 Comp Metabolic Panel 02/29/2016 Sodium 138 mmol/L 133-145 Potassium 3.6 mmol/L 3.5-5.0 Chloride 101 mmol/L 101-111 Co2 Carbon Dioxide 31 mmol/L 22-32 Anion Gap 6 mmol/L 2-11 Glucose 97 mg/dL 70-100 Blood Urea Nitrogen 8 mg/dL 6-24 Creatinine 0.69 mg/dL 0.51-0.95 BUN/Creatinine Ratio 11.6 8-20 Calcium 9.6 mg/dL 8.6-10.3 Total Protein 7.5 g/dL 6.4-8.9 Albumin 4.2 g/dL 3.2-5.2 Globulin 3.3 g/dL 2-4 Albumin/Globulin Ratio 1.3 1-3 Total Bilirubin 0.50 mg/dL 0.2-1.0 Alkaline Phosphatase 91 U/L 34-104 Alt 28 U/L 7-52 Ast 26 U/L 13-39 Egfr Non- 83.6 >60 Egfr 107.6 >60 28 Laboratory test finding 02/29/2016 B-Type Natriuretic 117 pg/mL High 29 Peptide BNP Laboratory test finding 02/29/2016 Lactic Acid 1.1 mmol/L 0.5-2.0 30 Urinalysis Profile 01/22/2016 Urine Color Straw Urine Appearance Clear Urine Specific [place] 1.004 Low 1.010-1.030 Urine pH 8.0 5-9 Urine Urobilinogen Negative Negative Urine Ketones Negative Negative Urine Protein Negative Negative Urine Leukocytes Trace Negative Urine Blood Negative Negative Urine Nitrite Negative Negative Urine Bilirubin Negative Negative Urine Glucose Negative Negative Urine White Blood Cell Trace(0-5/hpf) Absent Urine Red Blood Cell Absent Absent Urine Bacteria Absent Absent Urine Squamous Epithelial Cell Present Absent Urine Culture And 01/22/2016 Urine Culture SEE RESULT BELOW 31 Sensitivities Laboratory test finding 12/17/2015 TSH (Thyroid Stim 4.98 ?IU/mL 0.34- 5.60 Horm) Free T4 (Free Thyroxine) 0.85 ng/dL 0.61-1.12 Laboratory test finding 12/07/2015 Vitamin D Total 25(Oh) 33.1 ng/mL 30- 50 Rheumatoid Factor <15 IU/mL <15 32 Cyclic Citrullinated Pep Igg <15.6 U 33 Vitamin B12 789 pg/mL 180-914 34 Methylmalonic Acid Mma 0.09 nmol/mL <=0.40 35 Protein Electrophoresis 12/07/2015 Total Protein(Pep) 7.0 g/dL 6.3 - 7.9 Albumin 3.3 g/dL 3.4-4.7 Alpha-1 Globulin 0.3 g/dL 0.1-0.3 Alpha-2 Globulin 1.1 g/dL 0.6-1.0 Beta Globulin 1.0 g/dL 0.7-1.2 Gamma Globulin 1.3 g/dL 0.6-1.6 Albumin/Globulin Ratio 0.88 Impression See Comment 36 Pthi 12/07/2015 Calcium (PTH Intact) 9.2 mg/dL 8.6-10.3 PTH Intact 3.8 pmol/L 1.3-9.3 1 Because ethnic data is not always readily available, this report includes an eGFR for both -Americans and non- Americans. The National Kidney Disease Education Program (NKDEP) does not endorse the use of the MDRD equation for patients that are not between the ages of 18 and 70, are , have extremes of body size, muscle mass, or nutritional status, or are non- or non-. According to the National Kidney Foundation, irrespective of diagnosis, the stage of the disease is based on the level of kidney function: Stage Description GFR(mL/min/1.73 m(2)) 1 Kidney damage with normal or decreased GFR 90 2 Kidney damage with mild decrease in GFR 60-89 3 Moderate decrease in GFR 30-59 4 Severe decrease in GFR 15-29 5 Kidney failure <15 (or dialysis) 2 SEE RESULT BELOW Name: REJI ALMENDAREZ : [address]: Ron Cooper MD Acct: [id number] Unit: [id number] AGE: 72 Location: ED Re05/14/17 SEX: F Status: DEP ER SPEC: [id number] BALDEV: 05/14/17-[address] [facility] [address]: Ron Cooper MD REQ: [id number] RECD: 05/14/17 STATUS: DAYNE ALVAREZ DR: Jamal Sheridan MD _ SOURCE: URINE SPDESC: ORDERED: Urine Culture Procedure Result Reported Site Urine Culture Final 05/16/17- 0806 ML No Growth (<1,000 CFU/mL) * ML - MAIN LAB ([facility]) . END OF REPORT * ML=Testing performed at Main Lab DEPARTMENT OF PATHOLOGY, [address] [place] [address] Weston Laura M.D. Director [facility] # [id number] 3 Please note: The following may produce a false positive D Dimer test: - Rheumatoid factor greater than 60 IU/ml - Plasma hemoglobin greater than 0.05 gm/dl - Bilirubin greater than 50 mg/dl - Lipids greater than 1000 mg/dl - FDP greater than 20 ug/ml 4 [facility] Severe Sepsis and Septic Shock Management Bundle Measure requires all lactic acids initially measuring >2.0 mmol/L be repeated. 5 >100 to <200 pg/mL: likely compensated congestive heart failure (CHF) 200 to 400 pg/mL: likely moderate CHF >400 pg/mL: likely moderate to severe CHF 6 Because ethnic data is not always readily available, this report includes an eGFR for both -Americans and non- Americans. The National Kidney Disease Education Program (NKDEP) does not endorse the use of the MDRD equation for patients that are not between the ages of 18 and 70, are , have extremes of body size, muscle mass, or nutritional status, or are non- or non-. According to the National Kidney Foundation, irrespective of diagnosis, the stage of the disease is based on the level of kidney function: Stage Description GFR(mL/min/1.73 m(2)) 1 Kidney damage with normal or decreased GFR 90 2 Kidney damage with mild decrease in GFR 60-89 3 Moderate decrease in GFR 30-59 4 Severe decrease in GFR 15-29 5 Kidney failure <15 (or dialysis) 7 Acute inflammation: >10.00 8 Normal Range 180 to 914 Indeterminate Range 145 to 180 Deficient Range <145 9 Because ethnic data is not always readily available, this report includes an eGFR for both -Americans and non- Americans. The National Kidney Disease Education Program (NKDEP) does not endorse the use of the MDRD equation for patients that are not between the ages of 18 and 70, are , have extremes of body size, muscle mass, or nutritional status, or are non- or non-. According to the National Kidney Foundation, irrespective of diagnosis, the stage of the disease is based on the level of kidney function: Stage Description GFR(mL/min/1.73 m(2)) 1 Kidney damage with normal or decreased GFR 90 2 Kidney damage with mild decrease in GFR 60-89 3 Moderate decrease in GFR 30-59 4 Severe decrease in GFR 15-29 5 Kidney failure <15 (or dialysis) 10 Because ethnic data is not always readily available, this report includes an eGFR for both -Americans and non- Americans. The National Kidney Disease Education Program (NKDEP) does not endorse the use of the MDRD equation for patients that are not between the ages of 18 and 70, are , have extremes of body size, muscle mass, or nutritional status, or are non- or non-. According to the National Kidney Foundation, irrespective of diagnosis, the stage of the disease is based on the level of kidney function: Stage Description GFR(mL/min/1.73 m(2)) 1 Kidney damage with normal or decreased GFR 90 2 Kidney damage with mild decrease in GFR 60-89 3 Moderate decrease in GFR 30-59 4 Severe decrease in GFR 15-29 5 Kidney failure <15 (or dialysis) 11 >100 to <200 pg/mL: likely compensated congestive heart failure (CHF) 200 to 400 pg/mL: likely moderate CHF >400 pg/mL: likely moderate to severe CHF 12 [facility] Severe Sepsis and Septic Shock Management Bundle Measure requires all lactic acids initially measuring >2.0 mmol/L be repeated. 13 99th percentile=0.04 ng/mL Troponin results at [facility] and [facility] are not interchangeable. 14 Because ethnic data is not always readily available, this report includes an eGFR for both -Americans and non- Americans. The National Kidney Disease Education Program (NKDEP) does not endorse the use of the MDRD equation for patients that are not between the ages of 18 and 70, are , have extremes of body size, muscle mass, or nutritional status, or are non- or non-. According to the National Kidney Foundation, irrespective of diagnosis, the stage of the disease is based on the level of kidney function: Stage Description GFR(mL/min/1.73 m(2)) 1 Kidney damage with normal or decreased GFR 90 2 Kidney damage with mild decrease in GFR 60-89 3 Moderate decrease in GFR 30-59 4 Severe decrease in GFR 15-29 5 Kidney failure <15 (or dialysis) 15 Acute inflammation: >10.00 16 SEE RESULT BELOW Name: ERICKSONREJI L : [address]: Donnell Neri [employer]MUL[employer] BOTTLER Acct: [id number] Unit: [id number] AGE: 71 Location: [facility] Re10/28/16 SEX: F Status: REG REF SPEC: [id number] BALDEV: 10/28/16-[address] [facility] [address]: Donnell Neri [employer] B[employer]TLER REQ: [id number] RECD: 10/29/161153 STATUS: COMP _ SOURCE: URINE SPDESC: ORDERED: Urine Culture COMMENTS: [id number] Urine Source: Random Procedure Result Reported Site Urine Culture Final 10/30/16- 1301 ML No growth of clinically significant organisms * ML - MAIN LAB ([facility]) . END OF REPORT * ML=Testing performed at Main Lab DEPARTMENT OF PATHOLOGY, [address] [place] [address] Weston Laura M.D. Director [facility] # [id number] 17 Class 0 (Negative <0.35) Test Performed by: [place] [address] Wire Cutter: Ron Washington II, M.D., Ph.D. 18 [facility] Severe Sepsis and Septic Shock Management Bundle Measure requires all lactic acids initially measuring >2.0 mmol/L be repeated. 19 Because ethnic data is not always readily available, this report includes an eGFR for both -Americans and non- Americans. The National Kidney Disease Education Program (NKDEP) does not endorse the use of the MDRD equation for patients that are not between the ages of 18 and 70, are , have extremes of body size, muscle mass, or nutritional status, or are non- or non-. According to the National Kidney Foundation, irrespective of diagnosis, the stage of the disease is based on the level of kidney function: Stage Description GFR(mL/min/1.73 m(2)) 1 Kidney damage with normal or decreased GFR 90 2 Kidney damage with mild decrease in GFR 60-89 3 Moderate decrease in GFR 30-59 4 Severe decrease in GFR 15-29 5 Kidney failure <15 (or dialysis) 20 Reference Range and Interpretation: TnI (ng/mL) Interpretation Less Than 0.03 ng/mL Not supportive of diagnosis of [place] 0.03 - 0.50 ng/mL Indeterminate: suggest serial studies if clinically indicated. Greater than 0.5 ng/mL Consistent with diagnosis of [place] 21 >100 to <200 pg/mL: likely compensated congestive heart failure (CHF) 200 to 400 pg/mL: likely moderate CHF >400 pg/mL: likely moderate to severe CHF 22 Reference Range and Interpretation: TnI (ng/mL) Interpretation Less Than 0.03 ng/mL Not supportive of diagnosis of [place] 0.03 - 0.50 ng/mL Indeterminate: suggest serial studies if clinically indicated. Greater than 0.5 ng/mL Consistent with diagnosis of [place] 23 SEE RESULT BELOW Name: REJI ALMENDAREZ Kelly : [address]: Evans Buck DO Acct: [id number] Unit: [id number] AGE: 71 Location: ED Re06/02/16 SEX: F Status: DEP ER SPEC: [id number] BALDEV: 06/02/[address] [facility] [address]: Evans Buck DO REQ: [id number] RECD: 06/02/16 STATUS: DAYNE ALVAREZ DR: Daniella Ramos MD _ SOURCE: [facility] ORDERED: Blood Cult Procedure Result Reported Site Aerobic Culture Bottle Final 06/07/16- 1126 ML No Growth Day 5 Anaerobic Culture Bottle Final 06/07/161126 ML No Growth Day 5 * ML - MAIN LAB ([facility]) . END OF REPORT * ML=Testing performed at Main Lab DEPARTMENT OF PATHOLOGY, [address] [place] [address] Weston Laura M.D. Director [facility] # [id number] 24 Because ethnic data is not always readily available, this report includes an eGFR for both -Americans and non- Americans. The National Kidney Disease Education Program (NKDEP) does not endorse the use of the MDRD equation for patients that are not between the ages of 18 and 70, are , have extremes of body size, muscle mass, or nutritional status, or are non- or non-. According to the National Kidney Foundation, irrespective of diagnosis, the stage of the disease is based on the level of kidney function: Stage Description GFR(mL/min/1.73 m(2)) 1 Kidney damage with normal or decreased GFR 90 2 Kidney damage with mild decrease in GFR 60-89 3 Moderate decrease in GFR 30-59 4 Severe decrease in GFR 15-29 5 Kidney failure <15 (or dialysis) 25 Critical Result LACT:3.2 Called to RANJAN at: 10:55:11 by: Read back by:RANJAN NDMallory Severe Sepsis and Septic Shock Management Bundle Measure requires all lactic acids initially measuring >2.0 mmol/L be repeated. 26 >100 to <200 pg/mL: likely compensated congestive heart failure (CHF) 200 to 400 pg/mL: likely moderate CHF >400 pg/mL: likely moderate to severe CHF 27 Reference Range and Interpretation: TnI (ng/mL) Interpretation Less Than 0.03 ng/mL Not supportive of diagnosis of [place] 0.03 - 0.50 ng/mL Indeterminate: suggest serial studies if clinically indicated. Greater than 0.5 ng/mL Consistent with diagnosis of [place] 28 Because ethnic data is not always readily available, this report includes an eGFR for both -Americans and non- Americans. The National Kidney Disease Education Program (NKDEP) does not endorse the use of the MDRD equation for patients that are not between the ages of 18 and 70, are , have extremes of body size, muscle mass, or nutritional status, or are non- or non-. According to the National Kidney Foundation, irrespective of diagnosis, the stage of the disease is based on the level of kidney function: Stage Description GFR(mL/min/1.73 m(2)) 1 Kidney damage with normal or decreased GFR 90 2 Kidney damage with mild decrease in GFR 60-89 3 Moderate decrease in GFR 30-59 4 Severe decrease in GFR 15-29 5 Kidney failure <15 (or dialysis) 29 >100 to <200 pg/mL: likely compensated congestive heart failure (CHF) 200 to 400 pg/mL: likely moderate CHF >400 pg/mL: likely moderate to severe CHF 30 [place] Severe Sepsis and Septic Shock Management Bundle Measure requires all lactic acids initially measuring >2.0 mmol/L be repeated. 31 SEE RESULT BELOW Name: REJI ALMENDAREZ Kelly : [address]: Carlos Gill MD Acct: [id number] Unit: [id number] AGE: 71 Location: ED Re01/22/16 SEX: F Status: DEP ER SPEC: [id number] BALDEV: 01/22/16-[address] [facility] [address]: Elsie Jacob NP REQ: [id number] RECD: 01/22/16 STATUS: DAYNE ALVAREZ DR: Daniella Gill MD _ SOURCE: URINE SPDESC: ORDERED: Urine Culture Procedure Result Reported Site Urine Culture Final 01/24/16- 1004 ML No growth of clinically significant organisms * ML - [facility] ([facility]) . END OF REPORT * ML=Testing performed at [facility] DEPARTMENT OF PATHOLOGY, [address] [place] [address] Weston Laura M.D. Director [facility] # [id number] 32 Test Performed by: [place] [address] Wire Cutter: Ron Washington II, M.D., Ph.D. 33 REFERENCE VALUE <20.0 (Negative) Test Performed by: [place] [address] Wire Cutter: Ron Washington II, M.D., Ph.D. 34 Normal Range 180 to 914 Indeterminate Range 145 to 180 Deficient Range <145 35 Test Performed by: [place] [address] Wire Cutter: Ron Washington II, M.D., Ph.D. 36 RESULT: No apparent monoclonal protein on serum electrophoresis. Test Performed by: [address] [address] Wire Cutter: Ron Washington II, M.D., Ph.D. Procedures Date CPT Code Description Status Comment 03/25/2018 04861 Sleep Study Unattended,HRT Completed Rate,Oxygen Sat,Resp Effort/Airflow 10/30/2017 03957 ECHO Transthoracic, Real-Time 2D Completed With Doppler And Color Flow 10/30/2017 01108 ECHO Transthoracic, Real-Time 2D Completed With Doppler And Color Flow 10/12/2017 11484 EKG Tracing & Interpretation Completed 10/05/2017 Diabetic Retinal Eye Exam Completed Document: 10/05/17 - Cons Ophthalmology-Dr. Fishman 01/06/2017 71644 Pulmonary Stress Test Simple Completed 11/03/2016 38099 EKG, Interpretation Only Completed 03/25/2016 78320 EKG Tracing & Interpretation Completed 03/21/2016 75980 ECHO Transthoracic, Real-Time 2D Completed With Doppler And Color Flow 03/01/2016 24272 EKG, Interpretation Only Completed 12/18/2015 05594 EKG Tracing & Interpretation Completed 11/21/2015 Bone Mineral Density Test Completed 08/07/2015 Mammogram Completed 03/29/2015 93457 Polysomnography Sleep Staging 4+ Completed Parameters W/Cpap 03/01/2015 87069 ECHO Transthorasic Realtime 2D W Completed Doppler & Color Flow Hosp 01/16/2015 32033 Polysomnography Sleep Staging 4+ Completed Parameters 02/16/2013 Colonoscopy Completed 1 benign polyps, [facility], [place], f/u 10 yr see [place] records for due date Encounters Type Date Location Provider CPT E/M Dx Office Visit 04/15/2018 Pul[place] [address] G47.33 11:45a [facility] J45.909 E66.09 Office Visit 03/24/2018 10:45a [facility] [place] [address] G47.33 [facility] R06.02 E66.01 Office Visit 01/22/2018 10:00a [facility] Internal Medicine Palma Slaughter, 03192 K59.00 - Renita Bower I10 E88.40 M25.551 Office Visit 10/12/2017 4:00p [facility] [place] [address] Z95.2 [facility] FAC I10 G47.33 G71.3 E66.8 Office Visit 09/25/2017 9:30a [facility] [address] M25.512 C.M.A. S43.492A M75.42 M25.512 Office Visit 05/14/2017 11:08a [facility], CHAPO Burkett 69275 I35.0 Hospitalists G71.3 K90.0 I10 Office Visit 04/21/2017 4:00p [facility] Internal Jamal Sheridan, 22099 C44.319 Leslie Maravilla M.D.,FACP L82.1 M16.11 Office Visit 04/06/2017 2:15p [facility] Miroslava Membreno M.D. 01860 M25.551 C.M.A. M16.11 Office Visit 04/01/2017 11:10a [facility] Internal Jamal Sheridan, 05999 K22.710 Medicine - [place] Bower,FACP M16.11 Office Visit 2017 2:40p [facility] Internal Jamal Sheridan, 52406 T49.3x5D Medicine - [place] Bower,FACP K22.70 G71.3 Office Visit 12/15/2016 1:40p [facility] Internal Medicine Jamal Sheridan, 87887 I10 - [place] Bower,FACP G71.3 I35.0 Office Visit 11/27/2016 11:20a [facility] Isiah Goldsmith, 50931 I35.0 [facility] I10 G71.3 G47.33 Office Visit 11/07/2016 2:40p [facility] Internal Medicine Jamal Sheriadn, 19354 G71.3 - [place] Rad Bower,FACP E87.6 I10 Office Visit 11/03/2016 2:13p [facility], [place] [address] R74.8 Hospitalists R06.02 R07.9 E88.40 Office Visit 11/02/2016 2:12p [facility], Giulia Swann, N.P. 93788 R74.8 Hospitalists R07.9 E88.40 R06.02 Office Visit 10/28/2016 2:20p [facility] Internal Medicine - Donnell Neri, GINI [address] R30.0 Office Visit 09/05/2016 4:00p [facility] [place] [address] I10 FACC I35.0 G47.33 E88.40 Office Visit 08/04/2016 1:40p [facility] [place] [address] I10 FACC I35.0 G47.33 E88.40 I27.2 Office Visit 06/11/2016 2:40p [facility] Internal Medicine - Carlos Shearer, 55977 I10 Hernandez Kirk45.909 G47.33 I35.0 Office Visit 06/02/2016 8:00a [facility] [place] [address] G47.33 [facility] J45.909 K22.70 E66.09 I10 Office Visit 05/28/2016 1:00p [facility] [place] [address] I10 FACC I35.0 G47.33 I27.2 E88.40 Office Visit 04/03/2016 1:20p [facility] Internal Medicine Giulia Hanks, 91414 G43.109 - Renita Bower I10 Office Visit 04/02/2016 9:13a [facility], 45756 G43.109 Hospitalists M.DBrain R10.13 I10 Office Visit 04/01/2016 9:11a [facility], 36665 G43.109 Hospitalists M.DBrain R10.13 I10 Office Visit 03/25/2016 11:20a [facility] Alan Harry M.D. 56716 I35.0 I10 E88.40 R94.31 Office Visit 03/01/2016 10:58a [facility], Giulia Swann N.P. 76766 I10 Hospitalists R07.9 R79.89 E88.40 Office Visit 02/29/2016 10:57a [facility], Giulia Swann N.P. 13377 I10 Hospitalists R07.9 R79.89 E88.40 Office Visit 02/27/2016 10:30a [facility] Miroslava Membreno M.D. 59488 M16.11 C.M.A. Office Visit 02/14/2016 10:15a [facility] [place] [address] G47.33 [facility] J45.909 K22.70 E66.09 Office Visit 01/25/2016 2:30p [facility] Miroslava Membreno M.D. 50381 M16.11 C.M.A. Office Visit 01/15/2016 11:20a [facility] Internal Medicine Daniella Ramos M.D. 71400 I10 - [place] M25.551 M81.0 J45.20 A04.9 Office Visit 12/18/2015 9:40a [facility] Alan Harry M.D. 98710 I10 R06.00 I35.0 R94.31 Office Visit 12/06/2015 2:00p [facility] Internal Medicine Daniella Ramos M.D. 39024 M25.551 - [place] K22.70 M81.8 F41.9 E53.9 J45.20 E03.9 Office Visit 11/15/2015 8:40a [facility] Internal Medicine Daniella Ramos M.D. 76491 M51.16 - [place] M25.551 G71.3 K22.70 M85.9 I35.0 Office Visit 09/25/2015 10:15a [facility] Mady Maldonado 46729 G47.33 [facility] PATITO BYRNE FNP-BC J30.89 Office Visit 05/11/2015 2:00p [facility] Mady Maldonado 98039 327.23 [facility] PATITO BYRNE FNP-BC 530.81 Office Visit 02/13/2015 1:30p [facility] Mady Maldonado 25919 327.23 [facility] PATITO BYRNE FNP-BC Office Visit 12/14/2014 10:45a [facility] Magnus Lucas, 29241 327.23 [facility] Sathish 327.27 278.00 Plan of Care Future Appointment(s):06/04/2018 11:30 am - Marcy Reeder MD at [facility]04/20/2018 - Isiah Goldsmith DO FACCZ95.2 Presence of prosthetic heart valveFollow up:Please schedule a 12 lead ekg within 30 days of her eye surgery in June F/u 1 yearI10 Essential (primary) fudzfoqmsahuR40.810 Encounter for preprocedural cardiovascular examinationNew Orders:EKGG47.33 Obstructive sleep apnea (adult) (pediatric)I11.9 Hypertensive heart disease without heart lclzajjZ55.20 Pulmonary hypertension, wdyawsiuuldE08.8 Other obesity
--- OUTSIDE RECORDS SUMMARY | 2018-05-06 16:25 | XMS REPORT ---
:1945 External Reference #:[id number] Author Organization [facility] Address [address] [place] [address] [place] [address] Phone [phone] Care Team Providers Name Role Phone Palma Slaughter MD Primary Care Physician Unavailable Payers Type Date Identification Numbers Payment Provider Subscriber Medicare Primary Policy Number: [id number] Medicare Reji Almendarez PayID: [id number] [address] [place] [address] [facility] Part B Policy Number: [id number] [facility] Reji Almendarez PayID: [id number] [address] [place] [address] Workers Compensation Effective: Policy Number: State Ajay Almendarez 2017 [id number] [employer] Onset: 2017 Group Number: [id number] [address] [place] [address] Problems Date Description Provider Status Onset: 11/07/2016 Mitochondrial myopathy Jamal Sheridan M.D.,FACP Active Note: red ragged fibers Onset: 02/13/2015 Obstructive sleep apnea of Mady Maldonado DNP, RN, 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 Drives, also uses [employer] and [employer] Occupation Disabled Cigarette Use Former Cigarette Smoker ETOH Use 11/07/2016 Denies alcohol use Smoking Patient is a former smoker Recreational Drug Use Denies Drug Use Smoking when 17 years old for 2 years, then quit Daily Caffeine every other day ; herbal teas as well Daily Caffeine Comsumes on average 1 cup of decaff coffee per day Exercise Type/Frequency arm chair exercises; yoga Kiswahili Chi Exercise Type/Frequency Exercises sporadically General Hx Text lived in [facility] and moved to [place] after corneal transplant in 2014 to be [...] Per Dr. 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 every day Goldsmith, DO FACC [place] 05/30 Active Tablets 5-325mg 20tab 1 tab [...] day as needed Nystatin 12/15 Active Powder [id number] 30uni apply t/GM ts daily prn Ramos [...] mouth every day Nystatin-Triamci 02/12 Active Cream 368508-2. apply Unknown lo 1Unit/GM- small % amount [...] needed Roller Walker 04/08 Hx Misc M16.11 Mrioslava Haseeb, - M.D. 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 06/02 needed Fluticasone 12/12 Hx Suspension 50mcg/Act [...] Color Straw Urine Appearance Clear Urine Specific [place] 1.006 Low 1.010-1.030 Urine pH 7.0 5-9 [...] Color Straw Urine Appearance Clear Urine Specific [place] 1.005 Low 1.010-1.030 Urine pH 8.0 5-9 [...] mcIU/mL 0.34-5.60 Ua Routine 10/28/2016 Ua Specific [place] 1.005 Ua PH 7 Ua Color yellow [...] Color Straw Urine Appearance Clear Urine Specific [place] 1.005 Low 1.010-1.030 Urine pH 7.0 5-9 [...] Color Straw Urine Appearance Clear Urine Specific [place] 1.004 Low 1.010-1.030 Urine pH 8.0 5-9 [...] [address]: Ron Cooper MD Acct: [id number] Unit: [id number] AGE: 72 Location: ED Re05/14/17 SEX: F Status: DEP ER SPEC: [id number] BALDEV: 05/14/17-[address] [facility] [address]: Ron Cooper MD REQ: [id number] RECD: 05/14/17 STATUS: DAYNE ALVAREZ DR: Jamal Sheridan MD _ SOURCE: URINE SPDESC: ORDERED: Urine Culture Procedure Result Reported Site Urine Culture Final 05/16/17- 0806 ML No Growth (<1,000 CFU/mL) * ML - MAIN LAB ([facility]) . END OF REPORT * ML=Testing performed at Main Lab DEPARTMENT OF PATHOLOGY, [address] [place] [address] Weston Laura M.D. Director [facility] # [id number] 3 Please note: The following may produce a false positive D Dimer test: - Rheumatoid factor greater than 60 IU/ml - Plasma hemoglobin greater than 0.05 gm/dl - Bilirubin greater than 50 mg/dl - Lipids greater than 1000 mg/dl - FDP greater than 20 ug/ml 4 [facility] Severe Sepsis and Septic Shock Management [...] pg/mL: likely moderate to severe CHF 12 MSS Severe Sepsis and Septic Shock Management Bundle Measure requires all lactic acids initially measuring >2.0 mmol/L be repeated. 13 99th percentile=0.04 ng/mL Troponin results at [facility] and [facility] are not interchangeable. 14 Because ethnic data [...] L : [address]: Donnell Neri CREATIVE WRITING ENGLISH PROFESSOR Acct: [id number] Unit: [id number] AGE: 71 Location: [facility] Re10/28/16 SEX: F Status: REG REF SPEC: [id number] BALDEV: 10/28/16-[address] [facility] [address]: Donnell Neri CREATIVE WRITING ENGLISH PROFESSOR REQ: [id number] RECD: 10/29/161153 STATUS: COMP _ SOURCE: URINE SPDESC: ORDERED: Urine Culture COMMENTS: [id number] Urine Source: Random Procedure Result Reported Site Urine Culture Final 10/30/16- 1301 ML No growth of clinically significant organisms * ML - MAIN LAB ([facility]) . END OF REPORT * ML=Testing performed at Main Lab DEPARTMENT OF PATHOLOGY, [address] [place] [address] Weston Laura M.D. Director [facility] # [id number] 17 Class 0 (Negative <0.35) Test Performed by: [place] [address] Button And Buckle Maker: Ron Washington II, M.D., Ph.D. 18 [facility] Severe Sepsis and Septic Shock Management [...] 0.03 ng/mL Not supportive of diagnosis of DC 0.03 - 0.50 ng/mL Indeterminate: suggest serial studies if clinically indicated. Greater than 0.5 ng/mL Consistent with diagnosis of DC 21 >100 to <200 pg/mL: likely compensated congestive heart failure (CHF) 200 to 400 pg/mL: likely moderate CHF >400 pg/mL: likely moderate to severe CHF 22 Reference Range and Interpretation: TnI (ng/mL) Interpretation Less Than 0.03 ng/mL Not supportive of diagnosis of DC 0.03 - 0.50 ng/mL Indeterminate: suggest serial studies if clinically indicated. Greater than 0.5 ng/mL Consistent with diagnosis of DC 23 SEE RESULT BELOW Name: REJI ALMENDAREZ Kelly : [address]: Evans Buck DO Acct: [id number] Unit: [id number] AGE: 71 Location: ED Re06/02/16 SEX: F Status: DEP ER SPEC: [id number] BALDEV: 06/02/[address] [facility] [address]: Evans Buck DO REQ: [id number] RECD: 06/02/16 STATUS: DAYNE ALVAREZ DR: Daniella Ramos MD _ S[facility]: [facility]: Blood Cult Procedure Result Reported Site Aerobic Culture Bottle Final 06/07/16- 1126 ML No Growth Day 5 Anaerobic Culture Bottle Final 06/07/161126 ML No Growth Day 5 * ML - MAIN LAB ([facility]) . END OF REPORT * ML=Testing performed at Main Lab DEPARTMENT OF PATHOLOGY, [address] [place] [address] Weston Laura M.D. Director [facility] # [id number] 24 Because ethnic data is not always [...] RANJAN at: 10:55:11 by: Read back by:RANJAN MSMallory Severe Sepsis and Septic Shock Management Bundle Measure requires all lactic acids initially measuring >2.0 mmol/L be repeated. 26 >100 to <200 pg/mL: likely compensated congestive heart failure (CHF) 200 to 400 pg/mL: likely moderate CHF >400 pg/mL: likely moderate to severe CHF 27 Reference Range and Interpretation: TnI (ng/mL) Interpretation Less Than 0.03 ng/mL Not supportive of diagnosis of DC 0.03 - 0.50 ng/mL Indeterminate: suggest serial studies if clinically indicated. Greater than 0.5 ng/mL Consistent with diagnosis of DC 28 Because ethnic data is not always [...] [address]: Carlos Gill MD Acct: [id number] Unit: [id number] AGE: 71 Location: ED Re01/22/16 SEX: F Status: DEP ER SPEC: [id number] BALDEV: 01/22/16-[address] [facility] [address]: Elsie Jacob NP REQ: [id number] RECD: 01/22/16 STATUS: DAYNE ALVAREZ DR: Daniella Gill MD _ SOURCE: URINE SPDESC: ORDERED: Urine Culture Procedure Result Reported Site Urine Culture Final 01/24/16- 1004 ML No growth of clinically significant organisms * ML - [facility] ([facility]) . END OF REPORT * ML=Testing performed at [facility] DEPARTMENT OF PATHOLOGY, [address] [place] [address] Weston Laura M.D. Director [facility] # [id number] 32 Test Performed by: [place] [address] Button And Buckle Maker: Ron Washington II, M.D., Ph.D. 33 REFERENCE VALUE <20.0 (Negative) Test Performed by: [place] [address] Button And Buckle Maker: Ron Washington II, M.D., Ph.D. 34 Normal Range 180 to 914 Indeterminate Range 145 to 180 Deficient Range <145 35 Test Performed by: [place] [address] Button And Buckle Maker: Ron Washington II, M.D., Ph.D. 36 RESULT: No apparent monoclonal protein on serum electrophoresis. Test Performed by: [address] [address] Button And Buckle Maker: Ron Washington II, M.D., Ph.D. Procedures Date CPT Code Description Status Comment 03/25/2018 80188 Sleep Study Unattended,HRT Completed Rate,Oxygen Sat,Resp Effort/Airflow 10/30/2017 07750 ECHO Transthoracic, Real-Time 2D Completed With Doppler And Color Flow 10/30/2017 33478 ECHO Transthoracic, Real-Time 2D Completed With Doppler And Color Flow 10/12/2017 68087 EKG Tracing & Interpretation Completed 10/05/2017 Diabetic Retinal Eye Exam Completed Document: 10/05/17 - Cons Ophthalmology-Dr. Fishman 01/06/2017 40212 Pulmonary Stress Test Simple Completed 11/03/2016 28641 EKG, Interpretation Only Completed 03/25/2016 83900 EKG Tracing & Interpretation Completed 03/21/2016 28080 ECHO Transthoracic, Real-Time 2D Completed With Doppler And Color Flow 03/01/2016 34872 EKG, Interpretation Only Completed 12/18/2015 40340 EKG Tracing & Interpretation Completed 11/21/2015 Bone Mineral Density Test Completed 08/07/2015 Mammogram Completed 03/29/2015 31687 Polysomnography Sleep Staging 4+ Completed Parameters W/Cpap 03/01/2015 58519 ECHO Transthorasic Realtime 2D W Completed Doppler & Color Flow Hosp 01/16/2015 95418 Polysomnography Sleep Staging 4+ Completed Parameters 02/16/2013 Colonoscopy Completed 1 benign polyps, [facility], [place], f/u 10 yr see [place] records for due date Encounters Type Date Location Provider CPT E/M Dx Office Visit 04/15/2018 Pulmonology [place] [address] G47.33 11:45a [facility] J45.909 E66.09 Office Visit 03/24/2018 10:45a [facility] [place] [address] G47.33 [facility] R06.02 E66.01 Office Visit 01/22/2018 10:00a [facility] Internal Medicine Palma Slaughter, 42948 K59.00 - Renita Bower I10 E88.40 M25.551 Office Visit 10/12/2017 4:00p [facility] [place] [address] Z95.2 [facility] FAC I10 G47.33 G71.3 E66.8 Office Visit 09/25/2017 9:30a [facility] [place] [address] M25.512 C.M.A. S43.492A M75.42 M25.512 Office Visit 05/14/2017 11:08a [facility], CHAPO Burkett 34770 I35.0 Hospitalists G71.3 K90.0 I10 Office Visit 04/21/2017 4:00p [facility] Internal Jamal Sheridan, 53049 C44.319 Leslie Maravilla M.D.,FACP L82.1 M16.11 Office Visit 04/06/2017 2:15p [facility] Of Miroslava Membreno M.D. 96050 M25.551 C.M.A. M16.11 Office Visit 04/01/2017 11:10a [facility] Internal Jamal Sheridan, 43727 K22.710 Medicine - [place] Rad Bower,FACP M16.11 Office Visit 2017 2:40p [facility] Internal Jamal Sheridan, 08410 T49.3x5D Medicine - [place] Bower,FACP K22.70 G71.3 Office Visit 12/15/2016 1:40p [facility] Internal Medicine Jamal Sheridan, 26388 I10 - [place] Rad Bower,FACP G71.3 I35.0 Office Visit 11/27/2016 11:20a [facility] Isiah Goldsmith, 85044 I35.0 [facility] I10 G71.3 G47.33 Office Visit 11/07/2016 2:40p [facility] Internal Medicine Jamal Sheridan, 68613 G71.3 - [place] Rad Bower,FACP E87.6 I10 Office Visit 11/03/2016 2:13p [facility], [place] [address] R74.8 Hospitalists R06.02 R07.9 E88.40 Office Visit 11/02/2016 2:12p [facility], Giulia Swann, N.P. 98922 R74.8 Hospitalists R07.9 E88.40 R06.02 Office Visit 10/28/2016 2:20p [facility] Internal Medicine - Donnell Neri, GINI [address] R30.0 Office Visit 09/05/2016 4:00p [place] [facility] [place] [address] I10 FACC I35.0 G47.33 E88.40 Office Visit 08/04/2016 1:40p [place] [facility] [place] [address] I10 FACC I35.0 G47.33 E88.40 I27.2 Office Visit 06/11/2016 2:40p [facility] Internal Medicine - Carlos Shearer, 36283 I10 Hernandez Kirk45.909 G47.33 I35.0 Office Visit 06/02/2016 8:00a [facility] [place] [address] G47.33 [facility] J45.909 K22.70 E66.09 I10 Office Visit 05/28/2016 1:00p [place] [facility] [place] [address] I10 FACC I35.0 G47.33 I27.2 E88.40 Office Visit 04/03/2016 1:20p [facility] Internal Medicine Giulia Hanks, 91716 G43.109 - Renita Bower I10 Office Visit 04/02/2016 9:13a [facility], 19682 G43.109 Hospitalists M.DBrain R10.13 I10 Office Visit 04/01/2016 9:11a [facility], 88499 G43.109 Hospitalists M.DBrain R10.13 I10 Office Visit 03/25/2016 11:20a [facility] Alan Harry M.D. 62499 I35.0 I10 E88.40 R94.31 Office Visit 03/01/2016 10:58a [facility], Giulia Swann N.P. 21918 I10 Hospitalists R07.9 R79.89 E88.40 Office Visit 02/29/2016 10:57a [facility], Giulia Swann N.P. 87846 I10 Hospitalists R07.9 R79.89 E88.40 Office Visit 02/27/2016 10:30a [facility] Miroslava Membreno M.D. 32782 M16.11 C.M.A. Office Visit 02/14/2016 10:15a [facility] [place] [address] G47.33 [facility] J45.909 K22.70 E66.09 Office Visit 01/25/2016 2:30p [facility] Of Miroslava Membreno M.D. 84078 M16.11 C.M.A. Office Visit 01/15/2016 11:20a [facility] Internal Medicine Daniella Ramos M.D. 83836 I10 - [place] M25.551 M81.0 J45.20 A04.9 Office Visit 12/18/2015 9:40a [facility] Alan Harry M.D. 25888 I10 R06.00 I35.0 R94.31 Office Visit 12/06/2015 2:00p [facility] Internal Medicine Daniella Ramos M.D. 58795 M25.551 - [place] K22.70 M81.8 F41.9 E53.9 J45.20 E03.9 Office Visit 11/15/2015 8:40a [facility] Internal Medicine Daniella Ramos M.D. 95060 M51.16 - [place] M25.551 G71.3 K22.70 M85.9 I35.0 Office Visit 09/25/2015 10:15a [facility] Mady Maldonado 55515 G47.33 [facility] PATITO BYRNE FNP-BC J30.89 Office Visit 05/11/2015 2:00p [facility] Mady Maldonado 05894 327.23 [facility] PATITO BYRNE FNP-BC 530.81 Office Visit 02/13/2015 1:30p [facility] Mady Maldonado 36366 327.23 [facility] PATITO BYRNE FNP-BC Office Visit 12/14/2014 10:45a [facility] Magnus Lucas, 09521 327.23 [facility] Sathish 327.27 278.00 Plan of Care Future Appointment(s):06/04/2018 11:30 am - Marcy Reeder MD at [facility]04/20/2018 - Isiah Goldsmith DO FACCZ95.2 Presence of prosthetic heart valveFollow up:Please schedule a 12 lead ekg within 30 days of her eye surgery in June F/u 1 yearI10 Essential (primary) aouknmtkujpeT46.810 Encounter for preprocedural cardiovascular examinationNew Orders:EKGG47.33 Obstructive sleep apnea (adult) (pediatric)
--- OUTSIDE RECORDS SUMMARY | 2018-05-06 16:26 | XMS REPORT ---
:1945 External Reference #:[id number] Author Organization [facility] Address [address] [facility] [address] [place] [address] [place] [address] Phone [phone] Care Team Providers Name Role Phone Palma Slaughter MD Primary Care Physician Unavailable Payers Type Date Identification Numbers Payment Provider Subscriber Medicare Primary Policy Number: [id number] Medicare Reji Almendarez PayID: [id number] [address] [place] [address] [facility] Part B Policy Number: [id number] [facility] Reji Almendarez PayID: [id number] [address] [place] [address] Workers Compensation Effective: Policy Number: State Ajay Almendarez 2017 [id number] [place] [employer] Onset: 2017 Group Number: [id number] [place] [address] Problems Date Description Provider Status Onset: 11/07/2016 Mitochondrial myopathy Jamal Sheridan M.D.,FACP Active Note: red ragged fibers Onset: 02/13/2015 Obstructive sleep apnea of Mady Maldonado DNP, RN, Active adult SODA FLAKER-BC Onset: 11/07/2016 Aortic stenosis, non-rheumatic Jamal Sheridan [...] Description Comments Marital Status Lives With Alone [employer] [place], aide twice a week. Drives, also uses [employer] and charming charlie Occupation Disabled Cigarette Use Former Cigarette Smoker ETOH Use 11/07/2016 Denies alcohol use Smoking Patient is a former smoker Recreational Drug Use Denies Drug Use Smoking when 17 years old for 2 years, then quit Daily Caffeine every other day ; herbal teas as well Daily Caffeine Comsumes on average 1 cup of decaff coffee per day Exercise Type/Frequency arm chair exercises; yoga Abilio Chi Exercise Type/Frequency Exercises sporadically General Hx Text lived in [facility] and moved to [place] after corneal transplant in 2014 to be [...] 12/15/19 Sulfites active Hypersensitive 15 crisis 12/15/19 Versed active 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 Bradford 17 06/03/20 Verapamil inactive 16 Medications Medication Date Status Form Strength Qnty SIG Indications Ordering Provider Cassie Allergy 10/12 Active Tablets 60mg 1 by mouth Isiah S. every day Goldsmith, DO FACC Radom 05/30 Active Tablets 5-325mg 20tab 1 tab [...] day as needed Nystatin 12/15 Active Powder [id number] 30uni apply t/GM ts daily prn Ramos [...] mouth every day Nystatin-Triamci 02/12 Active Cream 616954-7. apply Unknown 1Unit/GM- small % amount on affected areas as needed Flovent HFA Active Aerosol 220mcg/Ac inhale two Unknown / t puffs by mouth twice a day Dymista Active Suspension 137-50mcg 1 spray Unknown / /Act each nostril daily Epipen JR 2-Arnaldo Active Solution 0.15mg/0. use if Unknown / Auto-Inject 3ML needed for peanut allergy reaction Xopenex HFA Active Aerosol 45mcg/Act 2 puffs Unknown four times a day as needed Xopenex Active Nebulizer 1.25mg/3M 1 vial Unknown / L every 4 hours as needed Nystatin Oral Active Liquid 400,000/1 10 ml Unknown Suspension /0000 0ML swish and swallow twice a day as needed Tylenol Active Capsules 325mg take two tablets by mouth four times a day as needed-gen juan only Magnesium Active Capsules 300mg otc once a Unknown day Aspirin 81 Low Active Chewtabs 81mg 1 by mouth Unknown Dose /0000 every day Calcium 500 + D3 Active 1 daily Unknown Cortisone Active Tablets 25mg Unknown Acetate / Bi-Pap Active at night Unknown / Womens Gentle Active as needed Unknown Laxative / Tussin Mucus + Active Syrup 100mg/5ML 10-20 ML Unknown Chest Congestion / as needed every 4-6 hours Vitamin K Active Tablets 100mcg Unknown (Phytonadione) / Digest Gold Active Unknown /0000 Zinc Active Tablets 50mg 0nce daily Potassium Active Tablets 99mg Lidocaine Active Cream as needed Roller Walker [...] by mouth Ramos Sheridan, - qid as M.D.,FACP 12/30 needed Magnesium 11/13 Hx Solution 1.745GM/3 1unit 1 bottle 0ML s by mouth Ramos Sheridan, - x1 (PT MBrainDBrain,FACP 01/17 does not take) Nexium 11/[address] 20mg 180ca 1 by mouth ps twice a Ramos Sheridan, - day M.D.,FACP 01/22 Spironolactone 11/07 Hx Tablets 25mg 30tab 1 by mouth s every day Ramos Sheridan, - ( pt stop M.D.,FACP 11/21 taking, /2016 last week 11/21/16 Macrobid 10/28 Hx Capsules 100mg 14cap 1 cap by N39.0 Donnell s mouth q12 Slovenian, 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 s tablet as Agus, DO - needed for FACC 09/05 htn /2016 Hydralazine HCL 06/19 Hx Tablets 10mg 90tab 1 by mouth Isiah S. s three Goldsmith, DO - times a FAC 08/04 day ( stop taking ) Isosorbide 06/03 Hx Tablets ER 30mg 30tab Take 1/2 Isiah S. Mononitrate ER 24HR s tablet by Agus, DO - mouth for FACC 06/18 one then start taking once daily Prednisone 05/30 [...] 05/28 Hx Caps ER 100mg 30cap Take 09/08 I10 Isiah S. 24HR s tablet by Agus, DO - mouth for FACC 05/28 and if well tolerated increase to once daily Verapamil HCL 05/28 Hx Tablets 120mg 1 by mouth I10 Isiah S. every , DO - morning FACC 05/28 and 1 tab by mouth every night Verapamil HCL ER 05/28 Hx Tablets ER 120mg 30tab Take 09/08. s tablet by Agus, DO - mouth [...] s mouth per Sofia, - day as CRITICAL SYSTEMS TECHNICIAN 06/02 needed Fluticasone 12/12 Hx Suspension 50mcg/Act 16gm 1 Daniella Propionate intranasal Richard - thelmaff to Sathish 03/25 nostril daily Ranitidine 150 12/05 Hx Tablets 150mg 60tab 1 tab by K22.70 Daniella Maximum Strength s mouth 2x Richard, - per dayvanessa Bower 03/24 needed for reflux Flonase Allergy 02/12 Hx Suspension 50mcg/Act 1 Richard, Relief intranasal Daniella, - puff to MD 12/12 nostril daily Xopenex HFA 02/12 Hx Aerosol [...] up to 7 times a day) Optivar 02/12 Hx as needed in left - eye 01/22 Claritin 02/12 Hx Liquid as needed Unknown as - directed 12/05 Nexium [address] 40mg 1 by mouth every day - 11/14 Meloxicam Hx Tablets 7.5mg take 1 tab Unknown / by mouth - two t imes 01/14 a day with food Cassie Allergy 00 Hx Tablets 60mg 1 by mouth Unknown / every day - prn 01/06 Calcium 500+D Hx Tablets 500-400mg 1 by mouth Unknown High Potency /0000 -Unit daily - 08/07 Verapamil HCL Hx Tablets 40mg 1 by mouth Unknown /0000 every day - 03/24 Colace Hx Capsules 100mg 1 by mouth Unknown /0000 up to 3 - times a Senna Hx Tablets 8.6mg 1 po tid Unknown / prn does - not 01/22 with other meds Metronidazole Hx Tablets 250mg 1 po qid Unknown /0000 - 03/24 Ondansetron HCL Hx Tablets 8mg 30tab take 1 by Jamal /0000 s mouth Ramos Sheridan, - every 6 M.D.,FACP 01/21 hours needed for nausea Hx Tablets 16.2mg 1/2 po Unknown / every 6 - hours prn 08/07 abd pain Fluorometholone Hx Suspension 0.1% Unknown / - 03/24 Linzess Hx Unknown /0000 - 03/[address] 40mg 1 by mouth Unknown /0000 every - day(pt not 08/07 every day only when on Abt and when doctor puts pt back on it) Cardizem Hx Tablets 30mg 60tab 1 tablet Alan / s twice a F. Kamryn, - day (held M.D. 05/24 by pt /2015 since 05/24/16 due to possible allergic reaction) Azithromycin 00 Hx Tablets 250mg 2 tabs by Unknown /0000 mouth - every day 06/11 x1 day, tab by mouth every day x 4 days Prednisolone Hx Suspension 1% 1 gtt Weisenthal Acetate /0000 Right eye , Tim, - only daily 10/09 Ranitidine 150 Hx Tablets 150mg one by Unknown Maximum Strength /0000 mouth - twice a 11/07 day ( taking) Hydrocortisone Hx Cream 2.5% Unknown / applied to - rectum as 01/06 Claritin Hx Tablets 10mg 1 by mouth Unknown /0000 every day - as needed 10/09 Clopidogrel Hx Tablets 75mg 1 daily Unknown Bisulfate /0000 - 01/22 Colace Hx Capsules 100mg 1 tab by Unknown / mouth 2-3 - times a 01/22 day needed Vital Signs Date Vital Result Comment 04/15/2018 Height 66 inches 5'6" Weight 245.00 [...] 0-2 Nucleated Red Blood Cells % 0 Urine Culture And Sensitivities 05/14/2017 Urine Culture SEE RESULT BELOW 2 Urinalysis Profile 05/14/2017 Urine Color Straw Urine Appearance Clear Urine Specific [place] 1.006 Low 1.010-1.030 Urine pH 7.0 5-9 Urine Urobilinogen Negative Negative Urine Ketones Negative Negative Urine Protein Negative Negative Urine Leukocytes 1+ Negative Urine Blood Negative Negative Urine Nitrite Negative Negative Urine Bilirubin Negative Negative Urine Glucose Negative Negative Urine White Blood Cell Trace(0-5/hpf) Absent Urine Red Blood Cell Absent Absent Urine Bacteria Absent Absent Urine Squamous Epithelial Cell Present Absent Laboratory test finding 05/14/2017 Troponin-I (TnI) 0.03 ng/mL <0.04 CBC Auto Diff 05/14/2017 White Blood Count [...] 5.00 7 Troponin-I (TnI) 0.03 ng/mL <0.04 Laboratory test finding 05/14/2017 TSH (Thyroid Stim 1.64 mcIU/mL 0.34- 5.60 Horm) CKMB 05/14/2017 CKMB ng/mL 5.7 ng/mL 0.6-6.3 Vitamin B12 And Folate 04/10/2017 Vitamin B12 > 1450 pg/mL High 180-914 8 Serum Folic Acid (Folate) 11.91 ng/mL >3.99 Laboratory [...] Color Straw Urine Appearance Clear Urine Specific [place] 1.005 Low 1.010-1.030 Urine pH 8.0 5-9 [...] mcIU/mL 0.34-5.60 Ua Routine 10/28/2016 Ua Specific [place] 1.005 Ua PH 7 Ua Color yellow [...] Color Straw Urine Appearance Clear Urine Specific [place] 1.005 Low 1.010-1.030 Urine pH 7.0 5-9 Urine Urobilinogen Negative Negative Urine Ketones Negative Negative Urine Protein Negative Negative Urine Leukocytes Negative Negative Urine Blood Negative Negative Urine Nitrite Negative Negative Urine Bilirubin Negative Negative Urine Glucose Negative Negative Laboratory test finding 06/06/2016 B-Type Natriuretic 89 pg/mL 21 Peptide BNP CBC Auto Diff 06/02/2016 White Blood Count [...] Blood Cells % 0 Laboratory test finding 06/02/2016 Lactic Acid 3.2 mmol/L High 0.5-2.0 22 B-Type Natriuretic Peptide BNP 211 pg/mL High 23 Comp Metabolic Panel 06/02/2016 Sodium 135 [...] 104.1 >60 24 Laboratory test finding 06/02/2016 Troponin-I (TnI) 0.02 ng/mL <0.03 25 Creatine Kinase(CK) 155 U/L 10-223 Blood Culture SEE RESULT BELOW 26 Inr/Protime 02/29/2016 Inr 0.91 0.89-1.11 Laboratory test finding 02/29/2016 Partial Thrombo Time 36.5 seconds High 26.0-36.3 PTT CBC Auto Diff 02/29/2016 White Blood Count [...] 0-2 Nucleated Red Blood Cells % 0.7 CKMB 02/29/2016 CKMB ng/mL 7.8 ng/mL High 0.6-6.3 Laboratory test finding 02/29/2016 Lipase 21 U/L [...] 107.6 >60 28 Laboratory test finding 02/29/2016 Lactic Acid 1.1 mmol/L 0.5-2.0 29 Laboratory test finding 02/29/2016 B-Type Natriuretic 117 pg/mL High 30 Peptide BNP Urinalysis Profile 01/22/2016 Urine Color Straw Urine Appearance Clear Urine Specific [place] 1.004 Low 1.010-1.030 Urine pH 8.0 5-9 [...] (or dialysis) 2 SEE RESULT BELOW Name: ERICKSONREJI L : [address]: Ron Cooper MD Acct: [id number] Unit: [id number] AGE: 72 Location: ED Re05/14/17 SEX: F Status: DEP ER SPEC: [id number] BALDEV: 05/14/17-1639 DR: Ron Cooper MD REQ: [id number] RECD: 05/14/17 STATUS: DAYNE ALVAREZ DR: Jamal Sheridan MD _ SOURCE: URINE SPDESC: ORDERED: Urine Culture Procedure Result Reported Site Urine Culture Final 05/16/17- 0806 ML No Growth (<1,000 CFU/mL) * ML - MAIN LAB ([facility]) . END OF REPORT * ML=Testing performed at Main Lab DEPARTMENT OF PATHOLOGY, [address] [place] [address] Weston Laura M.D. Director [facility] # [id number] 3 Please note: The following may produce a false positive D Dimer test: - Rheumatoid factor greater than 60 IU/ml - Plasma hemoglobin greater than 0.05 gm/dl - Bilirubin greater than 50 mg/dl - Lipids greater than 1000 mg/dl - FDP greater than 20 ug/ml 4 [facility] Severe Sepsis and Septic Shock Management Bundle [...] pg/mL: likely moderate to severe CHF 12 [facility] Severe Sepsis and Septic Shock Management Bundle Measure requires all lactic acids initially measuring >2.0 mmol/L be repeated. 13 99th percentile=0.04 ng/mL Troponin results at [facility] and [facility] are not [...] inflammation: >10.00 16 SEE RESULT BELOW Name: REJI ALMENDAREZ Kelly : [address]: Donnell Neri CRITICAL SYSTEMS TECHNICIAN Acct: [id number] Unit: [id number] AGE: 71 Location: [facility] Re10/28/16 SEX: F Status: REG REF SPEC: [id number] BALDEV: 10/28/16-[address] [facility] [address]: Donnell Neri CRITICAL SYSTEMS TECHNICIAN REQ: [id number] RECD: 10/29/163801 STATUS: COMP _ SOURCE: URINE SPDESC: ORDERED: Urine Culture COMMENTS: [id number] Urine Source: Random Procedure Result Reported Site Urine Culture Final 10/30/16- 1301 ML No growth of clinically significant organisms * ML - MAIN LAB ([facility]) . END OF REPORT * ML=Testing performed at Main Lab DEPARTMENT OF PATHOLOGY, [address] [place] [address] Weston Laura M.D. Director [facility] # [id number] 17 Class 0 (Negative <0.35) Test Performed by: [place] [address] Eyeglass Frame Truer: Ron Washington II, M.D., Ph.D. 18 [facility] Severe Sepsis and Septic Shock Management Bundle [...] 0.03 ng/mL Not supportive of diagnosis of [place] 0.03 - 0.50 ng/mL Indeterminate: suggest serial studies if clinically indicated. Greater than 0.5 ng/mL Consistent with diagnosis of [place] 21 >100 to <200 pg/mL: likely compensated congestive heart failure (CHF) 200 to 400 pg/mL: likely moderate CHF >400 pg/mL: likely moderate to severe CHF 22 Critical Result LACT:3.2 Called to RANJAN at: 10:55:11 by: Read back by:RANJAN NDMallory Severe Sepsis and Septic Shock Management Bundle Measure requires all lactic acids initially measuring >2.0 mmol/L be repeated. 23 >100 to <200 pg/mL: likely compensated congestive heart failure (CHF) 200 to 400 pg/mL: likely moderate CHF >400 pg/mL: likely moderate to severe CHF 24 Because ethnic data is not always [...] 5 Kidney failure <15 (or dialysis) 25 Reference Range and Interpretation: TnI (ng/mL) Interpretation Less Than 0.03 ng/mL Not supportive of diagnosis of [place] 0.03 - 0.50 ng/mL Indeterminate: suggest serial studies if clinically indicated. Greater than 0.5 ng/mL Consistent with diagnosis of [place] 26 SEE RESULT BELOW Name: REJI ALMENDAREZ : [address]: Evans Buck DO Acct: [id number] Unit: [id number] AGE: 71 Location: ED Re06/02/16 SEX: F Status: DEP ER SPEC: [id number] BALDEV: 06/02/16-[address] [facility] [address]: Evans Buck DO REQ: [id number] RECD: 06/02/16 STATUS: DAYNE ALVAREZ DR: Daniella Ramos MD _ SOURCE: BLOOD,VENO SPDESC: ORDERED: Blood Cult Procedure Result Reported Site Aerobic Culture Bottle Final 06/07/16- 1126 ML No Growth Day 5 Anaerobic Culture Bottle Final 06/07/161126 ML No Growth Day 5 * ML - MAIN LAB ([facility]) . END OF REPORT * ML=Testing performed at Main Lab DEPARTMENT OF PATHOLOGY, [address] [place] [address] Weston Laura M.D. Director [facility] # [id number] 27 Reference Range and Interpretation: TnI (ng/mL) Interpretation Less Than 0.03 ng/mL Not supportive of diagnosis of [place] 0.03 - 0.50 ng/mL Indeterminate: suggest serial studies if clinically indicated. Greater than 0.5 ng/mL Consistent with diagnosis of NH 28 Because ethnic data is not always [...] 5 Kidney failure <15 (or dialysis) 29 [facility] Severe Sepsis and Septic Shock Management Bundle Measure requires all lactic acids initially measuring >2.0 mmol/L be repeated. 30 >100 to <200 pg/mL: likely compensated congestive heart failure (CHF) 200 to 400 pg/mL: likely moderate CHF >400 pg/mL: likely moderate to severe CHF 31 SEE RESULT BELOW Name: REJI ALMENDAREZ Kelly : [address]: Carlos Gill MD Acct: [id number] Unit: [id number] AGE: 71 Location: ED Re01/22/16 SEX: F Status: DEP ER SPEC: [id number] BALDEV: 01/22/16-[address] [facility] [address]: Elsie Jacob NP REQ: [id number] RECD: 01/22/16 STATUS: DAYNE ALVAREZ DR: Daniella Gill MD _ SOURCE: URINE SPDESC: ORDERED: Urine Culture Procedure Result Reported Site Urine Culture Final 01/24/16- 1004 ML No growth of clinically significant organisms * ML - [facility] ([facility]) . END OF REPORT * ML=Testing performed at [facility] DEPARTMENT OF PATHOLOGY, [address] [place] [address] Weston Laura M.D. Director [facility] # [id number] 32 Test Performed by: [place] [address] Eyeglass Frame Truer: Ron Washington II, M.D., Ph.D. 33 REFERENCE VALUE <20.0 (Negative) Test Performed by: [place] [address] Eyeglass Frame Truer: Ron Washington II, M.D., Ph.D. 34 Normal Range 180 to 914 Indeterminate Range 145 to 180 Deficient Range <145 35 Test Performed by: [place] [address] Eyeglass Frame Truer: Ron Washington II, M.D., Ph.D. 36 RESULT: No apparent monoclonal protein on serum electrophoresis. Test Performed by: [place] [address] Eyeglass Frame Truer: Ron Washington II, M.D., Ph.D. Procedures Date CPT Code Description Status Comment 10/30/2017 70814 ECHO Transthoracic, Real-Time 2D Completed With Doppler And Color Flow 10/30/2017 59574 ECHO Transthoracic, Real-Time 2D Completed With Doppler And Color Flow 10/12/2017 92890 EKG Tracing & Interpretation Completed 10/05/2017 Diabetic Retinal Eye Exam Completed Document: 10/05/17 - Cons Ophthalmology-Dr. Fishman 01/06/2017 67112 Pulmonary Stress Test Simple Completed 11/03/2016 94924 EKG, Interpretation Only Completed 03/25/2016 01213 EKG Tracing & Interpretation Completed 03/21/2016 26566 ECHO Transthoracic, Real-Time 2D Completed With Doppler And Color Flow 03/01/2016 21510 EKG, Interpretation Only Completed 12/18/2015 49513 EKG Tracing & Interpretation Completed 11/21/2015 Bone Mineral Density Test Completed 08/07/2015 Mammogram Completed 03/29/2015 16826 Polysomnography Sleep Staging 4+ Completed Parameters W/Cpap 03/01/2015 10977 ECHO Transthorasic Realtime 2D W Completed Doppler & Color Flow Hosp 01/16/2015 73285 Polysomnography Sleep Staging 4+ Completed Parameters 02/16/2013 Colonoscopy Completed 1 benign polyps, [facility], [place], f/u 10 yr see Roberta records for due date Encounters Type Date Location Provider CPT E/M Dx Office Visit 04/15/2018 Pul[place] [address] G47.33 11:45a [facility] J45.909 E66.09 Office Visit 03/24/2018 10:45a [facility] [address] G47.33 [facility] R06.02 E66.01 Office Visit 01/22/2018 10:00a [facility] Internal Medicine Palma Slaughter, 38537 K59.00 - Renita Bower I10 E88.40 M25.551 Office Visit 10/12/2017 4:00p [place] [facility] [place] [address] Z95.2 [facility] FACC I10 G47.33 G71.3 E66.8 Office Visit 09/25/2017 9:30a [facility] [address] M25.512 C.M.A. S43.492A M75.42 M25.512 Office Visit 05/14/2017 11:08a [facility], CHAPO Burkett 35167 I35.0 Hospitalists G71.3 K90.0 I10 Office Visit 04/21/2017 4:00p [facility] Internal Jamal Sheridan, 19237 C44.319 Leslie Renita Bower,FACP L82.1 M16.11 Office Visit 04/06/2017 2:15p [facility] Miroslava Membreno M.D. 18620 M25.551 C.M.ABrain M16.11 Office Visit 04/01/2017 11:10a [facility] Internal Jamal Sheridan, 14630 K22.710 Medicine - [place] Rad Bower,FACP M16.11 Office Visit 2017 2:40p [facility] Internal Jamal Sheridan, 26026 T49.3x5D Medicine - [place] Rad Bower,FACP K22.70 G71.3 Office Visit 12/15/2016 1:40p [facility] Internal Medicine Jamal Sheridan, 38663 I10 - [place] Rad Bower,FACP G71.3 I35.0 Office Visit 11/27/2016 11:20a [facility] [place] [address] I35.0 [facility] FACC I10 G71.3 G47.33 Office Visit 11/07/2016 2:40p [facility] Internal Medicine Jamal Sheridan, 46962 G71.3 - [place] Rad Bower,FACP E87.6 I10 Office Visit 11/03/2016 2:13p [facility], [place] [address] R74.8 Hospitalists R06.02 R07.9 E88.40 Office Visit 11/02/2016 2:12p [facility], Giulia Swann, N.P. 17640 R74.8 Hospitalists R07.9 E88.40 R06.02 Office Visit 10/28/2016 2:20p [facility] Internal Medicine - Donnell Neri, GINI [address] R30.0 Office Visit 09/05/2016 4:00p [place] [facility] [address] I10 FACC I35.0 G47.33 E88.40 Office Visit 08/04/2016 1:40p [place] [facility] [address] I10 FACC I35.0 G47.33 E88.40 I27.2 Office Visit 06/11/2016 2:40p [facility] Internal Medicine - Carlos Shearer, 63070 I10 Hernandez Bower J45.909 G47.33 I35.0 Office Visit 06/02/2016 8:00a [facility] [place] [address] G47.33 [facility] J45.909 K22.70 E66.09 I10 Office Visit 05/28/2016 1:00p [place] [facility] [address] I10 FACC I35.0 G47.33 I27.2 E88.40 Office Visit 04/03/2016 1:20p [facility] Internal Medicine Giulia Hanks, 21106 G43.109 - Renita Bower I10 Office Visit 04/02/2016 9:13a [facility], 39134 G43.109 Hospitalists MJared R10.13 I10 Office Visit 04/01/2016 9:11a [facility], 09074 G43.109 Hospitalists M.DBrain R10.13 I10 Office Visit 03/25/2016 11:20a [facility] Alan Harry M.D. 22667 I35.0 I10 E88.40 R94.31 Office Visit 03/01/2016 10:58a [facility], Giulia Swann, N.P. 00968 I10 Hospitalists R07.9 R79.89 E88.40 Office Visit 02/29/2016 10:57a [facility], Giulia Swann, N.P. 10461 I10 Hospitalists R07.9 R79.89 E88.40 Office Visit 02/27/2016 10:30a [facility] Miroslava Membreno M.D. 69815 M16.11 C.M.A. Office Visit 02/14/2016 10:15a [facility] [address] G47.33 [facility] J45.909 K22.70 E66.09 Office Visit 01/25/2016 2:30p [facility] Miroslava Membreno M.D. 66937 M16.11 C.M.A. Office Visit 01/15/2016 11:20a [facility] Internal Medicine Daniella Ramos M.D. 55027 I10 - [place] M25.551 M81.0 J45.20 A04.9 Office Visit 12/18/2015 9:40a [facility] Alan Harry M.D. 64261 I10 R06.00 I35.0 R94.31 Office Visit 12/06/2015 2:00p [facility] Internal Medicine Daniella Ramos M.D. 57318 M25.551 - [place] K22.70 M81.8 F41.9 E53.9 J45.20 E03.9 Office Visit 11/15/2015 8:40a [facility] Internal Medicine Daniella Ramos M.D. 27382 M51.16 - [place] M25.551 G71.3 K22.70 M85.9 I35.0 Office Visit 09/25/2015 10:15a [facility] Mady Maldonado 73538 G47.33 [facility] PATITO BYRNE, MARK J30.89 Office Visit 05/11/2015 2:00p [facility] Mady Maldonado 78265 327.23 [facility] PATITO BYRNE, MARK 530.81 Office Visit 02/13/2015 1:30p [facility] Mady Maldonado 04394 327.23 [facility] PATITO BYRNE, TASHA-CARLIE Office Visit 12/14/2014 10:45a [facility] Sleep Magnus Lucas, 99941 327.23 Services Of Connie Bower 327.27 278.00 Plan of Care Future Appointment(s):06/04/2018 11:30 am - Marcy Reeder MD at [facility]04/20/2018 10:20 am - Isiah Goldsmith DO FAC at [place] [facility]04/15/2018 - Marcy Reeder MDG47.33 Obstructive sleep apnea (adult) (pediatric)New Orders:Sleep-HomecareFollow up:6 nzhfiR62.909 Unspecified asthma, comtyirzpeteyU90.09 Other obesity due to excess calories
[2018-05-06 16:32] VITALS: BP 178/98
--- NOTE | 2018-05-06 17:04 | UC ---
Lower Extremity/Ankle HPI - HPI Summary HPI Summary: A 73 y/o female presents to [facility] [place] [facility] c/o left foot small toe pain reaching 9/10 in severity. As per triage, "Left foot small toe feels broken- walked into leg of commode". According to the patient, she thinks she may have broke her left metatarsal toe after she accidentally walked into the leg of a commode. She stated that her eyes were dry and burning as she didn't put in her regular eye drops and when she turned on the light, she was blinded. This led to her walking into the leg of the commode and hitting her foot on the object. She stated that she had a lot of pain. It was noted that the patient feels like the bone is broken when ambulating. Besides the chief complaint, she has no other medical issues. - History of Current Complaint Chief Complaint: UCLowerExtremity Stated Complaint: FOOT INJURY Time Seen by Provider: 05/06/18 16:44 Hx Obtained From: Patient Onset/Duration: Sudden Onset, Lasting Hours, Still Present Severity Initially: Severe Severity Currently: Severe Pain Intensity: 9 Pain Scale Used: 0-10 Numeric Aggravating Factor(s): Ambulation Alleviating Factor(s): Nothing - Allergies/Home Medications Allergies/Adverse Reactions: Allergies Allergy/AdvReac Type Severity Reaction Status Date / Time albuterol Allergy Severe Swelling Verified 05/06/18 16:34 Of Face,Lips,& Throat famotidine Allergy Severe Hives/Diff. Verified 05/06/18 16:34 Breathing/I tching fluticasone Allergy Severe Swelling Verified 05/06/18 16:34 Of Face,Lips,& Throat lidocaine Allergy Severe Swelling Verified 05/06/18 16:34 pirbuterol Allergy Severe Swelling Verified 05/06/18 16:34 Of Face,Lips,& Throat salmeterol Allergy Severe Swelling Verified 05/06/18 16:34 Of Face,Lips,& Throat amlodipine Allergy Intermediate Swelling Verified 05/06/18 16:34 clindamycin Allergy Intermediate Hives Verified 05/06/18 16:34 Iodinated Contrast- Oral and Allergy Intermediate Itching Verified 05/06/18 16: 34 IV Dye iodine Allergy Intermediate Swelling Verified 05/06/18 16:34 latex Allergy Intermediate Rash Verified 05/06/18 16:34 levofloxacin Allergy Intermediate Hives Verified 05/06/18 16:34 metoprolol Allergy Intermediate Rash Verified 05/06/18 16:34 Penicillins Allergy Intermediate Hives Verified 05/06/18 16:34 rofecoxib Allergy Intermediate Hives Verified 05/06/18 16:34 streptomycin Allergy Intermediate Hives Verified 05/06/18 16:34 atenolol Allergy Unknown Unknown Verified 05/06/18 16:34 Reaction Details Beta-Adrenergic Agents Allergy Unknown Unknown Verified 05/06/18 16:34 Reaction Details epinephrine Allergy Unknown Unknown Verified 05/06/18 16:34 Reaction Details hydrochlorothiazide Allergy Unknown Unknown Verified 05/06/18 16:34 Reaction Details labetalol Allergy Unknown Unknown Verified 05/06/18 16:34 Reaction Details lisinopril Allergy Unknown Unknown Verified 05/06/18 16:34 Reaction Details losartan Allergy Unknown Unknown Verified 05/06/18 16:34 Reaction Details propofol Allergy Unknown Unknown Verified 05/06/18 16:34 Reaction Details sulfite Allergy Unknown Unknown Verified 05/06/18 16:34 Reaction Details terazosin Allergy Unknown Unknown Verified 05/06/18 16:34 Reaction Details valsartan Allergy Unknown Unknown Verified 05/06/18 16:34 Reaction Details gluten AdvReac Intermediate GI Upset Verified 05/06/18 16:34 PMH/Surg Hx/FS Hx/Imm Hx - Additional Past Medical History Additional PMH: Diverticulitis, Diverticulosis, Mitochondrial disease, Aortic Value Replacement , Hashimotos, celiac disease Endocrine History: Hypothyroidism Cardiovascular History: Hypertension Respiratory History: Asthma - Surgical History Surgical History: Yes Surgery Procedure, Year, and Place: REMOVAL OF OVARIAN CYST AND ADHESIONS IN FALLOPIAN TUBES (1971). CERVICAL POLYP REMOVAL (1974). TUBAL LIGATION (1974). GALLBLADDER. BLADDER REPAIR (1984). UPPER LUBE COLOSTOMY AND REVERSAL. PROLAPSE OF RECTUM. OPEN REDUCTION OF LT ELBOW - Family History Known Family History: Positive: Cardiac Disease, Respiratory Disease, Other - Cancer - Social History Alcohol Use: None Substance Use Type: None Smoking Status (MU): Former Smoker - Immunization History Most Recent Influenza Vaccination: unk Most Recent Tetanus Shot: within 5 yrs. Most Recent Pneumonia Vaccination: 2010 Review of Systems Constitutional: Negative Skin: Negative Eyes: Negative ENT: Negative Respiratory: Negative Cardiovascular: Negative Gastrointestinal: Negative Genitourinary: Negative Motor: Negative Neurovascular: Negative Musculoskeletal: Other: - POSITIVE: Left foot small toe pain. Neurological: Negative Psychological: Negative Is Patient Immunocompromised?: No All Other Systems Reviewed And Are Negative: Yes Physical Exam - Summary Physical Exam Summary: General: well-appearing, no pain distress Skin: warm, color reflects adequate perfusion, dry Head: normal Eyes: EOMI, EVA ENT: normal Neck: supple, nontender Respiratory: CTA, breath sounds present Cardiovascular: RRR Abdomen: soft, nontender Bowel: present Musculoskeletal: strength/ROM intact, Tender to palpation in the left fourth and fifith toes and in left fourth and fifth metatarsal. Neurological: sensory/motor intact, A&O x3 Psychological: affect/mood appropriate Triage Information Reviewed: Yes Vital Signs: Initial Vital Signs Temp 99.1 F 05/06/18 16:24 Pulse 93 05/06/18 16:24 Resp 22 05/06/18 16:24 BP 178/98 05/06/18 16:24 Pulse Ox 96 05/06/18 16:24 Vital Signs Reviewed: Yes Diagnostics - Radiology Foot XR Radiology Interpretation Completed By: Radiologist - POSSIBLE NONDISPLACED FRACTURE OF THE FIFTH PROXIMAL PHALANX. ED physician reviewed this radiology report. Re-Evaluation - Re-Evaluation First Eval Re-Evaluation Time: 17:33 Comment: Discussed results and plan with patient. Lower Extremity Course/Dx - Course Course Of Treatment: Medications reviewed. Allergies noted. BP noted and advised to follow up with PCP. DISCUSSED X-RAY RESULTS WITH THE PATIENT. 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 - Differential Dx/Diagnosis Provider Diagnoses: LEFT FIFTH TOE NON DISPLACED CLOSED FRACTURE Discharge - Sign-Out/Discharge Documenting (check all that apply): Patient Departure - DISCHARGE All imaging exams completed and their final reports reviewed: Yes - Foot XR - Discharge Plan Condition: Stable Disposition: HOME Prescriptions: HYDROcodone/ACETAMIN 5-325 MG* [Anderson 5-325 TAB*] 1 tab PO Q8H PRN #10 tab MDD 3 PRN Reason: Pain Patient Education Materials: Toe Fracture (ED) Referrals: Palma Slaughter MD [Primary Care Provider] - Moon Vallecillo DPM [Doctor of Podiatric Medicine] - Additional Instructions: FOLLOW UP WITH YOUR PRIMARY CARE DOCTOR OR BOARD STACKER. GET RECHECKED FOR ANY WORSENING OF YOUR CONDITION OR QUESTIONS OR CONCERNS. - Billing Disposition and Condition Condition: STABLE Disposition: Home - Attestation Statements Document Initiated by Scribe: Yes Documenting Scribe: José Antonio Tong Provider For Whom Scribe is Documenting (Include Credential): Ron Cooper Scribfitz Attestation: José Antonio Collier, scribed for Ron Cooper on 05/06/18 at 1756. Scribe Documentation Reviewed: Yes Provider Attestation: The documentation as recorded by the José Antonio chino accurately reflects the service I personally performed and the decisions made by Ron morrison
--- NOTE | 2018-05-06 17:20 | RAD ---
INDICATION: Left foot injury. TECHNIQUE: 3 views of the left foot were obtained. FINDINGS: The bones appear osteopenic and in normal alignment. There is cortical irregularity in the mid diaphysis of the fifth proximal phalanx possibly representing a nondisplaced fracture. No other fractures are seen. IMPRESSION: POSSIBLE NONDISPLACED FRACTURE OF THE FIFTH PROXIMAL PHALANX.
== END 2018-05-06 17:45 | disposition home or self-care (01) ==
LOC: UCEAST 16:17
DX: S92.912A Unspecified fracture of left toe(s), initial encounter for closed fracture (principal); H57.8 Other specified disorders of eye and adnexa; J45.909 Unspecified asthma, uncomplicated; I10 Essential (primary) hypertension; Z88.8 Allergy status to other drugs, medicaments and biological substances; Z88.6 Allergy status to analgesic agent; Z88.1 Allergy status to other antibiotic agents; Z91.041 Radiographic dye allergy status; Z91.09 Other allergy status, other than to drugs and biological substances; Z91.040 Latex allergy status; Z88.0 Allergy status to penicillin; Z88.2 Allergy status to sulfonamides; Z91.018 Allergy to other foods; Z95.2 Presence of prosthetic heart valve; Z87.891 Personal history of nicotine dependence; W22.8XXA Striking against or struck by other objects, initial encounter; Y93.01 Activity, walking, marching and hiking; Y92.9 Unspecified place or not applicable
CPT/HCPCS: 99212; 99213; G0463

== ENCOUNTER 2018-05-08 13:59 | Emergency (ER) | payer MEDICARE ==
--- NOTE | 2018-05-08 15:35 | UC ---
Eye Complaint HPI - HPI Summary HPI Summary: 73 y/o female presents to the urgent care c/o B/L eye Sticky mucous in both eyes, "swollen corneas," itchy and burning. - History of Current Complaint Chief Complaint: UCEye Stated Complaint: EYE ISSUE Time Seen by Provider: 05/08/18 15:29 Hx Obtained From: Patient Pain Intensity: 7 - Allergies/Home Medications Allergies/Adverse Reactions: Allergies Allergy/AdvReac Type Severity Reaction Status Date / Time albuterol Allergy Severe Swelling Verified 05/06/18 16:34 Of Face,Lips,& Throat famotidine Allergy Severe Hives/Diff. Verified 05/06/18 16:34 Breathing/I tching fluticasone Allergy Severe Swelling Verified 05/06/18 16:34 Of Face,Lips,& Throat lidocaine Allergy Severe Swelling Verified 05/06/18 16:34 pirbuterol Allergy Severe Swelling Verified 05/06/18 16:34 Of Face,Lips,& Throat salmeterol Allergy Severe Swelling Verified 05/06/18 16:34 Of Face,Lips,& Throat amlodipine Allergy Intermediate Swelling Verified 05/06/18 16:34 clindamycin Allergy Intermediate Hives Verified 05/06/18 16:34 Iodinated Contrast- Oral and Allergy Intermediate Itching Verified 05/06/18 16: 34 IV Dye iodine Allergy Intermediate Swelling Verified 05/06/18 16:34 latex Allergy Intermediate Rash Verified 05/06/18 16:34 levofloxacin Allergy Intermediate Hives Verified 05/06/18 16:34 metoprolol Allergy Intermediate Rash Verified 05/06/18 16:34 Penicillins Allergy Intermediate Hives Verified 05/06/18 16:34 rofecoxib Allergy Intermediate Hives Verified 05/06/18 16:34 streptomycin Allergy Intermediate Hives Verified 05/06/18 16:34 atenolol Allergy Unknown Unknown Verified 05/06/18 16:34 Reaction Details Beta-Adrenergic Agents Allergy Unknown Unknown Verified 05/06/18 16:34 Reaction Details epinephrine Allergy Unknown Unknown Verified 05/06/18 16:34 Reaction Details hydrochlorothiazide Allergy Unknown Unknown Verified 05/06/18 16:34 Reaction Details labetalol Allergy Unknown Unknown Verified 05/06/18 16:34 Reaction Details lisinopril Allergy Unknown Unknown Verified 05/06/18 16:34 Reaction Details losartan Allergy Unknown Unknown Verified 05/06/18 16:34 Reaction Details propofol Allergy Unknown Unknown Verified 05/06/18 16:34 Reaction Details sulfite Allergy Unknown Unknown Verified 05/06/18 16:34 Reaction Details terazosin Allergy Unknown Unknown Verified 05/06/18 16:34 Reaction Details valsartan Allergy Unknown Unknown Verified 05/06/18 16:34 Reaction Details gluten AdvReac Intermediate GI Upset Verified 05/06/18 16:34 PMH/Surg Hx/FS Hx/Imm Hx - Surgical History Surgical History: Yes Surgery Procedure, Year, and Place: REMOVAL OF OVARIAN CYST AND ADHESIONS IN FALLOPIAN TUBES (1971). CERVICAL POLYP REMOVAL (1974). TUBAL LIGATION (1974). GALLBLADDER. BLADDER REPAIR (1984). UPPER LUBE COLOSTOMY AND REVERSAL. PROLAPSE OF RECTUM. OPEN REDUCTION OF LT ELBOW - Family History Known Family History: Positive: Cardiac Disease, Respiratory Disease, Other - Cancer - Social History Alcohol Use: None Substance Use Type: None Smoking Status (MU): Former Smoker - Immunization History Most Recent Influenza Vaccination: Most Recent Tetanus Shot: within 5 yrs. Most Recent Pneumonia Vaccination: 2010 Physical Exam Vital Signs: Initial Vital Signs Temp 98.4 F 05/08/18 15:27 Pulse 90 05/08/18 15:27 Resp 20 05/08/18 15:27 BP 0/0 05/08/18 15:27 Pulse Ox 96 05/08/18 15:27 Eye Complaint Course/Dx - Differential Dx/Diagnosis Provider Diagnoses: 1- B/L bacterial conjunctivitis Discharge - Sign-Out/Discharge Documenting (check all that apply): Patient Departure - D/C home All imaging exams completed and their final reports reviewed: No Studies - Discharge Plan Condition: Stable Disposition: HOME Prescriptions: Polymyx/Trimethoprim OPTH* [Polytrim OPHTH*] 1 drop BOTH EYES Q3H #1 btl Patient Education Materials: Conjunctivitis (ED) Referrals: Palma Slaughter MD [Primary Care Provider] - 3 Days Tim Valdez MD [Medical Doctor] - 3 Days Additional Instructions: 1-Please apply Polytrim Ophthalmic drops in both eyes as directed . Please wash your face, eyebrows and eyelashes w/ baby Michele shampoo and water 2--If symptoms do not improve or worsen please f/u w/ your Stenciling Machine Tender or Dr Valdez in 2-3 days for further evaluation and treatment - Billing Disposition and Condition Condition: STABLE Disposition: Home
[2018-05-08 16:27] VITALS: BP 160/82
== END 2018-05-08 16:30 | disposition home or self-care (01) ==
LOC: UCEAST 13:59
DX: H10.9 Unspecified conjunctivitis (principal); B96.89 Other specified bacterial agents as the cause of diseases classified elsewhere; Z88.8 Allergy status to other drugs, medicaments and biological substances; Z88.4 Allergy status to anesthetic agent; Z88.1 Allergy status to other antibiotic agents; Z91.041 Radiographic dye allergy status; Z91.09 Other allergy status, other than to drugs and biological substances; Z91.040 Latex allergy status; Z88.0 Allergy status to penicillin; Z88.2 Allergy status to sulfonamides; Z91.018 Allergy to other foods; Z87.891 Personal history of nicotine dependence
CPT/HCPCS: 99202; G0463

== ENCOUNTER 2018-07-14 13:10 | Emergency (ER) | payer MEDICARE ==
--- OUTSIDE RECORDS SUMMARY | 2018-07-14 13:16 | XMS REPORT ---
:1945 External Reference #:[id number] Author Organization [facility] Address [address] [facility] [place] [address] [place] [address] Phone [phone] Care Team Providers Name Role Phone Palma Slaughter MD Primary Care Physician Unavailable Payers Type Date Identification Numbers Payment Provider Subscriber Medicare Primary Policy Number: [id number] Medicare Reji Almendarez PayID: [id number] [address] [place] [address] [facility] Part B Policy Number: [id number] [facility] Reji Almendarez PayID: [id number] [address] [place] [address] Workers Compensation Effective: Policy Number: State Ajay Almendarez 2017 [id number] [employer] Onset: 2017 Group Number: [id number] [place] [address] Problems Date Description Provider Status Onset: 11/07/2016 Mitochondrial myopathy Jamal Sheridan M.D.,FACP Active Note: red ragged fibers Onset: 02/13/2015 Obstructive sleep apnea of Mady Maldonado DNP, RN, Active adult 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 Drives, also uses [employer] Occupation Disabled Cigarette Use Former Cigarette Smoker ETOH Use 11/07/2016 Denies alcohol use Smoking Patient is a former smoker Recreational Drug Use Denies Drug Use Smoking when 17 years old for 2 years, then quit Daily Caffeine every other day ; herbal teas as well Daily Caffeine Comsumes on average 1 cup of decaff coffee per day Exercise Type/Frequency arm chair exercises; yoga Burmese Chi Exercise Type/Frequency Exercises sporadically General Hx Text lived in [facility] and moved to [place] after corneal transplant in 2014 to be [...] 11/15/19 Epinephrine Urticaria active Moderate 16 11/15/19 Hydrochlorothiazide unknown active Moderate 16 [...] active 16 11/08/19 Macrobid active Severe 17 11/28/19 Spironolactone active severe 17 constipation, dehydration, headache, nausea 12/16/19 Peanut-containing Drug Anaphylaxis active Fatal 17 Products 01/05/[address] Bradford 17 12/15/19 Versed inactive DIRECTOR INSTRUMENTATION Reaction 15 11/15/19 Flonase Anaphylaxis inactive Severe 16 06/03/20 Verapamil inactive 16 Medications Medication Date Status Form Strength Qnty SIG Indications Ordering Provider Megazymes 05/28 Active 1 PO with every meal Sathish Slaughter Cassie Allergy 10/12 Active Tablets 60mg 1 by mouth Isiah S. every day Goldsmith, DO prn FACC Bennet 05/30 Active Tablets 5-325mg 20tab 1 tab q 6 s hrs prn Ordering pain Provider Bebo Gregory 04/08 Active Misc 4 wheel M16.11 rolling librado Membreno M.D. with seat Hydrocodone-Acet 04/08 Active Tablets 5-325mg 45tab 1 tab by M25.551 Miroslava amino s mouth Haseeb, every 6 M.D. hours as needed for pain Ondansetron 01/21 Active Tablets 8mg 30tab take 1 by Dispers s mouth Ramos Sheridan, every 6 M.D.,FACP hours as needed for nausea Sucralfate 12/30 Active Suspension 1GM/10ML 500ml 10 milliliter Ramos Sheridan, s four M.D.,FACP times a day as needed Nystatin 12/15 Active Powder [id number] 30uni apply t/GM ts daily prn Ramos Sheridan, to M.D.,FACP affected area until rash clears Verapamil HCL 09/05 Active Tablets 40mg 360ta take2 bs tablet in , DO the FACC morning and 2 tab at night daily Exedrin Migraine 04/03 Active as needed Giulia /2016 Sathish Hanks Oxygen 03/25 Active Misc 1unit 1 l nc at s bedtime Ordering Provider Synthroid 02/12 Active Tablets 50mcg 120ta 4 by mouth bs every m, Sukhjinder, w, f and M.DBrain 4.5 tablets on t, th, sa and ferris. Lactulose 02/12 Active Solution 10GM/15ML as directed [...] mouth every day Nystatin-Triamci 02/12 Active Cream [id number]. apply Unknown 1Unit/GM- small % amount on [...] Active Aerosol 45mcg/Act 45gm 2 puffs Marcy 0000 four times MD Varinder a day as needed Xopenex Active Nebulizer 1.25mg/3M 1 vial Unknown / L every 4 hours as needed Nystatin Oral Active Liquid 400,000/1 10 ml Unknown Suspension /0000 0ML swish and swallow twice a day as needed Tylenol Active Capsules 500mg take two Unknown tablets by mouth four times a day as needed-gen juan only Magnesium Active Capsules 550 once a day Unknown / Aspirin 81 Low Active Chewtabs 81mg 1 by mouth Unknown Dose /0000 every day Calcium 500 + D3 Active 1 daily Unknown / Cortisone Active Tablets 25mg cream prn Unknown Acetate Bi-Pap Active at night Unknown / Tussin Mucus + Active Syrup 100mg/5ML 10-20 ML Unknown Chest Congestion /0000 as needed every 4-6 hours Vitamin K Active Tablets Unknown (Phytonadione) / Zinc Active Tablets 50mg 0nce daily Potassium Active Tablets 99mg Lidocaine Active Cream as needed Colace Active Capsules 100mg 1 tab by mouth 2-3 times a day as needed Milk Of Magnesia Active Unknown Neomycin Active Apply to right eye only. Roller Walker 04/08 Hx Misc M16.11 Miroslava [...] Sheridan, - qid as M.D.,FACP 12/30 needed Furosemide 12/15 Hx Tablets 20mg 14tab take 1 s tablet Ramos Sheridan, - every M.D.,FACP 05/26 morning needed Magnesium 11/13 Hx Solution 1.745GM/3 1unit 1 bottle Jamal 0ML s by mouth Ramos Sheridan, - x1 (PT M.D.,FACP 01/17 does take) Nexium 11/[address] 20mg 180ca 1 by mouth ps twice a Ramos Sheridan, - day M.D.,FACP 01/22 Spironolactone 11/07 Hx Tablets 25mg 30tab 1 by mouth s every day Ramos Sheridan, - ( pt stop M.D.,FACP 11/21 taking, /2016 last week 11/21/16 Macrobid 10/28 Hx Capsules 100mg 14cap 1 cap by N39.0 Donnell s mouth q12 Pashto, OPENER TENDER - hours x 7 Verapamil HCL 08/04 Hx Tablets 40mg 90tab take one Isiah S. s tablet as Agus, DO - needed for FACC 09/05 Hydralazine HCL 06/19 Hx Tablets 10mg 90tab 1 by mouth Isiah S. s three Agus, DO - times a FACC 08/04 day ( stop taking ) Isosorbide 06/03 Hx Tablets ER 30mg 30tab Take 1 Isiah SBrain Mononitrate ER 24HR s tablet by Agus, [...] ER 100mg 30cap Take 09/08 I10 Isiah S 24HR s tablet by Agus, DO - [...] daily Aldactone 04/03 Hx Tablets 25mg 40tab /2 by Alan s mouth Gladys Soares M.D. 05/01 Xifaxan 02/12 Hx Tablets 550mg 1 by mouth twice a - day 02/12 Hydrocodone-Acet 01/14 Hx Tablets 5-325mg 45tab 1-2 by M25.551 Shy aminophen /2015 s mouth per Sofia, - day as OPENER TENDER 06/02 needed Fluticasone 12/12 Hx Suspension 50mcg/Act 16gm 1 Daniella Propionate intranasal Richard, - puff to M.Ramos 03/25 each nostril daily Ranitidine 150 12/05 Hx Tablets 150mg 60tab 1 tab by K22.70 Daniella Maximum Strength /2015 s mouth 2x Richard, - per dayas M.Ramos 03/24 needed for reflux Flonase Allergy 02/12 Hx Suspension 50mcg/Act 1 Richard, Relief intranasal Daniella, - puff to MD 12/12 each nostril daily Xopenex HFA 02/12 Hx Aerosol 45mcg/Act 2 puffs as needed - 11/14 Xopenex 02/12 Hx Nebulizer 0.63mg/3M 72ml 1 vial Daniella /2014 L every 4-6 Richard, - hours as M.Ramos 05/28 needed dx code j45.20 last visit 12/06/15. Dulera 02/12 Hx Aerosol 100-5mcg/ 2 puff Unknown Act twice a - day 01/14 Carafate 02/12 Hx Suspension 1GM/10ML 420ml 2 teaspoon Jamal by mouth Ramos Sheridan, - qid as MJared,FACP 12/30 needed Miralax 02/12 Hx Packet [id number] [...] needed Unknown as - directed 12/05 Nexium /[address] 40mg 1 by mouth every day - 11/14 Meloxicam Hx Tablets 7.5mg take 1 tab Unknown / by mouth - two t imes 01/14 a day with food Cassie Allergy Hx Tablets 60mg 1 by mouth Unknown / every day - prn 01/06 Calcium 500+D Hx Tablets 500-400mg 1 by mouth Unknown High Potency /0000 -Unit daily - 08/07 Verapamil HCL Hx Tablets 40mg 1 by mouth Unknown / every day - 03/24 Colace Hx Capsules 100mg 1 by mouth Unknown / up to 3 - times a Senna [...] Linzess Hx Unknown / - 03/24 [address] 40mg 1 by mouth Unknown /0000 every - day(pt not 08/07 every day only when on Abt and when doctor puts pt back on it) Cardizem Hx Tablets 30mg 60tab 1 tablet Alan / s twice a FBrain Harry, - day (held M.D. 05/24 by [...] ( taking) Hydrocortisone Hx Cream 2.5% Unknown /0000 applied to - rectum as 01/06 Claritin Hx Tablets 10mg 1 by mouth Unknown /0000 every day - as needed 10/09 Clopidogrel Hx Tablets 75mg 1 daily Unknown Bisulfate / - 01/22 Colace Hx Capsules 100mg 1 tab by Unknown /0000 mouth 2-3 - times a 01/22 day needed Womens Gentle Hx as needed Unknown Laxative - 05/24 Digest Gold Hx Unknown /0000 - 06/21 Levothyroxine Hx Tablets 150mcg 1 by mouth Unknown Sodium /0000 every day - 06/07 Vital Signs Date Vital Result Comment 06/22/2018 Height 66 inches 5'6" Weight 252.00 lb Heart Rate 100 /min BP Systolic Sitting 160 mmHg Lue large cuff BP Diastolic Sitting 80 mmHg Lue large cuff Respiratory Rate 20 /min O2 % BldC Oximetry 97 % BMI (Body Mass Index) 40.7 kg/m2 05/28/2018 Height 66 inches 5'6" Weight 250.00 lb Heart Rate 91 /min BP Systolic 140 mmHg right arm, 160/98 left arm BP Diastolic 82 mmHg right arm, 160/98 left arm O2 % BldC Oximetry 94 % BMI (Body Mass Index) 40.3 kg/m2 05/27/2018 Height 66 inches 5'6" Heart Rate 84 /min BP Systolic 144 mmHg manual cuff BP Diastolic 86 mmHg manual cuff Pain Level 7 back/abdomen 04/20/2018 Height 66 inches 5'6" Weight 245.00 [...] Test Date Test Result H/L Range Note Laboratory test finding 05/28/2018 Vitamin D Total 34.6 ng/mL 20-50 25(Oh) Vitamin B12 And Folate 05/28/2018 Vitamin B12 545 pg/mL 180-914 1 Serum Folic Acid (Folate) > 20.00 ng/mL >3.99 Laboratory test finding 05/28/2018 TSH (Thyroid Stim 7.60 mcIU/mL High 0.34-5.60 Horm) Comp Metabolic Panel 05/28/2018 Sodium 139 mmol/L 135-145 Potassium 4.3 mmol/L 3.5-5.0 Chloride 102 mmol/L 101-111 Co2 Carbon Dioxide 29 mmol/L 22-32 Anion Gap 8 mmol/L 2-11 Glucose 112 mg/dL High 70-100 Blood Urea Nitrogen 11 mg/dL 6-24 Creatinine 0.77 mg/dL 0.51-0.95 BUN/Creatinine Ratio 14.3 8-20 Calcium 9.5 mg/dL 8.6-10.3 Total Protein 7.0 g/dL 6.4-8.9 Albumin 4.1 g/dL 3.2-5.2 Globulin 2.9 g/dL 2-4 Albumin/Globulin Ratio 1.4 1-3 Total Bilirubin 0.70 mg/dL 0.2-1.0 Alkaline Phosphatase 91 U/L 34-104 Alt 25 U/L 7-52 Ast 23 U/L 13-39 Egfr Non- 73.3 >60 Egfr 88.7 >60 2 CBC Auto Diff 05/28/2018 White Blood Count 6.6 10^3/uL 3.5-10.8 Red Blood Count 4.99 10^6/uL 4.00-5.40 Hemoglobin 15.4 g/dL 12.0-16.0 Hematocrit 45 % 35-47 Mean Corpuscular Volume 91 fL 80-97 Mean Corpuscular Hemoglobin 31 pg 27-31 Mean Corpuscular HGB Conc 34 g/dL 31-36 Red Cell Distribution Width 15 % 10.5-15 Platelet Count 187 10^3/uL 150-450 Mean Platelet Volume 9.7 um3 7.4-10.4 Abs Neutrophils 3.9 10^3/uL 1.5-7.7 Abs Lymphocytes 2.0 10^3/uL 1.0-4.8 Abs Monocytes 0.6 10^3/uL 0-0.8 Abs Eosinophils 0.1 10^3/uL 0-0.6 Abs Basophils 0 10^3/uL 0-0.2 Abs Nucleated RBC 0 10^3/uL Granulocyte % 58.8 % 38-83 Lymphocyte % 30.3 % 25-47 Monocyte % 9.6 % High 0-7 Eosinophil % 1.1 % 0-6 Basophil % 0.2 % 0-2 Nucleated Red Blood Cells % 0.1 Comp Metabolic Panel 02/08/2018 Sodium 140 mmol/L [...] Egfr Non- 77.9 >60 Egfr 100.2 >60 3 CBC Auto Diff 02/08/2018 White Blood Count [...] Quantitative < 200 ng/mL Less Than 230 4 Lactic Acid 0.8 mmol/L 0.5-2.0 5 B-Type Natriuretic Peptide BNP 121 pg/mL High 6 Comp Metabolic Panel 05/14/2017 Sodium 139 mmol/L [...] Egfr Non- 78.1 >60 Egfr 100.5 >60 7 Laboratory test finding 05/14/2017 Magnesium 2.0 mg/dL 1.9-2.7 Lipase 24 U/L 11.0-82.0 Creatine Kinase(CK) 134 U/L 10-223 C Reactive Protein 6.05 mg/L High < 5.00 8 Troponin-I (TnI) 0.03 ng/mL <0.04 CKMB 05/14/2017 CKMB ng/mL 5.7 ng/mL 0.6-6.3 Laboratory test finding 05/14/2017 TSH (Thyroid Stim Horm) 1.64 mcIU/mL 0.34-5.60 Urinalysis Profile 05/14/2017 Urine Color Straw Urine Appearance Clear Urine Specific Duson 1.006 Low 1.010-1.030 Urine pH 7.0 5-9 [...] Epithelial Cell Present Absent Urine Culture And 05/14/2017 Urine Culture SEE RESULT BELOW 9 Sensitivities Vitamin B12 And Folate 04/10/2017 Vitamin B12 > 1450 pg/mL High 180-914 10 Serum Folic Acid (Folate) 11.91 ng/mL >3.99 [...] Egfr Non- 76.9 >60 Egfr 98.9 >60 11 Laboratory test finding 04/10/2017 Magnesium 2.1 mg/dL [...] Egfr Non- 80.7 >60 Egfr 103.8 >60 12 Laboratory test finding 02/23/2017 Erythrocyte Sed Rate 20 mm/Hr 0-40 Laboratory test finding 12/04/2016 B-Type Natriuretic Peptide 148 pg/mL High 13 BNP Urinalysis Profile 12/04/2016 Urine Color Straw Urine Appearance Clear Urine Specific Duson 1.005 Low 1.010-1.030 Urine pH 8.0 5-9 Urine Urobilinogen Negative Negative Urine Ketones Negative Negative Urine Protein Negative Negative Urine Leukocytes Negative Negative Urine Blood Negative Negative Urine Nitrite Negative Negative Urine Bilirubin Negative Negative Urine Glucose Negative Negative Laboratory test finding 12/04/2016 Lactic Acid 1.0 mmol/L 0.5-2.0 14 CBC Auto Diff 12/04/2016 White Blood Count [...] finding 12/04/2016 Troponin-I (TnI) 0.03 ng/mL <0.04 15 Comp Metabolic Panel 12/04/2016 Sodium 138 mmol/L [...] Egfr Non- 76.0 >60 Egfr 97.7 >60 16 Laboratory test finding 12/04/2016 Magnesium 2.1 mg/dL 1.9-2.7 C Reactive Protein 8.09 mg/L High < 5.00 17 TSH (Thyroid Stim Horm) 0.94 mcIU/mL 0.34-5.60 Urine Culture And 10/28/2016 Urine Culture SEE RESULT BELOW 18 Sensitivities Ua Routine 10/28/2016 Ua Specific Duson 1.005 Ua PH 7 Ua Color yellow Ua Appera cloudy Ua WBC small Ua Protein neg Ua Glucose neg Ua Ketones neg Ua Bilirubin neg Ua Urobilinogen norm Ua Nitrite neg Ua Occult Blood neg Laboratory test finding 07/16/2016 TSH (Thyroid Stim Horm) 1.67 mcIU/mL 0.34-5.60 T3 Free 3.20 pg/mL 2.5-3.9 Free T4 (Free Thyroxine) 1.04 ng/dL 0.61-1.12 Laboratory test finding 06/17/2016 Latex Allergen IgE <0.35 kU/L 19 Laboratory test finding 06/06/2016 Lactic Acid 1.9 mmol/L 0.5-2.0 20 Comp Metabolic Panel 06/06/2016 Sodium 137 mmol/L [...] Egfr Non- 83.6 >60 Egfr 107.6 >60 21 Laboratory test finding 06/06/2016 Troponin-I (TnI) 0.03 ng/mL High <0.03 22 CBC Auto Diff 06/06/2016 White Blood Count [...] Color Straw Urine Appearance Clear Urine Specific Duson 1.005 Low 1.010-1.030 Urine pH 7.0 5-9 Urine Urobilinogen Negative Negative Urine Ketones Negative Negative Urine Protein Negative Negative Urine Leukocytes Negative Negative Urine Blood Negative Negative Urine Nitrite Negative Negative Urine Bilirubin Negative Negative Urine Glucose Negative Negative Laboratory test finding 06/06/2016 B-Type Natriuretic Peptide 89 pg/mL 23 BNP Laboratory test finding 06/02/2016 Troponin-I (TnI) 0.02 ng/mL <0.03 24 Creatine Kinase(CK) 155 U/L 10-223 Blood Culture SEE RESULT BELOW 25 Comp Metabolic Panel 06/02/2016 Sodium 135 mmol/L [...] Egfr Non- 80.9 >60 Egfr 104.1 >60 26 CBC Auto Diff 06/02/2016 White Blood [...] 06/02/2016 Lactic Acid 3.2 mmol/L High 0.5-2.0 27 B-Type Natriuretic Peptide BNP 211 pg/mL High 28 CBC Auto Diff 02/29/2016 White Blood Count [...] 10-223 Troponin-I (TnI) 0.03 ng/mL High <0.03 29 Comp Metabolic Panel 02/29/2016 Sodium 138 mmol/L [...] Egfr Non- 83.6 >60 Egfr 107.6 >60 30 Laboratory test 02/29/2016 B-Type Natriuretic 117 pg/mL High 31 finding Peptide BNP Laboratory test 02/29/2016 Lactic Acid 1.1 mmol/L 0.5-2.0 32 finding Inr/Protime 02/29/2016 Inr 0.91 0.89-1.11 Laboratory test 02/29/2016 Partial Thrombo Time 36.5 seconds High 26.0- 36.3 finding PTT Urinalysis Profile 01/22/2016 Urine Color Straw Urine Appearance Clear Urine Specific Duson 1.004 Low 1.010-1.030 Urine pH 8.0 5-9 [...] And 01/22/2016 Urine Culture SEE RESULT BELOW 33 Sensitivities Laboratory test finding 12/17/2015 TSH (Thyroid Stim 4.98 ?IU/mL 0.34- 5.60 Horm) Free T4 (Free Thyroxine) 0.85 ng/dL 0.61-1.12 Pthi 12/07/2015 Calcium (PTH Intact) 9.2 mg/dL 8.6-10.3 PTH Intact 3.8 pmol/L 1.3-9.3 Protein Electrophoresis 12/07/2015 Total Protein(Pep) 7.0 g/dL 6.3 - 7.9 Albumin 3.3 g/dL 3.4-4.7 Alpha-1 Globulin 0.3 g/dL 0.1-0.3 Alpha-2 Globulin 1.1 g/dL 0.6-1.0 Beta Globulin 1.0 g/dL 0.7-1.2 Gamma Globulin 1.3 g/dL 0.6-1.6 Albumin/Globulin Ratio 0.88 Impression See Comment 34 Laboratory test finding 12/07/2015 Vitamin D Total 25(Oh) 33.1 ng/mL 30- 50 Rheumatoid Factor <15 IU/mL <15 35 Cyclic Citrullinated Pep Igg <15.6 U 36 Vitamin B12 789 pg/mL 180-914 37 Methylmalonic Acid Mma 0.09 nmol/mL <=0.40 38 1 Normal Range 180 to 914 Indeterminate Range 145 to 180 Deficient Range <145 2 Because ethnic data is not always readily [...] 15-29 5 Kidney failure <15 (or dialysis) 3 Because ethnic data is not always readily [...] 15-29 5 Kidney failure <15 (or dialysis) 4 Please note: The following may produce a false positive D Dimer test: - Rheumatoid factor greater than 60 IU/ml - Plasma hemoglobin greater than 0.05 gm/dl - Bilirubin greater than 50 mg/dl - Lipids greater than 1000 mg/dl - FDP greater than 20 ug/ml 5 [facility] Severe Sepsis and Septic Shock Management Bundle Measure requires all lactic acids initially measuring >2.0 mmol/L be repeated. 6 >100 to <200 pg/mL: likely compensated congestive heart failure (CHF) 200 to 400 pg/mL: likely moderate CHF >400 pg/mL: likely moderate to severe CHF 7 Because ethnic data is not always readily [...] 15-29 5 Kidney failure <15 (or dialysis) 8 Acute inflammation: >10.00 9 SEE RESULT BELOW Name: REJI ALMENDAREZ : [address]: Ron Cooper MD Acct: [id number] Unit: [id number] AGE: 72 Location: ED Re05/14/17 SEX: F Status: DEP ER SPEC: [id number] BALDEV: 05/14/17-1639 DR: Ron Cooper MD REQ: [id number] RECD: 05/14/17 STATUS: DAYNE ALVAREZ DR: Jamal Sheridan MD _ SOURCE: URINE SPDESC: ORDERED: Urine Culture Procedure Result Reported Site Urine Culture Final 05/16/17- 0806 ML No Growth (<1,000 CFU/mL) * ML - MAIN LAB ([facility]) . END OF REPORT * ML=Testing performed at Main Lab DEPARTMENT OF PATHOLOGY, [address] [place] [address] Weston Laura M.D. Director [facility] # [id number] 10 Normal Range 180 to 914 Indeterminate Range 145 to 180 Deficient Range <145 11 Because ethnic data is not always readily [...] 15-29 5 Kidney failure <15 (or dialysis) 12 Because ethnic data is not always readily [...] 15-29 5 Kidney failure <15 (or dialysis) 13 >100 to <200 pg/mL: likely compensated congestive heart failure (CHF) 200 to 400 pg/mL: likely moderate CHF >400 pg/mL: likely moderate to severe CHF 14 [place] Severe Sepsis and Septic Shock Management Bundle Measure requires all lactic acids initially measuring >2.0 mmol/L be repeated. 15 99th percentile=0.04 ng/mL Troponin results at [facility] and [facility] are not interchangeable. 16 Because ethnic data is not always readily [...] 15-29 5 Kidney failure <15 (or dialysis) 17 Acute inflammation: >10.00 18 SEE RESULT BELOW Name: ERICKSONREJI L : [address]: Donnell Neri NP Acct: [id number] Unit: [id number] AGE: 71 Location: [facility] Re10/28/16 SEX: F Status: REG REF SPEC: [id number] BALDEV: 10/28/16-[address] [facility] [address]: Donnell Ghotra Pashto OPENER TENDER REQ: [id number] RECD: 10/29/161153 STATUS: COMP _ SOURCE: URINE SPDESC: ORDERED: Urine Culture COMMENTS: [id number] Urine Source: Random Procedure Result Reported Site Urine Culture Final 10/30/16- 1301 ML No growth of clinically significant organisms * ML - MA[facility] LAB ([facility]) . END OF REPORT * ML=Testing performed at Main Lab DEPARTMENT OF PATHOLOGY, [address] [place] [address] Weston Laura M.D. Director [facility] # [id number] 19 Class 0 (Negative <0.35) Test Performed by: [place] [address] Desktop Engineer: Ron Washington II, M.D., Ph.D. 20 [facility] Severe Sepsis and Septic Shock Management Bundle Measure requires all lactic acids initially measuring >2.0 mmol/L be repeated. 21 Because ethnic data is not always readily [...] 15-29 5 Kidney failure <15 (or dialysis) 22 Reference Range and Interpretation: TnI (ng/mL) Interpretation Less Than 0.03 ng/mL Not supportive of diagnosis of OR 0.03 - 0.50 ng/mL Indeterminate: suggest serial studies if clinically indicated. Greater than 0.5 ng/mL Consistent with diagnosis of OR 23 >100 to <200 pg/mL: likely compensated congestive heart failure (CHF) 200 to 400 pg/mL: likely moderate CHF >400 pg/mL: likely moderate to severe CHF 24 Reference Range and Interpretation: TnI (ng/mL) Interpretation Less Than 0.03 ng/mL Not supportive of diagnosis of OR 0.03 - 0.50 ng/mL Indeterminate: suggest serial studies if clinically indicated. Greater than 0.5 ng/mL Consistent with diagnosis of OR 25 SEE RESULT BELOW Name: REJI ALMENDAREZ : [address]: Evans Buck DO Acct: [id number] Unit: [id number] AGE: 71 Location: ED Re06/02/16 SEX: F Status: DEP ER SPEC: [id number] BALDEV: 06/02/[address] [facility] [address]: Evans Buck DO REQ: [id number] RECD: 06/02/16 STATUS: DAYNE ALVAREZ DR: Daniella Ramos MD _ SOURCE: BLOOD,VENO SPDES: ORDERED: Blood Cult Procedure Result Reported Site Aerobic Culture Bottle Final 06/07/16- 1126 ML No Growth Day 5 Anaerobic Culture Bottle Final 06/07/16- 1126 ML No Growth Day 5 * ML - MAIN LAB ([facility]) . END OF REPORT * ML=Testing performed at Main Lab DEPARTMENT OF PATHOLOGY, [address] [place] [address] Weston Laura M.D. Director [facility] # [id number] 26 Because ethnic data is not always readily [...] 15-29 5 Kidney failure <15 (or dialysis) 27 Critical Result LACT:3.2 Called to RANJAN at: 10:55:11 by: Read back by:RANJAN VAMallory Severe Sepsis and Septic Shock Management Bundle Measure requires all lactic acids initially measuring >2.0 mmol/L be repeated. 28 >100 to <200 pg/mL: likely compensated congestive heart failure (CHF) 200 to 400 pg/mL: likely moderate CHF >400 pg/mL: likely moderate to severe CHF 29 Reference Range and Interpretation: TnI (ng/mL) Interpretation Less Than 0.03 ng/mL Not supportive of diagnosis of OR 0.03 - 0.50 ng/mL Indeterminate: suggest serial studies if clinically indicated. Greater than 0.5 ng/mL Consistent with diagnosis of OR 30 Because ethnic data is not always readily [...] 15-29 5 Kidney failure <15 (or dialysis) 31 >100 to <200 pg/mL: likely compensated congestive heart failure (CHF) 200 to 400 pg/mL: likely moderate CHF >400 pg/mL: likely moderate to severe CHF 32 [place] Severe Sepsis and Septic Shock Management Bundle Measure requires all lactic acids initially measuring >2.0 mmol/L be repeated. 33 SEE RESULT BELOW Name: REJI ALMENDAREZ Kelly : [address]: Carlos Gill MD Acct: [id number] Unit: [id number] AGE: 71 Location: ED Re01/22/16 SEX: F Status: DEP ER SPEC: [id number] BALDEV: 01/22/16-[address] [facility] [address]: Elsie Jacob NP REQ: [id number] RECD: 01/22/16 STATUS: COMP [facility] DR: Daniella Gill MD _ SOURCE: URINE SPDESC: ORDERED: Urine Culture Procedure Result Reported Site Urine Culture Final 01/24/16- 1004 ML No growth of clinically significant organisms * ML - [facility] ([facility]) . END OF REPORT * ML=Testing performed at Main Lab DEPARTMENT OF PATHOLOGY, [address] [place] [address] Weston Laura M.D. Director [facility] # [id number] 34 RESULT: No apparent monoclonal protein on serum electrophoresis. Test Performed by: [place] [address] Desktop Engineer: Ron Washington II, M.D., Ph.D. 35 Test Performed by: [address] [address] Desktop Engineer: Ron Washington II, M.D., Ph.D. 36 REFERENCE VALUE <20.0 (Negative) Test Performed by: [address] [address] Desktop Engineer: Ron Washington II, M.D., Ph.D. 37 Normal Range 180 to 914 Indeterminate Range 145 to 180 Deficient Range <145 38 Test Performed by: [address] [address] Desktop Engineer: Ron Washington II, M.D., Ph.D. Procedures Date CPT Code Description Status Comment 05/27/2018 66957 EKG Tracing & Interpretation Completed 03/25/2018 60114 Sleep Study Unattended,HRT Completed Rate,Oxygen Sat,Resp Effort/Airflow 10/30/2017 83481 ECHO Transthoracic, Real-Time 2D Completed With Doppler And Color Flow 10/30/2017 12277 ECHO Transthoracic, Real-Time 2D Completed With Doppler And Color Flow 10/12/2017 14214 EKG Tracing & Interpretation Completed 10/05/2017 Diabetic Retinal Eye Exam Completed Document: 10/05/17 - Cons Ophthalmology-Dr. Fishman 01/06/2017 07607 Pulmonary Stress Test Simple Completed 11/03/2016 52237 EKG, Interpretation Only Completed 03/25/2016 74638 EKG Tracing & Interpretation Completed 03/21/2016 49955 ECHO Transthoracic, Real-Time 2D Completed With Doppler And Color Flow 03/01/2016 58772 EKG, Interpretation Only Completed 12/18/2015 94754 EKG Tracing & Interpretation Completed 11/21/2015 Bone Mineral Density Test Completed 08/07/2015 Mammogram Completed 03/29/2015 97319 Polysomnography Sleep Staging 4+ Completed Parameters W/Cpap 03/01/2015 80068 ECHO Transthorasic Realtime 2D W Completed Doppler & Color Flow Hosp 01/16/2015 66303 Polysomnography Sleep Staging 4+ Completed Parameters 02/16/2013 Colonoscopy Completed 1 benign polyps, KIN Mcmahon, f/u 10 yr see [facility] records for due date Encounters Type Date Location Provider CPT E/M Dx Office Visit 06/22/2018 Pul[place] [address] G47.33 11:30a Services Of [facility] E66.09 Office Visit 05/28/2018 11:40a [facility] Internal Medicine Palma Slaughter M.D. 54156 I10 - Renita R53.83 K90.0 E03.9 K59.00 Office Visit 04/20/2018 10:20a [facility] 87336 Z95.2 [facility] FACC I10 Z01.810 G47.33 I11.9 I27.20 E66.8 Office Visit 04/15/2018 11:45a [facility] [place] [address] G47.33 [facility] J45.909 E66.09 Office Visit 03/24/2018 10:45a [facility] [place] [address] G47.33 [facility] R06.02 E66.01 Office Visit 01/22/2018 10:00a [facility] Internal Medicine Palma Slaughter, 76078 K59.00 - Renita Bower I10 E88.40 M25.551 Office Visit 10/12/2017 4:00p [facility] 50015 Z95.2 [facility] FAC I10 G47.33 G71.3 E66.8 Office Visit 09/25/2017 9:30a [facility] [place] [address] M25.512 C.M.A. S43.492A M75.42 M25.512 Office Visit 05/14/2017 11:08a [facility], [place] [address] I35.0 Hospitalists G71.3 K90.0 I10 Office Visit 04/21/2017 4:00p [facility] Internal Jamal Sheridan, 60623 C44.319 Leslie Maravilla M.D.,FACP L82.1 M16.11 Office Visit 04/06/2017 2:15p [facility] Miroslava Membreno M.D. 85734 M25.551 C.M.A. M16.11 Office Visit 04/01/2017 11:10a [facility] Internal Jamal Sheridan, [address], M.D.,FACP M16.11 Office Visit 2017 2:40p [facility] Internal Jamal Ramos [place], 49130 T49.3x5D Medicine - [place] [facility] Bower,FACP K22.70 G71.3 Office Visit 12/15/2016 1:40p [facility] Internal Medicine Jamal Sheridan, 81018 I10 - [place] [facility] Bower,FACP G71.3 I35.0 Office Visit 11/27/2016 11:20a [facility] [address] I35.0 [facility] FACC I10 G71.3 G47.33 Office Visit 11/07/2016 2:40p [facility] Internal Medicine Jamal Sheridan, 79933 G71.3 - [place] [facility] Bower,FACP E87.6 I10 Office Visit 11/03/2016 2:13p [facility], [place] [address] R74.8 Hospitalists R06.02 R07.9 E88.40 Office Visit 11/02/2016 2:12p [facility], Giulia Swann, N.P. 69921 R74.8 Hospitalists R07.9 E88.40 R06.02 Office Visit 10/28/2016 2:20p [facility] Internal [place] [address] R30.0 Office Visit 09/05/2016 4:00p [facility] Of [facility] [place] [address] I10 FACC I35.0 G47.33 E88.40 Office Visit 08/04/2016 1:40p [facility] Of [facility] [place] [address] I10 FACC I35.0 G47.33 E88.40 I27.2 Office Visit 06/11/2016 2:40p [facility] Internal Medicine - Carlos Shearer, 66364 I10 Hernandez Kirk45.909 G47.33 I35.0 Office Visit 06/02/2016 8:00a [facility] [place] [address] G47.33 [facility] J45.909 K22.70 E66.09 I10 Office Visit 05/28/2016 1:00p [facility] Of [facility] Isiah TejadaBrain Goldsmith, [address]95[address] I10 [facility] I35.0 G47.33 I27.2 E88.40 Office Visit 04/03/2016 1:20p [facility] Internal Medicine Giulia Hanks, 40487 G43.109 - Renita Bower I10 Office Visit 04/02/2016 9:13a [facility] 93873 G43.109 Hospitalists M.DBrain R10.13 I10 Office Visit 04/01/2016 9:11a [facility] 26611 G43.109 Hospitalists M.DBrain R10.13 I10 Office Visit 03/25/2016 11:20a [facility] Alan Harry M.D. 73932 I35.0 I10 E88.40 R94.31 Office Visit 03/01/2016 10:58a [facility], Giulia Swann N.P. 12159 I10 Hospitalists R07.9 R79.89 E88.40 Office Visit 02/29/2016 10:57a [facility], Giulia Swann, N.P. 39776 I10 Hospitalists R07.9 R79.89 E88.40 Office Visit 02/27/2016 10:30a [facility] Miroslava Membreno M.D. 19598 M16.11 C.M.A. Office Visit 02/14/2016 10:15a [facility] [place] [address] G47.33 [facility] J45.909 K22.70 E66.09 Office Visit 01/25/2016 2:30p [facility] Miroslava Membreno M.D. 91723 M16.11 C.M.A. Office Visit 01/15/2016 11:20a [facility] Internal Medicine Daniella Ramos M.D. 32871 I10 - Renita M25.551 M81.0 J45.20 A04.9 Office Visit 12/18/2015 9:40a [facility] Alan Harry M.D. 24673 I10 R06.00 I35.0 R94.31 Office Visit 12/06/2015 2:00p [facility] Internal Medicine Daniella Ramos M.D. 81611 M25.551 - [place] K22.70 M81.8 F41.9 E53.9 J45.20 E03.9 Office Visit 11/15/2015 8:40a [facility] Internal Medicine Daniella Ramos M.D. 15280 M51.16 - [place] M25.551 G71.3 K22.70 M85.9 I35.0 Office Visit 09/25/2015 10:15a [facility] Mady Maldonado 14754 G47.33 [facility] PATITO BYRNE, SOFTWARE DEVELOPMENT TEST ENGINEER-CARLIE J30.89 Office Visit 05/11/2015 2:00p [facility] Mady Maldonado 05020 327.23 [facility] PATITO BYRNE, SOFTWARE DEVELOPMENT TEST ENGINEERMARY CARMEN 530.81 Office Visit 02/13/2015 1:30p [facility] Mady Maldonado 48816 327.23 [facility] PATITO BYRNE, SOFTWARE DEVELOPMENT TEST ENGINEERMARY CARMEN Office Visit 12/14/2014 10:45a [facility] Magnus Lucas, 10739 327.23 [facility] Sathish 327.27 278.00 Plan of Care Future Appointment(s):08/19/2018 11:00 am - Marcy Reeder MD at [facility]08/27/2018 1:00 pm - Palma Slaughter M.D. at [facility] Internal Medicine [facility]06/22/2018 - Marcy Reeder MDG47.33 Obstructive sleep apnea (adult) (pediatric)Follow up:6 howfjP02.09 Other obesity due to excess calories
[2018-07-14] MEDS ORDERED: Levalbuterol 0.63MG/3ML NEB* UNIT OF USE INH ONE (14:59)
[2018-07-14] MEDS ORDERED: Ipratropium 0.5MG/2.5ML NEB* 0.5 MG/2.5 ML NEB.SOLN INH ONE (14:59)
[2018-07-14 15:15] VITALS: BP 177/88
--- NOTE | 2018-07-14 15:16 | UC ---
Respiratory Complaint HPI - HPI Summary HPI Summary: The patient is a 73-year-old female with a 2 day history of cough and mild shortness of breath. She complains of severe nasal congestion and inability to breathe through her nose. She has had postnasal drip. She has a cough that has been primarily nonproductive. He denies any fever or chills. She has no allergies. She has a history of asthma and has had bronchitis as well as pneumonia. She had an aortic valve replacement in September of this year. She has some chest pain when she coughs or takes a deep breath in. - History of Current Complaint Chief Complaint: UCRespiratory Stated Complaint: SOB, COUGH Time Seen by Provider: 07/14/18 14:24 Hx Obtained From: Patient Onset/Duration: Gradual Onset, Lasting Days Timing: Constant Severity Currently: Moderate Pain Intensity: 8 Pain Scale Used: 0-10 Numeric Character: Cough: Nonproductive Aggravating Factors: Exertion Alleviating Factors: Nothing Associated Signs And Symptoms: Positive: Nasal Congestion, Hoarseness, Sinus Discomfort - Allergies/Home Medications Allergies/Adverse Reactions: Allergies Allergy/AdvReac Type Severity Reaction Status Date / Time albuterol Allergy Severe Swelling Verified 07/14/18 13:42 Of Face,Lips,& Throat famotidine Allergy Severe Hives/Diff. Verified 07/14/18 13:42 Breathing/I tching fluticasone Allergy Severe Swelling Verified 07/14/18 13:42 Of Face,Lips,& Throat lidocaine Allergy Severe Swelling Verified 07/14/18 13:42 pirbuterol Allergy Severe Swelling Verified 07/14/18 13:42 Of Face,Lips,& Throat salmeterol Allergy Severe Swelling Verified 07/14/18 13:42 Of Face,Lips,& Throat amlodipine Allergy Intermediate Swelling Verified 07/14/18 13:42 clindamycin Allergy Intermediate Hives Verified 07/14/18 13:42 Iodinated Contrast- Oral and Allergy Intermediate Itching Verified 07/14/18 13: 42 IV Dye iodine Allergy Intermediate Swelling Verified 07/14/18 13:42 latex Allergy Intermediate Rash Verified 07/14/18 13:42 levofloxacin Allergy Intermediate Hives Verified 07/14/18 13:42 metoprolol Allergy Intermediate Rash Verified 07/14/18 13:42 Penicillins Allergy Intermediate Hives Verified 07/14/18 13:42 rofecoxib Allergy Intermediate Hives Verified 07/14/18 13:42 streptomycin Allergy Intermediate Hives Verified 07/14/18 13:42 atenolol Allergy Unknown Unknown Verified 07/14/18 13:42 Reaction Details Beta-Adrenergic Agents Allergy Unknown Unknown Verified 07/14/18 13:42 Reaction Details epinephrine Allergy Unknown Unknown Verified 07/14/18 13:42 Reaction Details hydrochlorothiazide Allergy Unknown Unknown Verified 07/14/18 13:42 Reaction Details labetalol Allergy Unknown Unknown Verified 07/14/18 13:42 Reaction Details lisinopril Allergy Unknown Unknown Verified 07/14/18 13:42 Reaction Details losartan Allergy Unknown Unknown Verified 07/14/18 13:42 Reaction Details propofol Allergy Unknown Unknown Verified 07/14/18 13:42 Reaction Details sulfite Allergy Unknown Unknown Verified 07/14/18 13:42 Reaction Details terazosin Allergy Unknown Unknown Verified 07/14/18 13:42 Reaction Details valsartan Allergy Unknown Unknown Verified 07/14/18 13:42 Reaction Details gluten AdvReac Intermediate GI Upset Verified 07/14/18 13:42 PMH/Surg Hx/FS Hx/Imm Hx Endocrine History: Dyslipidemia Cardiovascular History: Hypertension, Congestive Heart Failure Respiratory History: Asthma, Bronchitis, Pneumonia - Surgical History Surgical History: Yes Surgery Procedure, Year, and Place: REMOVAL OF OVARIAN CYST AND ADHESIONS IN FALLOPIAN TUBES (1971). CERVICAL POLYP REMOVAL (1974). TUBAL LIGATION (1974). GALLBLADDER. BLADDER REPAIR (1984). UPPER LUBE COLOSTOMY AND REVERSAL. PROLAPSE OF RECTUM. OPEN REDUCTION OF LT ELBOW - Family History Known Family History: Positive: Cardiac Disease, Respiratory Disease, Other - Cancer - Social History Alcohol Use: None Substance Use Type: None Smoking Status (MU): Former Smoker - Immunization History Most Recent Influenza Vaccination: unk Most Recent Tetanus Shot: within 5 yrs. Most Recent Pneumonia Vaccination: 2010 Review of Systems Constitutional: Negative Skin: Negative Eyes: Negative ENT: Sore Throat, Nasal Discharge, Sinus Congestion, Sinus Pain/Tenderness Respiratory: Shortness Of Breath, Cough Cardiovascular: Negative Gastrointestinal: Negative Genitourinary: Negative Motor: Negative Neurovascular: Negative Musculoskeletal: Negative Neurological: Negative Psychological: Negative All Other Systems Reviewed And Are Negative: Yes Physical Exam Triage Information Reviewed: Yes Appearance: Well-Appearing, No Pain Distress, Well-Nourished Vital Signs: Initial Vital Signs Temp 98.7 F 07/14/18 13:33 Pulse 99 07/14/18 13:33 Resp 18 07/14/18 13:33 BP 183/91 07/14/18 13:33 Pulse Ox 91 07/14/18 13:33 Vital Signs Reviewed: Yes Eyes: Positive: Conjunctiva Clear ENT: Positive: Hearing grossly normal. Negative: Nasal congestion, Nasal drainage, Tonsillar swelling, Tonsillar exudate, Muffled voice, Hoarse voice, Sinus tenderness Neck: Positive: Supple, Nontender, No Lymphadenopathy Respiratory: Positive: Chest non-tender, Lungs clear, Normal breath sounds, No respiratory distress, No accessory muscle use Cardiovascular: Positive: RRR, No Murmur. Negative: Tachycardia, Bradycardia Musculoskeletal: Positive: Edema @ - pretibial Skin Exam: Normal UC Diagnostic Evaluation - Laboratory O2 Sat by Pulse Oximetry: 91 - on recheck it was 96%,,,normal/not hypoxic - Radiology Radiology Interpretation Completed By: Radiologist Summary of Radiographic Findings: NAD Re-Evaluation - Re-Evaluation First Eval Re-Evaluation Time: 15:35 Change: Improved - feels markedly improved/better air movement Respiratory Course/Dx - Differential Dx/Diagnosis Provider Diagnoses: sinusitis. bronchospasm Discharge - Sign-Out/Discharge Documenting (check all that apply): Patient Departure All imaging exams completed and their final reports reviewed: Yes - Discharge Plan Condition: Stable Disposition: HOME Prescriptions: Cephalexin CAP* [Keflex CAP*] 250 mg PO QID #28 cap Fluticasone NASAL SPRAY 50MCG* [Flonase NASAL SPRAY 50MCG*] 2 spray BOTH NARES BID #1 btl Patient Education Materials: Sinusitis (ED) Referrals: Palma Slaughter MD [Primary Care Provider] - 5 Days - Billing Disposition and Condition Condition: STABLE Disposition: Home
== END 2018-07-14 15:59 | disposition home or self-care (01) ==
LOC: UCEAST 13:10
DX: J32.9 Chronic sinusitis, unspecified (principal); J98.01 Acute bronchospasm; Z95.2 Presence of prosthetic heart valve; Z88.0 Allergy status to penicillin; Z88.8 Allergy status to other drugs, medicaments and biological substances; Z88.4 Allergy status to anesthetic agent; Z88.1 Allergy status to other antibiotic agents; Z91.041 Radiographic dye allergy status; Z91.040 Latex allergy status; Z87.891 Personal history of nicotine dependence
CPT/HCPCS: 71046; 99212; G0463

== ENCOUNTER 2018-10-30 17:50 | Emergency (ER) | payer MEDICARE ==
[2018-10-30] MEDS ORDERED: NS 0.9% 1000 ML** 1,000 ML IV ONE (18:43)
--- NOTE | 2018-10-30 18:46 | ED ---
GI/ HPI - HPI Summary HPI Summary: This patient is a 73 year old F brought in by ambulance BLS with a chief complaint of worsening GI pain and bloody stool since 1 week ago. The pain is located at her rectum and radiates down her legs. Patient reports nausea, dry- heaving, chills, migraines, muscle spasms, increased urinary frequency, constipation, and elevated BP. Patient denies fever. The patient was very constipated one week ago due to her chronic neuromuscular disease, so her PCP advised she take MOM and laxatives. Following, she had large amounts of stool painfully released from her rectum that opened up her anal fissures. She states that she became dehydrated, which causes migraines and elevated BP. The muscle spasms in her legs are new and make it difficult for her to ambulate. PMHX Neuromuscular disease. SHX lives alone. Vitals in the room: HR 91 bpm, BP 203/ 100. - History of Current Complaint Chief Complaint: EDGeneral Time Seen by Provider: 10/30/18 18:27 Stated Complaint: GENERAL ILLNESS Hx Obtained From: Patient Onset/Duration: Started Weeks Ago - 1 Pain Intensity: 0 Location of Pain: Anal Associated Signs and Symptoms: Positive: Nausea, Rectal Pain, External Hemorrhoid, Constipation, Chills. Negative: Fever - Additional Pertinent History Primary Care Physician: JEFFREY - Allergy/Home Medications Allergies/Adverse Reactions: Allergies Allergy/AdvReac Type Severity Reaction Status Date / Time albuterol Allergy Severe Swelling Verified 07/14/18 13:42 Of Face,Lips,& Throat famotidine Allergy Severe Hives/Diff. Verified 07/14/18 13:42 Breathing/I tching fluticasone Allergy Severe Swelling Verified 07/14/18 13:42 Of Face,Lips,& Throat lidocaine Allergy Severe Swelling Verified 07/14/18 13:42 pirbuterol Allergy Severe Swelling Verified 07/14/18 13:42 Of Face,Lips,& Throat salmeterol Allergy Severe Swelling Verified 07/14/18 13:42 Of Face,Lips,& Throat amlodipine Allergy Intermediate Swelling Verified 07/14/18 13:42 clindamycin Allergy Intermediate Hives Verified 07/14/18 13:42 Iodinated Contrast- Oral and Allergy Intermediate Itching Verified 07/14/18 13: 42 IV Dye iodine Allergy Intermediate Swelling Verified 07/14/18 13:42 latex Allergy Intermediate Rash Verified 07/14/18 13:42 levofloxacin Allergy Intermediate Hives Verified 07/14/18 13:42 metoprolol Allergy Intermediate Rash Verified 07/14/18 13:42 Penicillins Allergy Intermediate Hives Verified 07/14/18 13:42 rofecoxib Allergy Intermediate Hives Verified 07/14/18 13:42 streptomycin Allergy Intermediate Hives Verified 07/14/18 13:42 atenolol Allergy Unknown Unknown Verified 07/14/18 13:42 Reaction Details Beta-Adrenergic Agents Allergy Unknown Unknown Verified 07/14/18 13:42 Reaction Details epinephrine Allergy Unknown Unknown Verified 07/14/18 13:42 Reaction Details hydrochlorothiazide Allergy Unknown Unknown Verified 07/14/18 13:42 Reaction Details labetalol Allergy Unknown Unknown Verified 07/14/18 13:42 Reaction Details lisinopril Allergy Unknown Unknown Verified 07/14/18 13:42 Reaction Details losartan Allergy Unknown Unknown Verified 07/14/18 13:42 Reaction Details propofol Allergy Unknown Unknown Verified 07/14/18 13:42 Reaction Details sulfite Allergy Unknown Unknown Verified 07/14/18 13:42 Reaction Details terazosin Allergy Unknown Unknown Verified 07/14/18 13:42 Reaction Details valsartan Allergy Unknown Unknown Verified 07/14/18 13:42 Reaction Details gluten AdvReac Intermediate GI Upset Verified 07/14/18 13:42 PMH/Surg Hx/FS Hx/Imm Hx Endocrine/Hematology History: Reports: Hx Thyroid Disease - hypo Denies: Hx Diabetes Cardiovascular History: Reports: Hx Congestive Heart Failure, Hx Hypertension, Hx Valvular Heart Disease, Other Cardiovascular Problems/Disorders - AORTIC STENOSIS, Mitral valve prolapse without regurgitation Denies: Hx Pacemaker/ICD Respiratory History: Reports: Hx Asthma, Hx Seasonal Allergies GI History: Reports: Hx Gall Bladder Disease, Hx Gastroesophageal Reflux Disease , Hx Ileostomy, Other GI Disorders - CELIAC, rectal prolapse, colostomy and reversal Denies: Hx Obstructive Bowel History: Reports: Other Problems/Disorders - "bladder repair" Musculoskeletal History: Reports: Hx Back Problems, Other Musculoskeletal History - sciatica, saccroiliac joint dysfunction Denies: Hx Osteoporosis Sensory History: Reports: Hx Cataracts - 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 CERVICAL POLYP REMOVAL (1974). TUBAL LIGATION (1974). GALLBLADDER. BLADDER REPAIR (1984). UPPER LUBE COLOSTOMY AND REVERSAL. PROLAPSE OF RECTUM. OPEN REDUCTION OF LT ELBOW Infectious Disease History: No Infectious Disease History: Denies: Traveled Outside the [place] in Last 30 Days - Family History Known Family History: Positive: Cardiac Disease, Respiratory Disease, Other - Cancer - Social History Alcohol Use: None Hx Substance Use: No Substance Use Type: Reports: None Hx Tobacco Use: No Smoking Status (MU): Former Smoker Review of Systems Positive: Chills. Negative: Fever Positive: Nausea, Other - constipation, bloody stool Positive: frequency - increased Musculoskeletal: Other - leg muscle spasms Positive: Headache All Other Systems Reviewed And Are Negative: Yes Physical Exam - Summary Physical Exam Summary: Appearance: Well appearing, no pain distress Skin: warm, dry, reflects adequate perfusion Head/face: normal Eyes: EOMI, EVA ENT: normal Neck: supple, non-tender Respiratory: CTA, breath sounds present Cardiovascular: RRR, pulses symmetrical GI: External hemorrhoids, tenderness in the anal area. Abdomen: soft, diffuse tenderness. Musculoskeletal: normal, strength/ROM intact Neuro: normal, sensory motor intact, A&Ox3 Triage Information Reviewed: Yes Vital Signs On Initial Exam: Initial Vitals Temp Pulse Resp BP Pulse Ox 98.6 F 101 16 203/100 96 10/30/18 18:00 10/30/18 18:00 10/30/18 18:00 10/30/18 18:00 10/30/18 18:00 Vital Signs Reviewed: Yes Diagnostics - Vital Signs Vital Signs Temp Pulse Resp BP Pulse Ox 10/30/18 18:00 98.6 F 101 16 203/100 96 - Laboratory Result Diagrams: 10/30/18 19:16 10/30/18 19:16 Lab Statement: Any lab studies that have been ordered have been reviewed, and results considered in the medical decision making process. - Radiology CXR Radiology Interpretation Completed By: ED Physician Summary of Radiographic Findings: No acute disease. Pending official radiology report. - CT Abd/Pelvis CT Interpretation Completed By: Radiologist Summary of CT Findings: 1. No CT findings to correlate with patient's symptomatology. Specifically no. diverticulitis. 2. Multiple chronic spine compression fractures. ED physician has reviewed this report - EKG 19:04 Cardiac Rate: NL - 85 bpm EKG Rhythm: Sinus Rhythm Summary of EKG Findings: No acute changes GIGU Course/Dx - Course Course Of Treatment: This patient is a 73 year old F brought in by ambulance BLS with a chief complaint of worsening GI pain and bloody stool since 1 week ago. The pain is located at her rectum and radiates down her legs. Patient reports nausea, dry-heaving, chills, migraines, muscle spasms, increased urinary frequency, constipation, and elevated BP. Patient denies fever. An EKG reveals NSR 85 bpm, no acute changes. Abd/Pelvis CT reveals, per radiologist, 1. No CT findings to correlate with patient's symptomatology. Specifically no. diverticulitis. 2. Multiple chronic spine compression fractures. ED physician has reviewed this report. CXR reveals, per ED physician, no acute disease. Pending official radiology report. Blood work/UA obtained. In the ED course the patient was given IV fluids. Patient will be discharged with follow up from Dr. Slaughter. The patient is agreeable with this plan. - Diagnoses Differential Diagnoses - Female: Diverticulitis, Pancreatitis, Ureteral Calculi Provider Diagnoses: Nonspecific abdominal pain Discharge - Sign-Out/Discharge Documenting (check all that apply): Patient Departure - discharge Patient Received Moderate/Deep Sedation with Procedure: No - Discharge Plan Condition: Stable Disposition: HOME Patient Education Materials: Acute Abdominal Pain (ED) Referrals: Palma Slaughter MD [Primary Care Provider] - 3 Days Additional Instructions: Follow up with Dr. Slaughter within 3 days. - Billing Disposition and Condition Condition: STABLE Disposition: Home - Attestation Statements Document Initiated by Kely: Yes Documenting Scribe: Yan Tomlin Provider For Whom Kely is Documenting (Include Credential): Rachid Holland MD Scribe Attestation: Yan Collier, shahabibed for Rachid Holland MD on 10/31/18 at 1419. Scribe Documentation Reviewed: Yes Provider Attestation: The documentation as recorded by the scribe, Yan Tomlin accurately reflects the service I personally performed and the decisions made by me, Rachid Holland MD Status of Kely Document: Viewed
[2018-10-30 19:30] LABS: ABS Basophils 0 10^3/ul (0-0.2); ABS Eosinophils 0.1 10^3/ul (0-0.6); ABS Lymphocytes 2.1 10^3/ul (1.0-4.8); ABS Monocytes 0.7 10^3/ul (0-0.8); ABS Neutrophils 5.4 10^3/ul (1.5-7.7); ABS Nucleated RBC 0 10^3/ul; Hematocrit 45 % (35-47); Hemoglobin 15.1 g/dl (12.0-16.0); Lymphocyte % 25.2 %; Mean Corpuscular HGB Conc 34 g/dl (31-36); Mean Corpuscular Hemoglobin 30 pg (27-31); Mean Corpuscular Volume 90 fL (80-97); Mean Platelet Volume 8.6 fL (7.4-10.4); Nucleated Red Blood Cells % 0.1; Platelet Count 224 10^3/ul (150-450); Red Blood Count 4.96 10^6/ul (4.00-5.40); Red Cell Distribution Width 14 % (10.5-15); White Blood Count 8.2 10^3/ul (3.5-10.8)
[2018-10-30 19:38] LABS: Activated Partial Thrombo Time 34.8 seconds (26.0-36.3); INR 0.88 (0.77-1.02)
[2018-10-30 19:49] LABS: Albumin 4.2 g/dL (3.2-5.2); Albumin/Globulin Ratio 1.3 (1-3); BUN/Creatinine Ratio 18.6 (8-20); C Reactive Protein 5.28 mg/L (<8.01); Calcium 9.4 mg/dL (8.6-10.3); EGFR Non-African American 81.8 (>60); Globulin 3.2 g/dL (2-4); Potassium 4.2 mmol/L (3.5-5.0); Total Bilirubin 0.5 mg/dL (0.2-1.0); Total Protein 7.4 g/dL (6.4-8.9)
[2018-10-30 19:52] LABS: Troponin I 0.01 ng/mL (<0.04)
[2018-10-30 22:10] VITALS: BP 180/82
== END 2018-10-30 22:09 | disposition home or self-care (01) ==
LOC: ED 17:50
DX: R10.9 Unspecified abdominal pain (principal); R11.0 Nausea; K62.89 Other specified diseases of anus and rectum; K64.4 Residual hemorrhoidal skin tags; I10 Essential (primary) hypertension; Z87.891 Personal history of nicotine dependence; Z88.0 Allergy status to penicillin
CPT/HCPCS: 36415; 71045; 74176; 80053; 83605; 83690; 84484; 85025; 85610; 85730; 86140; 93005; 96360; 99283

== ENCOUNTER 2019-02-15 16:34 | Emergency (ER) | payer MEDICARE ==
--- NOTE | 2019-02-15 18:08 | UC ---
Complaint Female HPI - HPI Summary HPI Summary: 3-4 DAYS OF INCREASING VAGINAL BURNING AND LOW BACK PAIN. REPORTS DYSURIA. STATES THE BURNING IS ALSO IN HER RECTAL AREA. SHE IS CONCERNED SHE HAS BEEN STRUGGLING WITH BEING IN A RELATIVELY HYPERTHYROID STATE FOR SOME MONTHS. SHE STATES HER TSH HAS BEEN LOW SINCE SEPTEMBER AND THAT SHE HAS BEEN UNSUCCESSFUL IN SECURING AN ENDOCRINOLOGY REFERRAL. SHE IS CONCERNED THAT HER PCP OFFICES NOT ADDRESSING HER MEDICATIONS IN A TIMELY MANNER SO SHE TOOK IT UPON HERSELF TO REDUCE HER DOSE 250 G DAILY. SHE HAS BEEN DOING THIS FOR ABOUT 2 DAYS. STATES SHE HAS NOT HAD HER FREE T4 OR T3 LEVELS EVALUATED RECENTLY. MOST RECENT TSH ON 01/27/19 WAS 0.33. PATIENT REPORTS HER BLOOD PRESSURE IS VERY HIGH, SHE FEELS DRY AND JITTERY AND HER BLOOD PRESSURE IS ELEVATED AND SHE IS CONCERNED THIS IS ALL DUE TO HER THYROID BEING UNCONTROLLED. - History Of Current Complaint Chief Complaint: UCGU Stated Complaint: UTI Time Seen by Provider: 02/15/19 16:47 Hx Obtained From: Patient Onset/Duration: Gradual Onset, Lasting Days, Still Present Timing: Constant Severity Initially: Moderate Severity Currently: Moderate Pain Intensity: 10 Pain Scale Used: 0-10 Numeric Character: Dull Aggravating Factor(s): Urination Alleviating Factor(s): Nothing Associated Signs And Symptoms: Positive: Back Pain, Nausea. Negative: Fever, Vaginal Discharge - Allergies/Home Medications Allergies/Adverse Reactions: Allergies Allergy/AdvReac Type Severity Reaction Status Date / Time albuterol Allergy Severe Swelling Verified 12/14/18 10:54 Of Face,Lips,& Throat famotidine Allergy Severe Hives/Diff. Verified 12/14/18 10:54 Breathing/I tching fluticasone Allergy Severe Swelling Verified 12/14/18 10:54 Of Face,Lips,& Throat lidocaine Allergy Severe Swelling Verified 12/14/18 10:54 pirbuterol Allergy Severe Swelling Verified 12/14/18 10:54 Of Face,Lips,& Throat salmeterol Allergy Severe Swelling Verified 12/14/18 10:54 Of Face,Lips,& Throat amlodipine Allergy Intermediate Swelling Verified 12/14/18 10:54 clindamycin Allergy Intermediate Hives Verified 12/14/18 10:54 Iodinated Contrast- Oral and Allergy Intermediate Itching Verified 12/14/18 10: 54 IV Dye iodine Allergy Intermediate Swelling Verified 12/14/18 10:54 latex Allergy Intermediate Rash Verified 12/14/18 10:54 levofloxacin Allergy Intermediate Hives Verified 12/14/18 10:54 metoprolol Allergy Intermediate Rash Verified 12/14/18 10:54 Penicillins Allergy Intermediate Hives Verified 12/14/18 10:54 rofecoxib Allergy Intermediate Hives Verified 12/14/18 10:54 streptomycin Allergy Intermediate Hives Verified 12/14/18 10:54 Sulfa (Sulfonamide Allergy Intermediate GI Upset Verified 02/15/19 17:10 Antibiotics) atenolol Allergy Unknown Unknown Verified 12/14/18 10:54 Reaction Details Beta-Adrenergic Agents Allergy Unknown Unknown Verified 12/14/18 10:54 Reaction Details epinephrine Allergy Unknown Unknown Verified 12/14/18 10:54 Reaction Details hydrochlorothiazide Allergy Unknown Unknown Verified 12/14/18 10:54 Reaction Details labetalol Allergy Unknown Unknown Verified 12/14/18 10:54 Reaction Details lisinopril Allergy Unknown Unknown Verified 12/14/18 10:54 Reaction Details losartan Allergy Unknown Unknown Verified 12/14/18 10:54 Reaction Details propofol Allergy Unknown Unknown Verified 12/14/18 10:54 Reaction Details sulfite Allergy Unknown Unknown Verified 12/14/18 10:54 Reaction Details terazosin Allergy Unknown Unknown Verified 12/14/18 10:54 Reaction Details valsartan Allergy Unknown Unknown Verified 12/14/18 10:54 Reaction Details peanut Allergy Anaphylatic Verified 02/15/19 16:45 Shock gluten AdvReac Intermediate GI Upset Verified 12/14/18 10:54 quinalones Allergy See Comment Uncoded 02/15/19 17:11 PMH/Surg Hx/FS Hx/Imm Hx - Additional Past Medical History Additional PMH: CELIAC, MITOCHONDRIAL MYOPATHY Endocrine History: Hypothyroidism Cardiovascular History: Cardiac Disease - VALVULAR DISEASE, Hypertension Respiratory History: COPD, Asthma Psychological History: Anxiety - Surgical History Surgical History: Yes Surgery Procedure, Year, and Place: REMOVAL OF OVARIAN CYST AND ADHESIONS IN FALLOPIAN TUBES (1971). CERVICAL POLYP REMOVAL (1974). TUBAL LIGATION (1974). GALLBLADDER. BLADDER REPAIR (1984). UPPER LUBE COLOSTOMY AND REVERSAL. PROLAPSE OF RECTUM. OPEN REDUCTION OF LT ELBOW. AORTIC VALVE REPLACEMENT 2018-SHAH GLENNA 3-PT WILL BRING CARD-CONDITIONAL UP 3T-INSTRUCTIONS SCANNED IN CHART - Family History Known Family History: Positive: Cardiac Disease, Respiratory Disease, Other - Cancer - Social History Alcohol Use: None Substance Use Type: Prescribed Smoking Status (MU): Former Smoker - Immunization History Most Recent Influenza Vaccination: unk Most Recent Tetanus Shot: within 5 yrs. Most Recent Pneumonia Vaccination: 2010 Review of Systems All Other Systems Reviewed And Are Negative: Yes Constitutional: Positive: Chills Respiratory: Positive: Negative Cardiovascular: Positive: Negative Gastrointestinal: Positive: Nausea Genitourinary: Positive: Dysuria, Frequency, Urgency, Vaginal/Penile Burning, Vaginal/Penile Pain, Vaginal/Penile Tenderness Musculoskeletal: Positive: Arthralgia, Decreased ROM Physical Exam Triage Information Reviewed: Yes Appearance: Well-Nourished, Ill-Appearing, Pain Distress - MODERATE, Obese Vital Signs: Initial Vital Signs Temp 98.6 F 02/15/19 16:37 Pulse 96 02/15/19 16:37 Resp 18 02/15/19 16:37 BP 189/87 02/15/19 16:37 Pulse Ox 96 02/15/19 16:37 Laboratory Tests 02/15/19 17:04 POC Urine Color Yellow POC Urine Clarity Clear POC Urine pH 7.0 POC Ur Specif Rittman 1.015 POC Urine Protein Negative POC Ur Glucose (UA) Negative POC Urine Ketones Negative POC Urine Blood Negative POC Urine Nitrite Negative POC Urine Bilirubin Negative POC Urine Urobilinogen 0.2 POC U Leukocyte Esteras 1+ A Eyes: Positive: Conjunctiva Clear ENT: Positive: Hearing grossly normal Neck: Positive: Supple Respiratory: Positive: No respiratory distress, No accessory muscle use Cardiovascular: Positive: Pulses Normal Abdomen Description: Positive: Soft. Negative: CVA Tenderness (R), CVA Tenderness (L) Pelvic Exam: Positive: Other - LABIA RED AND TENDER. <1CM AREA OF RAW, TENDER MUCOSA LEFT LABIA MINORA JUST AT INTROITUS. NO DISCHARGE. MILD BLADDER PROLAPSE. EXTERNAL HEMORRHOIDS. Negative: Cervicitis, Discharge Musculoskeletal: Positive: No Edema Neurological: Positive: Muscle Tone Normal Psychological: Positive: Age Appropriate Behavior Skin: Negative: Rashes Complaint Female Dx - Course Course Of Treatment: PATIENT WITH A COMPLEX CONSTELLATION OF SYMPTOMS WHICH MAY ALL BE RELATED TO UNCONTROLLED THYROID DISEASE. TSH ON 01/27/19 WAS 0.33. PATIENT STATES SHE FEELS JITTERY, DRY, ANXIOUS AND HER BLOOD PRESSURE IS ELEVATED. SHE HAS BEEN IN CONTACT WITH HER PCP OFFICE ABOUT THIS BUT PROGRESS HAS BEEN SLOW. SHE DOES HAVE AN ENDOCRINOLOGY APPOINTMENT BUT NOT UNTIL 03/15/19. SHE HAS TAKEN IT UPON HERSELF TO DECREASE HER LEVOTHYROXINE DOSE TO 150 G DAILY. SHE HAS BEEN DOING THIS FOR 2 DAYS. SHE DOES NOT RECALL RECENT FREE T4 OR T3 TESTS SO WE WILL DRAW THIS TODAY ALONG WITH A REPEAT TSH. GIVEN HER SYMPTOMS OF DYSURIA AND 1+ LEUKOCYTES ON URINE DIP WILL GO AHEAD AND COVER FOR UTI WITH KEFLEX. HER PELVIC EXAM MAY HAVE SOME INDICATION OF YEAST VAGINITIS SO WE'LL GO AHEAD AND GIVE DIFLUCAN WELL. HAVE ENCOURAGED PATIENT TO KEEP HER FOLLOW-UP APPOINTMENT AND TO ALSO SCHEDULE APPOINTMENT WITH AN SWITCH ADJUSTER ON EXAM SHE WAS SEEN TO HAVE SOME LEVEL OF PROLAPSE LIKELY OF HER BLADDER. SHE IS ALSO INTERESTED IN SEEING A PELVIC PAIN CLINIC IN [place] WHICH I THINK COULD ONLY HELP HER SITUATION. - Differential Dx/Diagnosis Provider Diagnosis: Dysuria, Vaginitis, Hyperthyroidism Discharge - Sign-Out/Discharge Documenting (check all that apply): Patient Departure All imaging exams completed and their final reports reviewed: No Studies - Discharge Plan Condition: Stable Disposition: HOME Prescriptions: Cephalexin CAP* [Keflex 500 CAP*] 500 mg PO BID #10 cap Fluconazole 150 MG (NF) [Diflucan 150 mg (NF)] 150 mg PO ONCE #2 tab Phenazopyridine TAB* [Pyridium TAB*] 200 mg PO TID #6 tab Patient Education Materials: Hyperthyroidism (ED), Vaginitis (ED) Referrals: [facility] [Provider Group] - As Soon As Possible Palma Slaughter MD [Primary Care Provider] - As Soon As Possible Additional Instructions: I AGREE WITH YOUR CONCERN THAT MANY OF YOUR SYMPTOMS CAN BE EXPLAINED BY YOUR STATE OF PROBABLE HYPERTHYROIDISM. WE HAVE DRAWN YOUR TSH, FREE T4 AND T FREE T3 TODAY. WE WILL CALL YOU WITH ANY ABNORMAL RESULTS. CONTINUE YOUR LOWER DOSE OF LEVOTHYROXINE AND KEEP YOUR FOLLOW-UP APPOINTMENT WITH YOUR CAR CONSTRUCTION SUPERINTENDENT ON 03/15/19. YOU DID HAVE SOME BACTERIA ON URINE TEST TODAY. WILL COVER FOR INFECTION WITH KEFLEX TWICE DAILY FOR 5 DAYS. GIVEN YOUR RED, IRRITATED EXTERNAL GENITALIA IT' S POSSIBLE THAT YOU HAVE A VAGINITIS THAT MAY BE YEASTY. VAGINAL SWAB OBTAINED TODAY. BE SURE TO KEEP THE AREA COOL CLEAN AND DRY ABLE. I'M CONCERNED FOR SOME LEVEL OF POSSIBLE BLADDER PROLAPSE. I RECOMMEND YOU FOLLOW-UP WITH AN OB/ SCRAP PILER THANIA OR WITH THE [facility] AT THE [facility] INDICATED BELOW. CALL THE NUMBER BELOW FOR ASSISTANCE IN ESTABLISHING WITH A PCP An additional resource available to assist in finding the appropriate physician for your health care needs is the Physician Referral Center (Yaritza Cox). You may contact them by calling [phone]. [facility] [address] [place] [address], [place] [address] PHONE: - Billing Disposition and Condition Condition: STABLE Disposition: Home
[2019-02-15 19:04] VITALS: BP 194/84
[2019-02-16 11:24] LABS: TSH (Thyroid Stimulating Horm) 1.07 mcIU/mL (0.34-5.60)
[2019-02-16 11:26] LABS: Free T3 3.2 pg/mL (2.5-3.9)
[2019-02-16 11:28] LABS: Free T4 0.91 ng/dL (0.61-1.12)
--- NOTE | 2019-02-18 15:33 | UC ---
- Progress Note Progress Note: Urine culture showed 10-25,000 Proteus mirabilis and normal vini. The patient was treated with cephalexin and it is sensitive to the cephalosporins. Course/Dx - Diagnoses Provider Diagnoses: Dysuria, Vaginitis, Hyperthyroidism Discharge - Sign-Out/Discharge Documenting (check all that apply): Post-Discharge Follow Up All imaging exams completed and their final reports reviewed: No Studies - Discharge Plan Condition: Stable Disposition: HOME Prescriptions: Cephalexin CAP* [Keflex 500 CAP*] 500 mg PO BID #10 cap Fluconazole 150 MG (NF) [Diflucan 150 mg (NF)] 150 mg PO ONCE #2 tab Phenazopyridine TAB* [Pyridium TAB*] 200 mg PO TID #6 tab Patient Education Materials: Hyperthyroidism (ED), Vaginitis (ED) Referrals: [facility] [Provider Group] - As Soon As Possible Palma Slaughter MD [Primary Care Provider] - As Soon As Possible Additional Instructions: I AGREE WITH YOUR CONCERN THAT MANY OF YOUR SYMPTOMS CAN BE EXPLAINED BY YOUR STATE OF PROBABLE HYPERTHYROIDISM. WE HAVE DRAWN YOUR TSH, FREE T4 AND T FREE T3 TODAY. WE WILL CALL YOU WITH ANY ABNORMAL RESULTS. CONTINUE YOUR LOWER DOSE OF LEVOTHYROXINE AND KEEP YOUR FOLLOW-UP APPOINTMENT WITH YOUR OFFSET PRINTING PRESSMEN ON 03/15/19. YOU DID HAVE SOME BACTERIA ON URINE TEST TODAY. WILL COVER FOR INFECTION WITH KEFLEX TWICE DAILY FOR 5 DAYS. GIVEN YOUR RED, IRRITATED EXTERNAL GENITALIA IT' S POSSIBLE THAT YOU HAVE A VAGINITIS THAT MAY BE YEASTY. VAGINAL SWAB OBTAINED TODAY. BE SURE TO KEEP THE AREA COOL CLEAN AND DRY ABLE. I'M CONCERNED FOR SOME LEVEL OF POSSIBLE BLADDER PROLAPSE. I RECOMMEND YOU FOLLOW-UP WITH AN OB/ PRINTED CIRCUIT BOARD PANELS DEVELOPER THANIA OR WITH THE [facility] AT THE [facility] INDICATED BELOW. CALL THE NUMBER BELOW FOR ASSISTANCE IN ESTABLISHING WITH A PCP An additional resource available to assist in finding the appropriate physician for your health care needs is the Physician Referral Center (Yaritza Cox). You may contact them by calling [phone]. [facility] [address] [place] [address], [address] [place] [address] PHONE: - Billing Disposition and Condition Condition: STABLE Disposition: Home
== END 2019-02-15 19:04 | disposition home or self-care (01) ==
LOC: UCEAST 16:34
DX: R30.0 Dysuria (principal); N76.0 Acute vaginitis; E05.90 Thyrotoxicosis, unspecified without thyrotoxic crisis or storm; Z88.0 Allergy status to penicillin; Z88.1 Allergy status to other antibiotic agents; Z88.2 Allergy status to sulfonamides; Z87.891 Personal history of nicotine dependence
CPT/HCPCS: 36415; 81003; 84439; 84443; 84481; 87077; 87086; 87186; 87480; 87510; 99212; G0463

== ENCOUNTER 2019-02-18 17:33 | Emergency (ER) | payer MEDICARE ==
--- OUTSIDE RECORDS SUMMARY | 2019-02-18 18:02 | XMS REPORT | Continuity of Care Document ---
:1945 External Reference #:[id number] Author Name Kay Blackburn Care Team Providers Name Role Phone Palma Slaughter MD Primary Care Physician Unavailable Payers Date Identification Numbers Payment Provider Subscriber Policy Number: [id number] Medicare Reji Almendarez PayID: [id number] [address] [place] [address] Policy Number: [id number] [facility] Reji Almendarez PayID: [id number] [address] [place] [address] Effective: 2017 Policy Number: [id number] [facility] [employer] Reji Almendarez Ins Onset: 2017 Group Number: [id number] [address] [place] [address] Problems Active Problems Provider Date Mitochondrial myopathy Jamal Sheridan M.D.,FACP Onset: 11/07/2016 Note: red ragged fibers Obstructive sleep apnea of adult Mady Maldonado DNP, RN, 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 Onset: 02/07/2016 Age-related osteoporosis without Daniella Ramos M.D. Onset: 02/07/2016 current pathological fracture Moderate persistent asthma Daniella Ramos M.D. Onset: 02/07/2016 Griffith's esophagus Daniella Ramos M.D. Onset: 02/07/2016 Anxiety state Daniella Ramos M.D. Onset: 02/07/2016 Vitamin B deficiency Daniella Ramos M.D. Onset: 02/07/2016 Hypothyroidism Daniella Ramos M.D. Onset: 02/07/2016 Thoracic and lumbosacral neuritis Daniella Ramos M.D. Onset: 02/07/2016 Central sleep apnea syndrome Magnus Lucas M.D. Onset: 02/07/2016 Obesity Magnus Lucas M.D. Onset: 02/07/2016 Asthma without status asthmaticus Marcy Reeder MD Onset: 02/14/2016 Peanut-induced anaphylaxis Giulia Hanks M.D. Onset: 03/06/2016 Celiac disease Jamal Sheridan M.D.,FACP Onset: 11/07/2016 Localized, primary osteoarthritis of Miroslava Membreno M.D. Onset: 04/06/2017 the pelvic region and thigh Inactive Problems Disorder of bone Daniella Ramos M.D. Onset: 02/07/2016 Inactive: 11/07/2016 Aortic valve disorder Alan Harry M.D. Onset: 02/07/2016 Inactive: 11/07/2016 Family History Date Family Member(s) Observation Comments General PGF lung/liver cancer ; PGM [...] cancer Social History Type Date Description Comments Sex Unknown Marital Status Lives With [place], aide twice a week. Drives, also uses [employer] and [employer] Occupation Disabled Tobacco Use Start: Unknown End: Former Cigarette Smoker Smoking Status Reviewed: 02/16/19 Former Cigarette Smoker ETOH Use 11/07/2016 Denies alcohol use Tobacco Use Start: Unknown End: Patient is a former Unknown smoker Recreational Drug Use Denies Drug Use Smoking when 17 years old for 2 years, then quit Exercise Type/Frequency arm chair exercises; Romansh Chi yoga Exercise Type/Frequency Exercises sporadically Allergies, Adverse Reactions, Alerts Active Allergies Reaction Severity Comments Date Levaquin 12/14/2014 Aleve GI reaction 12/14/2014 Hyzaar Musculosketal 12/14/2014 Ibuprofen GI Reaction 12/14/2014 Latex Rash 12/14/2014 Lidocaine Rash 12/14/2014 Norvasc dermatologic reaction 12/14/2014 Novocain 12/14/2014 Penicillin Rash 12/14/2014 Propofol unknown 12/14/2014 Streptomycin Rash 12/14/2014 Sulfites Hypersensitive crisis 12/14/2014 Diovan Arrhythrmias 12/14/2014 Metoprolol 12/14/2014 Albuterol gi upset Moderate 11/15/2015 Atenolol unknown Moderate 11/15/2015 Cardizem CD swelling Moderate constipation 11/15/2015 Clindamycin Urticaria Moderate 11/15/2015 Epinephrine Urticaria Moderate 11/15/2015 Hydrochlorothiazide unknown Moderate 11/15/2015 Iodine swelling Moderate 11/15/2015 Labetalol unknown Moderate 11/15/2015 Norvasc 01/15/2016 Hytrin 01/15/2016 Vioxx 05/28/2016 Clonidine cognitive dysfunction 05/28/2016 Imdur abdominal pain, Severe 06/18/2016 swelling Hydralazine 08/04/2016 Isosorbide severe reaction, 08/04/2016 patient cannot recall specifics Prednisone 09/05/2016 Macrobid Severe 11/07/2016 Spironolactone severe constipation, 11/27/2016 dehydration, headache, nausea Peanut-containing Drug Anaphylaxis Severe 12/15/[address] 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 5-325mg Tablets hours as needed for pain Ondansetron prn Tejal Johnson, 08/30/2018 8mg N.P. Tablets Dispers Flonase Allergy Twice Daily 1units Unknown 07/14/2018 Relief 50mcg/Act Suspension Megazymes 1 PO with every Palma 05/28/2018 meal Sathish Slaughter Cassie Allergy 1 by mouth every Isiah MalloryBrain Goldsmith, 10/12/2017 60mg day prn DO FACC Tablets Roller Walker 4 wheel rolling M16.11 Miroslava Membreno, 04/08/2017 [facility] walker with seat M.DBrain Nystatin apply twice daily 120gm Palma 12/15/2016 as needed to Sathish Slaughter [id number]/GM Powder affected area until rash clears Verapamil HCL take 4 tablet in 540tabs Isiah Goldsmith, 09/05/2016 40mg the morning and 4 DO FACC Tablets tab at night daily Exedrin Migraine as needed Giulia Hanks, 04/03/2016 MBrainDBrain Oxygen 1 l nc at bedtime 1units Other Ordering 03/25/2016 [facility] Provider Nystatin-Triamcinolo apply small amount Unknown 02/12/2015 ne on affected areas as needed 625402-5.1Unit/GM-% Cream Folic Acid 1 by mouth every Unknown 02/12/2015 50mg day Capsules Co-Enzyme Q10 1 by mouth every Unknown 02/12/2015 400mg day Capsules L-Carnitine as directed, 1 Unknown 02/12/2015 500mg dailyas needed Capsules Vitamin D weekly Unknown 02/12/2015 50,000Units Tablets Dora 128 apply 4 times a Unknown 02/12/2015 2% Solution day to left eye Anusol-HC 1 applicatior Unknown 02/12/2015 Cream twice a day or as needed Lactulose as directed as Unknown 02/12/2015 10GM/15ML needed Solution Synthroid 4 by mouth every 150tabs Palma 02/12/2015 50mcg m, w, f and 4.5 Sathish Slaughter Tablets tablets on t, th, sa and ferris. Vitamin K 1 po qday Unknown (Phytonadione) Tablets Zinc 0nce daily Unknown 50mg Tablets Potassium 1 po qday Unknown 99mg Tablets Lidocaine as needed Unknown Cream Colace 1 tab by mouth 2-3 Unknown 100mg Capsules times a day as needed Milk Of Magnesia as needed Unknown FML Apply to right eye Unknown only, one drop per day Erythromycin Apply To Sutures Unknown 5mg/GM Four Times Daily Ointment For 7 To 10 Days (Below left eye) Hypotears Apply to both eyes Unknown 1-1% three to five Solution times per day as needed Simethicone once a day as Unknown 125mg needed Capsules Esomeprazole 1 by mouth two Unknown Magnesium times per day 20mg Capsules DR Diltiazem Ointment Apply bid for anal Unknown 2% fissure Flovent HFA inhale two puffs 12gm Palma by mouth twice a Cotton, M.D. 220mcg/Act Aerosol day Dymista 1 spray each Unknown 137-50mcg/Act nostril daily Suspension Epipen JR 2-Arnaldo use if needed for Unknown peanut allergy 0.15mg/0.3ML reaction Solution Auto-Inject Xopenex HFA 2 puffs four times 45gm Marcy Varinder, 45mcg/Act a day as needed MD Aerosol Xopenex 1 vial every 4 Unknown 1.25mg/3ML hours as needed Nebulizer Nystatin Oral 10 ml swish and Unknown Suspension swallow twice a day as needed 400,000/10ML Liquid Tylenol take two tablets Unknown 500mg by mouth four Capsules times a day as needed-generic only Magnesium once a day Unknown 550 Capsules Aspirin 81 Low Dose 1 by mouth every Unknown day 81mg Chewtabs Calcium 500 + D3 1 daily Unknown Cortisone Acetate cream prn Unknown 25mg Tablets Bi-Pap at night Unknown Tussin Mucus + Chest 10-20 ML as needed Unknown Congestion every 4-6 hours 100mg/5ML Syrup History Medications Ondansetron take 1 by 30tabs Palma 08/30/2018 - 8mg Tablets sublingual every 6 Cotton, M.D. 02/16/2019 Dispers hours as needed for nausea Sulfamethoxazole/Trime 1 tablet twice 14tabs Palma 07/28/2018 - thoprim DS daily for 7 days Sathish Slaughter 08/02/2018 800-160mg Tablets Keflex Four Times Daily 28caps Unknown 07/14/2018 - 250mg Capsules 08/10/2018 [place] 1 tab every 6 30tabs Palma 05/30/2017 - 5-325mg Tablets hours as needed Sathish Slaughter 02/16/2019 pain Roller Walker M16.11 Miroslava Membreno, 04/08/2017 - Misc M.DBrain 04/08/2017 Hydrocodone-Acetaminop 1 tab by mouth 45tabs M25.55 Miroslava Membreno, 2016 - hen every 6 hours as 1 M.DBrain 01/21/2019 5-325mg Tablets needed for pain Hydrocodone 1-2 tablets q12 90tabs M25.55 Miroslava Membreno, 04/06/2017 - Bitartrate/Acetaminoph hours by mouth as 1 M.DBrain 04/08/2017 en needed pain 5-300mg Tablets Rolling Walker use at all times 1units M25.55 Miroslava Membreno, 04/06/2017 - for ambulation dx 1 M.D. 04/21/2017 - severe r hip oa Ondansetron take 1 by mouth 30tabs Jamal Beasley 01/21/2017 - 8mg Tablets every 6 hours as Sathish Sheridan,[facility] 01/21/2017 Dispers needed for nausea Ondansetron take 1 by mouth 30tabs Jamal Beasley 01/21/2017 - 8mg Tablets every 6 hours as [facility] 08/30/2018 Dispers needed for nausea Sucralfate 10 milliliters 500ml Palma 12/30/2016 - 1GM/10ML four times a day Sathish Slaughter 12/08/2018 Suspension as needed Sucralfate 2 teaspoon by 480tabs Jamal Beasley 12/30/2016 - 1gm Tablets mouth qid as Sathish Sheridan,[facility] 12/30/2016 needed Furosemide take 1 tablet 14tabs Jamal Beasley 12/15/2016 - 20mg Tablets every morning as Sathish Sheridan,[facility] 05/26/2018 needed Magnesium Citrate 1 bottle by mouth 1units Jamal Beasley 11/13/2016 - x1 (PT does not Sathish Sheridan,[facility] 01/17/2017 1.745GM/30ML Solution take) Nexium 1 by mouth twice a 180caps Jamal Beasley 11/07/2016 - 20mg Capsules DR ange Sheridan M.D.,[facility] 01/22/2018 Spironolactone 1 by mouth every 30tabs Jamal Beasley 11/07/2016 - 25mg day ( pt stop Sathish Sheridan,[facility] 11/21/2016 Tablets taking, last week 11/21/16 Macrobid 1 cap by mouth q12 14caps N39.0 Donnell Neri, 10/28/2016 - 100mg Capsules hours x 7 days 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 08/04/2016 - 40mg needed for htn DO Agus [facility] 09/05/2016 Tablets Hydralazine HCL 1 by mouth three 90tabs Isiah S. 06/19/2016 - 10mg times a day ( PT Agus DO [facility] 08/04/2016 Tablets stop taking ) Isosorbide Mononitrate Take 1/2 tablet by 30tabs Isiah S. 06/03/2016 - ER mouth for one week DO Agus [facility] 06/18/2016 30mg Tablets ER 24HR then start taking once daily Prednisone take as directed Unknown 05/30/2016 - 10mg Tablets 06/11/2016 Flovent Diskus 1 puff twice a day Unknown 05/30/2016 - 11/07/2016 100mcg/Blist Aerosol Prednisone 1 tab 12 hours 2tabs Isiah S. 05/29/2016 - 50mg Tablets before procedure DO Agus [facility] 08/07/2016 and 1 tab 1 hour before procedure. Verapamil HCL ER Take 1/2 tablet by 30tabs Isiah S. 05/28/2016 - 120mg mouth for one week DO Agus [facility] 06/03/2016 Tablets ER and if well tolerated increase to once daily Verapamil HCL 1 by mouth every I10 Isiah S. 05/28/2016 - 120mg morning and 1 tab Goldsmith, DO FACC 05/28/2016 Tablets by mouth every night Verapamil HCL ER Take 1/2 tablet by 30caps I10 Isiah Cruz 05/28/2016 - 100mg mouth for one week Goldsmith, DO [facility] 05/28/2016 Caps ER 24HR and if well tolerated increase to once daily Aldactone 1/2 by mouth Tiw 40tabs Alan Villar 04/03/2016 - 25mg Tablets Sathish Harry 05/01/2016 Xifaxan 1 by mouth twice a Unknown 02/13/2016 - 550mg Tablets day 02/13/2016 Hydrocodone-Acetaminop 1-2 by mouth per 45tabs M25.55 Shy 2015 - hen day as needed 1 GINI Black 06/02/2016 5-325mg Tablets Fluticasone Propionate 1 intranasal puff 16gm Daniella Ramos, 12/13/2015 - to each nostril MBrainDBrain 03/25/2016 50mcg/Act Suspension daily Ranitidine 150 Maximum 1 tab by mouth 2x 60tabs K22.70 Daniella Ramos, - Strength per dayas needed M.DBrain 03/24/2016 150mg Tablets for reflux Nexium 1 by mouth every Unknown 02/12/2015 - 40mg Capsules DR day 11/15/2015 Claritin Childrens as needed as Unknown 02/12/2015 - directed 12/06/2015 Liquid Optivar as needed in left Unknown 02/12/2015 - eye 01/22/2018 Hypotears instill 1 drop Unknown 02/12/2015 - 1-1% Solution both eyes three 01/06/2017 times a day(per pt up to 7 times a day) Cortisone Cream apply rectally as Unknown 02/12/2015 - 2.5% needed 01/06/2017 Glycerin (Adult) tid after eating Unknown 02/12/2015 - 2gm 01/06/2017 Suppository Miralax 17 gm every day as Unknown 02/12/2015 - 3350NF Packet needed 01/06/2017 Carafate 2 teaspoon by 420ml Jamal Beasley 02/12/2015 - 1GM/10ML mouth qid as Sathish Sheridan,FAC 12/30/2016 Suspension needed Dulera 2 puff twice a day Unknown 02/12/2015 - 100-5mcg/Act 01/15/2016 Aerosol Xopenex 1 vial every 4-6 72ml Daniella Ramos, 02/12/2015 - 0.63mg/3ML hours as needed therese Bower 05/28/2016 Nebulizer code j45.20 last visit 12/06/15. Xopenex HFA 2 puffs as Unknown 02/12/2015 - 45mcg/Act needed 11/15/2015 Aerosol Flonase Allergy Relief 1 intranasal puff Daniella Ramos, 02/12/2015 - to each nostril 12/13/2015 50mcg/Act Suspension daily Cardizem 1 tablet twice a 60tabs Alan Villar - 30mg Tablets day (held by pt Sathish Harry 05/24/2016 since 05/24/16 due to possible allergic reaction) Azithromycin 2 tabs by mouth Unknown - 250mg every day x1 day, 06/11/2016 Tablets 1 tab by mouth every day x 4 days Prednisolone Acetate 1 gtt Right eye Laura, - 1% only daily MD Tim 10/09/2017 Suspension Ranitidine 150 Maximum one by mouth twice Unknown - Strength a day (not taking) 11/07/2016 150mg Tablets Hydrocortisone 2.5% applied to Unknown - Cream rectum as needed 01/06/2017 Claritin 1 by mouth every Unknown - 10mg Tablets day as needed 10/09/2017 Clopidogrel Bisulfate 1 daily Unknown - 01/22/2018 75mg Tablets Colace 1 tab by mouth 2-3 Unknown - 100mg Capsules times a day as 01/22/2018 needed Womens Gentle Laxative as needed Unknown - 05/24/2018 Digest Gold Unknown - 06/21/2018 Levothyroxine Sodium 1 by mouth every Unknown - day 06/07/2018 150mcg Tablets Nexium 1 by mouth every Unknown - 40mg Capsules DR day(pt not using 08/07/2016 every day only when on Abt and when doctor puts pt back on it) Mitazess Unknown - 03/24/2016 Fluorometholone Unknown - 0.1% 03/24/2016 Suspension 1/2 po every 6 Unknown - 16.2mg Tablets hours prn abd pain 08/07/2016 Ondansetron HCL take 1 by mouth 30tabs Jamal Beasley - 8mg every 6 hours as Sathish Sheridan,FACP 01/21/2017 Tablets needed for nausea Metronidazole 1 po qid Unknown - 250mg 03/24/2016 Tablets Senna 1 po tid prn does Unknown - 8.6mg Tablets not combined with 01/22/2018 other meds Colace 1 by mouth up to 3 Unknown - 100mg Capsules times a day 01/06/2017 Verapamil HCL 1 by mouth every Unknown - 40mg day 03/24/2016 Tablets Calcium 500+D High 1 by mouth daily Unknown - Potency 08/07/2016 [id number] Tablets Cassie Allergy 1 by mouth every Unknown - 60mg day prn 01/06/2017 Tablets Meloxicam take 1 tab by Unknown - 7.5mg Tablets mouth two t imes a 01/15/2016 day with food Vital Signs Date Vital Result Comment 02/16/2019 11:42am Height 66 inches 5'6" Weight 255.25 lb Heart Rate 98 /min BP Systolic 161 mmHg recheck 143/80 BP Diastolic 76 mmHg recheck 143/80 Body Temperature 98.1 F O2 % BldC Oximetry 94 % BMI (Body Mass Index) 41.2 kg/m2 01/26/2019 2:24pm Height 66 inches 5'6" Weight 256.38 lb Heart Rate 102 /min BP Systolic Sitting 164 mmHg BP Diastolic Sitting 78 mmHg Respiratory Rate 16 /min Pain Level 8 BMI (Body Mass Index) 41.4 kg/m2 01/21/2019 1:33pm Height 66 inches 5'6" Weight 243.00 lb Heart Rate 78 /min BP Systolic 160 mmHg BP Diastolic 90 mmHg Respiratory Rate 14 /min Pain Level 10 BMI (Body Mass Index) 39.2 kg/m2 01/04/2019 11:34am Height 66 inches 5'6" Weight 250.00 lb Heart Rate 88 /min BP Systolic Sitting 144 mmHg left upper arm large cuff BP Diastolic Sitting 80 mmHg left upper arm large cuff Respiratory Rate 16 /min O2 % BldC Oximetry 97 % BMI (Body Mass Index) 40.3 kg/m2 11/26/2018 2:29pm Height 66 inches 5'6" Weight 253.00 lb Heart Rate 91 /min BP Systolic Sitting 182 mmHg BP Diastolic Sitting 75 mmHg O2 % BldC Oximetry 93 % BMI (Body Mass Index) 40.8 kg/m2 11/02/2018 4:09pm Height 66 inches 5'6" Weight 245.00 lb Heart Rate 88 /min BP Systolic Sitting 159 mmHg BP Diastolic Sitting 78 mmHg O2 % BldC Oximetry 94 % BMI (Body Mass Index) 39.5 kg/m2 08/19/2018 11:21am Height 66 inches 5'6" Weight 249.25 lb Heart Rate 86 /min BP Systolic Sitting 186 mmHg Lue large cuff BP Diastolic Sitting 86 mmHg Lue large cuff Respiratory Rate 14 /min O2 % BldC Oximetry 95 % On Ra BMI (Body Mass Index) 40.2 kg/m2 08/12/2018 11:48am Height 66 inches 5'6" Weight 252.00 lb Heart Rate 86 /min BP Systolic Sitting 182 mmHg BP Diastolic Sitting 89 mmHg Body Temperature 97.6 F O2 % BldC Oximetry 96 % BMI (Body Mass Index) 40.7 kg/m2 07/27/2018 10:32am Height 66 inches 5'6" Weight 250.00 lb Heart Rate 90 /min BP Systolic 190 mmHg home reading 155/80 BP Diastolic 84 mmHg home reading 155/80 BP Systolic Sitting 199 mmHg BP Diastolic Sitting 91 mmHg Body Temperature 98.4 F O2 % BldC Oximetry 92 % BMI (Body Mass Index) 40.3 kg/m2 06/22/2018 11:43am Height 66 inches 5'6" Weight 252.00 lb Heart Rate 100 /min BP Systolic Sitting 160 mmHg Lue large cuff BP Diastolic Sitting 80 mmHg Lue large cuff Respiratory Rate 20 /min O2 % BldC Oximetry 97 % BMI (Body Mass Index) 40.7 kg/m2 05/28/2018 11:59am Height 66 inches 5'6" Weight 250.00 lb Heart Rate 91 /min BP Systolic 140 mmHg right arm, 160/98 left arm BP Diastolic 82 mmHg right arm, 160/98 left arm O2 % BldC Oximetry 94 % BMI (Body Mass Index) 40.3 kg/m2 05/27/2018 2:04pm Height 66 inches 5'6" Heart Rate 84 /min BP Systolic 144 mmHg manual cuff BP Diastolic 86 mmHg manual cuff Pain Level 7 back/abdomen 04/20/2018 10:19am Height 66 inches 5'6" Weight 245.00 lb Heart Rate 88 /min BP Systolic Sitting 176 mmHg Lue lg cuff BP Diastolic Sitting 80 mmHg Lue lg cuff BP Systolic Standing 178 mmHg Lue lg cuff BP Diastolic Standing 88 mmHg Lue lg cuff BMI (Body Mass Index) 39.5 kg/m2 Ejection Fraction 60-65% Echo 10/30/17 04/15/2018 11:51am Height 66 inches 5'6" Weight 245.00 lb Heart Rate 102 /min BP Systolic Sitting 160 mmHg BP Diastolic Sitting 86 mmHg Respiratory Rate 14 /min O2 % BldC Oximetry 95 % BMI (Body Mass Index) 39.5 kg/m2 03/24/2018 10:56am Height 66 inches 5'6" Weight 246.12 lb Heart Rate 80 /min BP Systolic Sitting 160 mmHg Lue large cuff BP Diastolic Sitting 78 mmHg Lue large cuff Respiratory Rate 16 /min O2 % BldC Oximetry 96 % BMI (Body Mass Index) 39.7 kg/m2 01/22/2018 9:59am Height 66 inches 5'6" Weight 241.00 lb Heart Rate 91 /min BP Systolic 160 mmHg BP Diastolic 86 mmHg Body Temperature 98.8 F O2 % BldC Oximetry 95 % BMI (Body Mass Index) 38.9 kg/m2 10/12/2017 3:53pm Height 66 inches 5'6" Weight 244.25 lb without shoes Heart Rate 82 /min irreg BP Systolic Sitting 170 mmHg Rue lg cuff BP Diastolic Sitting 90 mmHg Rue lg cuff BP Systolic Standing 180 mmHg Rue lg cuff BP Diastolic Standing 82 mmHg Rue lg cuff Respiratory Rate 17 /min BMI (Body Mass Index) 39.4 kg/m2 09/25/2017 10:46am Height 65 inches 5'5" Weight 248.00 lb Heart Rate 55 /min Respiratory Rate 18 /min Body Temperature 98.3 F Pain Level 10 BMI (Body Mass Index) 41.3 kg/m2 04/21/2017 3:35pm Heart Rate 106 /min BP Systolic Sitting 170 mmHg BP Diastolic Sitting 92 mmHg Body Temperature 98.7 F O2 % BldC Oximetry 96 % 04/06/2017 2:38pm Height 68 inches 5'8" Weight 252.00 lb Heart Rate 100 /min BP Systolic 162 mmHg BP Diastolic 96 mmHg Respiratory Rate 20 /min Body Temperature 98.7 F Pain Level 7 BMI (Body Mass Index) 38.3 kg/m2 04/01/2017 11:18am Height 68 inches 5'8" Weight 252.12 lb Heart Rate 102 /min BP Systolic 156 mmHg BP Diastolic 84 mmHg Body Temperature 98.4 F O2 % BldC Oximetry 91 % BMI (Body Mass Index) 38.3 kg/m2 2017 2:40pm Weight 251.50 lb Heart Rate 94 /min BP Systolic Sitting 168 mmHg BP Diastolic Sitting 94 mmHg Body Temperature 98.4 F O2 % BldC Oximetry 96 % 12/15/2016 1:37pm Weight 253.00 lb Heart Rate 106 /min BP Systolic Sitting 190 mmHg 185/96 on home unit BP Diastolic Sitting 96 mmHg 185/96 on home unit BP Systolic Recheck 170 mmHg BP Diastolic Recheck 86 mmHg Body Temperature 99.1 F O2 % BldC Oximetry 97 % 11/27/2016 11:34am Weight 254.00 lb with shoes Heart Rate 90 /min BP Systolic Sitting 160 mmHg Lue lg cuff BP Diastolic Sitting 90 mmHg Lue lg cuff BP Systolic Standing 160 mmHg Lue lg cuff BP Diastolic Standing 94 mmHg Lue lg cuff Respiratory Rate 17 /min Ejection Fraction >54% date 08/25/16 ECHO 11/07/2016 2:28pm Weight 250.50 lb Heart Rate 105 /min BP Systolic 180 mmHg BP Diastolic 94 mmHg BP Systolic Recheck 180 mmHg BP Diastolic Recheck 88 mmHg Body Temperature 98.4 F O2 % BldC Oximetry 94 % 10/28/2016 2:36pm Weight 248.00 lb Heart Rate 100 /min BP Systolic Sitting 144 mmHg BP Diastolic Sitting 90 mmHg Respiratory Rate 14 /min Body Temperature 98.1 F O2 % BldC Oximetry 96 % 09/05/2016 4:11pm Weight 246.00 lb Heart Rate 92 /min BP Systolic Sitting 164 mmHg LA large cuff BP Diastolic Sitting 88 mmHg LA large cuff BP Systolic Standing 170 mmHg LA BP Diastolic Standing 90 mmHg LA Respiratory Rate 18 /min 08/04/2016 1:45pm Weight 252.00 lb with shoes Heart Rate 86 /min BP Systolic 178 mmHg Rue lg cuff BP Diastolic 92 mmHg Rue lg cuff BP Systolic Sitting 170 mmHg Lue lg cuff BP Diastolic Sitting 82 mmHg Lue lg cuff Respiratory Rate 16 /min 06/11/2016 2:42pm Weight 251.00 lb Heart Rate 96 /min BP Systolic Sitting 184 mmHg BP Diastolic Sitting 86 mmHg Body Temperature 98.2 F O2 % BldC Oximetry 96 % 06/02/2016 8:13am Height 68 inches 5'8" Weight 250.50 lb Heart Rate 112 /min BP Systolic Sitting 210 mmHg made aware BP Diastolic Sitting 106 mmHg made aware Respiratory Rate 20 /min O2 % BldC Oximetry 98 % BMI (Body Mass Index) 38.1 kg/m2 05/28/2016 1:09pm Height 68 inches 5'8" Weight 250.50 lb no shoes Heart Rate 92 /min BP Systolic Sitting 168 mmHg Ra lrg cuff BP Diastolic Sitting 90 mmHg Ra lrg cuff BP Systolic Standing 162 mmHg Ra lrg cuff BP Diastolic Standing 100 mmHg Ra lrg cuff Respiratory Rate 18 /min BMI (Body Mass Index) 38.1 kg/m2 Ejection Fraction 55-60% 03/21/16 04/03/2016 1:45pm Weight 245.00 lb Heart Rate 107 /min BP Systolic Sitting 180 mmHg BP Diastolic Sitting 94 mmHg Body Temperature 99.3 F 03/25/2016 11:37am Height 64.5 inches 5'4.50" Weight 246.25 lb w/o shoes Heart Rate 84 /min BP Systolic Sitting 198 mmHg LA lg cuff BP Diastolic Sitting 98 mmHg LA lg cuff BMI (Body Mass Index) 41.6 kg/m2 Ejection Fraction 55-60% Echo 03/21/16 02/27/2016 10:39am Height 64.5 inches 5'4.50" Weight 244.00 lb Pain Level 2 BMI (Body Mass Index) 41.2 kg/m2 02/14/2016 10:31am Height 64.5 inches 5'4.50" Weight 244.00 lb Heart Rate 97 /min BP Systolic 178 mmHg BP Diastolic 94 mmHg Respiratory Rate 14 /min O2 % BldC Oximetry 98 % BMI (Body Mass Index) 41.2 kg/m2 01/25/2016 3:13pm Height 64.5 inches 5'4.50" Weight 244.00 lb Pain Level 10 BMI (Body Mass Index) 41.2 kg/m2 01/15/2016 11:11am Weight 244.00 lb Heart Rate 102 /min BP Systolic Sitting 156 mmHg BP Diastolic Sitting 83 mmHg Body Temperature 98.4 F 12/18/2015 9:50am Height 64.5 inches 5'4.50" Weight 240.25 lb with shoes Heart Rate 86 /min BP Systolic 198 mmHg LA lrg cuff BP Diastolic 106 mmHg LA lrg cuff BP Systolic Sitting 198 mmHg LA repeat sitting BP Diastolic Sitting 98 mmHg LA repeat sitting BMI (Body Mass Index) 40.6 kg/m2 Ejection Fraction 55%- 60% Echocardiogram 03/01/15 12/06/2015 2:12pm Height 64.5 inches 5'4.50" Weight 244.00 lb Heart Rate 101 /min BP Systolic 162 mmHg BP Diastolic 80 mmHg Body Temperature 98.7 F O2 % BldC Oximetry 96 % BMI (Body Mass Index) 41.2 kg/m2 11/15/2015 8:44am Height 64.5 inches 5'4.50" Weight 245.00 lb Heart Rate 104 /min BP Systolic 171 mmHg BP Diastolic 89 mmHg Body Temperature 99.4 F O2 % BldC Oximetry 95 % BMI (Body Mass Index) 41.4 kg/m2 09/25/2015 10:15am Height 68 inches 5'8" Weight 240.00 lb Heart Rate 95 /min BP Systolic Sitting 158 mmHg BP Diastolic Sitting 96 mmHg Respiratory Rate 18 /min O2 % BldC Oximetry 95 % BMI (Body Mass Index) 36.5 kg/m2 05/11/2015 2:00pm Heart Rate 102 /min BP Systolic Sitting 166 mmHg BP Diastolic Sitting 92 mmHg O2 % BldC Oximetry 97 % 02/13/2015 1:56pm Height 68 inches 5'8" Weight 237.00 lb Heart Rate 100 /min BP Systolic Sitting 150 mmHg BP Diastolic Sitting 90 mmHg Respiratory Rate 20 /min O2 % BldC Oximetry 98 % BMI (Body Mass Index) 36.0 kg/m2 12/14/2014 11:11am Height 68 inches 5'8" Weight 238.25 lb Heart Rate 95 /min BP Systolic Sitting 176 mmHg BP Diastolic Sitting 102 mmHg Respiratory Rate 20 /min Body Temperature 99.3 F O2 % BldC Oximetry 97 % BMI (Body Mass Index) 36.2 kg/m2 Neck Circumference in inches 15.5 Results Test Date Facility Test Result H/L Range Note Laboratory test 02/15/2019 [facility] TSH 1.07 mcIU/mL N 0.34- 5.60 1, [address] ([place] [address] Stim Horm) [phone] T3 Free 3.20 pg/mL N 2.5-3.9 3 Free T4 (Free Thyroxine) 0.91 ng/dL N 0.61-1.12 4 Laboratory test 02/15/2019 [facility] Gardnerella/Yeast: SEE RESULT 5, finding [address] Vaginal Dna BELOW 6 [place] [address] [phone] Urine Culture 02/15/2019 [facility] Urine Culture SEE RESULT 7, And [address] BELOW 8 [place] [address] [phone] Poc Urinalysis 02/15/2019 [facility] Poc Glucose, Urine Negative Negative [address] [place] [address] [phone] Poc Bilirubin, Urine Negative Negative Poc Ketone, Urine Negative Negative Poc Specific [place], Urine 1.015 N 1.010-1.030 Poc Blood, Urine Negative Negative Poc pH, Urine 7.0 N 5-9 Poc Protein, Urine Negative Negative Poc Urobilinogen, Urine 0.2 Negative Poc Nitrite, Urine Negative Negative Poc Leukocytes, Urine 1+ Abnormal Negative Poc Color, Urine Yellow Poc Clarity, Urine Clear 9 Laboratory 01/27/2019 [facility] TSH (Thyroid 0.33 Low 0.34- 5.60 10 test finding [address] Stim Horm) mcIU/mL [place], [place] [id number] [phone] Drug Abuse 20 12/14/2018 [facility] Urine Negative [address] Amphetamine ng/[place] [address] [phone] Urine Barbiturates Negative ng/mL 12 Urine Benzodiazepines Negative ng/mL 13 Urine Cocaine Negative ng/mL 14 Urine Phencyclidine Negative ng/mL Cutoff: 25 Urine Tetrahydrocannabinol Negative ng/mL Cutoff: 50 15 Creatinine, Urine 27.6 mg/dL Specific Warren 1.004 pH 7.5 Oxidants Negative 16 Adulterants Comment Normal Codeine, Ur Not Detected ng/mL Cutoff: 25 17 Uwzfgaf-8-oxsg-glucuronide, Ur Not Detected ng/mL 18 Morphine, Ur Not Detected ng/mL Cutoff: 25 19 Xglklwcx-8-tsww-glucuronide, U Not Detected ng/mL 20 6-monoacetylmorphine, Ur Not Detected ng/mL Cutoff: 25 21 Hydrocodone, Ur Not Detected ng/mL Cutoff: 25 22 Norhydrocodone, Ur Not Detected ng/mL Cutoff: 25 23 Dihydrocodeine, Ur Not Detected ng/mL Cutoff: 25 24 Hydromorphone, Ur Not Detected ng/mL Cutoff: 25 25 Qsnabjtujjucx1oeazbttvvfvompv Not Detected ng/mL 26 Oxycodone, Ur Not Detected ng/mL Cutoff: 25 27 Noroxycodone, Ur Not Detected ng/mL Cutoff: 25 28 Oxymorphone, Ur Not Detected ng/mL Cutoff: 25 29 Xbgiztrrlwf-8-cuzd-glucuronide Not Detected ng/mL 30 Noroxymorphone, Ur Not Detected ng/mL Cutoff: 25 31 Fentanyl, Ur Not Detected ng/mL Cutoff: 2 32 Norfentanyl, Ur Not Detected ng/mL Cutoff: 2 33 Meperidine, Ur Not Detected ng/mL Cutoff: 25 34 Normeperidine, Ur Not Detected ng/mL Cutoff: 25 35 Naloxone, Ur Not Detected ng/mL Cutoff: 25 36 Fbrzrrom-8-rgat-glucuronide, U Not Detected ng/mL 37 Methadone, Ur Not Detected ng/mL Cutoff: 25 38 Eddp, Ur Not Detected ng/mL Cutoff: 25 39 Propoxyphene, Ur Not Detected ng/mL Cutoff: 25 40 Norpropoxyphene, Ur Not Detected ng/mL Cutoff: 25 41 Tramadol, Ur Not Detected ng/mL Cutoff: 25 42 O-desmethyltramadol, Ur Not Detected ng/mL Cutoff: 25 43 Tapentadol, Ur Not Detected ng/mL Cutoff: 25 44 N-desmethyltapentadol, Ur Not Detected ng/mL Cutoff: 50 45 Vimcmlzpdv-dsuz-uqdddvuqjug, U Not Detected ng/mL 46 Buprenorphine, Ur Not Detected ng/mL Cutoff: 5 47 Norbuprenorphine, Ur Not Detected ng/mL Cutoff: 5 48 Norbuprenorphine glucuronide Not Detected ng/mL Cutoff: 20 49 Opioid Interpretation See Comment 50 Laboratory test 10/30/2018 [facility] Lactic Acid 0.8 mmol/L N 0.5-2.0 [address] [place] [address] [phone] Laboratory test 10/30/2018 [facility] Lipase 19 U/L N 11.0- 82.[address] [place] [address] [phone] C Reactive Protein 5.28 mg/L N <8.01 Troponin-I (TnI) 0.01 ng/mL <0.04 52 Comp Metabolic Panel 10/30/2018 [facility] Sodium 137 mmol/L N 135-145 [address] [place] [address] [phone] Potassium 4.2 mmol/L N 3.5-5.0 Chloride 103 mmol/L N 101-111 Co2 Carbon Dioxide 31 mmol/L N 22-32 Anion Gap 3 mmol/L N 2-11 Glucose 94 mg/dL N 70-100 Blood Urea Nitrogen 13 mg/dL N 6-24 Creatinine 0.70 mg/dL N 0.51-0.95 BUN/Creatinine Ratio 18.6 N 8-20 Calcium 9.4 mg/dL N 8.6-10.3 Total Protein 7.4 g/dL N 6.4-8.9 Albumin 4.2 g/dL N 3.2-5.2 Globulin 3.2 g/dL N 2-4 Albumin/Globulin Ratio 1.3 N 1-3 Total Bilirubin 0.50 mg/dL N 0.2-1.0 Alkaline Phosphatase 95 U/L N 34-104 Alt 23 U/L N 7-52 Ast 20 U/L N 13-39 Egfr Non- 81.8 >60 Egfr 99.0 >60 53 CBC Auto Diff 10/30/2018 [facility] White Blood 8.2 10^3/uL N 3.5-10.[address] [place] [address] [phone] Red Blood Count 4.96 10^6/uL N 4.00-5.40 Hemoglobin 15.1 g/dL N 12.0-16.0 Hematocrit 45 % N 35-47 Mean Corpuscular Volume 90 fL N 80-97 Mean Corpuscular Hemoglobin 30 pg N 27-31 Mean Corpuscular HGB Conc 34 g/dL N 31-36 Red Cell Distribution Width 14 % N 10.5-15 Platelet Count 224 10^3/uL N 150-450 Mean Platelet Volume 8.6 fL N 7.4-10.4 Abs Neutrophils 5.4 10^3/uL N 1.5-7.7 Abs Lymphocytes 2.1 10^3/uL N 1.0-4.8 Abs Monocytes 0.7 10^3/uL N 0-0.8 Abs Eosinophils 0.1 10^3/uL N 0-0.6 Abs Basophils 0 10^3/uL N 0-0.2 Abs Nucleated RBC 0 10^3/uL Granulocyte % 65.2 % Lymphocyte % 25.2 % Monocyte % 8.0 % Eosinophil % 1.0 % Basophil % 0.6 % Nucleated Red Blood Cells % 0.1 Laboratory test 10/30/2018 [facility] Partial 34.8 seconds N 26.0-36.[address] [place] [address] PTT [phone] Inr/Protime 10/30/2018 [facility] Inr 0.88 N 0.77-1.[address] [place] [address] [phone] Laboratory test 10/12/2018 [facility] TSH (Thyroid 1.10 mcIU/mL N 0.34-5.[address] Stim Horm) [place] [address] [phone] CBC No Diff 10/12/2018 [facility] White Blood 7.7 10^3/uL N 3.5-10.8 [place] [address] [phone] Red Blood Count 4.99 10^6/uL N 4.00-5.40 Hemoglobin 15.0 g/dL N 12.0-16.0 Hematocrit 46 % N 35-47 Mean Corpuscular Volume 92 fL N 80-97 Mean Corpuscular Hemoglobin 30 pg N 27-31 Mean Corpuscular HGB Conc 33 g/dL N 31-36 Red Cell Distribution Width 14 % N 10.5-15 Platelet Count 205 10^3/uL N 150-450 Mean Platelet Volume 9.8 fL N 7.4-10.4 Urinalysis Profile 07/27/2018 [facility] Urine Color Yellow [address] [place] [address] [phone] Urine Appearance Clear Urine Specific Warren 1.011 N 1.010-1.030 Urine pH 8.0 N 5-9 Urine Urobilinogen Negative Negative Urine Ketones Negative Negative Urine Protein Negative Negative Urine Leukocytes 2+ Abnormal Negative Urine Blood Negative Negative Urine Nitrite Negative Negative Urine Bilirubin Negative Negative Urine Glucose Negative Negative Urine White Blood Cell 2+(11-20/hpf) Abnormal Absent Urine Red Blood Cell Absent Absent Urine Bacteria Absent Absent Urine Squamous Epithelial Cell Present Abnormal Absent Urine Culture And 07/27/2018 [facility] Urine Culture SEE RESULT [address] [place] [address] [phone] CBC Auto Diff 07/27/2018 [facility] White Blood 7.0 10^3/uL N 3.5-[address] Count 0.8 [place] [address] [phone] Red Blood Count 4.90 10^6/uL N 4.00-5.40 Hemoglobin 15.1 g/dL N 12.0-16.0 Hematocrit 45 % N 35-47 Mean Corpuscular Volume 92 fL N 80-97 Mean Corpuscular Hemoglobin 31 pg N 27-31 Mean Corpuscular HGB Conc 33 g/dL N 31-36 Red Cell Distribution Width 14 % N 10.5-15 Platelet Count 201 10^3/uL N 150-450 Mean Platelet Volume 9.0 fL N 7.4-10.4 Abs Neutrophils 4.1 10^3/uL N 1.5-7.7 Abs Lymphocytes 1.9 10^3/uL N 1.0-4.8 Abs Monocytes 0.8 10^3/uL N 0-0.8 Abs Eosinophils 0.1 10^3/uL N 0-0.6 Abs Basophils 0 10^3/uL N 0-0.2 Abs Nucleated RBC 0 10^3/uL Granulocyte % 59.3 % N 38-83 Lymphocyte % 27.4 % N 25-47 Monocyte % 11.4 % High 0-7 Eosinophil % 1.5 % N 0-6 Basophil % 0.4 % N 0-2 Nucleated Red Blood Cells % 0.1 Laboratory test 07/27/2018 [facility] C Reactive 4.10 mg/L N < 8.[address] [place] [address] [phone] Comp Metabolic 07/27/2018 [facility] Sodium 139 mmol/L N 135- [address] [place] [address] [phone] Potassium 4.6 mmol/L N 3.5-5.0 Chloride 102 mmol/L N 101-111 Co2 Carbon Dioxide 30 mmol/L N 22-32 Anion Gap 7 mmol/L N 2-11 Glucose 91 mg/dL N 70-100 Blood Urea Nitrogen 13 mg/dL N 6-24 Creatinine 0.62 mg/dL N 0.51-0.95 BUN/Creatinine Ratio 21.0 High 8-20 Calcium 9.6 mg/dL N 8.6-10.3 Total Protein 6.7 g/dL N 6.4-8.9 Albumin 4.0 g/dL N 3.2-5.2 Globulin 2.7 g/dL N 2-4 Albumin/Globulin Ratio 1.5 N 1-3 Total Bilirubin 0.50 mg/dL N 0.2-1.0 Alkaline Phosphatase 94 U/L N 34-104 Alt 32 U/L N 7-52 Ast 23 U/L N 13-39 Egfr Non- 94.1 >60 Egfr 113.9 >60 55 Laboratory test 07/27/2018 [facility] TSH (Thyroid 0.22 Low 0.34-5.[address] Stim Horm) mcIU/[place] [address] [phone] Laboratory test 05/28/2018 [facility] Vitamin D 34.6 ng/mL N 20-[address] Total 25(Oh) [place] [address] [phone] Vitamin B12 And 05/28/2018 [facility] Vitamin B12 545 pg/mL N 180-914 56 Folate Serum [address] [place] [address] [phone] Folic Acid (Folate) > 20.00 ng/mL >3.99 Laboratory test 05/28/2018 [facility] TSH (Thyroid 7.60 High 0.34-5.[address] Stim Horm) mcIU/mL [place], [place] [id number] [phone] Comp Metabolic 05/28/2018 [facility] Sodium 139 mmol/L N 135- [address] [place] [address] [phone] Potassium 4.3 mmol/L N 3.5-5.0 Chloride 102 mmol/L N 101-111 Co2 Carbon Dioxide 29 mmol/L N 22-32 Anion Gap 8 mmol/L N 2-11 Glucose 112 mg/dL High 70-100 Blood Urea Nitrogen 11 mg/dL N 6-24 Creatinine 0.77 mg/dL N 0.51-0.95 BUN/Creatinine Ratio 14.3 N 8-20 Calcium 9.5 mg/dL N 8.6-10.3 Total Protein 7.0 g/dL N 6.4-8.9 Albumin 4.1 g/dL N 3.2-5.2 Globulin 2.9 g/dL N 2-4 Albumin/Globulin Ratio 1.4 N 1-3 Total Bilirubin 0.70 mg/dL N 0.2-1.0 Alkaline Phosphatase 91 U/L N 34-104 Alt 25 U/L N 7-52 Ast 23 U/L N 13-39 Egfr Non- 73.3 >60 Egfr 88.7 >60 57 CBC Auto Diff 05/28/2018 [facility] White Blood 6.6 10^3/uL N 3.5-10.[address] [place] [address] [phone] Red Blood Count 4.99 10^6/uL N 4.00-5.40 Hemoglobin 15.4 g/dL N 12.0-16.0 Hematocrit 45 % N 35-47 Mean Corpuscular Volume 91 fL N 80-97 Mean Corpuscular Hemoglobin 31 pg N 27-31 Mean Corpuscular HGB Conc 34 g/dL N 31-36 Red Cell Distribution Width 15 % N 10.5-15 Platelet Count 187 10^3/uL N 150-450 Mean Platelet Volume 9.7 um3 N 7.4-10.4 Abs Neutrophils 3.9 10^3/uL N 1.5-7.7 Abs Lymphocytes 2.0 10^3/uL N 1.0-4.8 Abs Monocytes 0.6 10^3/uL N 0-0.8 Abs Eosinophils 0.1 10^3/uL N 0-0.6 Abs Basophils 0 10^3/uL N 0-0.2 Abs Nucleated RBC 0 10^3/uL Granulocyte % 58.8 % N 38-83 Lymphocyte % 30.3 % N 25-47 Monocyte % 9.6 % High 0-7 Eosinophil % 1.1 % N 0-6 Basophil % 0.2 % N 0-2 Nucleated Red Blood Cells % 0.1 Comp Metabolic Panel 02/08/2018 [facility] Sodium 140 mmol/L N 139-[address] [place] [address] [phone] Potassium 4.3 mmol/L N 3.5-5.0 Chloride 101 mmol/L N 101-111 Co2 Carbon Dioxide 29 mmol/L N 22-32 Anion Gap 10 mmol/L N 2-11 Glucose 91 mg/dL N 70-100 Blood Urea Nitrogen 11 mg/dL N 6-24 Creatinine 0.73 mg/dL N 0.51-0.95 BUN/Creatinine Ratio 15.1 N 8-20 Calcium 9.1 mg/dL N 8.6-10.3 Total Protein 6.8 g/dL N 6.4-8.9 Albumin 4.0 g/dL N 3.2-5.2 Globulin 2.8 g/dL N 2-4 Albumin/Globulin Ratio 1.4 N 1-3 Total Bilirubin 0.60 mg/dL N 0.2-1.0 Alkaline Phosphatase 87 U/L N 34-104 Alt 23 U/L N 7-52 Ast 22 U/L N 13-39 Egfr Non- 77.9 >60 Egfr 100.2 >60 58 CBC Auto Diff 02/08/2018 [facility] White Blood 6.3 10^3/uL N 3.5-10.[address] [place] [address] [phone] Red Blood Count 5.02 10^6/uL N 4.0-5.4 Hemoglobin 15.4 g/dL N 12.0-16.0 Hematocrit 46 % N 35-47 Mean Corpuscular Volume 91 fL N 80-97 Mean Corpuscular Hemoglobin 31 pg N 27-31 Mean Corpuscular HGB Conc 34 g/dL N 31-36 Red Cell Distribution Width 15 % N 10.5-15 Platelet Count 200 10^3/uL N 150-450 Mean Platelet Volume 8.8 um3 N 7.4-10.4 Abs Neutrophils 3.6 10^3/uL N 1.5-7.7 Abs Lymphocytes 1.8 10^3/uL N 1.0-4.8 Abs Monocytes 0.8 10^3/uL N 0-0.8 Abs Eosinophils 0.1 10^3/uL N 0-0.6 Abs Basophils 0 10^3/uL N 0-0.2 Abs Nucleated RBC 0 10^3/uL Granulocyte % 57.3 % N 38-83 Lymphocyte % 28.2 % N 25-47 Monocyte % 13.0 % High 0-7 Eosinophil % 1.1 % N 0-6 Basophil % 0.4 % N 0-2 Nucleated Red Blood Cells % 0 Laboratory test 05/14/2017 [facility] Troponin-I 0.03 ng/mL N <0.[address] (TnI) [place] [address] [phone] CBC Auto Diff 05/14/2017 [facility] White Blood 7.9 N 3.5- 10.[address] Count 10^3/[place] [address] [phone] Red Blood Count 4.83 10^6/uL N 4.0-5.4 Hemoglobin 14.4 g/dL N 12.0-16.0 Hematocrit 44 % N 35-47 Mean Corpuscular Volume 91 fL N 80-97 Mean Corpuscular Hemoglobin 30 pg N 27-31 Mean Corpuscular HGB Conc 33 g/dL N 31-36 Red Cell Distribution Width 15 % N 10.5-15 Platelet Count 223 10^3/uL N 150-450 Mean Platelet Volume 9 um3 N 7.4-10.4 Abs Neutrophils 5.0 10^3/uL N 1.5-7.7 Abs Lymphocytes 2.1 10^3/uL N 1.0-4.8 Abs Monocytes 0.6 10^3/uL N 0-0.8 Abs Eosinophils 0.1 10^3/uL N 0-0.6 Abs Basophils 0.1 10^3/uL N 0-0.2 Abs Nucleated RBC 0 10^3/uL N Granulocyte % 63.0 % N 38-83 Lymphocyte % 27.1 % N 25-47 Monocyte % 7.9 % N 1-9 Eosinophil % 1.1 % N 0-6 Basophil % 0.9 % N 0-2 Nucleated Red Blood Cells % 0 N Inr/Protime 05/14/2017 [facility] Inr 0.86 Low 0.89-1.[address] [place] [address] [phone] Laboratory test 05/14/2017 [facility] Partial 32.8 N 26.0- 36.[address] [place] [address] PTT [phone] D Dimer Quantitative < 200 ng/mL N Less Than 230 59 Lactic Acid 0.8 mmol/L N 0.5-2.0 60 B-Type Natriuretic Peptide BNP 121 pg/mL High 61 Comp Metabolic Panel 05/14/2017 [facility] Sodium 139 mmol/L N 133-[address] [place] [address] [phone] Potassium 4.1 mmol/L N 3.5-5.0 Chloride 103 mmol/L N 101-111 Co2 Carbon Dioxide 31 mmol/L N 22-32 Anion Gap 5 mmol/L N 2-11 Glucose 99 mg/dL N 70-100 Blood Urea Nitrogen 12 mg/dL N 6-24 Creatinine 0.73 mg/dL N 0.51-0.95 BUN/Creatinine Ratio 16.4 N 8-20 Calcium 9.1 mg/dL N 8.6-10.3 Total Protein 6.7 g/dL N 6.4-8.9 Albumin 3.7 g/dL N 3.2-5.2 Globulin 3.0 g/dL N 2-4 Albumin/Globulin Ratio 1.2 N 1-3 Total Bilirubin 0.60 mg/dL N 0.2-1.0 Alkaline Phosphatase 81 U/L N 34-104 Alt 26 U/L N 7-52 Ast 22 U/L N 13-39 Egfr Non- 78.1 N >60 Egfr 100.5 N >60 62 Laboratory test 05/14/2017 [facility] Magnesium 2.0 mg/dL N 1.9-2.[address] [place] [address] [phone] Lipase 24 U/L N 11.0-82.0 Creatine Kinase(CK) 134 U/L N 10-223 C Reactive Protein 6.05 mg/L High < 5.00 63 Troponin-I (TnI) 0.03 ng/mL N <0.04 CKMB 05/14/2017 [facility] CKMB ng/mL 5.7 ng/mL N 0.6-6.[address] [place] [address] [phone] Laboratory test 05/14/2017 [facility] TSH 1.64 N 0.34-5.[address] (Thyroid mcIU/[place] [address] Stim Rjmq) [phone] Urinalysis 05/14/2017 [facility] Urine Color Straw N Profile [address] [place] [address] [phone] Urine Appearance Clear N Urine Specific Warren 1.006 Low 1.010-1.030 Urine pH 7.0 N 5-9 Urine Urobilinogen Negative N Negative Urine Ketones Negative N Negative Urine Protein Negative N Negative Urine Leukocytes 1+ Abnormal Negative Urine Blood Negative N Negative Urine Nitrite Negative N Negative Urine Bilirubin Negative N Negative Urine Glucose Negative N Negative Urine White Blood Cell Trace(0-5/hpf) N Absent Urine Red Blood Cell Absent N Absent Urine Bacteria Absent N Absent Urine Squamous Epithelial Cell Present Abnormal Absent Urine Culture And 05/14/2017 [facility] Urine Culture SEE RESULT [address] [place] [address] [phone] Laboratory test 04/10/2017 [facility] Magnesium 2.1 mg/dL N 1.9-[address] .7 [place] [address] [phone] Basic Metabolic 04/10/2017 [facility] Sodium 138 mmol/L N 133- [address] [place] [address] [phone] Potassium 4.2 mmol/L N 3.5-5.0 Chloride 102 mmol/L N 101-111 Co2 Carbon Dioxide 30 mmol/L N 22-32 Anion Gap 6 mmol/L N 2-11 Glucose 99 mg/dL N 70-100 Blood Urea Nitrogen 9 mg/dL N 6-24 Creatinine 0.74 mg/dL N 0.51-0.95 BUN/Creatinine Ratio 12.2 N 8-20 Calcium 9.1 mg/dL N 8.6-10.3 Egfr Non- 76.9 N >60 Egfr 98.9 N >60 65 Laboratory test 04/10/2017 [facility] Vitamin D 34.6 ng/mL N 30-[address] Total 25(Oh) [place] [address] [phone] Vitamin B12 And 04/10/2017 [facility] Vitamin B12 > 1450 High 180-914 66 Folate Serum [address] pg/[place] [address] [phone] Folic Acid (Folate) 11.91 ng/mL N >3.99 Laboratory test 02/23/2017 [facility] Uric Acid 4.5 mg/dL N 2.3-6.[address] [place] [address] [phone] Basic Metabolic 02/23/2017 [facility] Sodium 136 mmol/L N 133- [address] [place] [address] [phone] Potassium 4.2 mmol/L N 3.5-5.0 Chloride 100 mmol/L Low 101-111 Co2 Carbon Dioxide 28 mmol/L N 22-32 Anion Gap 8 mmol/L N 2-11 Glucose 104 mg/dL High 70-100 Blood Urea Nitrogen 9 mg/dL N 6-24 Creatinine 0.71 mg/dL N 0.51-0.95 BUN/Creatinine Ratio 12.7 N 8-20 Calcium 9.2 mg/dL N 8.6-10.3 Egfr Non- 80.7 N >60 Egfr 103.8 N >60 67 Laboratory test 02/23/2017 [facility] Erythrocyte Sed 20 mm/Hr N 0-[address] Rate [place], [place] [id number] [phone] Laboratory test 12/04/2016 [facility] B-Type 148 pg/mL High [address] [address] Peptide BNP [phone] Urinalysis 12/04/2016 [facility] Urine Color Straw N Profile [address] [place] [address] [phone] Urine Appearance Clear N Urine Specific Warren 1.005 Low 1.010-1.030 Urine pH 8.0 N 5-9 Urine Urobilinogen Negative N Negative Urine Ketones Negative N Negative Urine Protein Negative N Negative Urine Leukocytes Negative N Negative Urine Blood Negative N Negative Urine Nitrite Negative N Negative Urine Bilirubin Negative N Negative Urine Glucose Negative N Negative Laboratory test 12/04/2016 [facility] Lactic Acid 1.0 mmol/L N 0.5-2.0 [address] [place] [address] [phone] CBC Auto Diff 12/04/2016 [facility] White Blood 7.7 10^3/uL N 3.5-10.[address] [place] [address] [phone] Red Blood Count 4.96 10^6/uL N 4.0-5.4 Hemoglobin 13.8 g/dL N 12.0-16.0 Hematocrit 43 % N 35-47 Mean Corpuscular Volume 86 fL N 80-97 Mean Corpuscular Hemoglobin 28 pg N 27-31 Mean Corpuscular HGB Conc 32 g/dL N 31-36 Red Cell Distribution Width 15 % N 10.5-15 Platelet Count 221 10^3/uL N 150-450 Mean Platelet Volume 9 um3 N 7.4-10.4 Abs Neutrophils 4.9 10^3/uL N 1.5-7.7 Abs Lymphocytes 1.9 10^3/uL N 1.0-4.8 Abs Monocytes 0.8 10^3/uL N 0-0.8 Abs Eosinophils 0.1 10^3/uL N 0-0.6 Abs Basophils 0 10^3/uL N 0-0.2 Abs Nucleated RBC 0 10^3/uL N Granulocyte % 63.8 % N 38-83 Lymphocyte % 24.9 % Low 25-47 Monocyte % 9.8 % High 1-9 Eosinophil % 1.1 % N 0-6 Basophil % 0.4 % N 0-2 Nucleated Red Blood Cells % 0 N Laboratory test 12/04/2016 [facility] Troponin-I 0.03 ng/mL N <0.04 [address] (TnI) [place] [address] [phone] Comp Metabolic 12/04/2016 [facility] Sodium 138 mmol/L N 133- [address] [place] [address] [phone] Potassium 4.2 mmol/L N 3.5-5.0 Chloride 102 mmol/L N 101-111 Co2 Carbon Dioxide 30 mmol/L N 22-32 Anion Gap 6 mmol/L N 2-11 Glucose 102 mg/dL High 70-100 Blood Urea Nitrogen 9 mg/dL N 6-24 Creatinine 0.75 mg/dL N 0.51-0.95 BUN/Creatinine Ratio 12.0 N 8-20 Calcium 9.3 mg/dL N 8.6-10.3 Total Protein 7.0 g/dL N 6.4-8.9 Albumin 3.9 g/dL N 3.2-5.2 Globulin 3.1 g/dL N 2-4 Albumin/Globulin Ratio 1.3 N 1-3 Total Bilirubin 0.70 mg/dL N 0.2-1.0 Alkaline Phosphatase 71 U/L N 34-104 Alt 25 U/L N 7-52 Ast 22 U/L N 13-39 Egfr Non- 76.0 N >60 Egfr 97.7 N >60 71 Laboratory test 12/04/2016 [facility] Magnesium 2.1 mg/dL N 1.9-2.[address] [place] [address] [phone] C Reactive Protein 8.09 mg/L High < 5.00 72 TSH (Thyroid Stim Horm) 0.94 mcIU/mL N 0.34-5.60 Ua Routine 10/28/2016 [facility] In House Ua Specific [place] 1.005 Ua PH 7 Ua Color yellow Ua Appera cloudy Ua WBC small Ua Protein neg Ua Glucose neg Ua Ketones neg Ua Bilirubin neg Ua Urobilinogen norm Ua Nitrite neg Ua Occult Blood neg Urine Culture And 10/28/2016 [facility] Urine Culture SEE RESULT [address] [place] [address] [phone] Laboratory test 07/16/2016 [facility] TSH (Thyroid 1.67 mcIU/mL N 0.34- finding [address] Stim Horm) 5.60 [place] [address] [phone] T3 Free 3.20 pg/mL N 2.5-3.9 Free T4 (Free Thyroxine) 1.04 ng/dL N 0.61-1.12 Laboratory test 06/17/2016 [facility] Latex Allergen <0.35 kU/L N [address] [place] [address] [phone] Laboratory test 06/06/2016 [facility] Lactic Acid 1.9 mmol/L N 0.5-2. [address] [place] [address] [phone] Comp Metabolic 06/06/2016 [facility] Sodium 137 mmol/L N 133- [address] [place] [address] [phone] Potassium 3.9 mmol/L N 3.5-5.0 Chloride 101 mmol/L N 101-111 Co2 Carbon Dioxide 28 mmol/L N 22-32 Anion Gap 8 mmol/L N 2-11 Glucose 116 mg/dL High 70-100 Blood Urea Nitrogen 10 mg/dL N 6-24 Creatinine 0.69 mg/dL N 0.51-0.95 BUN/Creatinine Ratio 14.5 N 8-20 Calcium 9.1 mg/dL N 8.6-10.3 Total Protein 7.1 g/dL N 6.4-8.9 Albumin 4.0 g/dL N 3.2-5.2 Globulin 3.1 g/dL N 2-4 Albumin/Globulin Ratio 1.3 N 1-3 Total Bilirubin 0.50 mg/dL N 0.2-1.0 Alkaline Phosphatase 82 U/L N 34-104 Alt 31 U/L N 7-52 Ast 23 U/L N 13-39 Egfr Non- 83.6 N >60 Egfr 107.6 N >60 76 Laboratory test 06/06/2016 [facility] Troponin-I 0.03 High < 0.03 [address] (TnI) ng/[place] [address] [phone] CBC Auto Diff 06/06/2016 [facility] White Blood 6.6 N 3.5- 10.[address] Count 10^3/uL [place] [address] [phone] Red Blood Count 5.01 10^6/uL N 4.0-5.4 Hemoglobin 14.8 g/dL N 12.0-16.0 Hematocrit 45 % N 35-47 Mean Corpuscular Volume 90 fL N 80-97 Mean Corpuscular Hemoglobin 30 pg N 27-31 Mean Corpuscular HGB Conc 33 g/dL N 31-36 Red Cell Distribution Width 14 % N 10.5-15 Platelet Count 242 10^3/uL N 150-450 Mean Platelet Volume 9 um3 N 7.4-10.4 Abs Neutrophils 4.2 10^3/uL N 1.5-7.7 Abs Lymphocytes 1.7 10^3/uL N 1.0-4.8 Abs Monocytes 0.5 10^3/uL N 0-0.8 Abs Eosinophils 0.1 10^3/uL N 0-0.6 Abs Basophils 0 10^3/uL N 0-0.2 Abs Nucleated RBC 0.01 10^3/uL N Granulocyte % 64.1 % N 38-83 Lymphocyte % 26.4 % N 25-47 Monocyte % 7.6 % N 1-9 Eosinophil % 1.3 % N 0-6 Basophil % 0.6 % N 0-2 Nucleated Red Blood Cells % 0.1 N Inr/Protime 06/06/2016 [facility] Inr 0.92 N 0.89-1.11 [address] [place] [address] [phone] Urinalysis Profile 06/06/2016 [facility] Urine Color Straw N [address] [place] [address] [phone] Urine Appearance Clear N Urine Specific Warren 1.005 Low 1.010-1.030 Urine pH 7.0 N 5-9 Urine Urobilinogen Negative N Negative Urine Ketones Negative N Negative Urine Protein Negative N Negative Urine Leukocytes Negative N Negative Urine Blood Negative N Negative Urine Nitrite Negative N Negative Urine Bilirubin Negative N Negative Urine Glucose Negative N Negative Laboratory test 06/06/2016 [facility] B-Type 89 pg/mL N [address] [place] [address] Peptide BNP [phone] Laboratory test 06/02/2016 [facility] Lactic Acid 3.2 mmol/L High 0.5-[address]0 [place] [address] [phone] B-Type Natriuretic Peptide BNP 211 pg/mL High 80 Comp Metabolic Panel 06/02/2016 [facility] Sodium 135 mmol/L N 133-145 [address] [place] [address] [phone] Potassium 3.6 mmol/L N 3.5-5.0 Chloride 99 mmol/L Low 101-111 Co2 Carbon Dioxide 26 mmol/L N 22-32 Anion Gap 10 mmol/L N 2-11 Glucose 172 mg/dL High 70-100 Blood Urea Nitrogen 10 mg/dL N 6-24 Creatinine 0.71 mg/dL N 0.51-0.95 BUN/Creatinine Ratio 14.1 N 8-20 Calcium 9.5 mg/dL N 8.6-10.3 Total Protein 7.6 g/dL N 6.4-8.9 Albumin 4.2 g/dL N 3.2-5.2 Globulin 3.4 g/dL N 2-4 Albumin/Globulin Ratio 1.2 N 1-3 Total Bilirubin 0.60 mg/dL N 0.2-1.0 Alkaline Phosphatase 86 U/L N 34-104 Alt 27 U/L N 7-52 Ast 20 U/L N 13-39 Egfr Non- 80.9 N >60 Egfr 104.1 N >60 81 Laboratory test 06/02/2016 [facility] Troponin-I (TnI) 0.02 ng/ mL N <0.03 [address] [place] [address] [phone] Creatine Kinase(CK) 155 U/L N 10-223 Blood Culture SEE RESULT BELOW 83 CBC Auto Diff 06/02/2016 [facility] White Blood 10.2 10^3/uL N 3.5-10.[address] [place] [address] [phone] Red Blood Count 5.11 10^6/uL N 4.0-5.4 Hemoglobin 15.1 g/dL N 12.0-16.0 Hematocrit 46 % N 35-47 Mean Corpuscular Volume 89 fL N 80-97 Mean Corpuscular Hemoglobin 30 pg N 27-31 Mean Corpuscular HGB Conc 33 g/dL N 31-36 Red Cell Distribution Width 14 % N 10.5-15 Platelet Count 259 10^3/uL N 150-450 Mean Platelet Volume 9 um3 N 7.4-10.4 Abs Neutrophils 9.1 10^3/uL High 1.5-7.7 Abs Lymphocytes 0.9 10^3/uL Low 1.0-4.8 Abs Monocytes 0.1 10^3/uL N 0-0.8 Abs Eosinophils 0 10^3/uL N 0-0.6 Abs Basophils 0 10^3/uL N 0-0.2 Abs Nucleated RBC 0 10^3/uL N Granulocyte % 89.7 % High 38-83 Lymphocyte % 8.6 % Low 25-47 Monocyte % 1.5 % N 1-9 Eosinophil % 0 % N 0-6 Basophil % 0.2 % N 0-2 Nucleated Red Blood Cells % 0 N Inr/Protime 02/29/2016 [facility] Inr 0.91 N 0.89-1.[address] [place] [address] [phone] CBC Auto Diff 02/29/2016 [facility] White Blood 7.2 10^3/uL N 3.5-10.[address] [place] [address] [phone] Red Blood Count 5.10 10^6/uL N 4.0-5.4 Hemoglobin 15.0 g/dL N 12.0-16.0 Hematocrit 46 % N 35-47 Mean Corpuscular Volume 89 fL N 80-97 Mean Corpuscular Hemoglobin 30 pg N 27-31 Mean Corpuscular HGB Conc 33 g/dL N 31-36 Red Cell Distribution Width 14 % N 10.5-15 Platelet Count 274 10^3/uL N 150-450 Mean Platelet Volume 9 um3 N 7.4-10.4 Abs Neutrophils 4.2 10^3/uL N 1.5-7.7 Abs Lymphocytes 2.3 10^3/uL N 1.0-4.8 Abs Monocytes 0.7 10^3/uL N 0-0.8 Abs Eosinophils 0.1 10^3/uL N 0-0.6 Abs Basophils 0 10^3/uL N 0-0.2 Abs Nucleated RBC 0.05 10^3/uL N Granulocyte % 57.4 % N 38-83 Lymphocyte % 31.6 % N 25-47 Monocyte % 9.6 % High 1-9 Eosinophil % 1.1 % N 0-6 Basophil % 0.3 % N 0-2 Nucleated Red Blood Cells % 0.7 N CKMB 02/29/2016 [facility] CKMB ng/mL 7.8 ng/mL High 0.6-6.[address] [place] [address] [phone] Laboratory test 02/29/2016 [facility] Lipase 21 U/L N 11.0- 82.[address] [place] [address] [phone] Creatine Kinase(CK) 201 U/L N 10-223 Troponin-I (TnI) 0.03 ng/mL High <0.03 84 Comp Metabolic Panel 02/29/2016 [facility] Sodium 138 mmol/L N 133-[address] [place] [address] [phone] Potassium 3.6 mmol/L N 3.5-5.0 Chloride 101 mmol/L N 101-111 Co2 Carbon Dioxide 31 mmol/L N 22-32 Anion Gap 6 mmol/L N 2-11 Glucose 97 mg/dL N 70-100 Blood Urea Nitrogen 8 mg/dL N 6-24 Creatinine 0.69 mg/dL N 0.51-0.95 BUN/Creatinine Ratio 11.6 N 8-20 Calcium 9.6 mg/dL N 8.6-10.3 Total Protein 7.5 g/dL N 6.4-8.9 Albumin 4.2 g/dL N 3.2-5.2 Globulin 3.3 g/dL N 2-4 Albumin/Globulin Ratio 1.3 N 1-3 Total Bilirubin 0.50 mg/dL N 0.2-1.0 Alkaline Phosphatase 91 U/L N 34-104 Alt 28 U/L N 7-52 Ast 26 U/L N 13-39 Egfr Non- 83.6 N >60 Egfr 107.6 N >60 85 Laboratory test 02/29/2016 [facility] B-Type 117 pg/mL High [address] [place] [address] Peptide BNP [phone] Laboratory test 02/29/2016 [facility] Lactic Acid 1.1 mmol/L N 0.5- [address] 2.0 [place] [address] [phone] Laboratory test 02/29/2016 [facility] Partial Thrombo 36.5 seconds High 26.[address] Time PTT -36[place] [address] 3 [phone] Urinalysis 01/22/2016 [facility] Urine Color Straw N Profile [address] [place] [address] [phone] Urine Appearance Clear N Urine Specific Warren 1.004 Low 1.010-1.030 Urine pH 8.0 N 5-9 Urine Urobilinogen Negative N Negative Urine Ketones Negative N Negative Urine Protein Negative N Negative Urine Leukocytes Trace Abnormal Negative Urine Blood Negative N Negative Urine Nitrite Negative N Negative Urine Bilirubin Negative N Negative Urine Glucose Negative N Negative Urine White Blood Cell Trace(0-5/hpf) N Absent Urine Red Blood Cell Absent N Absent Urine Bacteria Absent N Absent Urine Squamous Epithelial Cell Present Abnormal Absent Urine Culture And 01/22/2016 [facility] Urine Culture SEE RESULT [address] [place] [address] [phone] Laboratory test 12/17/2015 [facility] TSH (Thyroid 4.98 ?IU/mL N 0.34- finding [address] Stim Horm) 5.60 [place] [address] [phone] Free T4 (Free Thyroxine) 0.85 ng/dL N 0.61-1.12 Laboratory test 12/07/2015 [facility] Vitamin D 33.1 ng/mL N 30-[address] Total 25(Oh) [place] [address] [phone] Rheumatoid Factor <15 IU/mL N <15 89 Cyclic Citrullinated Pep Igg <15.6 U N 90 Vitamin B12 789 pg/mL N 180-914 91 Methylmalonic Acid Mma 0.09 nmol/mL N <=0.40 92 Pthi 12/07/2015 [facility] Calcium (PTH Intact) 9.2 mg/dL N 8.6-10.[address] [place] [address] [phone] PTH Intact 3.8 pmol/L N 1.3-9.3 Protein 12/07/2015 [facility] Total 7.0 g/dL N 6.3 - Electrophoresis [address] Protein(Pep) 7.9 [place] [address] [phone] Albumin 3.3 g/dL Abnormal 3.4-4.7 Alpha-1 Globulin 0.3 g/dL N 0.1-0.3 Alpha-2 Globulin 1.1 g/dL Abnormal 0.6-1.0 Beta Globulin 1.0 g/dL N 0.7-1.2 Gamma Globulin 1.3 g/dL N 0.6-1.6 Albumin/Globulin Ratio 0.88 N Impression See Comment N 93 1 [id number] 2 [id number] 3 [id number] 4 [id number] 5 Would you like to order Trichomonas Vaginalis RNA testing? N [id number] 6 SEE RESULT BELOW Name: REJI ALMENDAREZ : [address]: Alexandrea Cross MD Acct: [id number] Unit: [id number] AGE: 74 Location: [facility] Re02/15/19 SEX: F Status: DEP ER SPEC: [id number] BALDEV: 02/15/[address] [facility] [address]: Alexandrea Cross MD REQ: [id number] RECD: 02/16/19 STATUS: DAYNE ALVAREZ DR: Palma Slaughter MD _ SOURCE: VAGINAL SPDESC: ORDERED: Lane,Yeast DNA COMMENTS: Would you like to order Trichomonas Vaginalis RNA testing? N [id number] Procedure Result Reported Site Gardnerella/Yeast: Vaginal DNA Final 02/16/19- 1501 ML Organism 1 Negative Kaylene Organism 2 Negative Gardnerella The presence of G. vaginalis, although suggestive, is not diagnostic for bacterial vaginosis. Results should be interpreted in conjuction with other clinical and laboratory data available. Women with vaginal discharge should be evaluated for risk factors of cervicitis and pelvic inflammatory disease, toxic shock syndrome (S.aureus), and if present, evaluated for organisms not included in this assay such as N. gonorrhoeae, C. trachomatis, Mobiluncus, Mycoplasma and/or Prevotella. Mixed infections may occur. The performance of this test on patient specimens collected during or immediately after antimicrobial therapy is unknown. The presence or absence of Kaylene species, or G. vaginalis cannot be used as a test for therapeutic success or failure. * ML - Main Lab . END OF REPORT DEPARTMENT OF PATHOLOGY, [address] [place] [address] Weston Laura M.D. Director [facility] # [id number] SEE RESULT BELOW Name: REJI ALMENDAREZ : [address]: Alexandrea Cross MD Acct: [id number] Unit: [id number] AGE: 74 Location: [facility] Re02/15/19 SEX: F Status: DEP ER SPEC: [id number] BALDEV: 02/15/19-[address]: Alexandrea Cross MD REQ: [id number] RECD: 02/16/19-1115 STATUS: RES OTHR DR: Palma Slaughter MD _ SOURCE: URINE SPDESC: ORDERED: Urine Culture COMMENTS: [id number] Procedure Result Reported Site Urine Culture Preliminary 02/17/19- 1021 ML Organism 1 PROTEUS MIRABILIS [place] Count 10-25,000 (Moderate) CFU/ML * - [facility] . END OF REPORT DEPARTMENT OF PATHOLOGY, [address] [place] [address] Weston Laura M.D. Director [facility] # [id number] Fabric Worker Supervisor: [id number] DO THIS IN ABOUT 6 WEEK - MID SEPTEMBER 17 REFERENCE VALUE Cutoff: 500 12 REFERENCE VALUE Cutoff: 200 13 REFERENCE VALUE Cutoff: 100 14 REFERENCE VALUE Cutoff: 150 15 ADDITIONAL INFORMATION This report is intended for use in clinical monitoring or management of patients. It is not intended for use in employment-related testing. 16 REFERENCE VALUE Cutoff: 200 mg/L 17 Tylenol 3 18 Metabolite of codeine REFERENCE VALUE Cutoff: 100 19 Avinza, Sarah, MS Contin; Also a minor metabolite (10%) of codeine and can be seen in low concentrations (<2,000 ng/mL) with poppy seed ingestion. 20 Metabolite of morphine REFERENCE VALUE Cutoff: 100 21 Metabolite of heroin 22 Lortab, [place], Vicodin; Also a very minor metabolite of codeine and impurity (<1%) of oxycodone. 23 Metabolite of hydrocodone 24 Metabolite of hydrocodone 25 Dilaudid, Exalgo; Also a metabolite of hydrocodone and a minor (<5%) metabolite of morphine. 26 Metabolite of hydromorphone REFERENCE VALUE Cutoff: 100 27 Endocet, Percocet, Oxycontin 28 Metabolite of oxycodone 29 Numorphan, Opana; Also a metabolite of oxycodone. 30 Metabolite of oxymorphone REFERENCE VALUE Cutoff: 100 31 Metabolite of oxymorphone 32 Actiq, Duragesic, Fentora 33 Metabolite of fentanyl 34 Demerol 35 Metabolite of meperidine 36 Narcan 37 Metabolite of naloxone REFERENCE VALUE Cutoff: 100 38 Dolophine 39 Metabolite of methadone 40 Darvon, Darvocet 41 Metabolite of propoxyphene 42 Tradol, Ultram, Ultracet 43 Metabolite of tramadol 44 Nucynta 45 Metabolite of tapentadol 46 Metabolite of tapentadol REFERENCE VALUE Cutoff: 100 47 Buprenex, Suboxone 48 Metabolite of buprenorphine 49 Metabolite of buprenorphine 50 No opioids were detected. The absence of expected drug(s) and/or drug metabolite(s) may indicate non-compliance, altered pharmacokinetics, inappropriate timing of specimen collection relative to drug administration, diluted/adulterated urine, or limitations of testing. ADDITIONAL INFORMATION This test was developed and its performance characteristics determined by [facility] in a manner consistent with CLIA requirements. This test has not been cleared or approved by the U.S. Food and Drug Administration. Test Performed by: [facility] [address] [place] [address] 51 [facility] Severe Sepsis and Septic Shock Management Bundle Measure requires all lactic acids initially measuring >2.0 mmol/L be repeated. 52 Troponin-I testing on Plasma Separator Tubes (PST) has a known false positive rate of 0.20-0.40%. All positive troponins reflex immediate secondary confirmatory testing. 53 Because ethnic data is not always readily [...] 15-29 5 Kidney failure <15 (or dialysis) 54 SEE RESULT BELOW Name: REJI ALMENDAREZ : [address]: Palma Slaughter MD Acct: [id number] Unit: [id number] AGE: 73 Location: [facility] Re07/27/18 SEX: F Status: REG REF SPEC: [id number] BALDEV: 07/27/[address]: Palma Slaughter MD REQ: [id number] RECD: 07/27/18 STATUS: COMP _ SOURCE: URINE SPDESC: ORDERED: Urine Culture Urine Source: Clean Catch Procedure Result Reported Site Urine Culture Final 07/28/18- 1210 ML Mixed vini; possible contamination. Suggest resubmission. * ML - Main Lab . END OF REPORT DEPARTMENT OF PATHOLOGY, [address] [place] [address] Weston Laura M.D. Director [facility] # [id number] 55 Because ethnic data is not always readily [...] 15-29 5 Kidney failure <15 (or dialysis) 56 Normal Range 180 to 914 Indeterminate Range 145 to 180 Deficient Range <145 57 Because ethnic data is not always readily [...] 15-29 5 Kidney failure <15 (or dialysis) 58 Because ethnic data is not always readily [...] 15-29 5 Kidney failure <15 (or dialysis) 59 Please note: The following may produce a false positive D Dimer test: - Rheumatoid factor greater than 60 IU/ml - Plasma hemoglobin greater than 0.05 gm/dl - Bilirubin greater than 50 mg/dl - Lipids greater than 1000 mg/dl - FDP greater than 20 ug/ml 60 [facility] Severe Sepsis and Septic Shock Management Bundle Measure requires all lactic acids initially measuring >2.0 mmol/L be repeated. 61 >100 to <200 pg/mL: likely compensated congestive heart failure (CHF) 200 to 400 pg/mL: likely moderate CHF >400 pg/mL: likely moderate to severe CHF 62 Because ethnic data is not always readily [...] 15-29 5 Kidney failure <15 (or dialysis) 63 Acute inflammation: >10.00 64 SEE RESULT BELOW Name: REJI ALMENDAREZ Kelly : [address]: Ron Cooper MD Acct: [id number] Unit: [id number] AGE: 72 Location: ED Re05/14/17 SEX: F Status: DEP ER SPEC: [id number] BALDEV: 05/14/17-[address] [facility] [address]: Ron Cooper MD REQ: [id number] RECD: 05/14/17 STATUS: DAYNE ALVAREZ DR: Jamal Sheridan MD _ SOURCE: URINE SPDESC: ORDERED: Urine Culture Procedure Result Reported Site Urine Culture Final 05/16/17- 0806 ML No Growth (<1,000 CFU/mL) * ML - MAIN LAB ([facility]) . END OF REPORT * ML=Testing performed at Main Lab DEPARTMENT OF PATHOLOGY, [address] [place] [address] Weston Laura M.D. Director [facility] # [id number] 65 Because ethnic data is not always readily [...] 15-29 5 Kidney failure <15 (or dialysis) 66 Normal Range 180 to 914 Indeterminate Range 145 to 180 Deficient Range <145 67 Because ethnic data is not always readily [...] 15-29 5 Kidney failure <15 (or dialysis) 68 >100 to <200 pg/mL: likely compensated congestive heart failure (CHF) 200 to 400 pg/mL: likely moderate CHF >400 pg/mL: likely moderate to severe CHF 69 [facility] Severe Sepsis and Septic Shock Management Bundle Measure requires all lactic acids initially measuring >2.0 mmol/L be repeated. 70 99th percentile=0.04 ng/mL Troponin results at [facility] and [facility] are not interchangeable. 71 Because ethnic data is not always readily [...] 15-29 5 Kidney failure <15 (or dialysis) 72 Acute inflammation: >10.00 73 SEE RESULT BELOW Name: REJI ALMENDAREZ : [address]: Donnell Neri NP Acct: [id number] Unit: [id number] AGE: 71 Location: [facility] Re10/28/16 SEX: F Status: REG REF SPEC: [id number] BALDEV: 10/28/16-[address]: Donnell Neri HAZARDOUS MATERIAL SPECIALIST REQ: [id number] RECD: 10/29/16 STATUS: COMP _ SOURCE: URINE SPDESC: ORDERED: Urine Culture COMMENTS: [id number] Urine Source: Random Procedure Result Reported Site Urine Culture Final 10/30/16- 1301 ML No growth of clinically significant organisms * ML - MAIN LAB ([facility]) . END OF REPORT * ML=Testing performed at Main Lab DEPARTMENT OF PATHOLOGY, [address] [place] [address] Weston Laura M.D. Director [facility] # [id number] 74 Class 0 (Negative <0.35) Test Performed by: [place] [address] Front Sight Attacher: Ron Washington II, M.D., Ph.D. 75 [facility] Severe Sepsis and Septic Shock Management Bundle Measure requires all lactic acids initially measuring >2.0 mmol/L be repeated. 76 Because ethnic data is not always readily [...] 15-29 5 Kidney failure <15 (or dialysis) 77 Reference Range and Interpretation: TnI (ng/mL) Interpretation Less Than 0.03 ng/mL Not supportive of diagnosis of MD 0.03 - 0.50 ng/mL Indeterminate: suggest serial studies if clinically indicated. Greater than 0.5 ng/mL Consistent with diagnosis of MD 78 >100 to <200 pg/mL: likely compensated congestive heart failure (CHF) 200 to 400 pg/mL: likely moderate CHF >400 pg/mL: likely moderate to severe CHF 79 Critical Result LACT:3.2 Called to RANJAN at: 10:55:11 by: Read back by:RANJAN [facility] Severe Sepsis and Septic Shock Management Bundle Measure requires all lactic acids initially measuring >2.0 mmol/L be repeated. 80 >100 to <200 pg/mL: likely compensated congestive heart failure (CHF) 200 to 400 pg/mL: likely moderate CHF >400 pg/mL: likely moderate to severe CHF 81 Because ethnic data is not always readily [...] 15-29 5 Kidney failure <15 (or dialysis) 82 Reference Range and Interpretation: TnI (ng/mL) Interpretation Less Than 0.03 ng/mL Not supportive of diagnosis of MD 0.03 - 0.50 ng/mL Indeterminate: suggest serial studies if clinically indicated. Greater than 0.5 ng/mL Consistent with diagnosis of MD 83 SEE RESULT BELOW Name: REJI ALMENDAREZ Kelly : [address]: Evans Buck DO Acct: [id number] Unit: [id number] AGE: 71 Location: ED Re06/02/16 SEX: F Status: DEP ER SPEC: [id number] BALDEV: 06/02/[address] [facility] [address]: Evans Buck DO REQ: [id number] RECD: 06/02/16 STATUS: DAYNE ALVAREZ DR: Daniella Ramos MD _ SOURCE: [facility] ORDERED: Blood Cult Procedure Result Reported Site Aerobic Culture Bottle Final 06/07/16- 1126 ML No Growth Day 5 Anaerobic Culture Bottle Final 06/07/161126 ML No Growth Day 5 * ML - MAIN LAB ([facility]) . END OF REPORT * ML=Testing performed at Main Lab DEPARTMENT OF PATHOLOGY, [address] [place] [address] Weston Laura M.D. Director [facility] # [id number] 84 Reference Range and Interpretation: TnI (ng/mL) Interpretation Less Than 0.03 ng/mL Not supportive of diagnosis of MD 0.03 - 0.50 ng/mL Indeterminate: suggest serial studies if clinically indicated. Greater than 0.5 ng/mL Consistent with diagnosis of MD 85 Because ethnic data is not always readily [...] 15-29 5 Kidney failure <15 (or dialysis) 86 >100 to <200 pg/mL: likely compensated congestive heart failure (CHF) 200 to 400 pg/mL: likely moderate CHF >400 pg/mL: likely moderate to severe CHF 87 [facility] Severe Sepsis and Septic Shock Management Bundle Measure requires all lactic acids initially measuring >2.0 mmol/L be repeated. 88 SEE RESULT BELOW Name: FEDERICO ALMENDAREZAMRIK Mendoza : [address]: Carlos Gill MD Acct: [id number] Unit: [id number] AGE: 71 Location: ED Re01/22/16 SEX: F Status: DEP ER SPEC: [id number] BALDEV: 01/22/16-[address] [facility] [address]: Elsie Jacob NP REQ: [id number] RECD: 01/22/16 STATUS: DAYNE ALVAREZ DR: Daniella Gill MD _ SOURCE: URINE SPDESC: ORDERED: Urine Culture Procedure Result Reported Site Urine Culture Final 01/24/16- 1004 ML No growth of clinically significant organisms * ML - MAIN LAB ([facility]) . END OF REPORT * ML=Testing performed at Main Lab DEPARTMENT OF PATHOLOGY, [address] [place] [address] Weston Laura M.D. Director [facility] # [id number] 89 Test Performed by: [place] [address] Front Sight Attacher: Ron Washington II, M.D., Ph.D. 90 REFERENCE VALUE <20.0 (Negative) Test Performed by: [place] [address] Front Sight Attacher: Ron Washington II, M.D., Ph.D. 91 Normal Range 180 to 914 Indeterminate Range 145 to 180 Deficient Range <145 92 Test Performed by: [place] [address] Front Sight Attacher: Ron Washington II, M.D., Ph.D. 93 RESULT: No apparent monoclonal protein on serum electrophoresis. Test Performed by: [place] [address] Front Sight Attacher: Ron Washington II, M.D., Ph.D. Procedures Date Code Description Status 12/27/2018 [id number] Diabetic Retinal Eye Exam Completed 06/04/2018 56672 Polysomnography Sleep Staging 4+ Parameters W/Cpap Completed 05/27/2018 04889 EKG Tracing & Interpretation Completed 03/25/2018 28921 Sleep Study Unattended,HRT Rate,Oxygen Sat,Resp Completed Effort/Airflow 10/30/2017 19012 ECHO Transthoracic, Real-Time 2D With Doppler And Completed Color Flow 10/30/2017 81783 ECHO Transthoracic, Real-Time 2D With Doppler And Completed Color Flow 10/12/2017 38860 EKG Tracing & Interpretation Completed 10/05/2017 [id number] Diabetic Retinal Eye Exam Completed 01/06/2017 28051 Pulmonary Stress Test Simple Completed 11/03/2016 32302 EKG, Interpretation Only Completed 03/25/2016 07552 EKG Tracing & Interpretation Completed 03/21/2016 78285 ECHO Transthoracic, Real-Time 2D With Doppler And Completed Color Flow 03/01/2016 93730 EKG, Interpretation Only Completed 12/18/2015 17024 EKG Tracing & Interpretation Completed 11/21/2015 [id number] Bone Mineral Density Test Completed 08/07/2015 [id number] Mammogram Completed 03/29/2015 58552 Polysomnography Sleep Staging 4+ Parameters W/Cpap Completed 03/01/2015 00204 ECHO Transthorasic Realtime 2D W Doppler & Color Flow Completed Hosp 01/16/2015 43626 Polysomnography Sleep Staging 4+ Parameters Completed 02/16/2013 [id number] Colonoscopy Completed Encounters Type Date Location Provider Dx Diagnosis Office Visit 02/03/2019 [facility] Mike Figueroa MD L30.4 Erythema intertrigo 10:30a L82.1 Other seborrheic keratosis L91.8 Other hypertrophic disorders of the skin Office Visit 01/21/2019 [facility] 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, right hip Z68.39 Body mass index (BMI) 39.0-39.9, adult E66.01 Morbid (severe) obesity due to excess calories M25.552 Pain in left hip M25.551 Pain in right hip M54.31 Sciatica, right side M54.32 Sciatica, left side Office Visit 01/04/2019 11:45a Pulmonology And Marcy G47.33 Obstructive sleep [facility] Varinder apnea (adult) [facility] (pediatric) J45.909 Unspecified asthma, uncomplicated Office Visit 11/26/2018 2:00p [facility] Morena Slaughter, R12 Heartburn Medicine - Aileen Bower I10 Essential (primary) hypertension Office 11/02/2018 DoNotUse [facility] Internal Palma E03.9 Hypothyroidism, Visit 3:40p Medicine-Hernandez Slaughter M.D. unspecified K60.2 Anal fissure, unspecified I10 Essential (primary) hypertension M54.31 Sciatica, right side M54.32 Sciatica, left side Office Visit 08/19/2018 11:00a Pulmonology And Mar[facility] G47.33 Obstructive sleep Sleep Services Of MD Varinder apnea (adult) [facility] (pediatric) K21.9 Gastro-esophageal reflux disease without esophagitis E66.09 Other obesity due to excess calories Office Visit 08/12/2018 11:40a [facility] [place] R21 Rash and other Medicine - Aileen Slaughter M.D. nonspecific skin eruption K59.00 Constipation, unspecified E03.9 Hypothyroidism, unspecified I10 Essential (primary) hypertension Office Visit 07/27/2018 10:20a DoNotUse [facility] [place] Sukhjinder, R05 Cough Medicine-Hernandez Bower R30.0 Dysuria R10.84 Generalized abdominal pain E03.9 Hypothyroidism, unspecified Office Visit 06/22/2018 11:30a [facility] G47.33 Obstructive sleep Sleep Services Of MD Varinder apnea (adult) [facility] (ped[facility]) E66.09 Other obesity due to excess calories Office Visit 05/28/2018 11:40a [facility] [place] I10 Essential ( primary) Leslie Slaughter M.D. hypertension Ccmob R53.83 Other fatigue K90.0 Celiac disease E03.9 Hypothyroidism, unspecified K59.00 Constipation, unspecified Office Visit 04/20/2018 10:20a [facility] Isiah S. 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 I10 Essential (primary) hypertension Z01.810 Encounter for preprocedural cardiovascular examination G47.33 Obstructive sleep apnea (adult) (pediatric) I11.9 Hypertensive heart disease without heart failure I27.20 Pulmonary hypertension, unspecified E66.8 Other obesity Office Visit 04/15/2018 11:45a [facility] G47.33 Obstructive sleep Sleep Services Of MD Varinder apnea (adult) [facility] (ped[facility]) J45.909 Unspecified asthma, uncomplicated E66.09 Other obesity due to excess calories Office Visit 03/24/2018 10:45a [facility] G47.33 Obstructive sleep Sleep Services Of MD Varinder apnea (adult) [facility] (pediatric) R06.02 Shortness of breath E66.01 Morbid (severe) obesity due to excess calories Office Visit 01/22/2018 10:00a [facility] [place] K59.00 Constipation, Leslie Slaughter M.D. 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 M.D. 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, not elsewhere classified G47.33 Obstructive sleep apnea (adult) (pediatric) Office Visit 11/07/2016 2:40p [facility] Jamal Beasley G71.3 Mitochondrial Medicine - Sathish Sheridan,FACP myopathy, not Suite R elsewhere classified E87.6 Hypokalemia I10 Essential (primary) hypertension Office Visit 11/03/2016 2:13p [facility] Lyndsay Connelly, R74.8 Abnormal Assoc,pc [employer]ARD[employer] SPECIALIST levels of Hospitalists other serum enzymes R06.02 Shortness of breath R07.9 Chest pain, unspecified 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 (primary) hypertension J45.909 Unspecified asthma, uncomplicated G47.33 Obstructive sleep apnea (adult) (pediatric) I35.0 Nonrheumatic aortic (valve) stenosis Office Visit 06/02/2016 8:00a [facility] G47.33 Obstructive sleep Sleep Services Of MD Varinder apnea (adult) [facility] (pediatric) J45.909 Unspecified asthma, uncomplicated K22.70 Griffith's esophagus without dysplasia E66.09 Other obesity due to excess calories I10 Essential (primary) hypertension Office Visit 05/28/2016 1:00p [facility] Isiah Cruz I10 Essential ( primary) Of [facility] DO Agus hypertension FACC I35.0 Nonrheumatic aortic (valve) stenosis G47.33 Obstructive sleep apnea (adult) (pediatric) I27.2 Other secondary pulmonary hypertension 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 aura, not Ccmob intractable, w/o status migrainosus I10 Essential (primary) hypertension Office Visit 04/02/2016 [facility] Jared G43.109 Migraine with 9:13a Assjanell gomes M.D. aura, not Hospitalists intractable, w/o status migrainosus R10.13 Epigastric pain I10 Essential (primary) hypertension Office Visit 04/01/2016 [facility] Jared G43.109 Migraine with 9:11a Assjanell gomes M.D. 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 right hip Office Visit 02/14/2016 [facility] G47.33 Obstructive sleep 10:15a Sleep Services Of MD Varinder apnea (adult) [facility] (pediatric) J45.909 Unspecified asthma, uncomplicated K22.70 Griffith's esophagus without dysplasia E66.09 Other obesity due to excess calories Office Visit 01/25/2016 Orthopedic Miroslava Membreno, M16.11 Unilateral primary 2:30p Services Of Sathish osteoarthritis, right C.M.A. hip Office Visit 01/15/2016 [facility] Daniella I10 Essential (primary) 11:20a Medicine - Aileen Ramos M.D. hypertension M25.551 Pain in right hip M81.0 Age-related osteoporosis w/o current pathological fracture J45.20 Mild intermittent asthma, uncomplicated A04.9 Bacterial intestinal infection, unspecified Office Visit 12/18/2015 9:40a [facility] Alan Villar I10 Essential (primary) Sathish Harry hypertension R06.00 Dyspnea, unspecified I35.0 Nonrheumatic aortic (valve) stenosis R94.31 Abnormal electrocardiogram [ECG] [EKG] Office Visit 12/06/2015 2:00p [facility] Daniella Ramos, M25.551 Pain in right Medicine - [facility] M.DBrain hip K22.70 Griffith's esophagus without dysplasia M81.8 Other osteoporosis without current pathological fracture F41.9 Anxiety disorder, unspecified E53.9 Vitamin B deficiency, unspecified J45.20 Mild intermittent asthma, uncomplicated E03.9 Hypothyroidism, unspecified Office Visit 11/15/2015 8:40a [facility] [place] M51.16 Intervertebral disc 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, not elsewhere classified K22.70 Griffith's esophagus without dysplasia M85.9 Disorder of bone density and structure, unspecified I35.0 Nonrheumatic aortic (valve) stenosis Office Visit 09/25/2015 [facility] G47.33 Obstructive sleep 10:15a Sleep Services Of CHAVEZ Maldonado RN, apnea (adult) [facility] (pediatric) J30.89 Other allergic rhinitis Office Visit 05/11/2015 [facility] 327.23 Obstructive Sleep 2:00p Sleep Services Of CHAVEZ Maldonado RN, Apnea Adult & [facility] Pediatric 530.81 Esophageal Reflux Office Visit 02/13/2015 [facility] 327.23 Obstructive Sleep 1:30p Sleep Services Of CHAVEZ Maldonado RN, Apnea Adult & [facility]- Pediatric Office Visit 12/14/2014 Pulmonology And Magnus Lucas 327.23 Obstructive Sleep 10:45a Sleep Services Of Sathish Apnea Adult & [facility] 327.27 Central Sleep Apnea In Conditions Classified Elsewhere 278.00 Obesity Unspec Plan of Treatment Future Appointment(s):06/02/2019 10:40 am - [facility] Slaughter M.D. at [facility] - [facility]06/02/2019 10:20 am - [facility] Slaughter M.D. at [facility]03/15/2019 12:00 pm - Pete Schilling MD at [facility]02/25/2019 11:20 am - Mike Figueroa [facility] at [facility] Eoptlwqiksu47/31/2019 11:30 am - Marcy Reeder MD at [facility]/16/2019 - Chace Ann, FNPE03.9 Hypothyroidism, unspecifiedNew Labs:TSH (Thyroid Stim Horm), Ordered: 02/16/19T3 Total, Ordered : 02/16/19Free T4 (Free Thyroxine), Ordered: 02/16/19Comments:Please follow up with Dr. Schilling.Get labs a few days priorYou may restart cardiac rehab but avoid exertion when you are not closely monitoredFollow up:Physical with Dr. Slaughter 3- 4 rnaqsB06.0 Urinary tract infection, site not specifiedComments:Please complete treatment.Make sure you drink adequate water and you are not styhwuqyqxR93.89 Other female genital prolapseReferral:Chantel Medina M.D., Gynecology
[2019-02-18] MEDS ORDERED: NS 0.9% 1000 ML** 1,000 ML IV ONE (19:06)
[2019-02-18 19:15] LABS: ABS Basophils 0.1 10^3/ul (0-0.2); ABS Eosinophils 0.1 10^3/ul (0-0.6); ABS Lymphocytes 2.4 10^3/ul (1.0-4.8); ABS Monocytes 0.7 10^3/ul (0-0.8); ABS Neutrophils 5.3 10^3/ul (1.5-7.7); Hematocrit 46 % (35-47); Hemoglobin 15.2 g/dL (12.0-16.0); Lymphocyte % 27.7 %; Mean Corpuscular HGB Conc 33 g/dL (31-36); Mean Corpuscular Hemoglobin 30 pg (27-31); Mean Corpuscular Volume 91 fL (80-97); Mean Platelet Volume 8.3 fL (7.4-10.4); Platelet Count 225 10^3/uL (150-450); Red Blood Count 5.02 10^6 /uL (3.70-4.87); Red Cell Distribution Width 14 % (10-15); White Blood Count 8.5 10^3/uL (3.5-10.8)
[2019-02-18 19:23] LABS: INR 0.91 (0.82-1.09)
[2019-02-18 19:25] LABS: Albumin 4.1 g/dL (3.2-5.2); Albumin/Globulin Ratio 1.3 (1-3); BUN/Creatinine Ratio 16.4 (8-20); Calcium 9.5 mg/dL (8.6-10.3); EGFR Non-African American 77.7 (>60); Globulin 3.2 g/dL (2-4); Total Bilirubin 0.5 mg/dL (0.2-1.0); Total Protein 7.3 g/dL (6.4-8.9)
[2019-02-18 19:27] LABS: Troponin I 0.03 ng/mL (<0.04)
--- NOTE | 2019-02-18 19:39 | ED ---
HPI Chest Pain - HPI Summary HPI Summary: 74-year-old female presents with chest pressure earlier today. It started at 4: 00pm she developed a substernal pressure that lasted 30 mins and has since resolved. She states she had some shortness of breath at this time that has resolved. She has been having palpitations. She states that she feels that she is hyperthyroid and has been decreasing her amount of Synthroid on her own. She also feels dehydrated. She states she is currently trying to get into an dental assistant. She states that the chest pressure was in the center of her chest. She denies any pain to her arms. No nausea and no vomiting. She has a previous history of a valve replacement. States she's having issues with her blood pressure. She states that the only medication she can take was verapamil. She is currently being treated for a uti that was diagnosed at urgent care. She states that it feels like her mouth is dry. She does have a family history of cardiac disease. - History of Current Complaint Chief Complaint: EDChestPainROMI Time Seen by Provider: 02/18/19 18:52 Pain Intensity: 7 - Additional Pertinent History Primary Care Physician: [id number] - Allergy/Home Medications Allergies/Adverse Reactions: Allergies Allergy/AdvReac Type Severity Reaction Status Date / Time albuterol Allergy Severe Swelling Verified 02/18/19 17:43 Of Face,Lips,& Throat famotidine Allergy Severe Hives/Diff. Verified 02/18/19 17:43 Breathing/I tching fluticasone Allergy Severe Swelling Verified 02/18/19 17:43 Of Face,Lips,& Throat lidocaine Allergy Severe Swelling Verified 02/18/19 17:43 pirbuterol Allergy Severe Swelling Verified 02/18/19 17:43 Of Face,Lips,& Throat salmeterol Allergy Severe Swelling Verified 02/18/19 17:43 Of Face,Lips,& Throat amlodipine Allergy Intermediate Swelling Verified 02/18/19 17:43 clindamycin Allergy Intermediate Hives Verified 02/18/19 17:43 Iodinated Contrast- Oral and Allergy Intermediate Itching Verified 02/18/19 17: 43 IV Dye iodine Allergy Intermediate Swelling Verified 02/18/19 17:43 latex Allergy Intermediate Rash Verified 02/18/19 17:43 levofloxacin Allergy Intermediate Hives Verified 02/18/19 17:43 metoprolol Allergy Intermediate Rash Verified 02/18/19 17:43 Penicillins Allergy Intermediate Hives Verified 02/18/19 17:43 rofecoxib Allergy Intermediate Hives Verified 02/18/19 17:43 streptomycin Allergy Intermediate Hives Verified 02/18/19 17:43 Sulfa (Sulfonamide Allergy Intermediate GI Upset Verified 02/18/19 17:43 Antibiotics) atenolol Allergy Unknown Unknown Verified 02/18/19 17:43 Reaction Details Beta-Adrenergic Agents Allergy Unknown Unknown Verified 02/18/19 17:43 Reaction Details epinephrine Allergy Unknown Unknown Verified 02/18/19 17:43 Reaction Details hydrochlorothiazide Allergy Unknown Unknown Verified 02/18/19 17:43 Reaction Details labetalol Allergy Unknown Unknown Verified 02/18/19 17:43 Reaction Details lisinopril Allergy Unknown Unknown Verified 02/18/19 17:43 Reaction Details losartan Allergy Unknown Unknown Verified 02/18/19 17:43 Reaction Details propofol Allergy Unknown Unknown Verified 02/18/19 17:43 Reaction Details sulfite Allergy Unknown Unknown Verified 02/18/19 17:43 Reaction Details terazosin Allergy Unknown Unknown Verified 02/18/19 17:43 Reaction Details valsartan Allergy Unknown Unknown Verified 02/18/19 17:43 Reaction Details peanut Allergy Anaphylatic Verified 02/18/19 17:43 Shock gluten AdvReac Intermediate GI Upset Verified 02/18/19 17:43 quinalones Allergy See Comment Uncoded 02/18/19 17:43 Home Medications: Home Medications Azelastine/Fluticasone ANAYELI(NF [Dymista(NF)] 1 spray INTRANASAL DAILY 02/18/19 [ History Confirmed 02/18/19] Fexofenadine (NF) [Cassie (NF)] 60 mg PO DAILY PRN 02/18/19 [History Confirmed 02/18/19] Fluticasone HFA 220 mcg(NF) [Flovent Hfa 220 Mcg(NF)] 2 puff INH BID 02/18/19 [ History Confirmed 02/18/19] Hydrocodone/Acetaminophen [Hydrocodone-Acetamin 5-325 mg] 1 tab PO Q6HR PRN [History Confirmed 02/18/19] Verapamil HCl 4 tab PO BID 02/18/19 [History Confirmed 02/18/19] PMH/Surg Hx/FS Hx/Imm Hx Endocrine/Hematology History: Reports: Hx Thyroid Disease, Hx Anemia Denies: Hx Diabetes Cardiovascular History: Reports: Hx Congestive Heart Failure, Hx Hypertension, Hx Valvular Heart Disease - Artificial Valves, Other Cardiovascular Problems/ Disorders - AORTIC STENOSIS, Mitral valve prolapse without regurgitation Denies: Hx Pacemaker/ICD Respiratory History: Reports: Hx Asthma, Hx Chronic Obstructive Pulmonary Disease (COPD), Hx Seasonal Allergies, Hx Sleep Apnea GI History: Reports: Hx Gall Bladder Disease, Hx Gastroesophageal Reflux Disease , Hx Ileostomy, Hx Ulcer, Other GI Disorders - CELIAC, rectal prolapse, colostomy and reversal Liver Problems Denies: Hx Obstructive Bowel History: Reports: Other Problems/Disorders - "bladder repair" Denies: Hx Renal Disease Musculoskeletal History: Reports: Hx Arthritis, Hx Back Problems - Cervical Pain , Hx Osteoporosis, Other Musculoskeletal History - sciatica, saccroiliac joint dysfunction Denies: Hx Rheumatoid Arthritis Sensory History: Reports: Hx Cataracts - 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 CERVICAL POLYP REMOVAL (1974). TUBAL LIGATION (1974). GALLBLADDER. BLADDER REPAIR (1984). UPPER LUBE COLOSTOMY AND REVERSAL. PROLAPSE OF RECTUM. OPEN REDUCTION OF LT ELBOW. AORTIC VALVE REPLACEMENT 2018-[facility] GLENNA 3-PT WILL BRING CARD-CONDITIONAL UP 3T-INSTRUCTIONS SCANNED IN CHART Infectious Disease History: No Infectious Disease History: Reports: Hx Clostridium Difficile - from abx use Denies: Traveled Outside the [place] in Last 30 Days - Family History Known Family History: Positive: Cardiac Disease, Respiratory Disease, Other - Cancer - Social History Alcohol Use: None Hx Substance Use: No Substance Use Type: Reports: Prescribed Hx Tobacco Use: No Smoking Status (MU): Former Smoker Review of Systems Negative: Fever Positive: Palpitations, Chest Pain - resolved Negative: Shortness Of Breath, Cough Negative: Abdominal Pain, Vomiting, Nausea All Other Systems Reviewed And Are Negative: Yes Physical Exam Triage Information Reviewed: Yes Vital Signs On Initial Exam: Initial Vitals Temp Pulse Resp BP Pulse Ox 98.3 F 105 20 194/96 93 02/18/19 17:37 02/18/19 17:37 02/18/19 17:37 02/18/19 17:37 02/18/19 17:37 Vital Signs Reviewed: Yes Appearance: Positive: Well-Appearing Skin: Positive: Warm, Dry Head/Face: Positive: Normal Head/Face Inspection Eyes: Positive: Normal, Conjunctiva Clear ENT: Positive: Pharynx normal Respiratory/Lung Sounds: Positive: Clear to Auscultation, Breath Sounds Present Cardiovascular: Positive: Normal, RRR Abdomen Description: Positive: Nontender, Soft Bowel Sounds: Positive: Present Musculoskeletal: Positive: Normal Neurological: Positive: Normal Psychiatric: Positive: Normal Diagnostics - Vital Signs Vital Signs Temp Pulse Resp BP Pulse Ox 02/18/19 17:37 98.3 F 105 20 194/96 93 - Laboratory Lab Results: Lab Results 02/18/19 02/18/19 02/18/19 Range/Units 19:00 19:00 19:00 WBC 8.5 (3.5-10.8) 10^3/uL RBC 5.02 H (3.70-4.87) 10^6 /uL Hgb 15.2 (12.0-16.0) g/dL Hct 46 (35-47) % MCV 91 (80-97) fL MCH 30 (27-31) pg MCHC 33 (31-36) g/dL RDW 14 (10-15) % Plt Count 225 (150-450) 10^3/uL MPV 8.3 (7.4-10.4) fL Neut % (Auto) 62.0 % Lymph % (Auto) 27.7 % Cherry % (Auto) 8.5 % Eos % (Auto) 1.0 % Baso % (Auto) 0.8 % Absolute Neuts (auto) 5.3 (1.5-7.7) 10^3/ul Absolute Lymphs (auto) 2.4 (1.0-4.8) 10^3/ul Absolute Monos (auto) 0.7 (0-0.8) 10^3/ul Absolute Eos (auto) 0.1 (0-0.6) 10^3/ul Absolute Basos (auto) 0.1 (0-0.2) 10^3/ul Absolute Nucleated RBC 0.0 10^3/ul Nucleated RBC % 0.0 INR (Anticoag Therapy) 0.91 (0.82-1.09) D-Dimer, Quantitative < 200 (Less Than 230) ng/mL Sodium 137 (135-145) mmol/L Potassium 4.0 (3.5-5.0) mmol/L Chloride 102 (101-111) mmol/L Carbon Dioxide 29 (22-32) mmol/L Anion Gap 6 (2-11) mmol/L BUN 12 (6-24) mg/dL Creatinine 0.73 (0.51-0.95) mg/dL Est GFR ( Amer) 94.0 (>60) Est GFR (Non-Af Amer) 77.7 (>60) BUN/Creatinine Ratio 16.4 (8-20) Glucose 99 (70-100) mg/dL Calcium 9.5 (8.6-10.3) mg/dL Total Bilirubin 0.50 (0.2-1.0) mg/dL AST 21 (13-39) U/L ALT 23 (7-52) U/L Alkaline Phosphatase 81 (34-104) U/L Troponin I 0.03 (<0.04) ng/mL Total Protein 7.3 (6.4-8.9) g/dL Albumin 4.1 (3.2-5.2) g/dL Globulin 3.2 (2-4) g/dL Albumin/Globulin Ratio 1.3 (1-3) TSH Pending Free T4 Pending Free T3 Pending Result Diagrams: 02/18/19 19:00 02/18/19 19:00 Lab Statement: Any lab studies that have been ordered have been reviewed, and results considered in the medical decision making process. - Radiology chest Radiology Interpretation Completed By: ED Physician Summary of Radiographic Findings: no active disease - EKG No standard instances Cardiac Rate: NL EKG Rhythm: Sinus Rhythm EKG Comparison: No Significant Change Summary of EKG Findings: sinus rhythm Re-Evaluation - Re-Evaluation First Eval Re-Evaluation Time: 21:21 Change: Improved Comment: feeling better after fluids Second Eval Re-Evaluation Time: 22:17 Comment: discussed options and patient has been on spironolactone before so will restart that. no chest pain still. 6 hours troponin is zero. Chest Pain Course/Dx - Course Course Of Treatment: 74-year-old female presents with chest pressure earlier today. It started at 4:00pm she developed a substernal pressure that lasted 30 mins and has since resolved. She states she had some shortness of breath at this time that has resolved. She has been having palpitations. She states that she feels that she is hyperthyroidism and has been decreasing her amount of Synthroid. She also feels dehydrated. She states she is currently trying to get into an dental assistant. She states the chest pain felt like pressure in the center of her chest. She denies any pain to her arms. No nausea and no vomiting. no diaphoresis. She has a previous history of a valve replacement. States she's having issues with her blood pressure. She states that the only medication she can take was verapamil. On exam lungs clear to auscultation. EKG sinus rhythm similar to previous. Troponin is 0.03 and repeat is .02. D- dimer is negative. TSH is within normal limits so told to keep synthyroid dose the same. Gave fluids and is feeling better. had a length discussion about blood pressure medications patient is allergic to every htn medication beside vermapril and spironolactone. discussed will add on spironolactone on for blood pressure. patient states does not want to stay to get stress test when offered admission. states will follow up with cardiology or primary for further management. patient has been chest free for 6 hours. told if develop chest pain again to return. patient understand and agrees with plan. - Chest Pain Differential Diagnosis/HQI/PQRI: Acute NE, Chest Wall, Pulmonary Embolism - Diagnoses Provider Diagnoses: Chest pain, Hypertension Discharge - Sign-Out/Discharge Documenting (check all that apply): Patient Departure Patient Received Moderate/Deep Sedation with Procedure: No - Discharge Plan Condition: Good Disposition: HOME Prescriptions: Spironolactone TAB* [Aldactone TAB 25 MG*] 25 mg PO DAILY #30 tab Patient Education Materials: Hypertension (ED) Referrals: Palma Slaughter MD [Primary Care Provider] - Isiah Goldsmith DO [Medical Doctor] - Additional Instructions: add on spironolactone once a day Follow up with primary or cardiology about blood pressure and chest pain within 5 days limit salt intake Return to ED if develop any new or worsening symptoms - Billing Disposition and Condition Condition: GOOD Disposition: Home
[2019-02-18 19:54] LABS: TSH (Thyroid Stimulating Horm) 1.29 mcIU/mL (0.34-5.60)
[2019-02-18 19:55] LABS: Free T3 3.1 pg/mL (2.5-3.9)
[2019-02-18 19:56] LABS: Free T4 1.02 ng/dL (0.61-1.12)
[2019-02-18] MEDS ORDERED: cloNIDine TAB* 0.1 MG PO ONE (19:56)
[2019-02-18] MEDS ORDERED: Chlorthalidone TAB* 50 MG PO ONE (21:33)
[2019-02-18] MEDS ORDERED: Spironolactone TAB* 25 MG PO ONE (22:17)
[2019-02-18 22:47] VITALS: BP 188/90
== END 2019-02-18 22:46 | disposition home or self-care (01) ==
LOC: ED 17:33
DX: R07.9 Chest pain, unspecified (principal); I11.0 Hypertensive heart disease with heart failure; I50.9 Heart failure, unspecified; Z79.899 Other long term (current) drug therapy; Z87.891 Personal history of nicotine dependence; Z88.2 Allergy status to sulfonamides; Z88.8 Allergy status to other drugs, medicaments and biological substances; Z91.041 Radiographic dye allergy status; Z91.040 Latex allergy status
CPT/HCPCS: 36415; 71045; 80053; 83880; 84439; 84443; 84481; 84484; 85025; 85379; 85610; 93005; 96360; 96361; 99283; A9270-GY

== ENCOUNTER 2019-06-12 15:21 | Emergency (ER) | payer MEDICARE ==
--- NOTE | 2019-06-12 15:31 | ED ---
Palpitations / Dysrhythmia - HPI Summary HPI Summary: The patient is a 74 y/o F presenting to [facility] with a chief complaint of edema in the bilateral lower extremities for the last week with onset of fast palpitations today. She reports that the edema is accompanied by erythema on the legs. The palpitations occur intermittently and last for only a few seconds before resolving. She additionally c/o back pain, burning with urination, and shortness of breath. She denies any chest pain. Currently, her symptoms are rated 6/10 in severity. She notes that she has recently been on various antibiotics for bronchitis and sinusitis. PMHx: anemia, CHF, HTN, aortic stenosis, mitral valve prolapse, asthma, COPD. FHx: cardiac disease. Former smoker, no EtOH, no substance use. Medications reviewed. Allergies noted. - History of Current Complaint Hx Obtained From: Patient Onset/Duration: Gradual Onset, Lasting Hours, Still Present Timing: Intermittent Episodes Lasting: - seconds Severity Initially: Moderate Severity Currently: Mild Character: Fast Aggravating: Nothing Alleviating: Nothing Associated Signs & Symptoms: Shortness of Breath - Risk Factors Cardiac: Hypertension, Smoking, CHF, Family History Pulmonary Embolism: Smoking Atrial Fibrillation: Hypertension, Mitral Valve Disease - Allergy/Home Medications Allergies/Adverse Reactions: Allergies Allergy/AdvReac Type Severity Reaction Status Date / Time albuterol Allergy Severe Swelling Verified 06/12/19 15:35 Of Face,Lips,& Throat famotidine Allergy Severe Hives/Diff. Verified 06/12/19 15:35 Breathing/I tching fluticasone Allergy Severe Swelling Verified 06/12/19 15:35 Of Face,Lips,& Throat lidocaine Allergy Severe Swelling Verified 06/12/19 15:35 pirbuterol Allergy Severe Swelling Verified 06/12/19 15:35 Of Face,Lips,& Throat salmeterol Allergy Severe Swelling Verified 06/12/19 15:35 Of Face,Lips,& Throat amlodipine Allergy Intermediate Swelling Verified 06/12/19 15:35 clindamycin Allergy Intermediate Hives Verified 06/12/19 15:35 Iodinated Contrast Media Allergy Intermediate Itching Verified 06/12/19 15:35 [Iodinated Contrast- Oral and IV Dye] iodine Allergy Intermediate Swelling Verified 06/12/19 15:35 latex Allergy Intermediate Rash Verified 06/12/19 15:35 levofloxacin Allergy Intermediate Hives Verified 06/12/19 15:35 metoprolol Allergy Intermediate Rash Verified 06/12/19 15:35 Penicillins Allergy Intermediate Hives Verified 06/12/19 15:35 rofecoxib Allergy Intermediate Hives Verified 06/12/19 15:35 streptomycin Allergy Intermediate Hives Verified 06/12/19 15:35 Sulfa (Sulfonamide Allergy Intermediate GI Upset Verified 06/12/19 15:35 Antibiotics) atenolol Allergy Unknown Unknown Verified 06/12/19 15:35 Reaction Details Beta-Adrenergic Agents Allergy Unknown Unknown Verified 06/12/19 15:35 Reaction Details epinephrine Allergy Unknown Unknown Verified 06/12/19 15:35 Reaction Details hydrochlorothiazide Allergy Unknown Unknown Verified 06/12/19 15:35 Reaction Details labetalol Allergy Unknown Unknown Verified 06/12/19 15:35 Reaction Details lisinopril Allergy Unknown Unknown Verified 06/12/19 15:35 Reaction Details losartan Allergy Unknown Unknown Verified 06/12/19 15:35 Reaction Details propofol Allergy Unknown Unknown Verified 06/12/19 15:35 Reaction Details sulfite Allergy Unknown Unknown Verified 06/12/19 15:35 Reaction Details terazosin Allergy Unknown Unknown Verified 06/12/19 15:35 Reaction Details valsartan Allergy Unknown Unknown Verified 06/12/19 15:35 Reaction Details doxycycline Allergy See Comment Verified 06/12/19 15:36 peanut Allergy Anaphylatic Verified 06/12/19 15:35 Shock gluten AdvReac Intermediate GI Upset Verified 06/12/19 15:35 quinalones Allergy See Comment Uncoded 04/06/19 09:53 PMH/Surg Hx/FS Hx/Imm Hx Endocrine/Hematology History: Reports: Hx Thyroid Disease, Hx Anemia Denies: Hx Diabetes Cardiovascular History: Reports: Hx Congestive Heart Failure, Hx Hypertension, Hx Valvular Heart Disease - Artificial Valves, Other Cardiovascular Problems/ Disorders - AORTIC STENOSIS, Mitral valve prolapse without regurgitation Denies: Hx Hypercholesterolemia, Hx Pacemaker/ICD Respiratory History: Reports: Hx Asthma, Hx Chronic Obstructive Pulmonary Disease (COPD), Hx Seasonal Allergies, Hx Sleep Apnea GI History: Reports: Hx Gall Bladder Disease, Hx Gastroesophageal Reflux Disease , Hx Ileostomy, Hx Ulcer, Other GI Disorders - CELIAC, rectal prolapse, colostomy and reversal Liver Problems Denies: Hx Obstructive Bowel History: Reports: Other Problems/Disorders - "bladder repair" Denies: Hx Renal Disease Musculoskeletal History: Reports: Hx Arthritis, Hx Back Problems - Cervical Pain , Hx Osteoporosis, Other Musculoskeletal History - sciatica, saccroiliac joint dysfunction Denies: Hx Rheumatoid Arthritis Sensory History: Reports: Hx Cataracts - 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 CERVICAL POLYP REMOVAL (1974). TUBAL LIGATION (1974). GALLBLADDER. BLADDER REPAIR (1984). UPPER LUBE COLOSTOMY AND REVERSAL. PROLAPSE OF RECTUM. OPEN REDUCTION OF LT ELBOW. AORTIC VALVE REPLACEMENT 2018-[facility] GLENNA 3-PT WILL BRING CARD-CONDITIONAL UP 3T-INSTRUCTIONS SCANNED IN CHART Infectious Disease History: No Infectious Disease History: Reports: Hx Clostridium Difficile - from abx use Denies: Traveled Outside the [place] in Last 30 Days - Family History Known Family History: Positive: Cardiac Disease, Respiratory Disease, Other - Cancer - Social History Alcohol Use: None Hx Substance Use: No Substance Use Type: Reports: None Hx Tobacco Use: No Smoking Status (MU): Former Smoker Review of Systems Positive: Palpitations - fast. Negative: Chest Pain Positive: Shortness Of Breath Positive: burning Positive: Edema - BLE, Other - low back pain Positive: Other - erythematous BLE All Other Systems Reviewed And Are Negative: Yes Physical Exam - Summary Physical Exam Summary: VITAL SIGNS: Reviewed. GENERAL: Patient is a well-developed and obese female who is lying comfortable in the stretcher. Patient is not in any acute respiratory distress. HEAD AND FACE: No signs of trauma. No ecchymosis, hematomas or skull depressions. No sinus tenderness. EYES: PERRLA, EOMI x 2, No injected conjunctiva, no nystagmus. EARS: Hearing grossly intact. Ear canals and tympanic membranes are within normal limits. MOUTH: Oropharynx within normal limits. NECK: Supple, trachea is midline, no adenopathy, no JVD, no carotid bruit, no c- spine tenderness, neck with full ROM. CHEST: Symmetric, no tenderness at palpation. LUNGS: Clear to auscultation bilaterally. No wheezing or crackles. CVS: Regular rate and rhythm, S1 and S2 present, no murmurs or gallops appreciated. ABDOMEN: Soft, non-tender. No signs of distention. No rebound, no guarding, and no masses palpated. Bowel sounds are normal. EXTREMITIES: 2+ edema in the bilateral lower extremities. FROM in all major joints, no cyanosis or clubbing. NEURO: Alert and oriented x 3. No acute neurological deficits. Speech is normal and follows commands. SKIN: Dry and warm. Triage Information Reviewed: Yes Vital Signs On Initial Exam: Initial Vitals Temp Pulse Resp BP Pulse Ox 98.3 F 112 20 226/93 98 06/12/19 15:27 06/12/19 15:27 06/12/19 15:27 06/12/19 15:27 06/12/19 15:27 Vital Signs Reviewed: Yes Procedures - Sedation Patient Received Moderate/Deep Sedation with Procedure: No Diagnostics - Vital Signs Vital Signs Temp Pulse Resp BP Pulse Ox 06/12/19 15:27 98.3 F 112 20 226/93 98 - Laboratory Result Diagrams: 06/12/19 16:04 06/12/19 16:04 Lab Statement: Any lab studies that have been ordered have been reviewed, and results considered in the medical decision making process. - Radiology Chest X-Ray Radiology Interpretation Completed By: Radiologist Summary of Radiographic Findings: Impression: 1. Findings consistent with copd, no evidence for acute finding. 2. Multiple chronic dorsal vertebral compression fractures. ED physician has reviewed this report. - EKG 1522 Cardiac Rate: Tachycardia - 108 bpm EKG Rhythm: Sinus Tachycardia Summary of EKG Findings: EKG at 1522 reveals sinus tachycardia at [address] depressions in V4, V5, V6. No ST elevations. ED physician has reviewed and interpreted this EKG. Re-Evaluation - Re-Evaluation First Eval Re-Evaluation Time: 17:45 Change: Improved Comment: Patient's pain has been relieved with Tylenol. Second Eval Re-Evaluation Time: 18:15 Change: Unchanged Comment: We discussed all results and plan for discharge. Course/Dx - Course Assessment/Plan: Patient is a 74 y/o F with chief complaint of fast palpitations lasting seconds throughout the day with shortness of breath but no chest pain, and edema in the bilateral lower extremities onset about a week ago. Additionally c/o back pain and burning with urination. Blood work without any significant abnormality except for glucose of 107. Urinalysis is negative for UTI. I gave the patient one dose of Tylenol for the bilateral extremity pain. Symptoms have improved. I discussed the findings and test results with the patient, and she is to follow up with primary care physician. She was asked to continue wearing compression socks that she has a home that she hasnt been wearing. I discussed all the findings and test results with the patient. Patient was instructed to return to the emergency room immediately if any of the symptoms return or worsen. Plan of care was discussed with the patient and understands and agrees. All questions were answered at patient satisfaction. There were no further complaints or concerns. Lung exam before discharge: CTA B/ L. Good air exchange. No wheezing or crackles heard. CVS: S1 and S2 present. No murmurs appreciated. Patient is alert and oriented x 3. Patient is hemodynamically stable. Patient will be discharged home with follow up PCP in the next 2-3 days. - Diagnoses Provider Diagnoses: Bilateral lower extremity edema Discharge ED - Sign-Out/Discharge Documenting (check all that apply): Patient Departure - Patient will be discharged home. - Discharge Plan Condition: Stable Disposition: HOME Patient Education Materials: Leg Edema (ED) Referrals: Palma Slaughter MD [Primary Care Provider] - 3 Days Additional Instructions: Follow up with your primary care provider in 2-3 days. Return to the emergency department for any new or worsening symptoms. - Billing Disposition and Condition Condition: STABLE Disposition: Home - Attestation Statements Document Initiated by Kely: Yes Documenting Scribe: Ani Rodriguez Provider For Whom Kely is Documenting (Include Credential): Dr. Carlos Tapia MD Scribe Attestation: Ani Collier scribed for Dr. Carlos Tapia MD on 06/12/19 at 184. Scribe Documentation Reviewed: Yes Provider Attestation: The documentation as recorded by the Ani chino accurately reflects the service I personally performed and the decisions made by me, Dr. Carlso Tapia MD Status of Scribe Document: Viewed
[2019-06-12 16:15] LABS: ABS Basophils 0.1 10^3/ul (0-0.2); ABS Eosinophils 0.1 10^3/ul (0-0.6); ABS Lymphocytes 1.5 10^3/ul (1.0-4.8); ABS Monocytes 0.6 10^3/ul (0-0.8); ABS Neutrophils 5.2 10^3/ul (1.5-7.7); Eosinophil % 0.8 %; Hematocrit 45 % (35-47); Hemoglobin 14.9 g/dL (12.0-16.0); Lymphocyte % 20.1 %; Mean Corpuscular HGB Conc 33 g/dL (31-36); Mean Corpuscular Hemoglobin 30 pg (27-31); Mean Corpuscular Volume 90 fL (80-97); Mean Platelet Volume 8.1 fL (7.4-10.4); Nucleated Red Blood Cells % 0.1; Platelet Count 215 10^3/uL (150-450); Red Blood Count 4.96 10^6 /uL (3.70-4.87); Red Cell Distribution Width 15 % (10-15); White Blood Count 7.4 10^3/uL (3.5-10.8)
[2019-06-12 16:23] LABS: INR 0.91 (0.82-1.09)
[2019-06-12 16:33] LABS: Albumin 3.9 g/dL (3.2-5.2); Albumin/Globulin Ratio 1.3 (1-3); BUN/Creatinine Ratio 10.9 (8-20); C Reactive Protein 6.42 mg/L (<8.01); Calcium 9.3 mg/dL (8.6-10.3); EGFR Non-African American 59.5 (>60); Globulin 2.9 g/dL (2-4); Total Bilirubin 0.5 mg/dL (0.2-1.0); Total Protein 6.8 g/dL (6.4-8.9)
[2019-06-12 16:34] LABS: Troponin I 0.02 ng/mL (<0.04)
--- OUTSIDE RECORDS SUMMARY | 2019-06-12 16:34 | XMS REPORT | Continuity of Care Document ---
:1945 External Reference #:[id number] Author Name Tejal Johnson N.P. (transmitted by agent of provider Melisa Rasmussen) Address [address] [facility] [address] [facility] [address], [place] [address] Care Team Providers Name Role Phone Keith Pope MD - Internal Care Team Information Area Director Of Home Health Sales [phone] Medicine Miroslava Membreno MD - Adult Care Team Information Area Director Of Home Health Sales [phone] Reconstructive Orthopaedic Surgery Juan Garcia MD - Care Team Information Area Director Of Home Health Sales [phone] Otolaryngology Jenelle Singleton MD - Surgery Care Team Information Area Director Of Home Health Sales [phone] Milton Bradford MD - Allergy & Care Team Information Area Director Of Home Health Sales [phone] Immunology Palma Slaughter MD - Internal Care Team Information Area Director Of Home Health Sales Medicine [facility] - Pain Care Team Information Area Director Of Home Health Sales [phone] Michel Funk MD - Care Team Information Area Director Of Home Health Sales [phone] Gastroenterology Keely Shahid MD - Physical Care Team Information Area Director Of Home Health Sales Medicine & Rehabilitation Pete Schilling MD - Endocrinology, Care Team Information Area Director Of Home Health Sales Diabetes & Metabolism Kelley Guzman MD - Care Team Information Area Director Of Home Health Sales [phone] Obstetrics & Gynecology Nathaly Rizzo M.D. 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 Onset: 03/06/2016 Celiac disease Jamal Sheridan M.D.,[facility] Onset: 11/07/2016 Localized, primary osteoarthritis of Miroslava Membreno M.D. Onset: 04/06/2017 the pelvic region and thigh Social History Type Date Description Comments Sex Unknown Tobacco Use Start: Unknown End: Former Cigarette Smoker Smoking Status Reviewed: 05/03/19 Former Cigarette Smoker ETOH Use 11/07/2016 Denies alcohol use Tobacco Use Start: Unknown End: Patient is a former smoker Unknown Recreational Drug Use Denies Drug Use Smoking when 17 years old for 2 years, then quit Exercise Type/Frequency arm chair exercises; yoga Abilio Chi Exercise Type/Frequency Exercises sporadically Allergies, Adverse Reactions, [...] 11/07/2016 Spironolactone severe constipation, 11/27/2016 dehydration, headache, nausea, rash Peanut-containing Drug Anaphylaxis Severe 12/15/[address] 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 9 gone Cheratussin ac take 5-10 118ml J45.41 Tejal Varn, 100-10mg/5ML milliliters every N.P. 9 Syrup 4-6 hours as needed for cough. Methylprednisolone take 6 tablets 21units J45.41 Tejal Johnson, 4mg TBPK day 1, 5 tablets N.P. 9 day 2, 4 tablets day 3, 3 tablets day 4 2 tablets day 5, and 1 tablet day 6 Furosemide 1 by mouth as 30tabs Isiah S. 20mg Tablets needed for edema Goldsmith, DO FACC 9 Flovent Diskus 2 puff twice a Palma 50mcg/Blist day Sathish Slaughter 9 Aerosol Lactobacillus 1 by mouth twice 60tabs Other Ordering Tablets a day Provider 9 Carafate one tablet on 30tabs Other Ordering 1gm Tablets empty stomach one Provider 9 hour before meals daily. Hydrocodone-Acetaminophe 1 or 2 tabs by 30tabs M25.552 Palma n mouth every 6-8 Sathish Slaughter 9 5-325mg Tablets hours as needed for pain Ondansetron as needed 10tabs Carlos James 8mg Tablets Sathish Shearer 8 Dispers Flonase Allergy Relief Twice Daily 1units Unknown 8 50mcg/Act Suspension Megazymes 1 PO with every Palma meal Sathish Slaughter 8 Cassie Allergy 1 by mouth every Isiah S. 60mg Tablets day prn Agus DO FACC 8 Roller Walker 4 wheel rolling M16.11 Miroslava Membreno, [facility] [place] M.DBrain 7 Verapamil HCL take 4 tablet in 540tabs Isiah S. 40mg Tablets the morning and 4 Goldsmith, DO FACC 6 tab at night daily Exedrin Migraine as needed Giulia Hanks, M.DBrain 6 Oxygen 1 l nc at bedtime 1units Other Ordering [facility] [place] 6 Nystatin-Triamcinolone apply small Unknown amount on 5 919075-6.1Unit/GM-% affected areas as Cream needed Folic Acid 1 by mouth every Unknown 50mg Capsules day 5 Co-Enzyme Q10 1 by mouth every Unknown 400mg Capsules day 5 L-Carnitine as directed, 1 Unknown 500mg Capsules dailyas needed 5 Vitamin D weekly Unknown 50,000Units Tablets 5 Dora 128 apply 4 times a Unknown 2% Solution day to left eye 5 Anusol-HC 1 applicatior Unknown Cream twice a day or as 5 needed Lactulose as directed as Unknown 10GM/15ML Solution needed 5 Synthroid 4 by mouth every 150tabs Palma 50mcg Tablets day, 3.5 tablets Sathish Slaughter 5 sa and ferris. Epipen 2-Arnaldo use as directed Unknown 0.3mg/0.3ML 0 Solution Auto-Inject Diltiazem Ointment 2% Apply bid for Unknown anal fissure 0 Esomeprazole Magnesium 1 by mouth two Unknown 20mg times per day [address] Simethicone once a day as Unknown 125mg Capsules needed 0 Hypotears Apply to both Unknown 1-1% Solution eyes three to 0 five times per day as needed FML Apply to right Unknown eye only, one 0 drop per day Milk Of Magnesia as needed Unknown 0 Colace 1 tab by mouth Unknown 100mg Capsules 2-3 times a day 0 as needed Lidocaine as needed Unknown Cream 0 Zinc 0nce daily Unknown 50mg Tablets 0 Vitamin K (Phytonadione) 1 po qday Unknown 0 Tablets Tussin Mucus + Chest 10-20 ML as Unknown Congestion needed every 4-6 0 100mg/5ML Syrup hours Bi-Pap at night Unknown 0 Cortisone Acetate cream prn Unknown 25mg 0 Tablets Calcium 500 + D3 1 daily Unknown 0 Aspirin 81 Low Dose 1 by mouth every Unknown 81mg day 0 Chewtabs Magnesium once a day Unknown 550 Capsules 0 Tylenol take two tablets Unknown 500mg Capsules by mouth four 0 times a day as needed-generic only Xopenex 1 vial every 4 36ml J45.909 Tejal Johnson, 1.25mg/3ML Nebulizer hours as needed N.P. 0 Xopenex HFA 2 puffs four 45gm Tejal Johnson, 45mcg/Act Aerosol times a day as N.P. 0 needed Dymista 1 spray each Unknown 137-50mcg/Act nostril daily 0 Suspension History Medications Cefdinir 2 caps by mouth 20caps Other Ordering 03/11/2019 - 300mg every day for Provider 03/13/2019 Capsules urinary complaint Aspirin 81 Low 1 by mouth every 30units Palma Slaughter, 02/22/2019 - Dose day M.D. 02/22/2019 81mg Chewtabs Immunizations Description No Information Available Vital Signs Date Vital Result Comment 05/03/2019 11:42am Height 66 inches 5'6" Weight 257.25 lb Heart Rate 93 /min BP Systolic 163 mmHg BP Diastolic 83 mmHg Body Temperature 98.1 F O2 % BldC Oximetry 95 % BMI (Body Mass Index) 41.5 kg/m2 04/14/2019 1:26pm Height 66 inches 5'6" Weight 251.00 lb BP Systolic Sitting 154 mmHg BP Diastolic Sitting 72 mmHg BP Systolic Standing 162 mmHg BP Diastolic Standing 82 mmHg BMI (Body Mass Index) 40.5 kg/m2 Results Test Date Facility Test Result H/L Range Note Laboratory test 03/14/2019 [facility] T3 Free 2.70 pg/mL Normal 2.5-3.9 finding [address] [place] [address] [phone] Basic Metabolic 03/14/2019 [facility] Sodium 141 mmol/L Normal 135-145 Panel [address] [place] [address] [phone] Potassium 4.0 mmol/L Normal 3.5-5.0 Chloride 104 mmol/L Normal 101-111 Co2 Carbon Dioxide 28 mmol/L Normal 22-32 Anion Gap 9 mmol/L Normal 2-11 Glucose 107 mg/dL High 70-100 Blood Urea Nitrogen 10 mg/dL Normal 6-24 Creatinine 0.61 mg/dL Normal 0.51-0.95 BUN/Creatinine Ratio 16.4 Normal 8-20 Calcium 9.7 mg/dL Normal 8.6-10.3 Egfr Non- 95.6 >60 Egfr 115.7 >60 1 Laboratory 03/14/2019 [facility] TSH (Thyroid 1.66 Normal 0.34 -5.[address] Stim Horm) mcIU/[place] [address] [phone] Free T4 (Free Thyroxine) 1.04 ng/dL Normal 0.61-1.12 Laboratory test 02/18/2019 [facility] Troponin-I 0.02 <0.[address] (TnI) ng/[place] [address] [phone] CBC Auto Diff 02/18/2019 [facility] White Blood 8.5 Normal 3.5 -10.8 Count 10^3/[place] [address] [phone] Red Blood Count 5.02 10^6/uL High 3.70-4.87 Hemoglobin 15.2 g/dL Normal 12.0-16.0 Hematocrit 46 % Normal 35-47 Mean Corpuscular Volume 91 fL Normal 80-97 Mean Corpuscular Hemoglobin 30 pg Normal 27-31 Mean Corpuscular HGB Conc 33 g/dL Normal 31-36 Red Cell Distribution Width 14 % Normal 10-15 Platelet Count 225 10^3/uL Normal 150-450 Mean Platelet Volume 8.3 fL Normal 7.4-10.4 Abs Neutrophils 5.3 10^3/uL Normal 1.5-7.7 Abs Lymphocytes 2.4 10^3/uL Normal 1.0-4.8 Abs Monocytes 0.7 10^3/uL Normal 0-0.8 Abs Eosinophils 0.1 10^3/uL Normal 0-0.6 Abs Basophils 0.1 10^3/uL Normal 0-0.2 Abs Nucleated RBC 0.0 10^3/uL Granulocyte % 62.0 % Lymphocyte % 27.7 % Monocyte % 8.5 % Eosinophil % 1.0 % Basophil % 0.8 % Nucleated Red Blood Cells % 0.0 Inr/Protime 02/18/2019 [facility] Inr 0.91 Normal 0.82-1.[address] [place] [address] [phone] Laboratory 02/18/2019 [facility] D Dimer < 200 Normal Less Than [address] Quantitative ng/mL [address] [place], [place] [id number] [phone] Comp Metabolic 02/18/2019 [facility] Sodium 137 Normal 135- 145 Panel 101 mmol/L [place], [place] [address] [phone] Potassium 4.0 mmol/L Normal 3.5-5.0 Chloride 102 mmol/L Normal 101-111 Co2 Carbon Dioxide 29 mmol/L Normal 22-32 Anion Gap 6 mmol/L Normal 2-11 Glucose 99 mg/dL Normal 70-100 Blood Urea Nitrogen 12 mg/dL Normal 6-24 Creatinine 0.73 mg/dL Normal 0.51-0.95 BUN/Creatinine Ratio 16.4 Normal 8-20 Calcium 9.5 mg/dL Normal 8.6-10.3 Total Protein 7.3 g/dL Normal 6.4-8.9 Albumin 4.1 g/dL Normal 3.2-5.2 Globulin 3.2 g/dL Normal 2-4 Albumin/Globulin Ratio 1.3 Normal 1-3 Total Bilirubin 0.50 mg/dL Normal 0.2-1.0 Alkaline Phosphatase 81 U/L Normal 34-104 Alt 23 U/L Normal 7-52 Ast 21 U/L Normal 13-39 Egfr Non- 77.7 >60 Egfr 94.0 >60 5 Laboratory test 02/18/2019 [facility] Troponin-I (TnI) 0.03 ng/ mL <0.04 6 finding [address] [place] [address] [phone] TSH (Thyroid Stim Horm) 1.29 mcIU/mL Normal 0.34-5.60 T3 Free 3.10 pg/mL Normal 2.5-3.9 Free T4 (Free Thyroxine) 1.02 ng/dL Normal 0.61-1.12 B-Type Natriuretic Peptide BNP 74 pg/mL <=100 Laboratory 02/15/2019 [facility] TSH 1.07 Normal 0.34-5.60 7 , [address] (Thyroid mcIU/[place] [address] Stim Horm) [phone] T3 Free 3.20 pg/mL Normal 2.5-3.9 9 Free T4 (Free Thyroxine) 0.91 ng/dL Normal 0.61-1.12 10 Laboratory test 02/15/2019 [facility] Gardnerella/Yeast: SEE 11, finding [address] Vaginal Dna RESULT 12 [place] [address] BELOW [phone] Urine Culture 02/15/2019 [facility] Urine Culture SEE 13, And [address] RESULT 14 [place] [address] BELOW [phone] Poc Urinalysis 02/15/2019 [facility] Poc Glucose, Urine Negative Negative [address] [place] [address] [phone] Poc Bilirubin, Urine Negative Negative Poc Ketone, Urine Negative Negative Poc Specific [place], Urine 1.015 Normal 1.010-1.030 Poc Blood, Urine Negative Negative Poc pH, Urine 7.0 Normal 5-9 Poc Protein, Urine Negative Negative Poc Urobilinogen, Urine 0.2 Negative Poc Nitrite, Urine Negative Negative Poc Leukocytes, Urine 1+ Abnormal Negative Poc Color, Urine Yellow Poc Clarity, Urine Clear 15 Laboratory 01/27/2019 [facility] TSH (Thyroid 0.33 Low 0.34- 5.60 16 test finding [address] Stim Horm) mcIU/[place] [address] [phone] Drug Abuse 20 12/14/2018 [facility] Urine Negative [address] Amphetamine ng/[place] [address] [phone] Urine Barbiturates Negative ng/mL 18 Urine Benzodiazepines Negative ng/mL 19 Urine Cocaine Negative ng/mL 20 Urine Phencyclidine Negative ng/mL Cutoff: 25 Urine Tetrahydrocannabinol Negative ng/mL Cutoff: 50 21 Creatinine, Urine 27.6 mg/dL Specific [place] 1.004 pH 7.5 Oxidants Negative 22 Adulterants Comment Normal Codeine, Ur Not Detected ng/mL Cutoff: 25 23 Jifrwki-2-qwgd-glucuronide, Ur Not Detected ng/mL 24 Morphine, Ur Not Detected ng/mL Cutoff: 25 25 Xtjheloq-0-hdgw-glucuronide, U Not Detected ng/mL 26 6-monoacetylmorphine, Ur Not Detected ng/mL Cutoff: 25 27 Hydrocodone, Ur Not Detected ng/mL Cutoff: 25 28 Norhydrocodone, Ur Not Detected ng/mL Cutoff: 25 29 Dihydrocodeine, Ur Not Detected ng/mL Cutoff: 25 30 Hydromorphone, Ur Not Detected ng/mL Cutoff: 25 31 Bvobbbmtdmqoh6kvzyphwtciatmbc Not Detected ng/mL 32 Oxycodone, Ur Not Detected ng/mL Cutoff: 25 33 Noroxycodone, Ur Not Detected ng/mL Cutoff: 25 34 Oxymorphone, Ur Not Detected ng/mL Cutoff: 25 35 Xilngddysgq-4-mqab-glucuronide Not Detected ng/mL 36 Noroxymorphone, Ur Not Detected ng/mL Cutoff: 25 37 Fentanyl, Ur Not Detected ng/mL Cutoff: 2 38 Norfentanyl, Ur Not Detected ng/mL Cutoff: 2 39 Meperidine, Ur Not Detected ng/mL Cutoff: 25 40 Normeperidine, Ur Not Detected ng/mL Cutoff: 25 41 Naloxone, Ur Not Detected ng/mL Cutoff: 25 42 Wkrbavik-7-gdns-glucuronide, U Not Detected ng/mL 43 Methadone, Ur Not Detected ng/mL Cutoff: 25 44 Eddp, Ur Not Detected ng/mL Cutoff: 25 45 Propoxyphene, Ur Not Detected ng/mL Cutoff: 25 46 Norpropoxyphene, Ur Not Detected ng/mL Cutoff: 25 47 Tramadol, Ur Not Detected ng/mL Cutoff: 25 48 O-desmethyltramadol, Ur Not Detected ng/mL Cutoff: 25 49 Tapentadol, Ur Not Detected ng/mL Cutoff: 25 50 N-desmethyltapentadol, Ur Not Detected ng/mL Cutoff: 50 51 Ixyvftzher-nrau-efbogpyxbvp, U Not Detected ng/mL 52 Buprenorphine, Ur Not Detected ng/mL Cutoff: 5 53 Norbuprenorphine, Ur Not Detected ng/mL Cutoff: 5 54 Norbuprenorphine glucuronide Not Detected ng/mL Cutoff: 20 55 Opioid Interpretation See Comment 56 1 Because ethnic data is not always [...] 5 Kidney failure <15 (or dialysis) 2 Troponin-I testing on Plasma Separator Tubes (PST) has a known false positive rate of 0.20-0.40%. All positive troponins reflex immediately to secondary confirmatory testing. Using the [employer] DxI 800 Access Immunoassay systems, the 99th percentile upper reference limit was demonstrated to be < 0.03 ng/mL. 3 Standard intensity warfarin therapeutic range: 2.0-3.0 High intensity warfarin therapeutic range: 2.5-3.5 4 Please note: The following may produce a false positive D Dimer test: - Rheumatoid factor greater than 60 IU/ml - Plasma hemoglobin greater than 0.05 gm/dl - Bilirubin greater than 50 mg/dl - Lipids greater than 1000 mg/dl - FDP greater than 20 ug/ml 5 Because ethnic data is not always readily [...] 15-29 5 Kidney failure <15 (or dialysis) 6 Troponin-I testing on Plasma Separator Tubes (PST) has a known false positive rate of 0.20-0.40%. All positive troponins reflex immediately to secondary confirmatory testing. Using the [employer] DxI 800 Access Immunoassay systems, the 99th percentile upper reference limit was demonstrated to be < 0.03 ng/mL. 7 [id number] 8 [id number] 9 [id number] 10 [id number] 11 Would you like to order Trichomonas Vaginalis RNA testing? N [id number] 12 SEE RESULT BELOW Name: REJI ALMENDAREZ Kelly : [address]: Alexandrea Cross MD Acct: [id number] Unit: [id number] AGE: 74 Location: [facility] Re02/15/19 SEX: F Status: DEP ER SPEC: [id number] BALDEV: 02/15/[address] [facility] [address]: Alexandrea Cross MD REQ: [id number] RECD: 02/16/19 STATUS: DAYNE ALVAREZ DR: Palma Slaughter MD _ SOURCE: VAGINAL SPDESC: ORDERED: Lane,Yeast DNA COMMENTS: Would you like to order Trichomonas Vaginalis RNA testing? N [id number] Procedure Result Reported Site Gardnerella/Yeast: Vaginal DNA [...] . END OF REPORT DEPARTMENT OF PATHOLOGY, [address] [place] [address] Weston Laura M.D. Director [facility] # [id number] 13 [id number] 14 SEE RESULT BELOW Name: REJI ALMENDAREZ : [address]: Alexandrea Cross MD Acct: [id number] Unit: [id number] AGE: 74 Location: [facility] Re02/15/19 SEX: F Status: DEP ER SPEC: [id number] BALDEV: 02/15/19-[address] [facility] [address]: Alexandrea Cross MD REQ: [id number] RECD: 02/16/19 STATUS: DAYNE ALVAREZ DR: Palma Slaughter MD _ SOURCE: URINE SPDESC: ORDERED: Urine Culture COMMENTS: [id number] Procedure Result Reported Site Urine Culture Final 02/18/19- 0854 ML Organism 1 PROTEUS MIRABILIS [place] Count 10-25,000 (Moderate) CFU/ML Organism 2 NORMAL CHASTITY [place] Count 1-10,000 (Few) CFU/ML 1. PROTEUS MIRABILIS M.I.C. RX --------- ------ Ampicillin <=2 S Cefazolin <=4 S Cefepime <=1 S Ceftriaxone <=1 S Ciprofloxacin <=0.25 S Gentamicin <=1 S Levofloxacin <=0.12 S Meropenem 0.5 S Nitrofurantoin 128 R Tetracycline >=16 R Pipercillin/Tazobactam <=4 S Trimethoprim/Sulfamethoxazole <=20 S Amoxicillin/Clavulanic Acid <=2 S Aztreonam <=1 S Contact the Microbiology Department for any additional antibiotic reporting. * - Main Lab . END OF REPORT DEPARTMENT OF PATHOLOGY, [address] [place] [address] Weston Laura M.D. Director [facility] # [id number] 15 Quartz Orientator: [id number] DO THIS IN ABOUT 6 WEEK - MID SEPTEMBER 23 REFERENCE VALUE Cutoff: 500 18 REFERENCE VALUE Cutoff: 200 19 REFERENCE VALUE Cutoff: 100 20 REFERENCE VALUE Cutoff: 150 21 ADDITIONAL INFORMATION This report is intended for use in clinical monitoring or management of patients. It is not intended for use in employment-related testing. 22 REFERENCE VALUE Cutoff: 200 mg/L 23 Tylenol 3 24 Metabolite of codeine REFERENCE VALUE Cutoff: 100 25 Sarah Ware, MS Contin; Also a minor metabolite (10%) of codeine and can be seen in low concentrations (<2,000 ng/mL) with poppy seed ingestion. 26 Metabolite of morphine REFERENCE VALUE Cutoff: 100 27 Metabolite of heroin 28 Lortab, [place], Vicodin; Also a very minor metabolite of codeine and impurity (<1%) of oxycodone. 29 Metabolite of hydrocodone 30 Metabolite of hydrocodone 31 Dilaudid, Exalgo; Also a metabolite of hydrocodone and a minor (<5%) metabolite of morphine. 32 Metabolite of hydromorphone REFERENCE VALUE Cutoff: 100 33 Endocet, Percocet, Oxycontin 34 Metabolite of oxycodone 35 Numorphan, Opana; Also a metabolite of oxycodone. 36 Metabolite of oxymorphone REFERENCE VALUE Cutoff: 100 37 Metabolite of oxymorphone 38 Actiq, Duragesic, Fentora 39 Metabolite of fentanyl 40 Demerol 41 Metabolite of meperidine 42 Narcan 43 Metabolite of naloxone REFERENCE VALUE Cutoff: 100 44 Dolophine 45 Metabolite of methadone 46 Darvon, Darvocet 47 Metabolite of propoxyphene 48 Tradol, Ultram, Ultracet 49 Metabolite of tramadol 50 Nucynta 51 Metabolite of tapentadol 52 Metabolite of tapentadol REFERENCE VALUE Cutoff: 100 53 Buprenex, Suboxone 54 Metabolite of buprenorphine 55 Metabolite of buprenorphine 56 No opioids were detected. The absence of expected drug(s) and/or drug metabolite(s) may indicate non-compliance, altered pharmacokinetics, inappropriate timing of specimen collection relative to drug administration, diluted/adulterated urine, or limitations of testing. ADDITIONAL INFORMATION This test was developed and its performance characteristics determined by [facility] in a manner consistent with CLIA requirements. This test has not been cleared or approved by the U.S. Food and Drug Administration. Test Performed by: [facility] [address] [place] [address] Procedures Date Code Description Status 04/26/2019 96109 ECHO Transthoracic, Real-Time 2D With Doppler And Completed Color Flow 12/27/2018 [id number] Diabetic Retinal Eye Exam Completed 10/05/2017 [id number] Diabetic Retinal Eye Exam Completed 11/21/2015 [id number] Bone Mineral Density Test Completed 08/07/2015 [id number] Mammogram Completed 02/16/2013 [id number] Colonoscopy Completed Medical Devices Description No Information Available Encounters Type Date Location Provider Dx Diagnosis Office Visit 04/14/2019 [facility] Isiah Goldsmith, 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 w/o perforation Ccmob or abscess w/o bleeding M13.0 Polyarthritis, unspecified Office Visit 02/22/2019 [facility] Internal Palma E03.9 Hypothyroidism, 3:00p Leslie Slaughter M.D. 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 I10 Essential (primary) hypertension Assessments Date Code Description Provider 05/03/2019 J45.41 Moderate persistent asthma with (acute) Tejal Johnson, N.P. exacerbation 04/26/2019 Z95.2 Presence of prosthetic heart valve Ica ECHO Schedule 04/14/2019 Z95.2 Presence of prosthetic heart valve Isiah Goldsmith, DO [facility] 04/14/2019 I10 Essential (primary) hypertension Isiah Goldsmith, DO [facility] 04/14/2019 I11.9 Hypertensive heart disease without heart Isiah Goldsmith DO [facility] failure 04/14/2019 E66.8 Other obesity Isiah Goldsmith, [facility] 04/14/2019 G47.33 Obstructive sleep apnea (adult) Isiah Goldsmith DO [facility] (pediatric) 04/14/2019 I27.20 Pulmonary hypertension, unspecified Isiah Goldsmith [facility] 03/15/2019 E03.9 Hypothyroidism, unspecified Pete Schilling MD 03/15/2019 M81.0 Age-related osteoporosis without current Pete Schilling MD pathological fractu 03/14/2019 K57.32 Diverticulitis of large intestine without Palma Slaughter M.D. perforation or abs 03/14/2019 M13.0 Polyarthritis, unspecified Palma Slaughter M.D. 02/22/2019 E03.9 Hypothyroidism, unspecified Palma Slaughter M.D. 02/22/2019 G43.009 Migraine without aura, not intractable, Palma Slaughter M.D. without status migra 02/22/2019 R07.9 Chest pain, unspecified Palma Slaughter M.D. 02/22/2019 I10 Essential (primary) hypertension Palma Slaughter M.D. 02/22/2019 N81.6 Rectocele Palma Slaughter M.D. 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 hip 01/21/2019 M16.11 Unilateral primary osteoarthritis, right Miroslava Membreno M.D. hip 01/21/2019 Z68.39 Body mass index (BMI) 39.0-39.9, adult Miroslava Membreno M.D. 01/21/2019 E66.01 Morbid (severe) obesity due to excess Miroslava Membreno M.D. calories 01/21/2019 M25.552 Pain in left hip Miroslava Membreno M.D. 01/21/2019 M25.551 Pain in right hip Miroslava Membreno M.D. 01/21/2019 M54.31 Sciatica, right side Miroslava Membreno M.D. 01/21/2019 M54.32 Sciatica, left side Miroslava Membreno M.D. 01/04/2019 G47.33 Obstructive sleep apnea (adult) Marcy Reeder MD (pediatric) 01/04/2019 J45.909 Unspecified asthma, uncomplicated Marcy Reeder MD 11/26/2018 R12 Heartburn Palma Slaughter M.D. 11/26/2018 I10 Essential (primary) hypertension Palma Slaughter M.D. Plan of Treatment Future Appointment(s):06/02/2019 10:40 am - Palma Slaughter M.D. at [facility]06/02/2019 10:20 am - Palma Slaughter M.D. at [facility]07/07/2019 11:30 am - Marcy Reeder MD at [facility]05/03/2019 - Tejal Johnson N.P.J45.41 Moderate persistent asthma with (acute) exacerbationNew Medication:Azithromycin 250 mg - two tabs day one, one daily till goneCheratussin ac 100-10 mg/5ML - take 5-10 milliliters every 4-6 hours as needed for cough.Methylprednisolone 4 mg - take 6 tablets day 1, 5 tablets day 2, 4 tablets day 3, 3 tablets day 4 2 tablets day 5, and 1 tablet day 6Comments:For your asthmatic bronchitis: I have prescribed Azithromycin. Take 2 tablets the first day, then one tablet until they are gone for a total of 5 days.I have refilled your Xopenex for your nebulizer and your rescue inhaler. Continue to use your Flonase and boost your Flovent to 3 inhalations, twice daily, until you feel better. Functional Status Functional Condition Comment Date Status Rolling walker is used to ambulate Active Mental Status Description No Information Available Referrals Refer to Dr Reason for Referral Status Appt Date Raj Garcia MD please call patient to schedule. Thank you Sent [address] [place] [address] [phone] Jose Luis Jarrell MD please call patient to schedule appointment -Thanks Sent [address] [place] [address] [phone] Corrie Christine M.D. Called referral office, automated machine Sent stated that pts are not seen at that office 04/29 [address] [facility] [address] [place], [place] [id number] [phone] Kelley Guzman MD patient request; Sent [address] [place] [address] [phone] Pete Schilling MD Hypothyroidism and concerns about side Patient Notified 05/2019 effects from cortisone injection in the hip [address] [place] [address] [phone] Jaylen Khan MD spine clinic Created [address] [facility], [place] [address] [phone] Keely Shahid MD patient request Sent [address] [place] [address] [phone] Michel Funk MD Sent 03/08/2019 [address] [place] [address] [phone] Pain Clinic Sent [address] [place] [address] [phone]
--- OUTSIDE RECORDS SUMMARY | 2019-06-12 16:34 | XMS REPORT | Continuity of Care Document ---
:1945 External Reference #:[id number] Author Name Palma Slaughter M.D. Address [address], [place] [address] Care Team Providers Name Role Phone Keith Pope MD - Internal Care Team Information Industrial Renderer Medicine Miroslava Membreno MD - Adult Care Team Information Industrial Renderer [phone] Reconstructive Orthopaedic Surgery Juan Garcia MD - Care Team Information Industrial Renderer [phone] Otolaryngology Jenelle Singleton MD - Surgery Care Team Information Industrial Renderer [phone] Milton Bradford MD - Allergy & Care Team Information Industrial Renderer [phone] Immunology Palma Slaughter MD - Internal Care Team Information Industrial Renderer Medicine [facility] - Pain Care Team Information Industrial Renderer [phone] Michel Funk MD - Care Team Information Industrial Renderer [phone] Gastroenterology Keely Shahid MD - Physical Care Team Information Industrial Renderer Medicine & Rehabilitation Pete Schilling MD - Endocrinology, Care Team Information Industrial Renderer [phone] Diabetes & Metabolism Kelley Guzman MD - Care Team Information Industrial Renderer [phone] Obstetrics & Gynecology Nathaly Rizzo M.D. - Neurology Care Team Information Industrial Renderer [phone] Raj Garcia MD - Care Team Information Industrial Renderer [phone] Rheumatology Jose Luis Jarrell MD - Gastroenterology Care Team Information Industrial Renderer [phone] Yaakov Vazquez MD - Gastroenterology Care Team Information Industrial Renderer Tim Winchester MD - Rheumatology Care Team Information Industrial Renderer Problems Active Problems Provider Date Mitochondrial myopathy Jamal Sheridan M.D.,FAC Onset: 11/07/2016 Note: red ragged fibers Obstructive sleep apnea of adult Mady Maldonado DNP, RN, LEARN TO SWIM INSTRUCTOR- Onset: 05/2015 Aortic stenosis, non-rheumatic Jamal Sheridan [...] M.D. Onset: 03/06/2016 Celiac disease Jamal Sheridan M.D.,[facility] Onset: 11/07/2016 Localized, primary osteoarthritis of Miroslava Membreno M.D. Onset: 04/06/2017 the pelvic region and thigh Social History Type Date Description Comments Sex Unknown Tobacco Use Start: Unknown End: Former Cigarette Smoker Smoking Status Reviewed: 06/02/19 Former Cigarette Smoker ETOH Use 11/07/2016 Denies alcohol use Tobacco Use Start: Unknown End: Patient is a former smoker Unknown Recreational Drug Use Denies Drug Use Smoking when 17 years old for 2 years, then quit Exercise Type/Frequency arm chair exercises; yoga Kinyarwanda Chi Exercise Type/Frequency Exercises sporadically Allergies, Adverse [...] Severe 08/02/2018 Cefdinir total body 03/14/2019 swelling Doxycycline Tongue swelling, White coating in 05/19/2019 Swelling, pain mouth, sores on tongue Inactive Allergies Versed RN CRITICAL CARE Reaction 12/14/2014 Flonase Anaphylaxis Severe 11/15/2015 Verapamil 06/03/2016 Medications Active Medications SIG Qnty Indications Ordering Date Provider Nystatin 5cc, swish and 60ml Marcy Varinder, 05/19/2019 spit, twice daily [id number]/ML Suspension Furosemide 1 by mouth as 30tabs Isiah Goldsmith, 04/12/2019 20mg needed for edema DO FACC Tablets Flovent Diskus 2 puff twice a day Palma 04/11/2019 Sathish Slaughter 50mcg/Blist Aerosol Lactobacillus 1 by mouth twice a 60tabs Other Ordering 03/11/2019 day Provider Tablets Carafate one tablet on 30tabs Other Ordering 03/11/2019 1gm Tablets empty stomach one Provider hour before meals daily. Hydrocodone-Acetamin 1 or 2 tabs by 30tabs M25.552 Palma 01/21/2019 ophen mouth every 6-8 Sathish Slaughter 5-325mg Tablets hours as needed for pain Ondansetron as needed 30tabs Palma 08/30/2018 8mg Sathish Slaughter Tablets Dispers Flonase Allergy Twice Daily 1units Unknown 07/14/2018 Relief 50mcg/Act Suspension Megazymes 1 PO with every Palma 05/28/2018 meal Sathish Slaughter Cassie Allergy 1 by mouth every Isiah Goldsmith, 10/12/2017 60mg day prn DO FACC Tablets Roller Walker 4 wheel rolling M16.11 Miroslava Membreno, 04/08/2017 [facility] [place] with [place] MJared Verapamil HCL take 4 tablet in 540tabs Isiah Goldsmith, 09/05/2016 40mg the morning and 4 DO FACC Tablets tab at night daily Exedrin Migraine as needed Giulia Hanks, 04/03/2016 MJared Oxygen 1 l nc at bedtime 1units Other Ordering 03/25/2016 [facility] [place] Nystatin-Triamcinolo apply small amount Unknown 02/12/2015 ne on affected areas as needed 976147-7.1Unit/GM-% Cream Folic Acid 1 by mouth every [...] twice a day or as needed Lactulose 15-30 ML PO qd 473ml Palma 02/12/2015 10GM/15ML Sathish Slaughter Solution Synthroid 4 by mouth every 150tabs Palma 02/12/2015 50mcg day, 3.5 tablets Chelsea Slaughter. Tablets sa and ferris. Guaifenesin-Codeine Take 5-10 Unknown Milliliters Every 100-10mg/5ML 4-6 Hours as Solution Needed For Cough. Epipen 2-Arnaldo use as directed Unknown 0.3mg/0.3ML Solution Auto-Inject Diltiazem Ointment Apply bid for anal Unknown 2% fissure Esomeprazole 1 by mouth two Unknown Magnesium times per day 20mg Capsules DR Simethicone once a day as Unknown 125mg needed Capsules Hypotears Apply to both eyes Unknown 1-1% three to five Solution times per day as needed FML Apply to right eye Unknown only, one drop per day Milk Of Magnesia as needed Unknown Colace 1 tab by mouth 2-3 Unknown 100mg Capsules times a day as needed Lidocaine as needed Unknown Cream Zinc 0nce daily Unknown 50mg Tablets Dymista 1 spray each Unknown 137-50mcg/Act nostril daily Suspension Xopenex HFA 2 puffs four times 45gm Tejal Varn, 45mcg/Act a day as needed N.P. Aerosol Xopenex 1 vial every 4 36ml J45.41 Tejal Varn, 1.25mg/3ML hours as needed- N.P. Nebulizer last appointment was 05/03/2019 Tylenol take two tablets Unknown 500mg by [...] Unknown Congestion every 4-6 hours 100mg/5ML Syrup Vitamin K 1 po qday Unknown (Phytonadione) Tablets History Medications Doxycycline Hyclate one tablet twice 14caps Marcykadie Reeder, 05/16/2019 - 100mg daily for 7 days. 05/18/2019 Capsules Azithromycin two tabs day one, 6tabs J45.41 Tejal Johnson, 05/03/2019 - 250mg Tablets one daily till N.P. 05/13/2019 gone Cheratussin ac take 5-10 118ml J45.41 Tejal Johnson, 05/03/2019 - 100-10mg/5ML milliliters every N.P. 05/13/2019 Syrup 4-6 hours as needed for cough. Methylprednisolone take 6 tablets 21units J45.41 Tejal Johnson, 2018 - 4mg TBPK day 1, 5 tablets N.P. 05/09/2019 day 2, 4 tablets day 3, 3 tablets day 4 2 tablets day 5, and 1 tablet day 6 Cefdinir 2 caps by mouth 20caps Other Ordering 03/11/2019 - 300mg Capsules every day for Provider 03/13/2019 urinary complaint Aspirin 81 Low Dose 1 by mouth every 30units Palma 02/22/2019 - 81mg day Sathish Slaughter 02/22/2019 Chewtabs Immunizations Description No Information Available Vital Signs Date Vital Result Comment 06/02/2019 10:44am Height 66 inches 5'6" Weight 260.00 lb Heart Rate 100 /min BP Systolic 181 mmHg BP Diastolic 84 mmHg O2 % BldC Oximetry 88 % BMI (Body Mass Index) 42.0 kg/m2 05/03/2019 11:42am Height 66 inches 5'6" Weight 257.25 lb Heart Rate 93 /min BP Systolic 163 mmHg BP Diastolic 83 mmHg Body Temperature 98.1 F O2 % BldC Oximetry 95 % BMI (Body Mass Index) 41.5 kg/m2 Results Test Date Facility Test Result H/L Range Note Laboratory test 03/14/2019 [facility] T3 Free 2.70 pg/mL Normal 2.5-3.[address] [place] [address] [phone] Basic Metabolic 03/14/2019 [facility] Sodium 141 mmol/L Normal 135-145 [place] [address] [phone] Potassium 4.0 mmol/L Normal 3.5-5.0 Chloride 104 mmol/L Normal 101-111 Co2 Carbon Dioxide 28 mmol/L Normal 22-32 Anion Gap 9 mmol/L Normal 2-11 Glucose 107 mg/dL High 70-100 Blood Urea Nitrogen 10 mg/dL Normal 6-24 Creatinine 0.61 mg/dL Normal 0.51-0.95 BUN/Creatinine Ratio 16.4 Normal 8-20 Calcium 9.7 mg/dL Normal 8.6-10.3 Egfr Non- 95.6 >60 Egfr 115.7 >60 1 Laboratory 03/14/2019 [facility] TSH (Thyroid 1.66 Normal 0.34 -5.60 test finding [facility] Stim Horm) mcIU/[place] [address] [phone] Free T4 (Free Thyroxine) 1.04 ng/dL Normal 0.61-1.12 Laboratory test 02/18/2019 [facility] Troponin-I 0.02 <0.04 2 finding [facility] (TnI) ng/[place] [address] [phone] CBC Auto Diff 02/18/2019 [facility] White Blood 8.5 Normal 3.5 -10.8 [facility] Count 10^3/[place] [address] [phone] Red Blood Count 5.02 10^6/uL High 3.70-4.87 [...] Red Blood Cells % 0.0 Inr/Protime 02/18/2019 [facility] Inr 0.91 Normal 0.82-1.[address] [place] [address] [phone] Laboratory 02/18/2019 [facility] D Dimer < 200 Normal Less Than [address] Quantitative ng/mL 230 [place] [address] [phone] Comp Metabolic 02/18/2019 [facility] Sodium 137 Normal 135- [address] mmol/[place] [address] [phone] Potassium 4.0 mmol/L Normal 3.5-5.0 Chloride 102 [...] Egfr 94.0 >60 5 Laboratory test 02/18/2019 [facility] Troponin-I (TnI) 0.03 ng/ mL <0.04 [address] [place] [address] [phone] TSH (Thyroid Stim Horm) 1.29 mcIU/mL Normal 0.34-5.60 T3 Free 3.10 pg/mL Normal 2.5-3.9 Free T4 (Free Thyroxine) 1.02 ng/dL Normal 0.61-1.12 B-Type Natriuretic Peptide BNP 74 pg/mL <=100 Laboratory 02/15/2019 [facility] TSH 1.07 Normal 0.34-5.60 7 , 8 test finding [address] (Thyroid mcIU/[place] [address] Stim Horm) [phone] T3 Free 3.20 pg/mL Normal 2.5-3.9 9 Free T4 (Free Thyroxine) 0.91 ng/dL Normal 0.61-1.12 10 Laboratory test 02/15/2019 [facility] Gardnerella/Yeast: SEE 11, finding [address] Vaginal Dna RESULT 12 [place] [address] BELOW [phone] Urine Culture 02/15/2019 [facility] Urine Culture SEE 13, And DRIVE RESULT 14 [place] [address] BELOW [phone] Poc Urinalysis 02/15/2019 [facility] Poc Glucose, Urine Negative Negative [address] [place] [address] [phone] Poc Bilirubin, Urine Negative Negative Poc Ketone, Urine Negative Negative Poc Specific Balsam, Urine 1.015 Normal 1.010-1.030 Poc Blood, Urine Negative Negative Poc pH, Urine 7.0 Normal 5-9 Poc Protein, Urine Negative Negative Poc Urobilinogen, Urine 0.2 Negative Poc Nitrite, Urine Negative Negative Poc Leukocytes, Urine 1+ Abnormal Negative Poc Color, Urine Yellow Poc Clarity, Urine Clear 15 Laboratory 01/27/2019 [facility] TSH (Thyroid 0.33 Low 0.34- 5.60 16 test finding [address] Stim Horm) mcIU/[place] [address] [phone] Drug Abuse 20 12/14/2018 [facility] Urine Negative [address] Amphetamine ng/[place] [address] [phone] Urine Barbiturates Negative ng/mL 18 Urine Benzodiazepines Negative ng/mL 19 Urine Cocaine Negative ng/mL 20 Urine Phencyclidine Negative ng/mL Cutoff: 25 Urine Tetrahydrocannabinol Negative ng/mL Cutoff: 50 21 Creatinine, Urine 27.6 mg/dL Specific Balsam 1.004 pH 7.5 Oxidants Negative 22 Adulterants Comment Normal Codeine, Ur Not Detected ng/mL Cutoff: 25 23 Mspjukw-6-mfdb-glucuronide, Ur Not Detected ng/mL 24 Morphine, Ur Not Detected ng/mL Cutoff: 25 25 Ckrdphau-7-nkwq-glucuronide, U Not Detected ng/mL 26 6-monoacetylmorphine, Ur Not Detected ng/mL Cutoff: 25 27 Hydrocodone, Ur Not Detected ng/mL Cutoff: 25 28 Norhydrocodone, Ur Not Detected ng/mL Cutoff: 25 29 Dihydrocodeine, Ur Not Detected ng/mL Cutoff: 25 30 Hydromorphone, Ur Not Detected ng/mL Cutoff: 25 31 Kariwvsorshyb6jixalnbeddfvceu Not Detected ng/mL 32 Oxycodone, Ur Not Detected ng/mL Cutoff: 25 33 Noroxycodone, Ur Not Detected ng/mL Cutoff: 25 34 Oxymorphone, Ur Not Detected ng/mL Cutoff: 25 35 Slzgqeovore-7-brqf-glucuronide Not Detected ng/mL 36 Noroxymorphone, Ur Not Detected ng/mL Cutoff: 25 37 Fentanyl, Ur Not Detected ng/mL Cutoff: 2 38 Norfentanyl, Ur Not Detected ng/mL Cutoff: 2 39 Meperidine, Ur Not Detected ng/mL Cutoff: 25 40 Normeperidine, Ur Not Detected ng/mL Cutoff: 25 41 Naloxone, Ur Not Detected ng/mL Cutoff: 25 42 Xaxbnjnh-8-bnii-glucuronide, U Not Detected ng/mL 43 Methadone, Ur [...] Ur Not Detected ng/mL Cutoff: 50 51 Ybzoiyxcrt-ejoc-gikemjfxzee, U Not Detected ng/mL 52 Buprenorphine, Ur [...] immediately to secondary confirmatory testing. Using the [employer] DxI 800 Access Immunoassay systems, the 99th [...] immediately to secondary confirmatory testing. Using the [employer] DxI 800 Access Immunoassay systems, the 99th percentile upper reference limit was demonstrated to be < 0.03 ng/mL. 7 [id number] 8 [id number] 9 [id number] 10 [id number] 11 Would you like to order Trichomonas Vaginalis RNA testing? N [id number] 12 SEE RESULT BELOW Name: REJI ALMENDAREZ Kelly : [address]: Alexandrea Cross MD Acct: [id number] Unit: [id number] AGE: 74 Location: [facility] Re02/15/19 SEX: F Status: DEP ER SPEC: [id number] BALDEV: 02/15/19-17[address] [facility] [address]: Alexandrea Cross MD REQ: [id number] RECD: 02/16/19 STATUS: DAYNE ALVAREZ DR: Palma Slaughter MD _ SOURCE: VAGINAL SPDESC: ORDERED: Lane,Yeast DNA COMMENTS: Would you like to order Trichomonas Vaginalis RNA testing? N [id number] Procedure Result Reported Site Gardnerella/Yeast: Vaginal DNA [...] . END OF REPORT DEPARTMENT OF PATHOLOGY, [address] [place] [address] Weston Laura M.D. Director [facility] # [id number] 13 [id number] 14 SEE RESULT BELOW Name: REJI ALMENDAREZ Kelly : [address]: Alexandrea Cross MD Acct: [id number] Unit: [id number] AGE: 74 Location: [facility] Re02/15/19 SEX: F Status: DEP ER SPEC: [id number] BALDEV: 02/15/19-1707 [facility] [address]: Alexandrea Cross MD REQ: [id number] RECD: 02/16/19-1115 STATUS: DAYNE ALVAREZ DR: Palma Slaughter MD _ SOURCE: URINE SPDESC: ORDERED: Urine Culture COMMENTS: [id number] Procedure Result Reported Site Urine Culture Final 02/18/19- 0854 ML Organism 1 PROTEUS MIRABILIS Mcbee Count 10-25,000 (Moderate) CFU/ML Organism 2 NORMAL CHASTITY Mcbee Count 1-10,000 (Few) CFU/ML 1. PROTEUS MIRABILIS [...] Department for any additional antibiotic reporting. * ML - Main Lab . END OF REPORT DEPARTMENT OF PATHOLOGY, [address] [place] [address] Weston Laura M.D. Director DIANA # [id number] 15 Lead Vulcanizing Operator: [id number] 16 DO THIS IN ABOUT 6 WEEK [...] REFERENCE VALUE Cutoff: 100 25 Sarah Ware, Contin; Also a minor metabolite (10%) of codeine and can be seen in low concentrations (<2,000 ng/mL) with poppy seed ingestion. 26 Metabolite of morphine REFERENCE VALUE Cutoff: 100 27 Metabolite of heroin 28 Lortab, Vandiver, Vicodin; Also a very minor metabolite of [...] developed and its performance characteristics determined by [facility] in a manner consistent with CLIA requirements. This test has not been cleared or approved by the U.S. Food and Drug Administration. Test Performed by: [facility] [address] [place] [address] Procedures Date Code Description Status 04/26/2019 70860 ECHO Transthoracic, Real-Time 2D With Doppler And Completed Color Flow 04/26/2019 79783 ECHO Transthoracic, Real-Time 2D With Doppler And Completed Color Flow 12/27/2018 [id number] Diabetic Retinal Eye Exam Completed 10/05/2017 371090009 Diabetic Retinal Eye Exam Completed 11/21/2015 552894465 Bone Mineral Density Test Completed 08/07/2015 39287829 Mammogram Completed 02/16/2013 [id number] Colonoscopy Completed Medical Devices Description No Information Available Encounters Type Date Location Provider Dx Diagnosis Office Visit 05/03/2019 [facility] Internal Tejal Johnson, J45.41 Moderate persistent 11:40a Medicine - Ccmob N.P. 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 w/o perforation Ccmob or abscess w/o bleeding M13.0 Polyarthritis, unspecified Office Visit 02/22/2019 [facility] Internal Palma E03.9 Hypothyroidism, 3:00p Leslie Slaughter M.D. unspecified Ccmob G43.009 Migraine w/o aura, not intractable, w/o status migrainosus R07.9 Chest pain, unspecified I10 Essential (primary) hypertension N81.6 Rectocele Office Visit 02/16/2019 11:00a [facility] Internal Zsofia E03.9 Hypothyroidism, Leslie Ann LEARN TO SWIM INSTRUCTOR unspecified Ccmob N39.0 Urinary tract infection, site not specified N81.89 Other female genital prolapse Office Visit 02/03/2019 10:30a [facility] Dermatology Mike Figueroa, L30.4 Erythema intertashwin L82.1 Other seborrheic keratosis L91.8 Other hypertrophic disorders of the skin Office 01/26/2019 Neurosurgery Vassilios 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 or AT [place] radiculopathy, lumbar region Office 01/21/2019 Moe Membreno, M16.12 Unilateral primary Visit 1:15p Orthopedics at [facility] osteoarthritis, [place] left hip M16.11 Unilateral primary osteoarthritis, right hip Z68.39 Body mass index (BMI) 39.0-39.9, adult E66.01 Morbid (severe) obesity due to excess calories M25.552 Pain in left hip M25.551 Pain in right hip M54.31 Sciatica, right side M54.32 Sciatica, left side Office Visit 01/04/2019 11:45a Pulmonology And Marcy G47.33 Obstructive sleep Sleep Services Of MD Varinder apnea (adult) [facility] (pediatric) J45.909 Unspecified asthma, uncomplicated Assessments Date Code Description Provider 06/02/2019 Z00.00 Encounter for general adult medical Palma Slaughter M.D. examination without abnormal findings 06/02/2019 K44.9 Diaphragmatic hernia without obstruction Palma Slaughter M.D. or gangrene 06/02/2019 Z12.31 Encounter for screening mammogram for Palma Slaughter M.D. malignant neoplasm of breast 06/02/2019 I10 Essential (primary) hypertension Palma Slaughter M.D. 06/02/2019 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, not elsewhere Palma Slaughter M.D. classified 06/02/2019 M51.36 Other intervertebral disc degeneration, Palma Slaughter M.D. lumbar region 06/02/2019 M46.1 Sacroiliitis, not elsewhere classified Palma Slaughter M.D. 06/02/2019 M54.30 Sciatica, unspecified side Palma Slaughter M.D. 05/03/2019 J45.41 Moderate persistent asthma with (acute) Tejal Johnson, N.P. exacerbation 04/26/2019 Z95.2 Presence of prosthetic heart valve Isiah Goldsmith, DO FACC 04/26/2019 Z95.2 Presence of prosthetic heart valve Ica ECHO Schedule 04/14/2019 Z95.2 Presence of prosthetic heart valve Isiah Goldsmith, DO FACC 04/14/2019 I10 Essential (primary) hypertension Isiah TejadaBrain Agus, DO [facility] 04/14/2019 I11.9 Hypertensive heart disease without heart Isiah SBrain Goldsmith, DO [facility] failure 04/14/2019 E66.8 Other obesity Isiah SBrain Agus, DO [facility] 04/14/2019 G47.33 Obstructive sleep apnea (adult) Isiah SBrain Goldsmith, DO [facility] (pediatric) 04/14/2019 I27.20 Pulmonary hypertension, unspecified Isiah SBrain Goldsmith, DO [facility] 03/15/2019 E03.9 Hypothyroidism, unspecified Pete Schilling [...] harish 01/21/2019 M16.12 Unilateral primary osteoarthritis, left Miroslavaganesh Membreno M.D. hip 01/21/2019 M16.11 Unilateral primary osteoarthritis, right Miroslava Chelesa Membreno. hip 01/21/2019 Z68.39 Body mass index (BMI) 39.0-39.9, adult Miroslava Chelsea Membreno. 01/21/2019 E66.01 Morbid (severe) obesity due to [...] J45.909 Unspecified asthma, uncomplicated Marcy Reeder MD Plan of Treatment Future Appointment(s):09/22/2019 10:40 am - Palma Slaughter M.D. at [facility] Internal Medicine - [facility]07/07/2019 11:30 am - Marcy Reeder MD at [facility]ology [facility]06/02/2019 - Palma Slaughter M.D.Z00.00 Encounter for general adult medical examination without abnormal findingsComments:VACCINES:Flu shot every year in the fall.Pneumonia vaccines: there are 2 pneumonia vaccines:You are pretty sure that you have had the pneumonia vaccineShingles vaccine: there are 2 shingles vaccines:Zostavax: 50% effectiveShingrix: 90% effective. This is a new shingles vaccine, available at pharmacies. Series of 2 shots, given 2-6 months apart. Most people get a flu- like reaction. Cost is about $400- call your insurance about coverage. Not widely available - talk to your pharmacist about their waiting list SCREENING: Colon cancer screening: you had colonoscopy in 2012. Screening usually stops at age 75Breast cancer screening: mammogram every 1-2 years at least until age 75Pap smear: not needed after age 65Bone density: last DEXA in March this yearCholesterol: Screening for glaucoma: every 2 yearsunless otherwise instructed by your eye doctorADVANCE DIRECTIVE:It would be good for us to have a copy of your health care proxy and advanced directive on file here.K44.9 Diaphragmatic hernia without obstruction or gangreneComments:If you any GI reports - take them to Dr. VazquezReferral:Yaakov Vazquez MD, XwogmviaaoaxwuidB98.31 Encounter for screening mammogram for malignant neoplasm of gknqyoR07 Essential (primary) hypertensionFollow up: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, not elsewhere classifiedComments:I will start the paperwork for a power wheelchairReferral:Tim Winchester MD, ZlhqotaulwuzS57.36 Other intervertebral disc degeneration, lumbar eamwsqO48.1 Sacroiliitis, not elsewhere mefrtcuquaN83.30 Sciatica, unspecified side Functional Status Functional Condition Comment Date Status Rolling walker is used to ambulate Active Mental Status Description No Information Available Referrals Refer to Dr Reason for Referral Status Appt Date Yaakov Vazquez MD hiatal hernia, used to see Dr. Putnam, requests Sent consult with Dr. Vazquez [address] [place] [address] [phone] Tim Winchester MD Multiple pain issues. See [facility] Sent neuromuscular center evaluation for extensive blood testing for autoimmune and other disease [address] [place] [address] [place] [address] [phone] Raj Garcia MD Refaxed referral 05/11/19 they didn't rec Sent before. [address] [place] [address] [phone] Jose Luis Jarrell MD please call patient to schedule appointment -Thanks Sent [address] [place] [address] [phone] Corrie Christine M.D. Called referral office, automated machine Sent stated that pts are not seen at that office 04/29 [address] [facility] [address] [place] [address] [phone] Kelley Guzman MD patient request; Sent [address] [place] [address] [phone] Pete Schilling MD Hypothyroidism and concerns about side Patient Notified 05/2019 effects from cortisone injection in the hip [address] [place] [address] [phone] Jaylen Khan MD spine clinic Created [address] [place] [address], [place] [address] [phone] Keely Shahid MD patient request Sent [address] [facility] [address] [place] [address] [phone] iMchel Funk MD Sent 03/08/2019 [address] [place] [address] [phone]
--- OUTSIDE RECORDS SUMMARY | 2019-06-12 16:34 | XMS REPORT | Continuity of Care Document ---
:1945 External Reference #:[id number] Author Name Palma Slaughter M.D. (transmitted by agent of provider Liliane Armijo) Address [address] [facility] [facility], [place] [address] Care Team Providers Name Role Phone Keith Pope MD - Internal Care Team Information Party Coordinator Medicine Miroslava Membreno MD - Adult Care Team Information Party Coordinator [phone] Reconstructive Orthopaedic Surgery Juan Garcia MD - Care Team Information Party Coordinator [phone] Otolaryngology Jenelle Singleton MD - Surgery Care Team Information Party Coordinator Milton Bradford MD - Allergy & Care Team Information Party Coordinator Immunology Palma Slaughter MD - Internal Care Team Information Party Coordinator [phone] [facility] - Pain Care Team Information Party Coordinator [phone] Michel Funk MD - Care Team Information Party Coordinator [phone] Gastroenterology Keeyl Shahid MD - Physical Care Team Information Party Coordinator Medicine & Rehabilitation Pete Schilling MD - Endocrinology, Care Team Information Party Coordinator [phone] Diabetes & Metabolism Kelley Guzman MD - Care Team Information Party Coordinator [phone] Obstetrics & Gynecology Nathaly Rizzo M.D. - Neurology Care Team Information Party Coordinator [phone] Raj Garcia MD - Care Team Information Party Coordinator [phone] Rheumatology Jose Luis Jarrell MD - Gastroenterology Care Team Information Party Coordinator Yaakov Vazquez MD - Gastroenterology Care Team Information Party Coordinator [phone] Tim Winchester MD - Rheumatology Care Team Information Party Coordinator Problems Active Problems Provider Date Mitochondrial myopathy Jamal Sheridan M.D.,FAC Onset: 11/07/2016 Note: red ragged fibers Obstructive sleep apnea of adult Mady Maldonado DNP, RN, [employer]- Onset: 05/2015 Aortic stenosis, non-rheumatic Jamal Sheridan [...] M.D. Onset: 03/06/2016 Celiac disease Jamal Sheridan M.D.,[facility] Onset: 11/07/2016 Localized, primary osteoarthritis of Miroslava [...] quit Exercise Type/Frequency arm chair exercises; yoga Divehi Chi Exercise Type/Frequency Exercises sporadically Allergies, Adverse [...] mouth, sores on tongue Inactive Allergies Versed [employer] Reaction 12/14/2014 Flonase Anaphylaxis Severe 11/15/2015 Verapamil 06/03/2016 Medications Active Medications SIG Qnty Indications Ordering Date Provider Nystatin 5cc, swish and 60ml Marcy Varinder, 05/19/2019 spit, twice daily 918088Juur/ML Suspension Furosemide 1 by mouth as 30tabs [...] 4 wheel rolling M16.11 Miroslava Membreno, 04/08/2017 [facility] walker with seat MJared Verapamil HCL take 4 tablet in 540tabs Isiah Goldsmith, 09/05/2016 40mg the morning and 4 DO FACC Tablets tab at night daily Exedrin Migraine as needed Giulia Hanks, 04/03/2016 [facility] 1 l nc at bedtime 1units Other Ordering 03/25/2016 [facility] Provider Nystatin-Triamcinolo apply small amount Unknown 02/12/2015 ne on affected areas as needed 307846-0.1Unit/GM-% Cream Folic Acid 1 by mouth every [...] Solution Synthroid 4 by mouth every 150tabs Aplma 02/12/2015 50mcg day, 3.5 tablets Chelsea Slaughter. [...] Medications Doxycycline Hyclate one tablet twice 14caps Marcy Reeder, 05/16/2019 - 100mg daily for 7 [...] Result H/L Range Note Laboratory test 03/14/2019 [facility] T3 Free 2.70 pg/mL Normal 2.5-3.9 finding [address] [place] [address] [phone] Basic Metabolic 03/14/2019 [facility] Sodium 141 mmol/L Normal 135-145 [place] [address] [phone] Potassium 4.0 mmol/L Normal 3.5-5.0 Chloride 104 mmol/L Normal 101-111 Co2 Carbon Dioxide 28 mmol/L Normal 22-32 Anion Gap 9 mmol/L Normal 2-11 Glucose 107 mg/dL High 70-100 Blood Urea Nitrogen 10 mg/dL Normal 6-24 Creatinine 0.61 mg/dL Normal 0.51-0.95 BUN/Creatinine Ratio 16.4 Normal 8-20 Calcium 9.7 mg/dL Normal 8.6-10.3 Egfr Non- 95.6 >60 Egfr 115.7 >60 1 Laboratory 03/14/2019 [facility] TSH (Thyroid 1.66 Normal 0.34 -5.60 test finding [facility] Stim Horm) mcIU/[place] [address] [phone] Free T4 (Free Thyroxine) 1.04 ng/dL Normal 0.61-1.12 Laboratory test 02/18/2019 [facility] Troponin-I 0.02 <0.04 2 finding [facility] (TnI) ng/[place] [address] [phone] CBC Auto Diff 02/18/2019 [facility] White Blood 8.5 Normal 3.5 -10.8 [facility] Count 10^3/[place] [address] [phone] Red Blood Count 5.02 10^6/uL High 3.70-4.87 [...] Red Blood Cells % 0.0 Inr/Protime 02/18/2019 [facility] Inr 0.91 Normal 0.82-1.[address] [place] [address] [phone] Laboratory 02/18/2019 [facility] D Dimer < 200 Normal Less Than 4 test finding [address] Quantitative ng/mL [address] [place] [address] [phone] Comp Metabolic 02/18/2019 [facility] Sodium 137 Normal 135- [address] mmol/[place] [address] [phone] Potassium 4.0 mmol/L Normal 3.5-5.0 Chloride 102 [...] Egfr 94.0 >60 5 Laboratory test 02/18/2019 [facility] Troponin-I (TnI) 0.03 ng/ mL <0.04 [address] [place], [place] [id number] [phone] TSH (Thyroid Stim Horm) 1.29 mcIU/mL Normal 0.34-5.60 T3 Free 3.10 pg/mL Normal 2.5-3.9 Free T4 (Free Thyroxine) 1.02 ng/dL Normal 0.61-1.12 B-Type Natriuretic Peptide BNP 74 pg/mL <=100 Laboratory 02/15/2019 [facility] TSH 1.07 Normal 0.34-5.60 7 , 8 test finding [address] (Thyroid mcIU/mL [place] [id number] Stim Horm) [phone] T3 Free 3.20 pg/mL Normal 2.5-3.9 9 Free T4 (Free Thyroxine) 0.91 ng/dL Normal 0.61-1.12 10 Laboratory test 02/15/2019 [facility] Gardnerella/Yeast: SEE 11, finding [address] Vaginal Dna RESULT 12 [place] [address] BELOW [phone] Urine Culture 02/15/2019 [facility] Urine Culture SEE 13, And [address] RESULT 14 [place] [address] BELOW [phone] Poc Urinalysis 02/15/2019 [facility] Poc Glucose, Urine Negative Negative [address] [place] [address] [phone] Poc Bilirubin, Urine Negative Negative Poc Ketone, Urine Negative Negative Poc Specific [place], Urine 1.015 Normal 1.010-1.030 Poc Blood, Urine Negative Negative Poc pH, Urine 7.0 Normal 5-9 Poc Protein, Urine Negative Negative Poc Urobilinogen, Urine 0.2 Negative Poc Nitrite, Urine Negative Negative Poc Leukocytes, Urine 1+ Abnormal Negative Poc Color, Urine Yellow Poc Clarity, Urine Clear 15 Laboratory 01/27/2019 [facility] TSH (Thyroid 0.33 Low 0.34- 5.60 16 test finding [address] Stim Horm) mcIU/[place] [address] [phone] Drug Abuse 20 12/14/2018 [facility] Urine Negative [address] Amphetamine ng/[place] [address] [phone] Urine Barbiturates Negative ng/mL 18 Urine Benzodiazepines Negative ng/mL 19 Urine Cocaine Negative ng/mL 20 Urine Phencyclidine Negative ng/mL Cutoff: 25 Urine Tetrahydrocannabinol Negative ng/mL Cutoff: 50 21 Creatinine, Urine 27.6 mg/dL Specific [place] 1.004 pH 7.5 Oxidants Negative 22 Adulterants Comment Normal Codeine, Ur Not Detected ng/mL Cutoff: 25 23 Tmuyrvw-5-yvmi-glucuronide, Ur Not Detected ng/mL 24 Morphine, Ur Not Detected ng/mL Cutoff: 25 25 Ltxjsoms-9-lhoq-glucuronide, U Not Detected ng/mL 26 6-monoacetylmorphine, Ur Not Detected ng/mL Cutoff: 25 27 Hydrocodone, Ur Not Detected ng/mL Cutoff: 25 28 Norhydrocodone, Ur Not Detected ng/mL Cutoff: 25 29 Dihydrocodeine, Ur Not Detected ng/mL Cutoff: 25 30 Hydromorphone, Ur Not Detected ng/mL Cutoff: 25 31 Qzsexbbttjzis6zjxfihykqdbfntg Not Detected ng/mL 32 Oxycodone, Ur Not Detected ng/mL Cutoff: 25 33 Noroxycodone, Ur Not Detected ng/mL Cutoff: 25 34 Oxymorphone, Ur Not Detected ng/mL Cutoff: 25 35 Zianyrqzqwq-0-dwyd-glucuronide Not Detected ng/mL 36 Noroxymorphone, Ur Not Detected ng/mL Cutoff: 25 37 Fentanyl, Ur Not Detected ng/mL Cutoff: 2 38 Norfentanyl, Ur Not Detected ng/mL Cutoff: 2 39 Meperidine, Ur Not Detected ng/mL Cutoff: 25 40 Normeperidine, Ur Not Detected ng/mL Cutoff: 25 41 Naloxone, Ur Not Detected ng/mL Cutoff: 25 42 Gocempqh-6-kijw-glucuronide, U Not Detected ng/mL 43 Methadone, Ur [...] Ur Not Detected ng/mL Cutoff: 50 51 Macvodseax-ydjo-iisbdxbhbbq, U Not Detected ng/mL 52 Buprenorphine, Ur [...] immediately to secondary confirmatory testing. Using the [employer] DxI 800 Access Immunoassay systems, the 99th [...] immediately to secondary confirmatory testing. Using the [employer] Access Immunoassay systems, the 99th percentile upper reference limit was demonstrated to be < 0.03 ng/mL. 7 [id number] 8 [id number] 9 [id number] 10 [id number] 11 Would you like to order Trichomonas Vaginalis RNA testing? N [id number] 12 SEE RESULT BELOW Name: FANNIESARAHREJI L : [address]: Alexandrea Cross MD Acct: [id number] Unit: [id number] AGE: 74 Location: [facility] Re02/15/19 SEX: F Status: DEP ER SPEC: [id number] BALDEV: 02/15/19-[address] [place]: Alexandrea Cross MD REQ: [id number] RECD: 02/16/19 STATUS: COMP [facility] DR: Palma Slaughter MD _ SOURCE: VAGINAL SPDESC: ORDERED: Lane,Yeast DNA COMMENTS: Would you like to order Trichomonas Vaginalis RNA testing? N [id number] Procedure Result Reported Site Gardnerella/Yeast: Vaginal DNA [...] . END OF REPORT DEPARTMENT OF PATHOLOGY, [address] [place] [address] Weston Laura M.D. Director DIANA # [id number] 13 [id number] 14 SEE RESULT BELOW Name: REJI ALMENDAREZ Kelly : [address]: Alexandrea Cross MD Acct: [id number] Unit: [id number] AGE: 74 Location: [facility] Re02/15/19 SEX: F Status: DEP ER SPEC: [id number] BALDEV: 02/15/19-[address] [place] [address]: Alexandrea Cross MD REQ: [id number] RECD: 02/16/19 STATUS: COMP KIM DR: Palma Slaughter MD _ SOURCE: URINE SPDESC: ORDERED: Urine Culture COMMENTS: [id number] Procedure Result Reported Site Urine Culture Final 02/18/19- 0854 ML Organism 1 PROTEUS MIRABILIS [place] Count 10-25,000 (Moderate) CFU/ML Organism 2 NORMAL CHASTITY [place] Count 1-10,000 (Few) CFU/ML 1. PROTEUS MIRABILIS [...] . END OF REPORT DEPARTMENT OF PATHOLOGY, [address] [place] [address] Weston Laura M.D. Director [facility] # [id number] 15 Investigations Director: [id number] 16 DO THIS IN ABOUT 6 WEEK [...] 100 27 Metabolite of heroin 28 Lortab, [place], Vicodin; Also a very minor metabolite of [...] developed and its performance characteristics determined by [facility] in a manner consistent with CLIA requirements. This test has not been cleared or approved by the U.S. Food and Drug Administration. Test Performed by: [facility] [address] [place] [address] Procedures Date Code Description Status 04/26/2019 49553 ECHO Transthoracic, Real-Time 2D With Doppler And Completed Color Flow 04/26/2019 19590 ECHO Transthoracic, Real-Time 2D With Doppler And Completed Color Flow 12/27/2018 [id number] Diabetic Retinal Eye Exam Completed 10/05/2017 [id number] Diabetic Retinal Eye Exam Completed 11/21/2015 [id number] Bone [place] Density Test Completed 08/07/2015 13208208 Mammogram Completed 02/16/2013 34595715 Colonoscopy Completed Medical Devices Description No Information Available Encounters Type Date Location Provider Dx Diagnosis Office Visit 05/03/2019 [facility] Internal Tejal Johnson, J45.41 Moderate persistent 11:40a Medicine - Ccmob N.P. 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 unspecified Ccmob G43.009 Migraine w/o aura, not intractable, w/o status migrainosus R07.9 Chest pain, unspecified I10 Essential (primary) hypertension N81.6 Rectocele Office Visit 02/16/2019 11:00a [facility] Internal Zsofia E03.9 Hypothyroidism, Leslie Ann, [employer] unspecified Ccmob N39.0 Urinary tract infection, site not specified N81.89 Other female genital prolapse Office Visit 02/03/2019 10:30a [facility] Dermatology Mike Figueroa, L30.4 Erythema intertashwin L82.1 Other seborrheic keratosis L91.8 Other hypertrophic disorders of the skin Office 01/26/2019 [facility] V[facility] 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, lumbar region Office 01/21/2019 Moe Membreno, M16.12 Unilateral primary Visit 1:15p Orthopedics at [facility] osteoarthritis, [place] left hip M16.11 Unilateral primary osteoarthritis, right hip Z68.39 Body mass index (BMI) 39.0-39.9, adult E66.01 Morbid (severe) obesity due to excess calories M25.552 Pain in left hip M25.551 Pain in right hip M54.31 Sciatica, right side M54.32 Sciatica, left side Office Visit 01/04/2019 11:45a Pulmonology And Marcy G47.33 Obstructive sleep Sleep Services Of MD Varinder apnea (adult) [facility] (pediatric) J45.909 Unspecified asthma, uncomplicated Assessments Date Code Description Provider 06/02/2019 Z00.00 Encounter for general adult medical Palma Slaughter M.D. examination without abnormal findings 06/02/2019 G72.9 Myopathy, unspecified Palma Slaughter M.D. 06/02/2019 K44.9 Diaphragmatic hernia without obstruction Palma Slaughter M.D. or gangrene 06/02/2019 Z12.31 Encounter for screening mammogram for Palma Slaughter M.D. malignant neoplasm of breast 06/02/2019 I10 Essential (primary) hypertension Palma Slaughter M.D. 05/03/2019 J45.41 Moderate persistent asthma with (acute) Tejal Johnson, N.P. exacerbation 04/26/2019 Z95.2 Presence of prosthetic heart valve Isiah Goldsmith, DO FACC 04/26/2019 Z95.2 Presence of prosthetic heart valve Ica ECHO Schedule 04/14/2019 Z95.2 Presence of prosthetic heart valve Isiah Goldsmith, DO FACC 04/14/2019 I10 Essential (primary) hypertension Isiah Goldsmith DO FACC 04/14/2019 I11.9 Hypertensive heart disease without heart Isiah Goldsmith DO FACC failure 04/14/2019 E66.8 Other obesity Isiah Goldsmith DO FACC 04/14/2019 G47.33 Obstructive sleep apnea (adult) Isiah Goldsmith DO [facility] (pediatric) 04/14/2019 I27.20 Pulmonary hypertension, unspecified Isiah Goldsmith DO [facility] 03/15/2019 E03.9 Hypothyroidism, unspecified Pete Schilling MD [...] Palma Slaughter M.D. 02/16/2019 E03.9 Hypothyroidism, unspecified Chace Ann [facility] 02/16/2019 N39.0 Urinary tract infection, site not TASHA Art specified 02/16/2019 N81.89 Other female genital prolapse Chace Ann [facility] 02/03/2019 L30.4 Erythema intertrigo Mike Figueroa MD [...] 10:40 am - Palma Slaughter M.D. at [facility] Internal Medicine - [facility]07/07/2019 11:30 am - Marcy Reeder MD at [facility]06/02/2019 - Palma Slaughter M.D.Z00.00 Encounter for general [...] care proxy and advanced directive on file here.G72.9 Myopathy, unspecifiedComments:I will start the paperwork for a power wheelchairReferral:Tim Winchester MD, NavbhfrpjrjhH73.9 Diaphragmatic hernia without obstruction or gangreneComments:If you any GI reports - take them to Dr. VazquezReferral:Yaakov Vazquez MD, LqinpnqylpwidnuwF51.31 Encounter for screening mammogram for malignant neoplasm of breastNew Xrays:MG Screening Mammogram, Ordered: 06/02/19I10 Essential (primary) hypertensionFollow up: Functional Status Functional Condition Comment Date Status Rolling walker is used to ambulate Active Mental Status Description No Information Available Referrals Refer to Dr Reason for Referral Status Appt Date Yaakov Vazquez MD hiatal hernia, used to see Dr. Putnam Created [address] [place], [place] [id number] [phone] Tim Winchester MD Sent [address] [place], [place] [id number] [phone] Raj Garcia MD Refaxed referral 05/11/19 they didn't rec Sent before. S[address] [place], [place] [id number] [phone] Jose Luis Jarrell MD please call patient to schedule appointment -Thanks Sent [address] [place] [phone] Corrie Christine M.D. Called referral office, automated machine Sent stated that pts are not seen at that office 04/29 [address] [facility] [address] [place] [address] [phone] Kelley Guzman MD patient request; Sent [address] [place] [address] [phone] Pete Schilling MD Hypothyroidism and concerns about side Patient Notified 05/2019 effects from cortisone injection in the hip [address] [place] [phone] Jaylen Khan MD spine clinic Created [address] [facility], [place] [phone] Keely Shahid MD patient request Sent [address] [place] [address] [phone] Michel Funk MD Sent 03/08/2019 [address] [place], [place] [address] [phone]
--- OUTSIDE RECORDS SUMMARY | 2019-06-12 16:35 | XMS REPORT | Continuity of Care Document ---
:1945 External Reference #:[id number] Author Name Sylwia Ruiz Care Team Providers Name Role Phone Palma Slaughter MD Primary Care Physician Unavailable Payers Date Identification Numbers Payment Provider Subscriber Effective: 1997 Policy Number: [id number] Medicare Reji Almendarez PayID: [id number] [address] [place] [address] Effective: 2012 Policy Number: [id number] [facility] Reji Almendarez PayID: [id number] [address] [place] [address] Effective: 2017 Policy Number: [id number] [facility] Auto Reji Almendarez Ins Onset: 2017 Group Number: [id number] [address] [place] [address] Problems Active Problems Provider Date Mitochondrial myopathy Jamal Sheridan M.D.,FACP Onset: 11/07/2016 Note: red ragged fibers Obstructive sleep apnea of adult Mady Maldonado DNP, RN, COLLET DRILLER- Onset: 05/2015 Aortic stenosis, non-rheumatic Jamal Sheridan [...] Sex Unknown Marital Status Lives With Alone [place], aide twice a week. Drives, also uses [employer] and [employer] Occupation Disabled Tobacco Use Start: Unknown End: Former Cigarette Smoker Smoking Status Reviewed: 04/14/19 Former Cigarette Smoker ETOH Use 11/07/2016 Denies alcohol use Tobacco Use Start: Unknown End: Patient is a former Unknown smoker Recreational Drug Use Denies Drug Use Smoking when 17 years old for 2 years, then quit Exercise Type/Frequency arm chair exercises; Abilio Chi yoga Exercise Type/Frequency Exercises sporadically Allergies, [...] total body 03/14/2019 swelling Inactive Allergies Versed SUPERVISOR SHEARING Reaction 12/14/2014 Flonase Anaphylaxis Severe 11/15/2015 Verapamil 06/03/2016 Medications Active Medications SIG Qnty Indications Ordering Date Provider Furosemide 1 by mouth as 30tabs Isiah [...] pain Ondansetron as needed 10tabs Carlos James 08/30/2018 8mg Sathish Shearer Tablets Dispers Flonase Allergy Twice Daily 1units Unknown 07/14/2018 Relief 50mcg/Act Suspension Megazymes 1 PO with every Palma 05/28/2018 meal Sathish Slaughter Cassie Allergy 1 by mouth every Isiah Goldsmith, 10/12/2017 60mg day prn DO FACC Tablets Roller Walker 4 wheel rolling M16.11 Miroslava Membreno, 04/08/2017 [facility] M.DBrain Verapamil HCL take 4 tablet in 540tabs Isiah Goldsmith, 09/05/2016 40mg the morning and 4 DO FACC Tablets tab at night daily Exedrin Migraine as needed Giulia Hanks, 04/03/2016 MJared Oxygen 1 l nc at bedtime 1units Other Ordering 03/25/2016 [facility] Nystatin-Triamcinolo apply small amount Unknown 02/12/2015 ne on affected areas as needed 992455-3.1Unit/GM-% Cream Folic Acid 1 by mouth every [...] 150tabs Palma 02/12/2015 50mcg day, 3.5 tablets Sathish Slaughter Tablets sa and ferris. Epipen 2-Arnaldo use as directed Unknown 0.3mg/0.3ML Solution Auto-Inject Diltiazem Ointment Apply bid for anal Unknown 2% fissure Esomeprazole 1 by mouth two Unknown Magnesium times per day 20mg Capsules DR Sullivan once a day as Unknown 125mg needed [...] Cream Zinc 0nce daily Unknown 50mg Tablets Vitamin K 1 po qday Unknown (Phytonadione) Tablets Tussin Mucus + Chest 10-20 ML as needed Unknown Congestion every 4-6 hours 100mg/5ML Syrup Bi-Pap at night Unknown Cortisone Acetate cream prn Unknown 25mg Tablets Calcium 500 + D3 1 daily Unknown Aspirin 81 Low Dose 1 by mouth every Unknown day 81mg Chewtabs Magnesium once a day Unknown 550 Capsules Tylenol take two tablets Unknown 500mg by mouth four Capsules times a day as needed-generic only Xopenex 1 vial every 4 Unknown 1.25mg/3ML hours as needed Nebulizer Xopenex HFA 2 puffs four times 45gm Marcy Varinder, 45mcg/Act a day as needed Aerosol Dymista 1 spray each Unknown 137-50mcg/Act nostril daily Suspension History Medications Cefdinir 2 caps by mouth 20caps Other Ordering 03/11/2019 - 300mg Capsules every day for Provider 03/13/2019 urinary complaint Aspirin 81 Low Dose 1 by mouth every 30units Palma 02/22/2019 - 81mg day Sathish Slaughter 02/22/2019 Chewtabs Ondansetron take 1 by 30tabs Palma 08/30/2018 - 8mg Tablets sublingual every 6 Sathish Slaughter 02/16/2019 Dispers hours as needed for nausea Sulfamethoxazole/Trime 1 tablet twice 14tabs Palma 07/28/2018 - thoprim DS daily for 7 days Sathish Slaughter 08/02/2018 800-160mg Tablets Keflex Four Times Daily 28caps Unknown 07/14/2018 - 250mg Capsules 08/10/2018 [place] 1 tab every 6 30tabs Palma 05/30/2017 [...] - Bitartrate/Acetaminoph hours by mouth as 1 M.D. 04/08/2017 en needed pain 5-300mg Tablets Rolling Walker use at all times 1units M25.55 Miroslava Membreno, 04/06/2017 - for ambulation dx 1 M.D. 04/21/2017 - severe r hip oa Ondansetron take 1 by mouth 30tabs Jamal Beasley 01/21/2017 - 8mg Tablets every 6 hours as Sathish Sheridan,[facility] 01/21/2017 Dispers needed for nausea Ondansetron take 1 by mouth 30tabs Jamal Beasley 01/21/2017 - 8mg Tablets every 6 hours as Sathish Sheridan,[facility] 08/30/2018 Dispers needed for nausea Sucralfate 2 teaspoon by 480tabs Jamal Beasley 12/30/2016 - 1gm Tablets mouth qid as Sathish Sheridan,[facility] 12/30/2016 needed Sucralfate 10 milliliters 500ml Palma 12/30/2016 - 1GM/10ML four times a day Sathish Slaughter 12/08/2018 Suspension as needed Furosemide take 1 tablet 14tabs Jamal Beasley 12/15/2016 - 20mg Tablets every morning as Sathish Sheridan,[facility] 05/26/2018 needed Nystatin apply twice daily 120gm [facility] 12/15/2016 - [id number]/GM as needed to Sathish Slaughter 04/11/2019 Powder affected area until rash clears Magnesium Citrate 1 bottle by mouth 1units Jamal Beasley 11/13/2016 - x1 (PT does not Sathish Sheridan,[facility] 01/17/2017 1.745GM/30ML Solution take) Nexium 1 by mouth twice a 180caps Jamal Beasley 11/07/2016 - 20mg Capsules DR ange Sheridan M.D.,[facility] 01/22/2018 Spironolactone 1 by mouth every 30tabs Jamal Beasley 11/07/2016 - 25mg day ( pt stop Sathish Sheridan,[facility] 11/21/2016 Tablets taking, last week 11/21/16 Macrobid 1 cap by mouth q12 14caps N39.0 Donnell Neri, 10/28/2016 - 100mg Capsules hours x 7 days DEHYDRATOR 11/02/2016 Verapamil HCL take one tablet as 90tabs Isiah SBrain 08/04/2016 - 40mg needed for htn DO Agus [facility] 09/05/2016 Tablets Hydralazine HCL 1 by mouth three 90tabs Isiah SBrain 06/19/2016 - 10mg times a day ( PT DO Agus [facility] 08/04/2016 Tablets stop taking ) Isosorbide Mononitrate Take 1/2 tablet by 30tabs Isiah SBrain 06/03/2016 - ER mouth for one week DO Agus [facility] 06/18/2016 30mg Tablets ER 24HR then start taking once daily Prednisone take as directed Unknown 05/30/2016 - 10mg Tablets 06/11/2016 Flovent Diskus 1 puff twice a day Unknown 05/30/2016 - 11/07/2016 100mcg/Blist Aerosol Prednisone 1 tab 12 hours 2tabs Isiah S. 05/29/2016 - 50mg Tablets before procedure Goldsmith, DO FAC 08/07/2016 and 1 tab 1 hour before procedure. Verapamil HCL ER Take 1/2 tablet by 30tabs Isiah S. 05/28/2016 - 120mg mouth for one week Goldsmith, DO [facility] 06/03/2016 Tablets ER and if well tolerated increase to once daily Verapamil HCL 1 by mouth every I10 Isiah S. 05/28/2016 - 120mg morning and 1 tab Goldsmith, DO [facility] 05/28/2016 Tablets by mouth every night Verapamil HCL ER Take 1/2 tablet by 30caps I10 Isiah S. 05/28/2016 - 100mg mouth for one week Goldsmith, DO [facility] 05/28/2016 Caps ER 24HR and if well [...] Daniella Ramos, 12/13/2015 - to each nostril M.D. 03/25/2016 50mcg/Act Suspension daily Ranitidine 150 Maximum 1 tab by mouth 2x 60tabs K22.70 Daniella Ramos, - Strength per dayas needed M.D. 03/24/2016 150mg Tablets for reflux Nexium 1 [...] 02/12/2015 - 1GM/10ML mouth qid as Sathish Sheridan,FACP 12/30/2016 Suspension needed Dulera 2 puff twice a day Unknown 02/12/2015 - 100-5mcg/Act 01/15/2016 Aerosol Xopenex 1 vial every 4-6 72ml Daniella Ramos 02/12/2015 - 0.63mg/3ML hours as needed tehrese Bower 05/28/2016 Nebulizer code j45.20 last visit 12/06/15. Xopenex HFA 2 puffs as Unknown 02/12/2015 - 45mcg/Act needed 11/15/2015 Aerosol Flonase Allergy Relief 1 intranasal puff Daniella Ramos, 02/12/2015 - to each nostril 12/13/2015 50mcg/Act Suspension daily Cardizem 1 tablet twice a 60tabs Alan Villar - 30mg Tablets day (held by asad Harry M.D. 05/24/2016 since 05/24/16 due to possible allergic reaction) Nystatin Oral 10 ml swish and Unknown - Suspension swallow twice a 04/11/2019 400,000/10ML day as needed Liquid Azithromycin 2 tabs by mouth Unknown - [...] - 05/24/2018 Digest Gold Unknown - 06/21/2018 Potassium 1 po qday Unknown - 99mg Tablets 04/11/2019 Levothyroxine Sodium 1 by mouth every Unknown - day 06/07/2018 150mcg Tablets Erythromycin Apply To Sutures Unknown - 5mg/GM Four Times Daily 04/11/2019 Ointment For 7 To 10 Days (Below left eye) Epipen JR 2-Arnaldo use if needed for Unknown - peanut allergy 03/13/2019 0.15mg/0.3ML Solution reaction Auto-Inject Nexium 1 by mouth every Unknown - 40mg Capsules DR day(pt not using 08/07/2016 every day only when on Abt and when doctor puts pt back on it) Linzess Unknown - 03/24/2016 Flovent HFA inhale two puffs 12gm Palma - 220mcg/Act by mouth twice a Sathish Slaughter 04/11/2019 Aerosol day Fluorometholone Unknown - 0.1% 03/24/2016 Suspension 1/2 [...] by mouth daily Unknown - Potency 08/07/2016 310-945bm-Recy Tablets Cassie Allergy 1 by mouth every Unknown - 60mg day prn 01/06/2017 Tablets Meloxicam take 1 tab by Unknown - 7.5mg Tablets mouth two t imes a 01/15/2016 day with food Vital Signs Date Vital Result Comment 04/14/2019 1:26pm Height 66 inches 5'6" Weight 251.00 lb BP Systolic Sitting 154 mmHg BP Diastolic Sitting 72 mmHg BP Systolic Standing 162 mmHg BP Diastolic Standing 82 mmHg BMI (Body Mass Index) 40.5 kg/m2 03/15/2019 11:58am Height 66 inches 5'6" Weight 256.00 lb w/ shoes Heart Rate 107 /min BP Systolic Sitting 174 mmHg BP Diastolic Sitting 91 mmHg BMI (Body Mass Index) 41.3 kg/m2 03/14/2019 10:28am Height 66 inches 5'6" Weight 256.00 lb Heart Rate 96 /min BP Systolic 161 mmHg BP Diastolic 78 mmHg BP Systolic Sitting 165 mmHg recheck BP Diastolic Sitting 78 mmHg recheck Body Temperature 98.7 F O2 % BldC Oximetry 93 % BMI (Body Mass Index) 41.3 kg/m2 02/22/2019 3:16pm Height 66 inches 5'6" Weight 256.25 lb Heart Rate 97 /min BP Systolic 174 mmHg recheck 164/79 BP Diastolic 82 mmHg recheck 164/79 Body Temperature 98.6 F O2 % BldC Oximetry 95 % BMI (Body Mass Index) 41.4 kg/m2 02/16/2019 11:42am Height 66 inches 5'6" Weight [...] Result H/L Range Note Laboratory test 03/14/2019 [facility] TSH 1.66 mcIU/mL Normal 0.34-5.60 finding [facility] ([place] [address] Stim Horm) [phone] Free T4 (Free Thyroxine) 1.04 ng/dL Normal 0.61-1.12 Basic Metabolic 03/14/2019 [facility] Sodium 141 mmol/L Normal 135-145 Panel [facility] [address] [phone] Potassium 4.0 mmol/L Normal 3.5-5.0 Chloride 104 mmol/L Normal 101-111 Co2 Carbon Dioxide 28 mmol/L Normal 22-32 Anion Gap 9 mmol/L Normal 2-11 Glucose 107 mg/dL High 70-100 Blood Urea Nitrogen 10 mg/dL Normal 6-24 Creatinine 0.61 mg/dL Normal 0.51-0.95 BUN/Creatinine Ratio 16.4 Normal 8-20 Calcium 9.7 mg/dL Normal 8.6-10.3 Egfr Non- 95.6 >60 Egfr 115.7 >60 1 Laboratory test 03/14/2019 [facility] T3 Free 2.70 pg/mL Normal 2.5-3.9 finding [place] [address] [phone] Laboratory test 02/18/2019 [facility] Troponin-I 0.02 ng/mL < 0.04 2 finding [facility] (TnI) [place], [place] [id number] [phone] CBC Auto Diff 02/18/2019 [facility] White 8.5 Normal 3.5-10.[address] [place] [address] Blood 10^3/[place] [address] Count [phone] Red Blood Count 5.02 10^6/uL High 3.70-4.87 [...] Red Blood Cells % 0.0 Inr/Protime 02/18/2019 [facility] Inr 0.91 Normal 0.82-1.[address] [place] [address] [phone] Laboratory 02/18/2019 [facility] D Dimer < 200 Normal Less Than 4 test finding [address] Quantitative ng/mL 230 [place] [address] [phone] Comp Metabolic 02/18/2019 [facility] Sodium 137 Normal 135- [address] mmol/[place] [address] [phone] Potassium 4.0 mmol/L Normal 3.5-5.0 Chloride 102 [...] Egfr 94.0 >60 5 Laboratory test 02/18/2019 [facility] Troponin-I (TnI) 0.03 ng/ mL <0.[address] [place] [address] [phone] TSH (Thyroid Stim Horm) 1.29 mcIU/mL Normal 0.34-5.60 T3 Free 3.10 pg/mL Normal 2.5-3.9 Free T4 (Free Thyroxine) 1.02 ng/dL Normal 0.61-1.12 B-Type Natriuretic Peptide BNP 74 pg/mL <=100 Laboratory 02/15/2019 [facility] TSH 1.07 Normal 0.34-5.60 7 , [address] (Thyroid mcIU/[place] [address] Stim Horm) [phone] T3 Free 3.20 pg/mL Normal 2.5-3.9 9 Free T4 (Free Thyroxine) 0.91 ng/dL Normal 0.61-1.12 10 Laboratory test 02/15/2019 [facility] Gardnerella/Yeast: SEE 11, finding DRIVE Vaginal Dna RESULT 12 [place] [address] BELOW [phone] Urine Culture 02/15/2019 [facility] Urine Culture SEE 13, And DRIVE RESULT 14 [place] [address] BELOW [phone] Poc Urinalysis 02/15/2019 [facility] Poc Glucose, Urine Negative Negative [address] [place] [address] [phone] Poc Bilirubin, Urine Negative Negative Poc Ketone, Urine Negative Negative Poc Specific [place], Urine 1.015 Normal 1.010-1.030 Poc Blood, Urine Negative Negative Poc pH, Urine 7.0 Normal 5-9 Poc Protein, Urine Negative Negative Poc Urobilinogen, Urine 0.2 Negative Poc Nitrite, Urine Negative Negative Poc Leukocytes, Urine 1+ Abnormal Negative Poc Color, Urine Yellow Poc Clarity, Urine Clear 15 Laboratory 01/27/2019 [facility] TSH (Thyroid 0.33 Low 0.34- 5.60 16 test finding [address] Stim Horm) mcIU/[place] [address] [phone] Drug Abuse 20 12/14/2018 [facility] Urine Negative [address] Amphetamine ng/[place] [address] [phone] Urine Barbiturates Negative ng/mL 18 Urine Benzodiazepines Negative ng/mL 19 Urine Cocaine Negative ng/mL 20 Urine Phencyclidine Negative ng/mL Cutoff: 25 Urine Tetrahydrocannabinol Negative ng/mL Cutoff: 50 21 Creatinine, Urine 27.6 mg/dL Specific [place] 1.004 pH 7.5 Oxidants Negative 22 Adulterants Comment Normal Codeine, Ur Not Detected ng/mL Cutoff: 25 23 Hgfyehb-3-bjaj-glucuronide, Ur Not Detected ng/mL 24 Morphine, Ur Not Detected ng/mL Cutoff: 25 25 Qgckdetd-4-gwui-glucuronide, U Not Detected ng/mL 26 6-monoacetylmorphine, Ur Not Detected ng/mL Cutoff: 25 27 Hydrocodone, Ur Not Detected ng/mL Cutoff: 25 28 Norhydrocodone, Ur Not Detected ng/mL Cutoff: 25 29 Dihydrocodeine, Ur Not Detected ng/mL Cutoff: 25 30 Hydromorphone, Ur Not Detected ng/mL Cutoff: 25 31 Jsbxipqfghsvv0tpurjvoqyzvdgmq Not Detected ng/mL 32 Oxycodone, Ur Not Detected ng/mL Cutoff: 25 33 Noroxycodone, Ur Not Detected ng/mL Cutoff: 25 34 Oxymorphone, Ur Not Detected ng/mL Cutoff: 25 35 Iaiqncwklsq-3-vuoq-glucuronide Not Detected ng/mL 36 Noroxymorphone, Ur Not Detected ng/mL Cutoff: 25 37 Fentanyl, Ur Not Detected ng/mL Cutoff: 2 38 Norfentanyl, Ur Not Detected ng/mL Cutoff: 2 39 Meperidine, Ur Not Detected ng/mL Cutoff: 25 40 Normeperidine, Ur Not Detected ng/mL Cutoff: 25 41 Naloxone, Ur Not Detected ng/mL Cutoff: 25 42 Knbtsbqo-9-pyyn-glucuronide, U Not Detected ng/mL 43 Methadone, Ur [...] Ur Not Detected ng/mL Cutoff: 50 51 Ydurwjzomj-ewyg-nwprabgawdu, U Not Detected ng/mL 52 Buprenorphine, Ur Not Detected ng/mL Cutoff: 5 53 Norbuprenorphine, Ur Not Detected ng/mL Cutoff: 5 54 Norbuprenorphine glucuronide Not Detected ng/mL Cutoff: 20 55 Opioid Interpretation See Comment 56 Laboratory test 10/30/2018 [facility] Lactic Acid 0.8 mmol/L Normal 0.5-2.[address] [place] [address] [phone] CBC Auto Diff 10/30/2018 [facility] White Blood 8.2 Normal 3.5 -10.8 101 Count 10^3/[place] [address] [phone] Red Blood Count 4.96 10^6/uL Normal 4.00-5.40 Hemoglobin 15.1 g/dL Normal 12.0-16.0 Hematocrit 45 % Normal 35-47 Mean Corpuscular Volume 90 fL Normal 80-97 Mean Corpuscular Hemoglobin 30 pg Normal 27-31 Mean Corpuscular HGB Conc 34 g/dL Normal 31-36 Red Cell Distribution Width 14 % Normal 10.5-15 Platelet Count 224 10^3/uL Normal 150-450 Mean Platelet Volume 8.6 fL Normal 7.4-10.4 Abs Neutrophils 5.4 10^3/uL Normal 1.5-7.7 Abs Lymphocytes 2.1 10^3/uL Normal 1.0-4.8 Abs Monocytes 0.7 10^3/uL Normal 0-0.8 Abs Eosinophils 0.1 10^3/uL Normal 0-0.6 Abs Basophils 0 10^3/uL Normal 0-0.2 Abs Nucleated RBC 0 10^3/uL Granulocyte % 65.2 % Lymphocyte % 25.2 % Monocyte % 8.0 % Eosinophil % 1.0 % Basophil % 0.6 % Nucleated Red Blood Cells % 0.1 Inr/Protime 10/30/2018 [facility] Inr 0.88 Normal 0.77-1.[address] [place] [address] [phone] Laboratory test 10/30/2018 [facility] Partial 34.8 Normal 26.0 -36.3 [place] [address] Time PTT [phone] Comp Metabolic 10/30/2018 [facility] Sodium 137 mmol/L Normal 135-145 [place] [address] [phone] Potassium 4.2 mmol/L Normal 3.5-5.0 Chloride 103 mmol/L Normal 101-111 Co2 Carbon Dioxide 31 mmol/L Normal 22-32 Anion Gap 3 mmol/L Normal 2-11 Glucose 94 mg/dL Normal 70-100 Blood Urea Nitrogen 13 mg/dL Normal 6-24 Creatinine 0.70 mg/dL Normal 0.51-0.95 BUN/Creatinine Ratio 18.6 Normal 8-20 Calcium 9.4 mg/dL Normal 8.6-10.3 Total Protein 7.4 g/dL Normal 6.4-8.9 Albumin 4.2 g/dL Normal 3.2-5.2 Globulin 3.2 g/dL Normal 2-4 Albumin/Globulin Ratio 1.3 Normal 1-3 Total Bilirubin 0.50 mg/dL Normal 0.2-1.0 Alkaline Phosphatase 95 U/L Normal 34-104 Alt 23 U/L Normal 7-52 Ast 20 U/L Normal 13-39 Egfr Non- 81.8 >60 Egfr 99.0 >60 58 Laboratory test 10/30/2018 [facility] Lipase 19 U/L Normal 11.0-82.0 [place] [address] [phone] C Reactive Protein 5.28 mg/L Normal <8.01 Troponin-I (TnI) 0.01 ng/mL <0.04 59 Laboratory 10/12/2018 [facility] TSH (Thyroid 1.10 Normal 0.34 -5.[address] Stim Horm) mcIU/[place] [address] [phone] CBC No Diff 10/12/2018 [facility] White Blood 7.7 10^3/uL Normal 3.5-10.8 [place] [address] [phone] Red Blood Count 4.99 10^6/uL Normal 4.00-5.40 Hemoglobin 15.0 g/dL Normal 12.0-16.0 Hematocrit 46 % Normal 35-47 Mean Corpuscular Volume 92 fL Normal 80-97 Mean Corpuscular Hemoglobin 30 pg Normal 27-31 Mean Corpuscular HGB Conc 33 g/dL Normal 31-36 Red Cell Distribution Width 14 % Normal 10.5-15 Platelet Count 205 10^3/uL Normal 150-450 Mean Platelet Volume 9.8 fL Normal 7.4-10.4 Urinalysis Profile 07/27/2018 [facility] Urine Color Yellow [address] [place] [address] [phone] Urine Appearance Clear Urine Specific [place] 1.011 Normal 1.010-1.030 Urine pH 8.0 Normal 5-9 Urine Urobilinogen Negative Negative Urine Ketones Negative Negative Urine Protein Negative Negative Urine Leukocytes 2+ Abnormal Negative Urine Blood Negative Negative Urine Nitrite Negative Negative Urine Bilirubin Negative Negative Urine Glucose Negative Negative Urine White Blood Cell 2+(11-20/hpf) Abnormal Absent Urine Red Blood Cell Absent Absent Urine Bacteria Absent Absent Urine Squamous Epithelial Cell Present Abnormal Absent Urine Culture And 07/27/2018 [facility] Urine SEE RESULT [address] [place] [address] [phone] CBC Auto Diff 07/27/2018 [facility] White Blood 7.0 10^3/uL Normal 3.5- [address] Count 10.8 [place] [address] [phone] Red Blood Count 4.90 10^6/uL Normal 4.00-5.40 Hemoglobin 15.1 g/dL Normal 12.0-16.0 Hematocrit 45 % Normal 35-47 Mean Corpuscular Volume 92 fL Normal 80-97 Mean Corpuscular Hemoglobin 31 pg Normal 27-31 Mean Corpuscular HGB Conc 33 g/dL Normal 31-36 Red Cell Distribution Width 14 % Normal 10.5-15 Platelet Count 201 10^3/uL Normal 150-450 Mean Platelet Volume 9.0 fL Normal 7.4-10.4 Abs Neutrophils 4.1 10^3/uL Normal 1.5-7.7 Abs Lymphocytes 1.9 10^3/uL Normal 1.0-4.8 Abs Monocytes 0.8 10^3/uL Normal 0-0.8 Abs Eosinophils 0.1 10^3/uL Normal 0-0.6 Abs Basophils 0 10^3/uL Normal 0-0.2 Abs Nucleated RBC 0 10^3/uL Granulocyte % 59.3 % Normal 38-83 Lymphocyte % 27.4 % Normal 25-47 Monocyte % 11.4 % High 0-7 Eosinophil % 1.5 % Normal 0-6 Basophil % 0.4 % Normal 0-2 Nucleated Red Blood Cells % 0.1 Laboratory test 07/27/2018 [facility] C Reactive 4.10 mg/L Normal <8.[address] Protein [place], [place] [address] [phone] Comp Metabolic 07/27/2018 [facility] Sodium 139 Normal 135- [address] mmol/[place] [address] [phone] Potassium 4.6 mmol/L Normal 3.5-5.0 Chloride 102 mmol/L Normal 101-111 Co2 Carbon Dioxide 30 mmol/L Normal 22-32 Anion Gap 7 mmol/L Normal 2-11 Glucose 91 mg/dL Normal 70-100 Blood Urea Nitrogen 13 mg/dL Normal 6-24 Creatinine 0.62 mg/dL Normal 0.51-0.95 BUN/Creatinine Ratio 21.0 High 8-20 Calcium 9.6 mg/dL Normal 8.6-10.3 Total Protein 6.7 g/dL Normal 6.4-8.9 Albumin 4.0 g/dL Normal 3.2-5.2 Globulin 2.7 g/dL Normal 2-4 Albumin/Globulin Ratio 1.5 Normal 1-3 Total Bilirubin 0.50 mg/dL Normal 0.2-1.0 Alkaline Phosphatase 94 U/L Normal 34-104 Alt 32 U/L Normal 7-52 Ast 23 U/L Normal 13-39 Egfr Non- 94.1 >60 Egfr 113.9 >60 61 Laboratory 07/27/2018 [facility] TSH (Thyroid 0.22 Low 0.34- 5.60 test finding [address] Stim Horm) mcIU/[place] [address] [phone] Laboratory 05/28/2018 [facility] Vitamin D 34.6 ng/mL Normal 20-50 test finding [address] Total 25(Oh) [place] [address] [phone] Vitamin B12 05/28/2018 [facility] Vitamin B12 545 pg/mL Normal 180-914 62 And Folate [address] [place] [address] [phone] Folic Acid (Folate) > 20.00 ng/mL >3.99 Laboratory 05/28/2018 [facility] TSH (Thyroid 7.60 High 0.34- 5.[address] Stim Horm) mcIU/[place] [address] [phone] Comp Metabolic 05/28/2018 [facility] Sodium 139 mmol/L Normal 135-[address] [place] [address] [phone] Potassium 4.3 mmol/L Normal 3.5-5.0 Chloride 102 mmol/L Normal 101-111 Co2 Carbon Dioxide 29 mmol/L Normal 22-32 Anion Gap 8 mmol/L Normal 2-11 Glucose 112 mg/dL High 70-100 Blood Urea Nitrogen 11 mg/dL Normal 6-24 Creatinine 0.77 mg/dL Normal 0.51-0.95 BUN/Creatinine Ratio 14.3 Normal 8-20 Calcium 9.5 mg/dL Normal 8.6-10.3 Total Protein 7.0 g/dL Normal 6.4-8.9 Albumin 4.1 g/dL Normal 3.2-5.2 Globulin 2.9 g/dL Normal 2-4 Albumin/Globulin Ratio 1.4 Normal 1-3 Total Bilirubin 0.70 mg/dL Normal 0.2-1.0 Alkaline Phosphatase 91 U/L Normal 34-104 Alt 25 U/L Normal 7-52 Ast 23 U/L Normal 13-39 Egfr Non- 73.3 >60 Egfr 88.7 >60 63 CBC Auto 05/28/2018 [facility] White Blood 6.6 10^3/uL Normal 3.5-10.[address] [place] [address] [phone] Red Blood Count 4.99 10^6/uL Normal 4.00-5.40 Hemoglobin 15.4 g/dL Normal 12.0-16.0 Hematocrit 45 % Normal 35-47 Mean Corpuscular Volume 91 fL Normal 80-97 Mean Corpuscular Hemoglobin 31 pg Normal 27-31 Mean Corpuscular HGB Conc 34 g/dL Normal 31-36 Red Cell Distribution Width 15 % Normal 10.5-15 Platelet Count 187 10^3/uL Normal 150-450 Mean Platelet Volume 9.7 um3 Normal 7.4-10.4 Abs Neutrophils 3.9 10^3/uL Normal 1.5-7.7 Abs Lymphocytes 2.0 10^3/uL Normal 1.0-4.8 Abs Monocytes 0.6 10^3/uL Normal 0-0.8 Abs Eosinophils 0.1 10^3/uL Normal 0-0.6 Abs Basophils 0 10^3/uL Normal 0-0.2 Abs Nucleated RBC 0 10^3/uL Granulocyte % 58.8 % Normal 38-83 Lymphocyte % 30.3 % Normal 25-47 Monocyte % 9.6 % High 0-7 Eosinophil % 1.1 % Normal 0-6 Basophil % 0.2 % Normal 0-2 Nucleated Red Blood Cells % 0.1 Comp Metabolic 02/08/2018 [facility] Sodium 140 mmol/L Normal 139-[address] [place] [address] [phone] Potassium 4.3 mmol/L Normal 3.5-5.0 Chloride 101 mmol/L Normal 101-111 Co2 Carbon Dioxide 29 mmol/L Normal 22-32 Anion Gap 10 mmol/L Normal 2-11 Glucose 91 mg/dL Normal 70-100 Blood Urea Nitrogen 11 mg/dL Normal 6-24 Creatinine 0.73 mg/dL Normal 0.51-0.95 BUN/Creatinine Ratio 15.1 Normal 8-20 Calcium 9.1 mg/dL Normal 8.6-10.3 Total Protein 6.8 g/dL Normal 6.4-8.9 Albumin 4.0 g/dL Normal 3.2-5.2 Globulin 2.8 g/dL Normal 2-4 Albumin/Globulin Ratio 1.4 Normal 1-3 Total Bilirubin 0.60 mg/dL Normal 0.2-1.0 Alkaline Phosphatase 87 U/L Normal 34-104 Alt 23 U/L Normal 7-52 Ast 22 U/L Normal 13-39 Egfr Non- 77.9 >60 Egfr 100.2 >60 64 CBC Auto 02/08/2018 [facility] White Blood 6.3 10^3/uL Normal 3.5-10.[address] [place] [address] [phone] Red Blood Count 5.02 10^6/uL Normal 4.0-5.4 Hemoglobin 15.4 g/dL Normal 12.0-16.0 Hematocrit 46 % Normal 35-47 Mean Corpuscular Volume 91 fL Normal 80-97 Mean Corpuscular Hemoglobin 31 pg Normal 27-31 Mean Corpuscular HGB Conc 34 g/dL Normal 31-36 Red Cell Distribution Width 15 % Normal 10.5-15 Platelet Count 200 10^3/uL Normal 150-450 Mean Platelet Volume 8.8 um3 Normal 7.4-10.4 Abs Neutrophils 3.6 10^3/uL Normal 1.5-7.7 Abs Lymphocytes 1.8 10^3/uL Normal 1.0-4.8 Abs Monocytes 0.8 10^3/uL Normal 0-0.8 Abs Eosinophils 0.1 10^3/uL Normal 0-0.6 Abs Basophils 0 10^3/uL Normal 0-0.2 Abs Nucleated RBC 0 10^3/uL Granulocyte % 57.3 % Normal 38-83 Lymphocyte % 28.2 % Normal 25-47 Monocyte % 13.0 % High 0-7 Eosinophil % 1.1 % Normal 0-6 Basophil % 0.4 % Normal 0-2 Nucleated Red Blood Cells % 0 Laboratory test 05/14/2017 [facility] Troponin-I 0.03 Normal < 0.[address] (TnI) ng/[place] [address] [phone] CBC Auto Diff 05/14/2017 [facility] White Blood 7.9 Normal 3.5 -10.[address] Count 10^3/uL [place], [place] [phone] Red Blood Count 4.83 10^6/uL Normal 4.0-5.4 Hemoglobin 14.4 g/dL Normal 12.0-16.0 Hematocrit 44 % Normal 35-47 Mean Corpuscular Volume 91 fL Normal 80-97 Mean Corpuscular Hemoglobin 30 pg Normal 27-31 Mean Corpuscular HGB Conc 33 g/dL Normal 31-36 Red Cell Distribution Width 15 % Normal 10.5-15 Platelet Count 223 10^3/uL Normal 150-450 Mean Platelet Volume 9 um3 Normal 7.4-10.4 Abs Neutrophils 5.0 10^3/uL Normal 1.5-7.7 Abs Lymphocytes 2.1 10^3/uL Normal 1.0-4.8 Abs Monocytes 0.6 10^3/uL Normal 0-0.8 Abs Eosinophils 0.1 10^3/uL Normal 0-0.6 Abs Basophils 0.1 10^3/uL Normal 0-0.2 Abs Nucleated RBC 0 10^3/uL Normal Granulocyte % 63.0 % Normal 38-83 Lymphocyte % 27.1 % Normal 25-47 Monocyte % 7.9 % Normal 1-9 Eosinophil % 1.1 % Normal 0-6 Basophil % 0.9 % Normal 0-2 Nucleated Red Blood Cells % 0 Normal Inr/Protime 05/14/2017 [facility] Inr 0.86 Low 0.89-1.[address] [place] [address] [phone] Laboratory test 05/14/2017 [facility] Partial 32.8 Normal 26.0 -36.[address] [place] [address] Time PTT [phone] D Dimer Quantitative < 200 ng/mL Normal Less Than 230 65 Lactic Acid 0.8 mmol/L Normal 0.5-2.0 66 B-Type Natriuretic Peptide BNP 121 pg/mL High 67 Comp Metabolic 05/14/2017 [facility] Sodium 139 mmol/L Normal 133-[address] [place] [address] [phone] Potassium 4.1 mmol/L Normal 3.5-5.0 Chloride 103 mmol/L Normal 101-111 Co2 Carbon Dioxide 31 mmol/L Normal 22-32 Anion Gap 5 mmol/L Normal 2-11 Glucose 99 mg/dL Normal 70-100 Blood Urea Nitrogen 12 mg/dL Normal 6-24 Creatinine 0.73 mg/dL Normal 0.51-0.95 BUN/Creatinine Ratio 16.4 Normal 8-20 Calcium 9.1 mg/dL Normal 8.6-10.3 Total Protein 6.7 g/dL Normal 6.4-8.9 Albumin 3.7 g/dL Normal 3.2-5.2 Globulin 3.0 g/dL Normal 2-4 Albumin/Globulin Ratio 1.2 Normal 1-3 Total Bilirubin 0.60 mg/dL Normal 0.2-1.0 Alkaline Phosphatase 81 U/L Normal 34-104 Alt 26 U/L Normal 7-52 Ast 22 U/L Normal 13-39 Egfr Non- 78.1 Normal >60 Egfr 100.5 Normal >60 68 Laboratory test 05/14/2017 [facility] Magnesium 2.0 mg/dL Normal 1.9-2.[address] [place], [place] [id number] [phone] Lipase 24 U/L Normal 11.0-82.0 Creatine Kinase(CK) 134 U/L Normal 10-223 C Reactive Protein 6.05 mg/L High < 5.00 69 Troponin-I (TnI) 0.03 ng/mL Normal <0.04 CKMB 05/14/2017 [facility] CKMB 5.7 ng/mL Normal 0.6-6.[address] ng/mL [place], [place] [id number] [phone] Laboratory test 05/14/2017 [facility] TSH 1.64 Normal 0.34- 5.[address] (Thyroid mcIU/mL [place], [place] [id number] [employer] [place]) [phone] Urinalysis 05/14/2017 [facility] Urine Straw Normal Profile [address] [place] [address] [phone] Urine Appearance Clear Normal Urine Specific [place] 1.006 Low 1.010-1.030 Urine pH 7.0 Normal 5-9 Urine Urobilinogen Negative Normal Negative Urine Ketones Negative Normal Negative Urine Protein Negative Normal Negative Urine Leukocytes 1+ Abnormal Negative Urine Blood Negative Normal Negative Urine Nitrite Negative Normal Negative Urine Bilirubin Negative Normal Negative Urine Glucose Negative Normal Negative Urine White Blood Cell Trace(0-5/hpf) Normal Absent Urine Red Blood Cell Absent Normal Absent Urine Bacteria Absent Normal Absent Urine Squamous Epithelial Cell Present Abnormal Absent Urine Culture And 05/14/2017 [facility] Urine SEE RESULT [address] [place] [address] [phone] Vitamin B12 And 04/10/2017 [facility] Vitamin B12 > 1450 High 180-9 71 Folate Serum [address] pg/mL 14 [place] [address] [phone] Folic Acid (Folate) 11.91 ng/mL Normal >3.99 Laboratory test 04/10/2017 [facility] Vitamin D 34.6 ng/mL Normal 30-[address] Total 25(Oh) [place] [address] [phone] Basic Metabolic 04/10/2017 [facility] Sodium 138 mmol/L Normal 133-145 Panel [address] [place] [address] [phone] Potassium 4.2 mmol/L Normal 3.5-5.0 Chloride 102 mmol/L Normal 101-111 Co2 Carbon Dioxide 30 mmol/L Normal 22-32 Anion Gap 6 mmol/L Normal 2-11 Glucose 99 mg/dL Normal 70-100 Blood Urea Nitrogen 9 mg/dL Normal 6-24 Creatinine 0.74 mg/dL Normal 0.51-0.95 BUN/Creatinine Ratio 12.2 Normal 8-20 Calcium 9.1 mg/dL Normal 8.6-10.3 Egfr Non- 76.9 Normal >60 Egfr 98.9 Normal >60 72 Laboratory test 04/10/2017 [facility] Magnesium 2.1 mg/dL Normal 1.9-2.7 finding 101 [place] [address] [phone] Basic Metabolic 02/23/2017 [facility] Sodium 136 mmol/L Normal 133-145 Panel 101 [place] [address] [phone] Potassium 4.2 mmol/L Normal 3.5-5.0 Chloride 100 mmol/L Low 101-111 Co2 Carbon Dioxide 28 mmol/L Normal 22-32 Anion Gap 8 mmol/L Normal 2-11 Glucose 104 mg/dL High 70-100 Blood Urea Nitrogen 9 mg/dL Normal 6-24 Creatinine 0.71 mg/dL Normal 0.51-0.95 BUN/Creatinine Ratio 12.7 Normal 8-20 Calcium 9.2 mg/dL Normal 8.6-10.3 Egfr Non- 80.7 Normal >60 Egfr 103.8 Normal >60 73 Laboratory 02/23/2017 [facility] Erythrocyte Sed 20 mm/Hr Normal 0-[address] [place] [address] [phone] Laboratory 02/23/2017 [facility] Uric Acid 4.5 mg/dL Normal 2.3-6.6 test finding [address] [place] [address] [phone] Laboratory 12/04/2016 [facility] B-Type 148 pg/mL High [address] [place] [address] Peptide BNP [phone] Urinalysis 12/04/2016 [facility] Urine Color Straw Normal Profile [address] [place] [address] [phone] Urine Appearance Clear Normal Urine Specific [place] 1.005 Low 1.010-1.030 Urine pH 8.0 Normal 5-9 Urine Urobilinogen Negative Normal Negative Urine Ketones Negative Normal Negative Urine Protein Negative Normal Negative Urine Leukocytes Negative Normal Negative Urine Blood Negative Normal Negative Urine Nitrite Negative Normal Negative Urine Bilirubin Negative Normal Negative Urine Glucose Negative Normal Negative Laboratory test 12/04/2016 [facility] Lactic Acid 1.0 mmol/L Normal 0.5-2.0 [address] [place] [address] [phone] CBC Auto Diff 12/04/2016 [facility] White Blood 7.7 Normal 3.5 -10.[address] Count 10^3/[place] [address] [phone] Red Blood Count 4.96 10^6/uL Normal 4.0-5.4 Hemoglobin 13.8 g/dL Normal 12.0-16.0 Hematocrit 43 % Normal 35-47 Mean Corpuscular Volume 86 fL Normal 80-97 Mean Corpuscular Hemoglobin 28 pg Normal 27-31 Mean Corpuscular HGB Conc 32 g/dL Normal 31-36 Red Cell Distribution Width 15 % Normal 10.5-15 Platelet Count 221 10^3/uL Normal 150-450 Mean Platelet Volume 9 um3 Normal 7.4-10.4 Abs Neutrophils 4.9 10^3/uL Normal 1.5-7.7 Abs Lymphocytes 1.9 10^3/uL Normal 1.0-4.8 Abs Monocytes 0.8 10^3/uL Normal 0-0.8 Abs Eosinophils 0.1 10^3/uL Normal 0-0.6 Abs Basophils 0 10^3/uL Normal 0-0.2 Abs Nucleated RBC 0 10^3/uL Normal Granulocyte % 63.8 % Normal 38-83 Lymphocyte % 24.9 % Low 25-47 Monocyte % 9.8 % High 1-9 Eosinophil % 1.1 % Normal 0-6 Basophil % 0.4 % Normal 0-2 Nucleated Red Blood Cells % 0 Normal Laboratory test 12/04/2016 [facility] Troponin-I 0.03 Normal < 0.04 [address] (TnI) ng/mL [place], [place] [id number] [phone] Comp Metabolic 12/04/2016 [facility] Sodium 138 Normal 133- [address] mmol/[place] [address] [phone] Potassium 4.2 mmol/L Normal 3.5-5.0 Chloride 102 mmol/L Normal 101-111 Co2 Carbon Dioxide 30 mmol/L Normal 22-32 Anion Gap 6 mmol/L Normal 2-11 Glucose 102 mg/dL High 70-100 Blood Urea Nitrogen 9 mg/dL Normal 6-24 Creatinine 0.75 mg/dL Normal 0.51-0.95 BUN/Creatinine Ratio 12.0 Normal 8-20 Calcium 9.3 mg/dL Normal 8.6-10.3 Total Protein 7.0 g/dL Normal 6.4-8.9 Albumin 3.9 g/dL Normal 3.2-5.2 Globulin 3.1 g/dL Normal 2-4 Albumin/Globulin Ratio 1.3 Normal 1-3 Total Bilirubin 0.70 mg/dL Normal 0.2-1.0 Alkaline Phosphatase 71 U/L Normal 34-104 Alt 25 U/L Normal 7-52 Ast 22 U/L Normal 13-39 Egfr Non- 76.0 Normal >60 Egfr 97.7 Normal >60 77 Laboratory test 12/04/2016 [facility] Magnesium 2.1 mg/dL Normal 1.9-2.[address] [place] [address] [phone] C Reactive Protein 8.09 mg/L High < 5.00 78 TSH (Thyroid Stim Horm) 0.94 mcIU/mL Normal 0.34-5.60 Urine Culture And 10/28/2016 [facility] Urine Culture SEE RESULT [address] [place] [address] [phone] Ua Routine 10/28/2016 [employer] [facility] Ua Specific 1.005 [place] Ua PH 7 Ua Color yellow Ua Appera cloudy Ua WBC small Ua Protein neg Ua Glucose neg Ua Ketones neg Ua Bilirubin neg Ua Urobilinogen norm Ua Nitrite neg Ua Occult Blood neg Laboratory 07/16/2016 [facility] TSH (Thyroid 1.67 Normal 0.34 -5.60 test finding [address] Stim Horm) mcIU/[place] [address] [phone] T3 Free 3.20 pg/mL Normal 2.5-3.9 Free T4 (Free Thyroxine) 1.04 ng/dL Normal 0.61-1.12 Laboratory test 06/17/2016 [facility] Latex <0.35 kU/L Normal [address] [place] [address] [phone] Laboratory test 06/06/2016 [facility] Troponin-I 0.03 ng/mL High <0.[address] (TnI) [place] [address] [phone] Comp Metabolic 06/06/2016 [facility] Sodium 137 mmol/L Normal 133-[address] 45 [place] [address] [phone] Potassium 3.9 mmol/L Normal 3.5-5.0 Chloride 101 mmol/L Normal 101-111 Co2 Carbon Dioxide 28 mmol/L Normal 22-32 Anion Gap 8 mmol/L Normal 2-11 Glucose 116 mg/dL High 70-100 Blood Urea Nitrogen 10 mg/dL Normal 6-24 Creatinine 0.69 mg/dL Normal 0.51-0.95 BUN/Creatinine Ratio 14.5 Normal 8-20 Calcium 9.1 mg/dL Normal 8.6-10.3 Total Protein 7.1 g/dL Normal 6.4-8.9 Albumin 4.0 g/dL Normal 3.2-5.2 Globulin 3.1 g/dL Normal 2-4 Albumin/Globulin Ratio 1.3 Normal 1-3 Total Bilirubin 0.50 mg/dL Normal 0.2-1.0 Alkaline Phosphatase 82 U/L Normal 34-104 Alt 31 U/L Normal 7-52 Ast 23 U/L Normal 13-39 Egfr Non- 83.6 Normal >60 Egfr 107.6 Normal >60 82 Laboratory test 06/06/2016 [facility] Lactic Acid 1.9 mmol/L Normal 0.5-2.[address] [place] [address] [phone] CBC Auto Diff 06/06/2016 [facility] White Blood 6.6 Normal 3.5 -10.[address] Count 10^3/[place] [address] [phone] Red Blood Count 5.01 10^6/uL Normal 4.0-5.4 Hemoglobin 14.8 g/dL Normal 12.0-16.0 Hematocrit 45 % Normal 35-47 Mean Corpuscular Volume 90 fL Normal 80-97 Mean Corpuscular Hemoglobin 30 pg Normal 27-31 Mean Corpuscular HGB Conc 33 g/dL Normal 31-36 Red Cell Distribution Width 14 % Normal 10.5-15 Platelet Count 242 10^3/uL Normal 150-450 Mean Platelet Volume 9 um3 Normal 7.4-10.4 Abs Neutrophils 4.2 10^3/uL Normal 1.5-7.7 Abs Lymphocytes 1.7 10^3/uL Normal 1.0-4.8 Abs Monocytes 0.5 10^3/uL Normal 0-0.8 Abs Eosinophils 0.1 10^3/uL Normal 0-0.6 Abs Basophils 0 10^3/uL Normal 0-0.2 Abs Nucleated RBC 0.01 10^3/uL Normal Granulocyte % 64.1 % Normal 38-83 Lymphocyte % 26.4 % Normal 25-47 Monocyte % 7.6 % Normal 1-9 Eosinophil % 1.3 % Normal 0-6 Basophil % 0.6 % Normal 0-2 Nucleated Red Blood Cells % 0.1 Normal Inr/Protime 06/06/2016 [facility] Inr 0.92 Normal 0.89-1.[address] [place] [address] [phone] Urinalysis 06/06/2016 [facility] Urine Color Straw Normal Profile [address] [place] [address] [phone] Urine Appearance Clear Normal Urine Specific [place] 1.005 Low 1.010-1.030 Urine pH 7.0 Normal 5-9 Urine Urobilinogen Negative Normal Negative Urine Ketones Negative Normal Negative Urine Protein Negative Normal Negative Urine Leukocytes Negative Normal Negative Urine Blood Negative Normal Negative Urine Nitrite Negative Normal Negative Urine Bilirubin Negative Normal Negative Urine Glucose Negative Normal Negative Laboratory test 06/06/2016 [facility] B-Type 89 pg/mL Normal [address] [place] [address] Peptide BNP [phone] CBC Auto Diff 06/02/2016 [facility] White Blood 10.2 Normal 3.5- [address] Count 10^3/uL 10.8 [place] [address] [phone] Red Blood Count 5.11 10^6/uL Normal 4.0-5.4 Hemoglobin 15.1 g/dL Normal 12.0-16.0 Hematocrit 46 % Normal 35-47 Mean Corpuscular Volume 89 fL Normal 80-97 Mean Corpuscular Hemoglobin 30 pg Normal 27-31 Mean Corpuscular HGB Conc 33 g/dL Normal 31-36 Red Cell Distribution Width 14 % Normal 10.5-15 Platelet Count 259 10^3/uL Normal 150-450 Mean Platelet Volume 9 um3 Normal 7.4-10.4 Abs Neutrophils 9.1 10^3/uL High 1.5-7.7 Abs Lymphocytes 0.9 10^3/uL Low 1.0-4.8 Abs Monocytes 0.1 10^3/uL Normal 0-0.8 Abs Eosinophils 0 10^3/uL Normal 0-0.6 Abs Basophils 0 10^3/uL Normal 0-0.2 Abs Nucleated RBC 0 10^3/uL Normal Granulocyte % 89.7 % High 38-83 Lymphocyte % 8.6 % Low 25-47 Monocyte % 1.5 % Normal 1-9 Eosinophil % 0 % Normal 0-6 Basophil % 0.2 % Normal 0-2 Nucleated Red Blood Cells % 0 Normal Laboratory 06/02/2016 [facility] Lactic 3.2 mmol/L Critical 0.5-2.0 [address] [place] [address] [phone] B-Type Natriuretic Peptide BNP 211 pg/mL High 86 Comp Metabolic 06/02/2016 [facility] Sodium 135 mmol/L Normal 133-[address] [place] [address] [phone] Potassium 3.6 mmol/L Normal 3.5-5.0 Chloride 99 mmol/L Low 101-111 Co2 Carbon Dioxide 26 mmol/L Normal 22-32 Anion Gap 10 mmol/L Normal 2-11 Glucose 172 mg/dL High 70-100 Blood Urea Nitrogen 10 mg/dL Normal 6-24 Creatinine 0.71 mg/dL Normal 0.51-0.95 BUN/Creatinine Ratio 14.1 Normal 8-20 Calcium 9.5 mg/dL Normal 8.6-10.3 Total Protein 7.6 g/dL Normal 6.4-8.9 Albumin 4.2 g/dL Normal 3.2-5.2 Globulin 3.4 g/dL Normal 2-4 Albumin/Globulin Ratio 1.2 Normal 1-3 Total Bilirubin 0.60 mg/dL Normal 0.2-1.0 Alkaline Phosphatase 86 U/L Normal 34-104 Alt 27 U/L Normal 7-52 Ast 20 U/L Normal 13-39 Egfr Non- 80.9 Normal >60 Egfr 104.1 Normal >60 87 Laboratory test 06/02/2016 [facility] Troponin-I 0.02 Normal < 0.03 [address] (TnI) ng/[place] [address] [phone] Creatine Kinase(CK) 155 U/L Normal 10-223 Blood Culture SEE RESULT BELOW 89 Laboratory test 02/29/2016 [facility] Partial 36.5 High 26.0- 36.[address] [place] [address] Time PTT [phone] Inr/Protime 02/29/2016 [facility] Inr 0.91 Normal 0.89-1.[address] [place] [address] [phone] CBC Auto Diff 02/29/2016 [facility] White Blood 7.2 10^3/uL Normal 3.5-10.[address] [place] [address] [phone] Red Blood Count 5.10 10^6/uL Normal 4.0-5.4 Hemoglobin 15.0 g/dL Normal 12.0-16.0 Hematocrit 46 % Normal 35-47 Mean Corpuscular Volume 89 fL Normal 80-97 Mean Corpuscular Hemoglobin 30 pg Normal 27-31 Mean Corpuscular HGB Conc 33 g/dL Normal 31-36 Red Cell Distribution Width 14 % Normal 10.5-15 Platelet Count 274 10^3/uL Normal 150-450 Mean Platelet Volume 9 um3 Normal 7.4-10.4 Abs Neutrophils 4.2 10^3/uL Normal 1.5-7.7 Abs Lymphocytes 2.3 10^3/uL Normal 1.0-4.8 Abs Monocytes 0.7 10^3/uL Normal 0-0.8 Abs Eosinophils 0.1 10^3/uL Normal 0-0.6 Abs Basophils 0 10^3/uL Normal 0-0.2 Abs Nucleated RBC 0.05 10^3/uL Normal Granulocyte % 57.4 % Normal 38-83 Lymphocyte % 31.6 % Normal 25-47 Monocyte % 9.6 % High 1-9 Eosinophil % 1.1 % Normal 0-6 Basophil % 0.3 % Normal 0-2 Nucleated Red Blood Cells % 0.7 Normal Laboratory 02/29/2016 [facility] Lactic Acid 1.1 Normal 0.5- 2.0 90 test finding [address] mmol/[place] [address] [phone] Laboratory 02/29/2016 [facility] B-Type 117 pg/mL High 91 test finding [address] [place] [address] Peptide BNP [phone] Comp Metabolic 02/29/2016 [facility] Sodium 138 Normal 133- [address] mmol/[place] [address] [phone] Potassium 3.6 mmol/L Normal 3.5-5.0 Chloride 101 mmol/L Normal 101-111 Co2 Carbon Dioxide 31 mmol/L Normal 22-32 Anion Gap 6 mmol/L Normal 2-11 Glucose 97 mg/dL Normal 70-100 Blood Urea Nitrogen 8 mg/dL Normal 6-24 Creatinine 0.69 mg/dL Normal 0.51-0.95 BUN/Creatinine Ratio 11.6 Normal 8-20 Calcium 9.6 mg/dL Normal 8.6-10.3 Total Protein 7.5 g/dL Normal 6.4-8.9 Albumin 4.2 g/dL Normal 3.2-5.2 Globulin 3.3 g/dL Normal 2-4 Albumin/Globulin Ratio 1.3 Normal 1-3 Total Bilirubin 0.50 mg/dL Normal 0.2-1.0 Alkaline Phosphatase 91 U/L Normal 34-104 Alt 28 U/L Normal 7-52 Ast 26 U/L Normal 13-39 Egfr Non- 83.6 Normal >60 Egfr 107.6 Normal >60 92 Laboratory test 02/29/2016 [facility] Lipase 21 U/L Normal 11.0-82.[address] [place] [address] [phone] Creatine Kinase(CK) 201 U/L Normal 10-223 Troponin-I (TnI) 0.03 ng/mL High <0.03 93 CKMB 02/29/2016 [facility] CKMB ng/mL 7.8 ng/mL High 0.6-6.[address] [place] [address] [phone] Urine Culture And 01/22/2016 [facility] Urine SEE RESULT [address] Culture BELOW [place] [address] [phone] Urinalysis 01/22/2016 [facility] Urine Color Straw Normal Profile [address] [place] [address] [phone] Urine Appearance Clear Normal Urine Specific [place] 1.004 Low 1.010-1.030 Urine pH 8.0 Normal 5-9 Urine Urobilinogen Negative Normal Negative Urine Ketones Negative Normal Negative Urine Protein Negative Normal Negative Urine Leukocytes Trace Abnormal Negative Urine Blood Negative Normal Negative Urine Nitrite Negative Normal Negative Urine Bilirubin Negative Normal Negative Urine Glucose Negative Normal Negative Urine White Blood Cell Trace(0-5/hpf) Normal Absent Urine Red Blood Cell Absent Normal Absent Urine Bacteria Absent Normal Absent Urine Squamous Epithelial Cell Present Abnormal Absent Laboratory test 12/17/2015 [facility] TSH (Thyroid 4.98 Normal 0.34-5.[address] Stim Horm) ?IU/[place] [address] [phone] Free T4 (Free Thyroxine) 0.85 ng/dL Normal 0.61-1.12 Protein 12/07/2015 [facility] Total 7.0 Normal 6.3 - Electrophoresis [address] Protein(Pep) g/dL 7.9 [place] [address] [phone] Albumin 3.3 g/dL Abnormal 3.4-4.7 Alpha-1 Globulin 0.3 g/dL Normal 0.1-0.3 Alpha-2 Globulin 1.1 g/dL Abnormal 0.6-1.0 Beta Globulin 1.0 g/dL Normal 0.7-1.2 Gamma Globulin 1.3 g/dL Normal 0.6-1.6 Albumin/Globulin Ratio 0.88 Normal Impression See Comment Normal 95 Pthi 12/07/2015 [facility] Calcium (PTH 9.2 mg/dL Normal 8.6- 10.[address] Intact) [place] [address] [phone] PTH Intact 3.8 pmol/L Normal 1.3-9.3 Laboratory test 12/07/2015 [facility] Vitamin D 33.1 ng/mL Normal 30-[address] Total 25(Oh) [place] [address] [phone] Rheumatoid Factor <15 IU/mL Normal <15 96 Cyclic Citrullinated Pep Igg <15.6 U Normal 97 Vitamin B12 789 pg/mL Normal 180-914 98 Methylmalonic Acid Mma 0.09 nmol/mL Normal <=0.40 99 1 Because ethnic data is not always [...] immediately to secondary confirmatory testing. Using the UnicQoof DxI 800 Access Immunoassay systems, the 99th [...] immediately to secondary confirmatory testing. Using the iCurrent 800 Access Immunoassay systems, the 99th percentile upper reference limit was demonstrated to be < 0.03 ng/mL. 7 [id number] 9 [id number] 10 [id number] 11 Would you like to order Trichomonas Vaginalis RNA testing? N [id number] SEE RESULT BELOW Name: REJI ALMENDAREZ Kelly : [address]: Alexandrea Cross MD Acct: [id number] Unit: [id number] AGE: 74 Location: [facility] Re02/15/19 SEX: F Status: DEP ER SPEC: [id number] BALDEV: 02/15/19-[address] [facility] [address]: Alexandrea Cross MD REQ: [id number] RECD: 02/16/196 STATUS: [facility] DR: Palma Slaughter MD _ [facility] ORDERED: Lane,Yeast DNA COMMENTS: Would you like to order Trichomonas Vaginalis RNA testing? N [id number] Procedure Result Reported Site Gardnerella/Yeast: Vaginal DNA [...] . END OF REPORT DEPARTMENT OF PATHOLOGY, [address] [place] [address] Weston Laura M.D. Director [facility] # [id number] SEE RESULT BELOW Name: REJI ALMENDAREZ : [address]: Alexandrea Cross MD Acct: [id number] Unit: [id number] AGE: 74 Location: [facility] Re02/15/19 SEX: F Status: DEP ER SPEC: [id number] BALDEV: 02/15/19-[address] [facility] [address]: Alexandrea Cross MD REQ: [id number] RECD: 02/16/19 STATUS: DAYNE ALVAREZ DR: Palma Slaughter MD _ SOURCE: URINE SPDES: ORDERED: Urine Culture COMMENTS: [id number] Procedure Result Reported Site Urine Culture Final 02/18/19- 0854 ML Organism 1 PROTEUS MIRABILIS [place] Count 10-25,000 (Moderate) CFU/ML Organism 2 NORMAL CHASTITY [place] Count 1-10,000 (Few) CFU/ML 1. PROTEUS MIRABILIS [...] . END OF REPORT DEPARTMENT OF PATHOLOGY, [address] [place] [address] Weston Laura M.D. Director [facility] # [id number] Wedding Coordinator: [id number] DO THIS IN ABOUT 6 WEEK [...] 100 27 Metabolite of heroin 28 Lortab, [place], Vicodin; Also a very minor metabolite of [...] developed and its performance characteristics determined by [facility] in a manner consistent with CLIA requirements. This test has not been cleared or approved by the U.S. Food and Drug Administration. Test Performed by: [facility] [address] [place] [address] 57 [facility] Severe Sepsis and Septic Shock Management Bundle Measure requires all lactic acids initially measuring >2.0 mmol/L be repeated. 58 Because ethnic data is not always [...] 5 Kidney failure <15 (or dialysis) 59 Troponin-I testing on Plasma Separator Tubes (PST) has a known false positive rate of 0.20-0.40%. All positive troponins reflex immediate secondary confirmatory testing. 60 SEE RESULT BELOW Name: FANNIESARAHREJI Kelly : [address]: Palma Slaughter MD Acct: [id number] Unit: [id number] AGE: 73 Location: [facility] CENTER Re07/27/18 SEX: F Status: REG REF SPEC: [id number] BALDEV: 07/27/[address]: Palma Slaughter MD REQ: [id number] RECD: 07/27/18 STATUS: COMP _ SOURCE: URINE SPDESC: ORDERED: Urine Culture Urine Source: Clean Catch Procedure Result Reported Site Urine Culture Final 07/28/18- 1210 ML Mixed chastity; possible contamination. Suggest resubmission. * ML - Main Lab . END OF REPORT DEPARTMENT OF PATHOLOGY, [address] [place] [address] Weston Laura M.D. Director [facility] # [id number] 61 Because ethnic data is not always readily [...] 15-29 5 Kidney failure <15 (or dialysis) 62 Normal Range 180 to 914 Indeterminate Range 145 to 180 Deficient Range <145 63 Because ethnic data is not always readily [...] 15-29 5 Kidney failure <15 (or dialysis) 64 Because ethnic data is not always readily [...] 15-29 5 Kidney failure <15 (or dialysis) 65 Please note: The following may produce a false positive D Dimer test: - Rheumatoid factor greater than 60 IU/ml - Plasma hemoglobin greater than 0.05 gm/dl - Bilirubin greater than 50 mg/dl - Lipids greater than 1000 mg/dl - FDP greater than 20 ug/ml 66 [facility] Severe Sepsis and Septic Shock Management Bundle Measure requires all lactic acids initially measuring >2.0 mmol/L be repeated. 67 >100 to <200 pg/mL: likely compensated congestive heart failure (CHF) 200 to 400 pg/mL: likely moderate CHF >400 pg/mL: likely moderate to severe CHF 68 Because ethnic data is not always readily [...] 15-29 5 Kidney failure <15 (or dialysis) 69 Acute inflammation: >10.00 70 SEE RESULT BELOW Name: REJI ALMENDAREZ : [address]: Ron Cooper MD Acct: [id number] Unit: [id number] AGE: 72 Location: ED Re05/14/17 SEX: F Status: DEP ER SPEC: [id number] BALDEV: 05/14/17-1639 DR: Ron Cooper MD REQ: [id number] RECD: 05/14/17 STATUS: DAYNE ALVAREZ DR: Jamal Sheridan MD _ SOURCE: URINE SPDESC: ORDERED: Urine Culture Procedure Result Reported Site Urine Culture Final 05/16/17- 0806 ML No Growth (<1,000 CFU/mL) * ML - MAIN LAB ([facility]) . END OF REPORT * ML = Testing performed at Main Lab DEPARTMENT OF PATHOLOGY, [address] [place] [address] Weston Laura M.D. Director [facility] # [id number] 71 Normal Range 180 to 914 Indeterminate Range 145 to 180 Deficient Range <145 72 Because ethnic data is not always readily [...] 15-29 5 Kidney failure <15 (or dialysis) 73 Because ethnic data is not always readily [...] 15-29 5 Kidney failure <15 (or dialysis) 74 >100 to <200 pg/mL: likely compensated congestive heart failure (CHF) 200 to 400 pg/mL: likely moderate CHF >400 pg/mL: likely moderate to severe CHF 75 [place] Severe Sepsis and Septic Shock Management Bundle Measure requires all lactic acids initially measuring >2.0 mmol/L be repeated. 76 99th percentile = 0.04 ng/mL Troponin results at [facility] and [facility] are not interchangeable. 77 Because ethnic data is not always readily [...] 15-29 5 Kidney failure <15 (or dialysis) 78 Acute inflammation: >10.00 79 SEE RESULT BELOW Name: REJI ALMENDAREZ : [address]: Donnell Neri NP Acct: [id number] Unit: [id number] AGE: 71 Location: [facility] Re10/28/16 SEX: F Status: REG REF SPEC: [id number] BALDEV: 10/28/16-[address] [facility] [address]: Donnell Ghotra Japanese DEHYDRATOR REQ: [id number] RECD: 10/29/161153 STATUS: COMP _ SOURCE: URINE SPDESC: ORDERED: Urine Culture COMMENTS: [id number] Urine Source: Random Procedure Result Reported Site Urine Culture Final 10/30/16- 1301 ML No growth of clinically significant organisms * ML - MAIN LAB ([facility]) . END OF REPORT * ML = Testing performed at Main Lab DEPARTMENT OF PATHOLOGY, [address] [place] [address] Weston Laura M.D. Director [facility] # [id number] 80 Class 0 (Negative <0.35) Test Performed by: [place] [address] Clinical Support Specialist: Ron G. Morice, II, M.D., Ph.D. 81 Reference Range and Interpretation: TnI (ng/mL) Interpretation Less Than 0.03 ng/mL Not supportive of diagnosis of MS 0.03 - 0.50 ng/mL Indeterminate: suggest serial studies if clinically indicated. Greater than 0.5 ng/mL Consistent with diagnosis of MS 82 Because ethnic data is not always readily [...] 15-29 5 Kidney failure <15 (or dialysis) 83 [facility] Severe Sepsis and Septic Shock Management Bundle Measure requires all lactic acids initially measuring >2.0 mmol/L be repeated. 84 >100 to <200 pg/mL: likely compensated congestive heart failure (CHF) 200 to 400 pg/mL: likely moderate CHF >400 pg/mL: likely moderate to severe CHF 85 Critical Result LACT:3.2 Called to [id number] at: 10:55:11 by:[id number] Read back by:RANJAN [facility] Severe Sepsis and Septic Shock Management Bundle Measure requires all lactic acids initially measuring >2.0 mmol/L be repeated. 86 >100 to <200 pg/mL: likely compensated congestive heart failure (CHF) 200 to 400 pg/mL: likely moderate CHF >400 pg/mL: likely moderate to severe CHF 87 Because ethnic data is not always readily [...] 15-29 5 Kidney failure <15 (or dialysis) 88 Reference Range and Interpretation: TnI (ng/mL) Interpretation Less Than 0.03 ng/mL Not supportive of diagnosis of MS 0.03 - 0.50 ng/mL Indeterminate: suggest serial studies if clinically indicated. Greater than 0.5 ng/mL Consistent with diagnosis of MS 89 SEE RESULT BELOW Name: REJI ALMENDAREZ Kelly : [address]: Evans Buck DO Acct: [id number] Unit: [id number] AGE: 71 Location: ED Re06/02/16 SEX: F Status: DEP ER SPEC: [id number] BALDEV: 06/02/16-[address]: Evans Buck DO REQ: [id number] RECD: 06/02/16 STATUS: DAYNE ALVAREZ DR: Daniella Ramos MD _ SOURCE: BLOOD,VENO SPDESC: ORDERED: Blood Cult Procedure Result Reported Site Aerobic Culture Bottle Final 06/07/16- 1127 ML No Growth Day 5 Anaerobic Culture Bottle Final 06/07/16- 1127 ML No Growth Day 5 * ML - MAIN LAB ([facility]) . END OF REPORT * ML = Testing performed at Main Lab DEPARTMENT OF PATHOLOGY, [address] [place] [address] Weston Laura M.D. Director [facility] # [id number] [facility] Severe Sepsis and Septic Shock Management Bundle Measure requires all lactic acids initially measuring >2.0 mmol/L be repeated. 91 >100 to <200 pg/mL: likely compensated congestive heart failure (CHF) 200 to 400 pg/mL: likely moderate CHF >400 pg/mL: likely moderate to severe CHF 92 Because ethnic data is not always readily [...] 15-29 5 Kidney failure <15 (or dialysis) 93 Reference Range and Interpretation: TnI (ng/mL) Interpretation Less Than 0.03 ng/mL Not supportive of diagnosis of MS 0.03 - 0.50 ng/mL Indeterminate: suggest serial studies if clinically indicated. Greater than 0.5 ng/mL Consistent with diagnosis of MS 94 SEE RESULT BELOW Name: FANNIESARAHFEDERICOREJI L : [address]: Carlos Gill MD Acct: [id number] Unit: [id number] AGE: 71 Location: ED Re01/22/16 SEX: F Status: DEP ER SPEC: [id number] BALDEV: 01/22/16-[address] [facility] [address]: Elsie Jacob NP REQ: [id number] RECD: 01/22/16150 STATUS: COMP [facility] DR: Daniella Gill MD _ SOURCE: URINE SPDESC: ORDERED: Urine Culture Procedure Result Reported Site Urine Culture Final 01/24/16- 1004 ML No growth of clinically significant organisms * ML - [facility] ([facility]) . END OF REPORT * ML = Testing performed at Main Lab DEPARTMENT OF PATHOLOGY, [address] [place] [address] Weston Laura M.D. Director [facility] # [id number] 95 RESULT: No apparent monoclonal protein on serum electrophoresis. Test Performed by: [place] [address] Clinical Support Specialist: Ron Washington II, M.D., Ph.D. 96 Test Performed by: [address] [address] Clinical Support Specialist: Ron Washington II, M.D., Ph.D. 97 REFERENCE VALUE <20.0 (Negative) Test Performed by: [address] [address] Clinical Support Specialist: Ron Washington II, M.D., Ph.D. 98 Normal Range 180 to 914 Indeterminate Range 145 to 180 Deficient Range <145 99 Test Performed by: [address] [address] Clinical Support Specialist: Ron Washington II, M.D., Ph.D. Procedures Date Code Description Status 12/27/2018 [id number] Diabetic Retinal Eye Exam Completed 06/04/2018 96027 Polysomnography Sleep Staging 4+ Parameters W/Cpap Completed 05/27/2018 20801 EKG Tracing & Interpretation Completed 03/25/2018 79729 Sleep Study Unattended,HRT Rate,Oxygen Sat,Resp Completed Effort/Airflow 10/30/2017 11989 ECHO Transthoracic, Real-Time 2D With Doppler And Completed Color Flow 10/30/2017 38375 ECHO Transthoracic, Real-Time 2D With Doppler And Completed Color Flow 10/12/2017 37140 EKG Tracing & Interpretation Completed 10/05/2017 [id number] Diabetic Retinal Eye Exam Completed 01/06/2017 74643 Pulmonary Stress Test Simple Completed 11/03/2016 71451 EKG, Interpretation Only Completed 03/25/2016 29311 EKG Tracing & Interpretation Completed 03/21/2016 76745 ECHO Transthoracic, Real-Time 2D With Doppler And Completed Color Flow 03/01/2016 72285 EKG, Interpretation Only Completed 12/18/2015 91216 EKG Tracing & Interpretation Completed 11/21/2015 773548680 Bone Mineral Density Test Completed 08/07/2015 32959515 Mammogram Completed 03/29/2015 82558 Polysomnography Sleep Staging 4+ Parameters W/Cpap Completed 03/01/2015 93999 ECHO Transthorasic Realtime 2D W Doppler & Color Flow Completed Hosp 01/16/2015 35270 Polysomnography Sleep Staging 4+ Parameters Completed 02/16/2013 23540875 Colonoscopy Completed Encounters Type Date Location Provider Dx Diagnosis Office Visit 04/14/2019 [facility] Of Isiah Figueroa95.2 Presence of 1:40p Stock Unloader Goldsmith, DO FACC prosthetic heart valve Office Visit 03/15/2019 [place] [facility] and Pete Schilling MD E03.9 Hypothyroidism, 12:00p Endocrinology of [facility] unspecified M81.0 Age-related osteoporosis w/o current pathological fracture Office Visit 02/22/2019 [facility] Internal Palma E03.9 Hypothyroidism, 3:00p Leslie Slaughter M.D. unspecified Ccmob G43.009 Migraine w/o aura, not intractable, w/o status migrainosus R07.9 Chest pain, unspecified I10 Essential (primary) hypertension N81.6 Rectocele Office Visit 02/16/2019 11:00a [facility] Internal Zsofia E03.9 Hypothyroidism, Medicine - Seth, COLLET DRILLER unspecified Ccmob N39.0 Urinary tract infection, site not specified N81.89 Other female genital prolapse Office Visit 02/03/2019 10:30a [facility] Dermatology Mike Figueroa, L30.4 Erythema intertrigbella L82.1 Other seborrheic keratosis L91.8 Other hypertrophic [...] Sleep Services Of MD Varinder apnea (adult) [facility] (pediatric) J45.909 Unspecified asthma, uncomplicated Office Visit 11/26/2018 2:00p [facility] Internal Palma Slaughter, R12 Heartburn Medicine - Aileen Bower I10 Essential (primary) hypertension Office 11/02/2018 DoNotUse [facility] Internal Palma E03.9 Hypothyroidism, Visit 3:40p Medicine-Hernandez Slaughter M.D. unspecified K60.2 Anal fissure, unspecified I10 Essential (primary) hypertension M54.31 Sciatica, right side M54.32 Sciatica, left side Office Visit 08/19/2018 11:00a Pulmonology And Marcy G47.33 Obstructive sleep Sleep Services Of MD Varinder apnea (adult) [facility] (pediatric) K21.9 Gastro-esophageal reflux disease without esophagitis E66.09 Other obesity due to excess calories Office Visit 08/12/2018 11:40a [facility] Internal Palma R21 Rash and other Medicine - Aileen Slaughter M.D. nonspecific skin eruption K59.00 Constipation, unspecified E03.9 Hypothyroidism, unspecified I10 Essential (primary) hypertension Office Visit 07/27/2018 10:20a DoNotUse [facility] Internal Palma Cotton, R05 Cough Medicine-Hernandez Bower R30.0 Dysuria R10.84 Generalized abdominal pain E03.9 Hypothyroidism, unspecified Office Visit 06/22/2018 11:30a Pulmonology And Marcy G47.33 Obstructive sleep Sleep Services Of MD Varinder apnea (adult) [facility] (pediatric) E66.09 Other obesity due to excess calories Office Visit 05/28/2018 11:40a [facility] Internal Palma I10 Essential ( primary) Medicine - Sathish Slaughter hypertension Ccmob R53.83 Other fatigue K90.0 Celiac disease E03.9 Hypothyroidism, unspecified K59.00 Constipation, unspecified Office Visit 04/20/2018 10:20a [facility] Isiah Cruz 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 I10 Essential (primary) hypertension Z01.810 Encounter for preprocedural cardiovascular examination G47.33 Obstructive sleep apnea (adult) (pediatric) I11.9 Hypertensive heart disease without heart failure I27.20 Pulmonary hypertension, unspecified E66.8 Other obesity Office Visit 04/15/2018 11:45a Pulmonology And Marcy G47.33 Obstructive sleep Sleep Services Of MD Varinder apnea (adult) [facility] (pediatric) J45.909 Unspecified asthma, uncomplicated E66.09 Other obesity due to excess calories Office Visit 03/24/2018 10:45a Pulmonology And Marcy G47.33 Obstructive sleep Sleep Services Of MD Varinder apnea (adult) [facility] (pediatric) R06.02 Shortness of breath E66.01 Morbid (severe) obesity due to excess calories Office Visit 01/22/2018 10:00a [facility] Internal Palma K59.00 Constipation, Leslie Slaughter M.D. 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 M.D. 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, not elsewhere classified Office Visit 12/15/2016 1:40p [facility] Internal Jamal Beasley I10 Essential ( primary) Leslie Sheridan M.D.,FACP hypertension Suite R 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, not elsewhere classified I35.0 Nonrheumatic aortic (valve) stenosis Office Visit 11/27/2016 11:20a [facility] Isiah SBrain I35.0 Nonrheumatic Of [facility] Goldsmith, DO aortic (valve) FACC stenosis I10 Essential (primary) hypertension 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, not elsewhere classified G47.33 Obstructive sleep apnea (adult) (pediatric) Office Visit 11/07/2016 2:40p [facility] Internal Jamal Beasley G71.3 Mitochondrial Leslie Sheridan M.D.,FACP myopathy, not Suite R elsewhere classified E87.6 Hypokalemia I10 Essential (primary) hypertension Office Visit 11/03/2016 2:13p [facility] Lyndsay Connelly, R74.8 Abnormal Assoc,pc DEHYDRATOR levels of Hospitalists other serum enzymes R06.02 Shortness of breath R07.9 Chest pain, unspecified 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 I10 Essential 2:40p Kobi Shearer M.D. (primary) hypertension J45.909 Unspecified asthma, uncomplicated G47.33 Obstructive sleep apnea (adult) (pediatric) I35.0 Nonrheumatic aortic (valve) stenosis Office Visit 06/02/2016 8:00a Pulmonology And Marcy G47.33 Obstructive sleep Sleep Services Of MD Varinder apnea (adult) [facility] (pediatric) J45.909 Unspecified asthma, uncomplicated K22.70 Griffith's esophagus without dysplasia E66.09 Other obesity due to excess calories I10 Essential (primary) hypertension Office Visit 05/28/2016 1:00p [facility] Isiah Cruz I10 Essential ( primary) Of [facility] DO Agus hypertension FAC I35.0 Nonrheumatic aortic (valve) stenosis G47.33 Obstructive sleep apnea (adult) (pediatric) 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 aura, not Ccmob intractable, w/o status migrainosus I10 Essential (primary) hypertension Office Visit 04/02/2016 [facility] Jared G43.109 Migraine with 9:13a Assjanell gomse M.D. aura, not Hospitalists intractable, w/o status migrainosus R10.13 Epigastric pain I10 Essential (primary) hypertension Office Visit 04/01/2016 [facility] Jared G43.109 Migraine with 9:11a Assjanell gomes M.D. aura, not Hospitalists intractable, w/o status migrainosus R10.13 Epigastric pain I10 Essential (primary) hypertension Office Visit 03/25/2016 11:20a [place] [facility] Alan Villar I35.0 Nonrhejohnny Harry M.D. 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 right hip Office Visit 02/14/2016 Pulmonology And Marcy G47.33 Obstructive sleep 10:15a Sleep Services Of MD Varinder apnea (adult) [facility] (pediatric) J45.909 Unspecified asthma, uncomplicated K22.70 Griffith's esophagus without dysplasia E66.09 Other obesity due to excess calories Office Visit 01/25/2016 Orthopedic Miroslava Membreno, M16.11 Unilateral primary 2:30p Services Of Sathish osteoarthritis, right C.M.A. hip Office Visit 01/15/2016 [facility] Internal Daniella I10 Essential (primary) 11:20a Medicine - Aileen Ramos M.D. hypertension M25.551 Pain in right hip M81.0 Age-related osteoporosis w/o current pathological fracture J45.20 Mild intermittent asthma, uncomplicated A04.9 Bacterial intestinal infection, unspecified Office Visit 12/18/2015 9:40a [place] [facility] Alan Villar I10 Essential (primary) Sathish Harry hypertension R06.00 Dyspnea, unspecified I35.0 Nonrheumatic aortic (valve) stenosis R94.31 Abnormal electrocardiogram [ECG] [EKG] Office Visit 12/06/2015 2:00p [facility] Internal Daniella Ramos M25.551 Pain in right Medicine - Aileen Tran. 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, not elsewhere classified K22.70 Griffith's esophagus without dysplasia M85.9 Disorder of bone density and structure, unspecified I35.0 Nonrheumatic aortic (valve) stenosis Office Visit 09/25/2015 Pulmonology And Mady G47.33 Obstructive sleep 10:15a Sleep Services Of CHAVEZ Maldonado RN, apnea (adult) [facility]- (pediatric) J30.89 Other allergic rhinitis Office Visit 05/11/2015 Pulmonology And Mady 327.23 Obstructive Sleep 2:00p Sleep Services Of CHAVEZ Maldonado RN, Apnea Adult & [facility]- Pediatric 530.81 Esophageal Reflux Office Visit 02/13/2015 Pulmonology And Mady 327.23 Obstructive Sleep 1:30p Sleep Services Of CHAVEZ Maldonado RN, Apnea Adult & [facility]- Pediatric Office Visit 12/14/2014 Pulmonology And Magnus Lucas, 327.23 Obstructive Sleep 10:45a Sleep Services Of Sathish Apnea Adult & [facility] Pediatric 327.27 Central Sleep Apnea In Conditions Classified Elsewhere 278.00 Obesity Unspec Plan of Treatment Future Appointment(s):04/21/2019 11:00 am - [place] [facility] Schedule at [facility]06/02/2019 10:40 am - Palma Slaughter M.D. at [facility] Internal Medicine - [facility]06/02/2019 10:20 am - Palma Slaughter M.D. at [facility] Internal Medicine - [facility]07/07/2019 11:30 am - Marcy Reeder MD at Pulmonology And Sleep Services Of [facility]04/14/2019 - Isiah Goldsmith DO FACCZ95.2 Presence of prosthetic heart valveNew Orders:Echocardiogram, Ordered: 04/14/19Follow up:1 year
[2019-06-12 16:36] LABS: CKMB ng/mL 4.3 ng/mL (0.6-6.3)
[2019-06-12 17:02] LABS: Urine Appearance Clear; Urine Bacteria Absent (Absent); Urine Bilirubin Negative (Negative); Urine Blood Negative (Negative); Urine Color Straw; Urine Glucose Negative (Negative); Urine Ketones Negative (Negative); Urine Nitrite Negative (Negative); Urine Protein Negative (Negative); Urine Red Blood Cell Trace(0-2/hpf) (Absent); Urine Specific Gravity 1.006 (1.010-1.030); Urine Squamous Epithelial Cell Present (Absent); Urine Urobilinogen Negative (Negative); Urine White Blood Cell Trace(0-5/hpf) (Absent)
[2019-06-12] MEDS ORDERED: Ketorolac *IM* INJ* 60 MG/2 ML VIAL IM ONE (18:00)
[2019-06-12 18:33] VITALS: BP 146/79
== END 2019-06-12 18:31 | disposition home or self-care (01) ==
LOC: ED 15:21
DX: R60.0 Localized edema (principal); R00.2 Palpitations; R06.02 Shortness of breath; R30.0 Dysuria; M54.9 Dorsalgia, unspecified; R00.0 Tachycardia, unspecified; M48.54XA Collapsed vertebra, not elsewhere classified, thoracic region, initial encounter for fracture; I11.0 Hypertensive heart disease with heart failure; I50.9 Heart failure, unspecified; J44.9 Chronic obstructive pulmonary disease, unspecified; Z95.2 Presence of prosthetic heart valve; Z88.0 Allergy status to penicillin; Z88.2 Allergy status to sulfonamides; Z88.8 Allergy status to other drugs, medicaments and biological substances; Z88.4 Allergy status to anesthetic agent; Z88.1 Allergy status to other antibiotic agents; Z88.3 Allergy status to other anti-infective agents; Z91.041 Radiographic dye allergy status; Z91.040 Latex allergy status; Z91.010 Allergy to peanuts; Z87.891 Personal history of nicotine dependence
CPT/HCPCS: 36415; 71046; 80053; 81003; 81015; 82550; 82553; 83880; 84484; 85025; 85610; 86140; 87086; 93005; 96372; 99282

== ENCOUNTER 2019-07-04 17:15 | Emergency (ER) | payer MEDICARE ==
--- OUTSIDE RECORDS SUMMARY | 2019-07-04 17:21 | XMS REPORT | Continuity of Care Document ---
:1945 External Reference #:[id number] Author Name Palma Slaughter M.D. (transmitted by agent of provider Liliane Armijo) Address [address], [place] [address] Care Team Providers Name Role Phone Keith Pope MD - Internal Care Team Information Moulder Operator [phone] Medicine Miroslava Membreno MD - Adult Care Team Information Moulder Operator [phone] Reconstructive Orthopaedic Surgery Juan Garcia MD - Care Team Information Moulder Operator [phone] Otolaryngology Jenelle Singleton MD - Surgery Care Team Information Moulder Operator Milton Bradford MD - Allergy & Care Team Information Moulder Operator Immunology Palma Slaughter MD - Internal Care Team Information Moulder Operator Medicine [facility] - Pain Care Team Information Moulder Operator [phone] Michel Funk MD - Care Team Information Moulder Operator [phone] Gastroenterology Keely Shahid MD - Physical Care Team Information Moulder Operator [phone] Medicine & Rehabilitation Pete Schilling MD - Endocrinology, Care Team Information Moulder Operator [phone] Diabetes & Metabolism Kelley Guzman MD - Care Team Information Moulder Operator [phone] Obstetrics & Gynecology Nathaly Rizzo M.D. - Neurology Care Team Information Moulder Operator [phone] Raj Garcia MD - Care Team Information Moulder Operator [phone] Rheumatology Jose Luis Jarrell MD - Gastroenterology Care Team Information Moulder Operator Yaakov Vazquez MD - Gastroenterology Care Team Information Moulder Operator Tim Winchester MD - Rheumatology Care Team Information Moulder Operator [phone] Problems Active Problems Provider Date Mitochondrial myopathy Jamal Sheridan M.D.,FAC Onset: 11/07/2016 Note: red ragged fibers Obstructive sleep apnea of adult Mady Maldonado DNP, RN, FELLED SEAM OPERATOR- Onset: 05/2015 Aortic stenosis, non-rheumatic Jamal Sheridan [...] M.D. Onset: 03/06/2016 Celiac disease Jamal Sheridan M.D.,[facility] Onset: 11/07/2016 Localized, primary osteoarthritis of Miroslava Membreno M.D. Onset: 04/06/2017 the pelvic region and thigh Social History Type Date Description Comments Sex Unknown Tobacco Use Start: Unknown End: Former Cigarette Smoker Smoking Status Reviewed: 06/14/19 Former Cigarette Smoker ETOH Use 11/07/2016 Denies [...] mouth, sores on tongue Inactive Allergies Versed MATHEMATICS INSTRUCTOR Reaction 12/14/2014 Flonase Anaphylaxis Severe 11/15/2015 Verapamil 06/03/2016 Medications Active Medications SIG Qnty Indications Ordering Provider Date Potassium 1 PO qd Palma Slaughter, 06/14/2019 99mg Tablets M.D. Electric Wheelchair For daily use 1units G71.3 [facility], 2018 M.D. M51.36 M46.1 Nystatin 5cc, swish and 60ml Marcy Varinder, 05/19/2019 047028Imlm/ML spit, twice daily MD Suspension Furosemide 1-2 by mouth once 60tabs [facility], 04/12/2019 20mg Tablets daily as needed for M.D. edema Flovent Diskus 2 puff twice a day [facility], 04/11/2019 M.D. 50mcg/Blist Aerosol Lactobacillus 1 by mouth twice a 60tabs Other Ordering 03/11/2019 Tablets day Provider Carafate one tablet on empty 30tabs Other Ordering 03/11/2019 1gm Tablets stomach one hour Provider before meals daily. Hydrocodone-Acetaminop 1 or 2 tabs by 30tabs M25.552 [facility], hen mouth every 6-8 M.D. 5-325mg Tablets hours as needed for pain Ondansetron as needed 30tabs [facility], 08/30/2018 8mg Tablets M.D. Dispers Flonase Allergy Relief Twice Daily 1units Unknown 07/14/2018 50mcg/Act Suspension Megazymes 1 PO with every [facility], 05/28/2018 meal M.D. Cassie Allergy 1 by mouth every Isiah Goldsmith, 10/12/2017 60mg day prn DO FACC Tablets Roller Walker 4 wheel rolling M16.11 Miroslava Membreno, 04/08/2017 [facility] walker with seat M.D. Verapamil HCL take 4 tablet in 540tabs Isiah Goldsmith, 09/05/2016 40mg the morning and 4 DO FACC Tablets tab at night daily Exedrin Migraine as needed Giulia Hanks, 04/03/2016 M.D. Oxygen 1 l nc at bedtime 1units Other Ordering 03/25/2016 [facility] Provider Nystatin-Triamcinolone apply small amount Unknown 02/12/2015 on affected areas 585533-2.1Unit/GM-% as needed Cream Folic Acid 1 by mouth every Unknown 02/12/2015 50mg Capsules day Co-Enzyme Q10 1 by mouth every Unknown 02/12/2015 400mg day Capsules L-Carnitine as directed, 1 Unknown 02/12/2015 500mg dailyas needed Capsules Vitamin D weekly Unknown 02/12/2015 50,000Units Tablets Dora 128 apply 4 times a day Unknown 02/12/2015 2% Solution to left eye Anusol-HC 1 applicatior twice Unknown 02/12/2015 Cream a day or as needed Lactulose 15-30 ML PO qd 473ml [facility], 02/12/2015 10GM/15ML M.D. Solution Synthroid 4 by mouth every 150tabs [facility], 02/12/2015 50mcg Tablets day, 3.5 tablets sa M.D. and ferris. Guaifenesin-Codeine Take 5-10 Unknown Milliliters Every 100-10mg/5ML Solution 4-6 Hours as Needed For Cough. Epipen 2-Arnaldo use as directed Unknown 0.3mg/0.3ML Solution Auto-Inject Diltiazem Ointment 2% Apply bid for anal Unknown fissure Esomeprazole Magnesium 1 by mouth two Unknown times per day 20mg Capsules DR Sullivan once a day as Unknown 125mg needed Capsules Hypotears Apply to both eyes Unknown 1-1% Solution three to five times per day as needed FML [...] appointment was 05/03/2019 Tylenol take two tablets by Unknown 500mg Capsules mouth four times a day as needed-generic only Magnesium once a day Unknown 550 Capsules Aspirin 81 Low Dose 1 by mouth every Unknown 81mg day Chewtabs Calcium 500 + D3 1 daily [...] Available Vital Signs Date Vital Result Comment 06/14/2019 12:06pm Height 66 inches 5'6" Weight 264.00 lb Heart Rate 104 /min BP Systolic 187 mmHg BP Diastolic 93 mmHg O2 % BldC Oximetry 92 % BMI (Body Mass Index) 42.6 kg/m2 06/02/2019 10:44am Height 66 inches 5'6" Weight 260.00 lb Heart Rate 100 /min BP Systolic 181 mmHg BP Diastolic 84 mmHg O2 % BldC Oximetry 88 % BMI (Body Mass Index) 42.0 kg/m2 Results Test Date Facility Test Result H/L Range Note Order 06/14/2019 [facility] Holter Monitor <pending> [address] [place] [address] [phone] CBC Auto 06/12/2019 [facility] White Blood 7.4 10^3/uL Normal 3.5-10.[address] [place] [address] [phone] Red Blood Count 4.96 10^6/uL High 3.70-4.87 Hemoglobin 14.9 g/dL Normal 12.0-16.0 Hematocrit 45 % Normal 35-47 Mean Corpuscular Volume 90 fL Normal 80-97 Mean Corpuscular Hemoglobin 30 pg Normal 27-31 Mean Corpuscular HGB Conc 33 g/dL Normal 31-36 Red Cell Distribution Width 15 % Normal 10-15 Platelet Count 215 10^3/uL Normal 150-450 Mean Platelet Volume 8.1 fL Normal 7.4-10.4 Abs Neutrophils 5.2 10^3/uL Normal 1.5-7.7 Abs Lymphocytes 1.5 10^3/uL Normal 1.0-4.8 Abs Monocytes 0.6 10^3/uL Normal 0-0.8 Abs Eosinophils 0.1 10^3/uL Normal 0-0.6 Abs Basophils 0.1 10^3/uL Normal 0-0.2 Abs Nucleated RBC 0.0 10^3/uL Granulocyte % 70.0 % Lymphocyte % 20.1 % Monocyte % 8.3 % Eosinophil % 0.8 % Basophil % 0.8 % Nucleated Red Blood Cells % 0.1 Laboratory 06/12/2019 [facility] B-Type 54 pg/mL <=100 test finding [address] [place] [address] Peptide BNP [phone] Inr/Protime 06/12/2019 [facility] Inr 0.91 Normal 0.82-1.[address] [place] [address] [phone] Comp Metabolic 06/12/2019 [facility] Sodium 138 Normal 135- [address] mmol/[place] [address] [phone] Potassium 4.0 mmol/L Normal 3.5-5.0 Chloride 102 mmol/L Normal 101-111 Co2 Carbon Dioxide 31 mmol/L Normal 22-32 Anion Gap 5 mmol/L Normal 2-11 Glucose 107 mg/dL High 70-100 Blood Urea Nitrogen 10 mg/dL Normal 6-24 Creatinine 0.92 mg/dL Normal 0.51-0.95 BUN/Creatinine Ratio 10.9 Normal 8-20 Calcium 9.3 mg/dL Normal 8.6-10.3 Total Protein 6.8 g/dL Normal 6.4-8.9 Albumin 3.9 g/dL Normal 3.2-5.2 Globulin 2.9 g/dL Normal 2-4 Albumin/Globulin Ratio 1.3 Normal 1-3 Total Bilirubin 0.50 mg/dL Normal 0.2-1.0 Alkaline Phosphatase 79 U/L Normal 34-104 Alt 24 U/L Normal 7-52 Ast 20 U/L Normal 13-39 Egfr Non- 59.5 >60 Egfr 72.0 >60 2 Laboratory test 06/12/2019 [facility] Creatine 118 U/L Normal 10-[address] Kinase(CK) [place] [address] [phone] C Reactive Protein 6.42 mg/L Normal <8.01 Troponin-I (TnI) 0.02 ng/mL <0.04 3 CKMB 06/12/2019 [facility] CKMB ng/mL 4.3 ng/mL Normal 0.6- 6.[address] [place] [address] [phone] Urinalysis 06/12/2019 [facility] Urine Color Straw Profile [address] [place] [address] [phone] Urine Appearance Clear Urine Specific Ulmer 1.006 Low 1.010-1.030 Urine pH 7.0 Normal 5-9 Urine Urobilinogen Negative Negative Urine Ketones Negative Negative Urine Protein Negative Negative Urine Leukocytes Trace Abnormal Negative Urine Blood Negative Negative Urine Nitrite Negative Negative Urine Bilirubin Negative Negative Urine Glucose Negative Negative Urine White Blood Cell Trace(0-5/hpf) Absent Urine Red Blood Cell Trace(0-2/hpf) Absent Urine Bacteria Absent Absent Urine Squamous Epithelial Cell Present Abnormal Absent Urine Culture And 06/12/2019 [facility] Urine SEE RESULT [address] Culture BELOW [place], [place] [address] [phone] Laboratory test 03/14/2019 [facility] T3 Free 2.70 pg/mL Normal 2.5-[address] [place] [address] [phone] Basic Metabolic 03/14/2019 [facility] Sodium 141 mmol/L Normal 135-[address] [place] [address] [phone] Potassium 4.0 mmol/L Normal 3.5-5.0 Chloride 104 mmol/L Normal 101-111 Co2 Carbon Dioxide 28 mmol/L Normal 22-32 Anion Gap 9 mmol/L Normal 2-11 Glucose 107 mg/dL High 70-100 Blood Urea Nitrogen 10 mg/dL Normal 6-24 Creatinine 0.61 mg/dL Normal 0.51-0.95 BUN/Creatinine Ratio 16.4 Normal 8-20 Calcium 9.7 mg/dL Normal 8.6-10.3 Egfr Non- 95.6 >60 Egfr 115.7 >60 5 Laboratory 03/14/2019 [facility] TSH (Thyroid 1.66 Normal 0.34 -5.[address] Stim Horm) mcIU/[place] [address] [phone] Free T4 (Free Thyroxine) 1.04 ng/dL Normal 0.61-1.12 Laboratory test 02/18/2019 [facility] Troponin-I 0.02 <0.04 6 finding (TnI) ng/[place] [address] [phone] CBC Auto Diff 02/18/2019 [facility] White Blood 8.5 Normal 3.5 -10.8 DRIVE Count 10^3/[place] [address] [phone] Red Blood Count 5.02 10^6/uL High 3.70-4.87 [...] Red Blood Cells % 0.0 Inr/Protime 02/18/2019 [facility] Inr 0.91 Normal 0.82-1.[address] [place] [address] [phone] Laboratory 02/18/2019 [facility] D Dimer < 200 Normal Less Than 8 test finding [address] Quantitative ng/mL 230 [place] [address] [phone] Comp Metabolic 02/18/2019 [facility] Sodium 137 Normal 135- [address] mmol/[place] [address] [phone] Potassium 4.0 mmol/L Normal 3.5-5.0 Chloride 102 [...] Egfr Non- 77.7 >60 Egfr 94.0 >60 9 Laboratory test 02/18/2019 [facility] Troponin-I (TnI) 0.03 ng/ mL <0.04 [address] [place] [address] [phone] TSH (Thyroid Stim Horm) 1.29 mcIU/mL Normal 0.34-5.60 T3 Free 3.10 pg/mL Normal 2.5-3.9 Free T4 (Free Thyroxine) 1.02 ng/dL Normal 0.61-1.12 B-Type Natriuretic Peptide BNP 74 pg/mL <=100 Laboratory 02/15/2019 [facility] TSH 1.07 Normal 0.34-5.60 11 , [address] (Thyroid mcIU/[place] [address] Stim Horm) [phone] T3 Free 3.20 pg/mL Normal 2.5-3.9 13 Free T4 (Free Thyroxine) 0.91 ng/dL Normal 0.61-1.12 14 Laboratory test 02/15/2019 [facility] Gardnerella/Yeast: SEE 15, finding [address] Vaginal Dna RESULT 16 [place] [address] BELOW [phone] Urine Culture 02/15/2019 [facility] Urine Culture SEE [address], [address] DR[address] RESULT 18 [place] [address] BELOW [phone] Poc Urinalysis 02/15/2019 [facility] Poc Glucose, Urine Negative Negative [address] [place] [address] [phone] Poc Bilirubin, Urine Negative Negative Poc Ketone, Urine Negative Negative Poc Specific Ulmer, Urine 1.015 Normal 1.010-1.030 Poc Blood, Urine Negative Negative Poc pH, Urine 7.0 Normal 5-9 Poc Protein, Urine Negative Negative Poc Urobilinogen, Urine 0.2 Negative Poc Nitrite, Urine Negative Negative Poc Leukocytes, Urine 1+ Abnormal Negative Poc Color, Urine Yellow Poc Clarity, Urine Clear 19 Laboratory 01/27/2019 [facility] TSH (Thyroid 0.33 Low 0.34- 5.60 20 test finding [address] Stim Horm) mcIU/[place] [address] [phone] Drug Abuse 20 12/14/2018 [facility] Urine Negative [address] Amphetamine ng/[place] [address] [phone] Urine Barbiturates Negative ng/mL 22 Urine Benzodiazepines Negative ng/mL 23 Urine Cocaine Negative ng/mL 24 Urine Phencyclidine Negative ng/mL Cutoff: 25 Urine Tetrahydrocannabinol Negative ng/mL Cutoff: 50 25 Creatinine, Urine 27.6 mg/dL Specific Ulmer 1.004 pH 7.5 Oxidants Negative 26 Adulterants Comment Normal Codeine, Ur Not Detected ng/mL Cutoff: 25 27 Xmfbafw-1-tgrb-glucuronide, Ur Not Detected ng/mL 28 Morphine, Ur Not Detected ng/mL Cutoff: 25 29 Erlrxsnf-8-kmlw-glucuronide, U Not Detected ng/mL 30 6-monoacetylmorphine, Ur Not Detected ng/mL Cutoff: 25 31 Hydrocodone, Ur Not Detected ng/mL Cutoff: 25 32 Norhydrocodone, Ur Not Detected ng/mL Cutoff: 25 33 Dihydrocodeine, Ur Not Detected ng/mL Cutoff: 25 34 Hydromorphone, Ur Not Detected ng/mL Cutoff: 25 35 Ykxsfbtmvcdlg3cszpccwyufyswqu Not Detected ng/mL 36 Oxycodone, Ur Not Detected ng/mL Cutoff: 25 37 Noroxycodone, Ur Not Detected ng/mL Cutoff: 25 38 Oxymorphone, Ur Not Detected ng/mL Cutoff: 25 39 Eyoglxskxsi-7-bdmx-glucuronide Not Detected ng/mL 40 Noroxymorphone, Ur Not Detected ng/mL Cutoff: 25 41 Fentanyl, Ur Not Detected ng/mL Cutoff: 2 42 Norfentanyl, Ur Not Detected ng/mL Cutoff: 2 43 Meperidine, Ur Not Detected ng/mL Cutoff: 25 44 Normeperidine, Ur Not Detected ng/mL Cutoff: 25 45 Naloxone, Ur Not Detected ng/mL Cutoff: 25 46 Amjdpads-3-nijz-glucuronide, U Not Detected ng/mL 47 Methadone, Ur Not Detected ng/mL Cutoff: 25 48 Eddp, Ur Not Detected ng/mL Cutoff: 25 49 Propoxyphene, Ur Not Detected ng/mL Cutoff: 25 50 Norpropoxyphene, Ur Not Detected ng/mL Cutoff: 25 51 Tramadol, Ur Not Detected ng/mL Cutoff: 25 52 O-desmethyltramadol, Ur Not Detected ng/mL Cutoff: 25 53 Tapentadol, Ur Not Detected ng/mL Cutoff: 25 54 N-desmethyltapentadol, Ur Not Detected ng/mL Cutoff: 50 55 Yggyivqpfq-ryqg-fkedqcgzdss, U Not Detected ng/mL 56 Buprenorphine, Ur Not Detected ng/mL Cutoff: 5 57 Norbuprenorphine, Ur Not Detected ng/mL Cutoff: 5 58 Norbuprenorphine glucuronide Not Detected ng/mL Cutoff: 20 59 Opioid Interpretation See Comment 60 1 Standard intensity warfarin therapeutic range: 2.0-3.0 High intensity warfarin therapeutic range: 2.5-3.5 2 Because ethnic data is not always [...] 5 Kidney failure <15 (or dialysis) 3 Troponin-I testing on Plasma Separator Tubes (PST) has a known false positive rate of 0.20-0.40%. All positive troponins reflex immediately to secondary confirmatory testing. Using the SEJ[employer] DxI 800 Access Immunoassay systems, the 99th percentile upper reference limit was demonstrated to be < 0.03 ng/mL. 4 SEE RESULT BELOW Name: REJI ALMENDAREZ Kelly : [address]: Carlos Tapia MD Acct: [id number] Unit: [id number] AGE: 74 Location: ED Re06/12/19 SEX: F Status: DEP ER SPEC: [id number] BALDEV: 06/12/[address]: Carlos Tapia MD REQ: [id number] RECD: 06/12/19 STATUS: DAYNE ALVAREZ DR: Palma Slaughter MD _ SOURCE: URINE SPDESC: ORDERED: Urine Culture Procedure Result Reported Site Urine Culture Final 06/13/19- 1558 ML No Growth (<1,000 CFU/mL) * ML - Main Lab . END OF REPORT DEPARTMENT OF PATHOLOGY, [address] [place] [address] Weston Laura M.D. Director [facility] # [id number] 5 Because ethnic data is not always [...] immediately to secondary confirmatory testing. Using the [employer] Access Immunoassay systems, the 99th percentile upper reference limit was demonstrated to be < 0.03 ng/mL. 7 Standard intensity warfarin therapeutic range: 2.0-3.0 High intensity warfarin therapeutic range: 2.5-3.5 8 Please note: The following may produce a false positive D Dimer test: - Rheumatoid factor greater than 60 IU/ml - Plasma hemoglobin greater than 0.05 gm/dl - Bilirubin greater than 50 mg/dl - Lipids greater than 1000 mg/dl - FDP greater than 20 ug/ml 9 Because ethnic data is not always [...] 5 Kidney failure <15 (or dialysis) 10 Troponin-I testing on Plasma Separator Tubes (PST) has a known false positive rate of 0.20-0.40%. All positive troponins reflex immediately to secondary confirmatory testing. Using the SE[employer]ENT DxI 800 Access Immunoassay systems, the 99th percentile upper reference limit was demonstrated to be < 0.03 ng/mL. 11 [id number] 12 [id number] 13 [id number] 14 [id number] 15 Would you like to order Trichomonas Vaginalis RNA testing? N [id number] 16 SEE RESULT BELOW Name: REJI ALMENDAREZ : [address]: Alexandrea Cross MD Acct: [id number] Unit: [id number] AGE: 74 Location: [facility] Re02/15/19 SEX: F Status: DEP ER SPEC: [id number] BALDEV: 02/15/[address] [facility] [address]: Alexandrea Cross MD REQ: [id number] RECD: 02/16/19 STATUS: DAYNE ALVAREZ DR: Palma Slaughter MD _ SOURCE: VAGINAL SPDESC: ORDERED: Lane,Yeast DNA COMMENTS: Would you like to order Trichomonas Vaginalis RNA testing? N [id number] Procedure Result Reported Site Gardnerella/Yeast: Vaginal DNA [...] . END OF REPORT DEPARTMENT OF PATHOLOGY, [address] [place] [address] Weston Laura M.D. Director [facility] # [id number] 17 [id number] 18 SEE RESULT BELOW Name: REJI ALMENDAREZ : [address]: Alexandrea Cross MD Acct: [id number] Unit: [id number] AGE: 74 Location: [facility] Re02/15/19 SEX: F Status: DEP ER SPEC: [id number] BALDEV: 02/15/19-[address] [facility] [address]: Alexandrea Cross MD REQ: [id number] RECD: 02/16/19 STATUS: DAYNE ALVAREZ DR: Palma Slaughter MD _ SOURCE: URINE SPDESC: ORDERED: Urine Culture COMMENTS: [id number] Procedure Result Reported Site Urine Culture Final 02/18/19- 0854 ML Organism 1 PROTEUS MIRABILIS Morrison Count 10-25,000 (Moderate) CFU/ML Organism 2 NORMAL CHASTITY Morrison Count 1-10,000 (Few) CFU/ML 1. PROTEUS MIRABILIS [...] . END OF REPORT DEPARTMENT OF PATHOLOGY, [address] [place] [address] Weston Laura M.D. Director [facility] # [id number] 19 Machine Egg Washer: [id number] DO THIS IN ABOUT 6 WEEK - MID SEPTEMBER 27 REFERENCE VALUE Cutoff: 500 22 REFERENCE VALUE Cutoff: 200 23 REFERENCE VALUE Cutoff: 100 24 REFERENCE VALUE Cutoff: 150 25 ADDITIONAL INFORMATION This report is intended for use in clinical monitoring or management of patients. It is not intended for use in employment-related testing. 26 REFERENCE VALUE Cutoff: 200 mg/L 27 Tylenol 3 28 Metabolite of codeine REFERENCE VALUE Cutoff: 100 29 Sarah Ware MS Contin; Also a minor metabolite (10%) of codeine and can be seen in low concentrations (<2,000 ng/mL) with poppy seed ingestion. 30 Metabolite of morphine REFERENCE VALUE Cutoff: 100 31 Metabolite of heroin 32 Lortab, [place], Vicodin; Also a very minor metabolite of codeine and impurity (<1%) of oxycodone. 33 Metabolite of hydrocodone 34 Metabolite of hydrocodone 35 Dilaudid, Exalgo; Also a metabolite of hydrocodone and a minor (<5%) metabolite of morphine. 36 Metabolite of hydromorphone REFERENCE VALUE Cutoff: 100 37 Endocet, Percocet, Oxycontin 38 Metabolite of oxycodone 39 Numorphan, Opana; Also a metabolite of oxycodone. 40 Metabolite of oxymorphone REFERENCE VALUE Cutoff: 100 41 Metabolite of oxymorphone 42 Actiq, Duragesic, Fentora 43 Metabolite of fentanyl 44 Demerol 45 Metabolite of meperidine 46 Narcan 47 Metabolite of naloxone REFERENCE VALUE Cutoff: 100 48 Dolophine 49 Metabolite of methadone 50 Darvon, Darvocet 51 Metabolite of propoxyphene 52 Tradol, Ultram, Ultracet 53 Metabolite of tramadol 54 Nucynta 55 Metabolite of tapentadol 56 Metabolite of tapentadol REFERENCE VALUE Cutoff: 100 57 Buprenex, Suboxone 58 Metabolite of buprenorphine 59 Metabolite of buprenorphine 60 No opioids were detected. The absence of expected drug(s) and/or drug metabolite(s) may indicate non-compliance, altered pharmacokinetics, inappropriate timing of specimen collection relative to drug administration, diluted/adulterated urine, or limitations of testing. ADDITIONAL INFORMATION This test was developed and its performance characteristics determined by [facility] in a manner consistent with CLIA requirements. This test has not been cleared or approved by the U.S. Food and Drug Administration. Test Performed by: [facility] [address] [place] [address] Procedures Date Code Description Status 04/26/2019 54111 ECHO Transthoracic, Real-Time 2D With Doppler And Completed Color Flow 04/26/2019 71449 ECHO Transthoracic, Real-Time 2D With Doppler And Completed Color Flow 12/27/2018 [id number] Diabetic Retinal Eye Exam Completed 10/05/2017 [id number] Diabetic Retinal Eye Exam Completed 11/21/2015 [id number] Bone Mineral Density Test Completed 08/07/2015 [id number] Mammogram Completed 02/16/2013 [id number] Colonoscopy Completed Medical Devices Description No Information Available Encounters Type Date Location Provider Dx Diagnosis Office Visit 06/02/2019 [facility] Internal Palma Slaughter, Z00.00 Encntr for 10:20a Leslie Gallagher M.D. general adult medical exam w/o abnormal findings K44.9 Diaphragmatic hernia without obstruction or gangrene Z12.31 Encntr screen mammogram for malignant neoplasm of breast I10 Essential (primary) hypertension 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, not elsewhere classified M51.36 Other intervertebral disc degeneration, lumbar region M46.1 Sacroiliitis, not elsewhere classified M54.30 Sciatica, unspecified side Office Visit 05/03/2019 11:40a [facility] Internal Tejal Johnson, J45.41 Moderate Medicine - Aileen N.P. 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 w/o perforation Ccmob or abscess w/o bleeding M13.0 Polyarthritis, unspecified Office Visit 02/22/2019 [facility] Internal Palma E03.9 Hypothyroidism, 3:00p Leslie Slaughter M.D. unspecified Ccmob G43.009 Migraine w/o aura, not intractable, w/o status migrainosus R07.9 Chest pain, unspecified I10 Essential (primary) hypertension N81.6 Rectocele Office Visit 02/16/2019 11:00a [facility] Internal Zsofia E03.9 Hypothyroidism, Medicine Gladys Wayk, FELLED SEAM OPERATOR unspecified Ccmob N39.0 Urinary tract infection, site not specified N81.89 Other female genital prolapse Office Visit 02/03/2019 10:30a [facility] Dermatology Mike Yentzer, L30.4 Erythema MD shetty L82.1 Other seborrheic keratosis L91.8 Other hypertrophic disorders of the skin Office 01/26/2019 Neurosurgery Vassilios 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, lumbar region Office 01/21/2019 Moe Membreno, M16.12 Unilateral primary Visit 1:15p Orthopedics at [facility] osteoarthritis, [place] left hip M16.11 Unilateral primary osteoarthritis, right hip Z68.39 Body mass index (BMI) 39.0-39.9, adult E66.01 Morbid (severe) obesity due to excess calories M25.552 Pain in left hip M25.551 Pain in right hip M54.31 Sciatica, right side M54.32 Sciatica, left side Office Visit 01/04/2019 11:45a Pulmonology And Marcy G47.33 Obstructive sleep Sleep Services Of MD Varinder apnea (adult) [facility] (pediatric) J45.909 Unspecified asthma, uncomplicated Assessments Date Code Description Provider 06/14/2019 R00.2 Palpitations Palma Slaughter M.D. 06/14/2019 R60.0 Localized edema Palma Slaughter M.D. 06/02/2019 Z00.00 Encounter for general adult medical [...] Z95.2 Presence of prosthetic heart valve Isiah SBrain Goldsmith, DO FAC 04/26/2019 Z95.2 Presence of prosthetic heart valve Ica ECHO Schedule 04/14/2019 Z95.2 Presence of prosthetic heart valve Isiah SBrain Goldsmith, DO FACC 04/14/2019 I10 Essential (primary) hypertension Isiah MalloryBrain Goldsmith, DO FACC 04/14/2019 I11.9 Hypertensive heart disease without heart Isiah Goldsmith DO FACC failure 04/14/2019 E66.8 Other obesity Isiah Goldsmith, DO FAC 04/14/2019 G47.33 Obstructive sleep apnea (adult) Isiah Goldsmith, DO [facility] (pediatric) 04/14/2019 I27.20 Pulmonary hypertension, unspecified Isiah Cruz Goldsmith, DO FAC 03/15/2019 E03.9 Hypothyroidism, unspecified Pete Schilling MD [...] Marcy Reeder MD Plan of Treatment Future Appointment(s):06/15/2019 1:30 pm - Nurse Holter Monitor at [facility] Internal Medicine - [facility]08/11/2019 11:00 am - Tim Winchester M.D. at [facility]09/22/2019 10:40 am - Palma Slaughter M.D. at [facility] Internal Medicine - [facility]07/07/2019 11:30 am - Marcy Reeder MD at [facility]06/14/2019 - Palma Slaughter M.D.R00.2 ZikymxztswwnJ22.0 Localized edemaComments:Your heart, kidney and liver function appears to be normal. Increase the furosemide to 40 mg when you take it.Continue the potassium 99 mgCheck your weight at home - we are looking for you to lose a few lbCheck blood test for potassium in 2 weeks Functional Status Functional Condition Comment Date Status Rolling walker is used to ambulate Active Mental Status Description No Information Available Referrals Refer to Dr Reason for Referral Status Appt Date Yaakov aVzquez MD hiatal hernia, used to see Dr. Putnam, requests Sent consult with Dr. Vazquez Not scheduled yet 06/14/[address] [place], [place] [id number] [phone] Tim Winchester MD Multiple pain issues. See [facility] Sent 2018 neuromuscular center evaluation for extensive blood testing for autoimmune and other disease [address] [place], [place] [id number] [phone] Raj Garcia MD Refaxed referral 05/11/19 they didn't rec Sent before. S5 [address] [place] [address] [phone] Jose Luis Jarrell MD please call patient to schedule appointment -Thanks Sent [address] [place] [address] [phone] Corrie Christine M.D. Called referral office, automated machine Sent stated that pts are not seen at that office 04/29 [address] [facility] [address] [place], [place] [id number] [phone] Kelley Guzman MD patient request; Sent [address] [place] [address] [phone] Pete Schilling MD Hypothyroidism and concerns about side Patient Notified 05/2019 effects from cortisone injection in the hip [address] [place] [address] [phone] Jaylen Khan MD spine clinic Created [address] [facility], [place] [id number] [phone] Keely Shahid MD patient request Sent [address] [place], [place] [address] [phone] Michel Funk MD Sent 03/08/2019 [address] [place] [address] [phone]
--- OUTSIDE RECORDS SUMMARY | 2019-07-04 17:21 | XMS REPORT | Continuity of Care Document ---
:1945 External Reference #:[id number] Author Name Palma Slaughter M.D. (transmitted by agent of provider Liliane Armijo) Address [address], [place] [address] Care Team Providers Name Role Phone Keith Pope MD - Internal Care Team Information Supply Chain Development Manager Medicine Miroslava Membreno MD - Adult Care Team Information Supply Chain Development Manager [phone] Reconstructive Orthopaedic Surgery Juan Garcia MD - Care Team Information Supply Chain Development Manager [phone] Otolaryngology Jenelle Singleton MD - Surgery Care Team Information Supply Chain Development Manager Milton Bradford MD - Allergy & Care Team Information Supply Chain Development Manager Immunology Palma Slaughter MD - Internal Care Team Information Supply Chain Development Manager [phone] [facility] - Pain Care Team Information Supply Chain Development Manager [phone] Michel Funk MD - Care Team Information Supply Chain Development Manager [phone] Gastroenterology Keely Shahid MD - Physical Care Team Information Supply Chain Development Manager [phone] Medicine & Rehabilitation Pete Schilling MD - Endocrinology, Care Team Information Supply Chain Development Manager [phone] Diabetes & Metabolism Kelley Guzman MD - Care Team Information Supply Chain Development Manager [phone] Obstetrics & Gynecology Nathaly Rizzo M.D. - Neurology Care Team Information Supply Chain Development Manager [phone] Raj Garcia MD - Care Team Information Supply Chain Development Manager [phone] Rheumatology Jose Luis Jarrell MD - Gastroenterology Care Team Information Supply Chain Development Manager Yaakov Vazquez MD - Gastroenterology Care Team Information Supply Chain Development Manager Tim Winchester MD - Rheumatology Care Team Information Supply Chain Development Manager Problems Active Problems Provider Date Mitochondrial myopathy Jamal Sheridan M.D.,FAC Onset: 11/07/2016 Note: red ragged fibers Obstructive sleep apnea of adult Mady Maldonado DNP, RN, SYSTEM ADMINISTRATION MANAGER- Onset: 05/2015 Aortic stenosis, non-rheumatic Jamal Sheridan [...] Jamal Sheridan M.D.,[facility] Onset: 11/07/2016 Localized, primary osteoarthritis of Miroslava [...] mouth, sores on tongue Inactive Allergies Versed SILK SPOOLER Reaction 12/14/2014 Flonase Anaphylaxis Severe 11/15/2015 Verapamil 06/03/2016 Medications Active Medications SIG Qnty Indications Ordering Provider Date Potassium 1 PO qd Palma Slaughter, 06/14/2019 99mg Tablets M.D. Electric Wheelchair For daily use 1units G71.3 [facility], 2018 M.D. M51.36 M46.1 Nystatin 5cc, swish and 60ml Marcy Varinder, 05/19/2019 309236Xrhs/ML spit, twice daily MD Suspension Furosemide 1-2 by mouth once 60tabs [facility], 04/12/2019 20mg Tablets daily as needed for M.D. edema Flovent Diskus 2 puff twice a day [facility], 04/11/2019 M.D. 50mcg/Blist Aerosol Lactobacillus 1 by mouth twice a 60tabs Other Ordering 03/11/2019 Tablets day Provider Carafate one tablet on empty 30tabs Other Ordering 03/11/2019 1gm Tablets stomach one hour Provider before meals daily. Hydrocodone-Acetaminop 1 or 2 tabs by 30tabs M25.552 [facility], hen mouth every 6-8 M.D. 5-325mg Tablets hours as needed for pain Ondansetron as needed 30tabs [facility], 08/30/2018 8mg Tablets M.D. Dispers Flonase Allergy Relief Twice Daily 1units Unknown 07/14/2018 50mcg/Act Suspension Megazymes 1 PO with every [facility], 05/28/2018 meal M.D. Cassie Allergy 1 by mouth every Isiah Goldsmith, 10/12/2017 60mg day prn DO FACC Tablets Roller Walker 4 wheel rolling M16.11 Miroslava Membreno, 04/08/2017 [facility] walker with seat M.D. Verapamil HCL take 4 tablet in 540tabs Isiah Goldsmith, 09/05/2016 40mg the morning and 4 DO FACC Tablets tab at night daily Exedrin Migraine as needed Giulia Hanks, 04/03/2016 M.D. Oxygen 1 l nc at bedtime 1units Other Ordering 03/25/2016 [facility] Provider Nystatin-Triamcinolone apply small amount Unknown 02/12/2015 on affected areas 540873-0.1Unit/GM-% as needed Cream Folic Acid 1 by [...] needed Lactulose 15-30 ML PO qd 473ml [facility], 02/12/2015 10GM/15ML M.D. Solution Synthroid 4 by mouth every 150tabs [facility], 02/12/2015 50mcg Tablets day, 3.5 tablets sa [...] Test Result H/L Range Note Order 06/14/2019 [facility] Holter Monitor <pending> [address] [place] [address] [phone] CBC Auto 06/12/2019 [facility] White Blood 7.4 10^3/uL Normal 3.5-10.[address] [place] [address] [phone] Red Blood Count 4.96 10^6/uL High 3.70-4.87 [...] Red Blood Cells % 0.1 Laboratory 06/12/2019 [facility] B-Type 54 pg/mL <=100 test finding [address] [place] [address] Peptide BNP [phone] Inr/Protime 06/12/2019 [facility] Inr 0.91 Normal 0.82-1.[address] [place] [address] [phone] Comp Metabolic 06/12/2019 [facility] Sodium 138 Normal 135- [address] mmol/[place] [address] [phone] Potassium 4.0 mmol/L Normal 3.5-5.0 Chloride 102 [...] Egfr 72.0 >60 2 Laboratory test 06/12/2019 [facility] Creatine 118 U/L Normal 10-[address] Kinase(CK) [place] [address] [phone] C Reactive Protein 6.42 mg/L Normal <8.01 Troponin-I (TnI) 0.02 ng/mL <0.04 3 CKMB 06/12/2019 [facility] CKMB ng/mL 4.3 ng/mL Normal 0.6- 6.[address] [place] [address] [phone] Urinalysis 06/12/2019 [facility] Urine Color Straw Profile [address] [place] [address] [phone] Urine Appearance Clear Urine Specific [place] 1.006 Low 1.010-1.030 Urine pH 7.0 Normal [...] Present Abnormal Absent Urine Culture And 06/12/2019 [facility] Urine SEE RESULT [address] Culture BELOW [place], [place] [address] [phone] Laboratory test 03/14/2019 [facility] T3 Free 2.70 pg/mL Normal 2.5-[address] [place] [address] [phone] Basic Metabolic 03/14/2019 [facility] Sodium 141 mmol/L Normal 135-[address] [place] [address] [phone] Potassium 4.0 mmol/L Normal 3.5-5.0 Chloride 104 mmol/L Normal 101-111 Co2 Carbon Dioxide 28 mmol/L Normal 22-32 Anion Gap 9 mmol/L Normal 2-11 Glucose 107 mg/dL High 70-100 Blood Urea Nitrogen 10 mg/dL Normal 6-24 Creatinine 0.61 mg/dL Normal 0.51-0.95 BUN/Creatinine Ratio 16.4 Normal 8-20 Calcium 9.7 mg/dL Normal 8.6-10.3 Egfr Non- 95.6 >60 Egfr 115.7 >60 5 Laboratory 03/14/2019 [facility] TSH (Thyroid 1.66 Normal 0.34 -5.[address] Stim Horm) mcIU/[place] [address] [phone] Free T4 (Free Thyroxine) 1.04 ng/dL Normal 0.61-1.12 Laboratory test 02/18/2019 [facility] Troponin-I 0.02 <0.04 6 finding (TnI) ng/[place] [address] [phone] CBC Auto Diff 02/18/2019 [facility] White Blood 8.5 Normal 3.5 -10.8 DRIVE Count 10^3/[place] [address] [phone] Red Blood Count 5.02 10^6/uL High 3.70-4.87 [...] Red Blood Cells % 0.0 Inr/Protime 02/18/2019 [facility] Inr 0.91 Normal 0.82-1.[address] [place] [address] [phone] Laboratory 02/18/2019 [facility] D Dimer < 200 Normal Less Than 8 test finding [address] Quantitative ng/mL 230 [place] [address] [phone] Comp Metabolic 02/18/2019 [facility] Sodium 137 Normal 135- [address] mmol/[place] [address] [phone] Potassium 4.0 mmol/L Normal 3.5-5.0 Chloride 102 [...] Egfr 94.0 >60 9 Laboratory test 02/18/2019 [facility] Troponin-I (TnI) 0.03 ng/ mL <0.04 [address] [place] [address] [phone] TSH (Thyroid Stim Horm) 1.29 mcIU/mL Normal 0.34-5.60 T3 Free 3.10 pg/mL Normal 2.5-3.9 Free T4 (Free Thyroxine) 1.02 ng/dL Normal 0.61-1.12 B-Type Natriuretic Peptide BNP 74 pg/mL <=100 Laboratory 02/15/2019 [facility] TSH 1.07 Normal 0.34-5.60 11 , [address] (Thyroid mcIU/[place] [address] Stim Horm) [phone] T3 Free 3.20 pg/mL Normal 2.5-3.9 13 Free T4 (Free Thyroxine) 0.91 ng/dL Normal 0.61-1.12 14 Laboratory test 02/15/2019 [facility] Gardnerella/Yeast: SEE 15, finding [address] Vaginal Dna RESULT 16 [place] [address] BELOW [phone] Urine Culture 02/15/2019 [facility] Urine Culture SEE 17, And DRIVE RESULT 18 [place] [address] BELOW [phone] Poc Urinalysis 02/15/2019 [facility] Poc Glucose, Urine Negative Negative [address] [place] [address] [phone] Poc Bilirubin, Urine Negative Negative Poc Ketone, Urine Negative Negative Poc Specific [place], Urine 1.015 Normal 1.010-1.030 Poc Blood, Urine Negative Negative Poc pH, Urine 7.0 Normal 5-9 Poc Protein, Urine Negative Negative Poc Urobilinogen, Urine 0.2 Negative Poc Nitrite, Urine Negative Negative Poc Leukocytes, Urine 1+ Abnormal Negative Poc Color, Urine Yellow Poc Clarity, Urine Clear 19 Laboratory 01/27/2019 [facility] TSH (Thyroid 0.33 Low 0.34- 5.60 20 test finding [address] Stim Horm) mcIU/[place] [address] [phone] Drug Abuse 20 12/14/2018 [facility] Urine Negative [address] Amphetamine ng/[place] [address] [phone] Urine Barbiturates Negative ng/mL 22 Urine Benzodiazepines Negative ng/mL 23 Urine Cocaine Negative ng/mL 24 Urine Phencyclidine Negative ng/mL Cutoff: 25 Urine Tetrahydrocannabinol Negative ng/mL Cutoff: 50 25 Creatinine, Urine 27.6 mg/dL Specific [place] 1.004 pH 7.5 Oxidants Negative 26 Adulterants Comment Normal Codeine, Ur Not Detected ng/mL Cutoff: 25 27 Etatqrn-5-wmxu-glucuronide, Ur Not Detected ng/mL 28 Morphine, Ur Not Detected ng/mL Cutoff: 25 29 Vvyilssx-7-qiei-glucuronide, U Not Detected ng/mL 30 6-monoacetylmorphine, Ur Not Detected ng/mL Cutoff: 25 31 Hydrocodone, Ur Not Detected ng/mL Cutoff: 25 32 Norhydrocodone, Ur Not Detected ng/mL Cutoff: 25 33 Dihydrocodeine, Ur Not Detected ng/mL Cutoff: 25 34 Hydromorphone, Ur Not Detected ng/mL Cutoff: 25 35 Klqbllnflcsfi5flrgjshwngpnwel Not Detected ng/mL 36 Oxycodone, Ur Not Detected ng/mL Cutoff: 25 37 Noroxycodone, Ur Not Detected ng/mL Cutoff: 25 38 Oxymorphone, Ur Not Detected ng/mL Cutoff: 25 39 Gxzfzjpfwys-0-yhiu-glucuronide Not Detected ng/mL 40 Noroxymorphone, Ur Not Detected ng/mL Cutoff: 25 41 Fentanyl, Ur Not Detected ng/mL Cutoff: 2 42 Norfentanyl, Ur Not Detected ng/mL Cutoff: 2 43 Meperidine, Ur Not Detected ng/mL Cutoff: 25 44 Normeperidine, Ur Not Detected ng/mL Cutoff: 25 45 Naloxone, Ur Not Detected ng/mL Cutoff: 25 46 Khnkgekw-4-mttk-glucuronide, U Not Detected ng/mL 47 Methadone, Ur [...] Ur Not Detected ng/mL Cutoff: 50 55 Hjukzzjepu-oibj-myvtgcufuxg, U Not Detected ng/mL 56 Buprenorphine, Ur [...] immediately to secondary confirmatory testing. Using the [employer] DxI 800 Access Immunoassay systems, the 99th percentile upper reference limit was demonstrated to be < 0.03 ng/mL. 4 SEE RESULT BELOW Name: REJI ALMENDAREZ Kelly : [address]: Carlos Tapia MD Acct: [id number] Unit: [id number] AGE: 74 Location: ED Re06/12/19 SEX: F Status: DEP ER SPEC: [id number] BALDEV: 06/12/[address]: Carlos Tapia MD REQ: [id number] RECD: 06/12/19 STATUS: DAYNE ALVAREZ DR: Palma Slaughter MD _ SOURCE: URINE SPDESC: ORDERED: Urine Culture Procedure Result Reported Site Urine Culture Final 06/13/19- 1558 ML No Growth (<1,000 CFU/mL) * ML - Main Lab . END OF REPORT DEPARTMENT OF PATHOLOGY, [address] [place] [address] Weston Laura M.D. Director [facility] # [id number] 5 Because ethnic data is not always [...] immediately to secondary confirmatory testing. Using the [employer] Access Immunoassay systems, the 99th percentile upper [...] immediately to secondary confirmatory testing. Using the [employer] DxI 800 Access Immunoassay systems, the 99th percentile upper reference limit was demonstrated to be < 0.03 ng/mL. 11 [id number] 12 [id number] 13 [id number] 14 [id number] 15 Would you like to order Trichomonas Vaginalis RNA testing? N [id number] 16 SEE RESULT BELOW Name: REJI ALMENDAREZ : [address]: Alexandrea Cross MD Acct: [id number] Unit: [id number] AGE: 74 Location: [facility] Re02/15/19 SEX: F Status: DEP ER SPEC: [id number] BALDEV: 02/15/19 [facility] DR: Alexandrea Cross MD REQ: [id number] RECD: 02/16/19 STATUS: DAYNE ALVAREZ DR: Palma Slaughter MD _ SOURCE: VAGINAL SPDESC: ORDERED: Lane,Yeast DNA COMMENTS: Would you like to order Trichomonas Vaginalis RNA testing? N [id number] Procedure Result Reported Site Gardnerella/Yeast: Vaginal DNA [...] . END OF REPORT DEPARTMENT OF PATHOLOGY, [address] [place] [address] Weston Laura M.D. Director [facility] # [id number] 17 [id number] SEE RESULT BELOW Name: REJI ALMENDAREZ : [address]: Alexandrea Cross MD Acct: [id number] Unit: [id number] AGE: 74 Location: [facility] Re02/15/19 SEX: F Status: DEP ER SPEC: [id number] BALDEV: 02/15/19-1707 [facility] DR: Alexandrea Cross MD REQ: [id number] RECD: 02/16/19 STATUS: DAYNE ALVAREZ DR: Palma Slaughter MD _ SOURCE: URINE SPDESC: ORDERED: Urine Culture COMMENTS: [id number] Procedure Result Reported Site Urine Culture Final 02/18/19- 0854 ML Organism 1 PROTEUS MIRABILIS [place] Count 10-25,000 (Moderate) CFU/ML Organism 2 NORMAL CHASTITY [place] Count 1-10,000 (Few) CFU/ML 1. PROTEUS MIRABILIS [...] . END OF REPORT DEPARTMENT OF PATHOLOGY, [address] [place] [address] Weston Laura M.D. Director [facility] # [id number] 19 Museum Specialist: [id number] DO THIS IN ABOUT 6 WEEK [...] 100 31 Metabolite of heroin 32 Lortab, [place], Vicodin; Also a very minor metabolite of [...] its performance characteristics determined by [facility] in a manner consistent with CLIA requirements. This test has not been cleared or approved by the U.S. Food and Drug Administration. Test Performed by: [facility] [address] [place] [address] Procedures Date Code Description Status 04/26/2019 94864 ECHO Transthoracic, Real-Time 2D With Doppler And Completed Color Flow 04/26/2019 74546 ECHO Transthoracic, Real-Time 2D With Doppler And Completed Color Flow 12/27/2018 [id number] Diabetic Retinal Eye Exam Completed 10/05/2017 [id number] Diabetic Retinal Eye Exam Completed 11/21/2015 [id number] Bone Mineral Density Test Completed 08/07/2015 16295102 Mammogram Completed 02/16/2013 04675665 Colonoscopy Completed Medical Devices Description No Information Available Encounters Type Date Location Provider Dx Diagnosis Office Visit 06/02/2019 [facility] Internal Palma Slaughter, Z00.00 Encntr for 10:20a Leslie Gallagher M.D. general adult medical exam w/o abnormal findings K44.9 Diaphragmatic hernia without obstruction or gangrene Z12.31 Encntr screen mammogram for malignant neoplasm of breast I10 Essential (primary) hypertension 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, not elsewhere classified M51.36 Other intervertebral disc degeneration, lumbar region M46.1 Sacroiliitis, not elsewhere classified M54.30 Sciatica, unspecified side Office Visit 05/03/2019 11:40a [facility] Internal Tejal Johnson, J45.41 Moderate Medicine - Aileen N.P. 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 w/o perforation Ccmob or abscess w/o bleeding M13.0 Polyarthritis, unspecified Office Visit 02/22/2019 [facility] Internal Palma E03.9 Hypothyroidism, 3:00p Leslie Slaughter M.D. unspecified Ccmob G43.009 Migraine w/o aura, not intractable, w/o status migrainosus R07.9 Chest pain, unspecified I10 Essential (primary) hypertension N81.6 Rectocele Office Visit 02/16/2019 11:00a [facility] Internal Zsofia E03.9 Hypothyroidism, Medicine Gladys Wayk, SYSTEM ADMINISTRATION MANAGER unspecified Ccmob N39.0 Urinary tract infection, site not specified N81.89 Other female genital prolapse Office Visit 02/03/2019 10:30a [facility] Dermatology Mike Yentzer, L30.4 Erythema MD shetty L82.1 Other seborrheic keratosis L91.8 Other hypertrophic disorders of the skin Office 01/26/2019 Neurosurgery Vassilios 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 AT [place] radiculopathy, lumbar region Office 01/21/2019 Moe Membreno, M16.12 Unilateral primary Visit 1:15p Orthopedics at .[place] osteoarthritis, [place] left hip M16.11 Unilateral primary osteoarthritis, right hip Z68.39 Body mass index (BMI) 39.0-39.9, adult E66.01 Morbid (severe) obesity due to excess calories M25.552 Pain in left hip M25.551 Pain in right hip M54.31 Sciatica, right side M54.32 Sciatica, left side Office Visit 01/04/2019 11:45a Pulmonology And Marcy G47.33 Obstructive sleep Sleep Services Of MD Varinder apnea (adult) [facility] (pediatric) J45.909 Unspecified asthma, uncomplicated Assessments Date [...] Obstructive sleep apnea (adult) Isiah Goldsmith, DO [facility] (pediatric) 04/14/2019 I27.20 Pulmonary hypertension, unspecified [...] 1:30 pm - Nurse Holter Monitor at [facility] Internal Medicine - [facility]08/11/2019 11:00 am - Tim Winchester M.D. at Rheumatology Services Of [facility]09/22/2019 10:40 am - Palma Slaughter M.D. at [facility] Internal Medicine - [facility]07/07/2019 11:30 am - Marcy Reeder MD at Pulmonology And Sleep Services [facility]06/14/2019 - Palma Slaughter M.D.R00.2 NbmuwsryjxxrK33.0 Localized edemaComments:Your heart, kidney and liver function [...] Dr. Vazquez Not scheduled yet 06/14/[address] [place], [place] [address] [phone] Tim Winchester MD Multiple pain issues. See [facility] Sent 2018 neuromuscular center evaluation for extensive blood testing for autoimmune and other disease [address] [place], [place] [address] [phone] Raj Garcia MD Refaxed referral 05/11/19 they didn't rec Sent before. [address] [place] [address] [phone] Jose Luis Jarrell MD please call patient to schedule appointment -Thanks Sent [address] [place] [address] [phone] Corrie Christine M.D. Called referral office, automated machine Sent stated that pts are not seen at that office 04/29 [address] [facility] [address] [place], [place] [address] [phone] Kelley Guzman MD patient request; Sent [address] [place] [address] [phone] Pete Schilling MD Hypothyroidism and concerns about side Patient Notified 05/2019 effects from cortisone injection in the hip [address] [place] [address] [phone] Jaylen Khan MD spine clinic Created [address] [facility], [place] [address] [phone] Keely Shahid MD patient request Sent [address] [place], [place] [address] [phone] Michel Funk MD Sent 03/08/2019 [address] [place] [address] [phone]
--- OUTSIDE RECORDS SUMMARY | 2019-07-04 17:21 | XMS REPORT | Continuity of Care Document ---
:1945 External Reference #:[id number] Author Name Palma Slaughter M.D. (transmitted by agent of provider More Lerner) Address [address] [facility], [place] [address] Care Team Providers Name Role Phone Keith Pope MD - Internal Care Team Information Barrel Loader And Cleaner Medicine Miroslava Membreno MD - Adult Care Team Information Barrel Loader And Cleaner [phone] Reconstructive Orthopaedic Surgery Juan Garcia MD - Care Team Information Barrel Loader And Cleaner [phone] Otolaryngology Jenelle Singleton MD - Surgery Care Team Information Barrel Loader And Cleaner Milton Bradford MD - Allergy & Care Team Information Barrel Loader And Cleaner [phone] Immunology Palma Slaughter MD - Internal Care Team Information Barrel Loader And Cleaner [phone] Medicine [facility] - Pain Care Team Information Barrel Loader And Cleaner [phone] Michel Funk MD - Care Team Information Barrel Loader And Cleaner [phone] Gastroenterology Keely Shahid MD - Physical Care Team Information Barrel Loader And Cleaner [phone] Medicine & Rehabilitation Pete Schilling MD - Endocrinology, Care Team Information Bar[employer] Loader And Cleaner Diabetes & Metabolism Kelley Guzman MD - Care Team Information Barrel Loader And Cleaner [phone] Obstetrics & Gynecology Nathaly Rizzo M.D. - Neurology Care Team Information Barrel Loader And Cleaner Raj Garcia MD - Care Team Information Barrel Loader And Cleaner [phone] Rheumatology Jose Luis Jarrell MD - Gastroenterology Care Team Information Barrel Loader And Cleaner Yaakov Vazquez MD - Gastroenterology Care Team Information Barrel Loader And Cleaner [phone] Tim Winchester MD - Rheumatology Care Team Information Barrel Loader And Cleaner Problems Active Problems Provider Date Mitochondrial myopathy Jamal Sheridan M.D.,FAC Onset: 11/07/2016 Note: red ragged fibers Obstructive sleep apnea of adult Mady Maldonado DNP, RN, [employer]LECTION WORKER- Onset: 05/2015 Aortic stenosis, non-rheumatic Jamal Sheridan [...] apnea syndrome Magnus Lucas M.D. Onset: 02/07/2016 Asthma without status asthmaticus Marcy Reeder MD Onset: 02/14/2016 Peanut-induced anaphylaxis Giulia Hanks M.D. Onset: 03/06/2016 Celiac disease Jamal Sheridan M.D.,[facility] Onset: 11/07/2016 Localized, primary osteoarthritis of Miroslava Membreno M.D. Onset: 04/06/2017 the pelvic region and thigh History of Mohsen Slaughter M.D. Onset: 06/30/2019 Social History Type Date Description Comments Sex Unknown Tobacco Use Start: Unknown End: Former Cigarette Smoker 00/00/00 Smoking Status Reviewed: 06/30/19 Former Cigarette Smoker ETOH Use 11/07/2016 Denies alcohol use Tobacco Use Start: Unknown End: Patient is a former smoker Unknown Recreational Drug Use Denies Drug Use Smoking when 17 years old for 2 years, then quit Exercise Type/Frequency arm chair exercises; yoga [place] Exercise Type/Frequency Exercises sporadically Allergies, Adverse [...] mouth, sores on tongue Inactive Allergies Versed SKID ROAD WORKER Reaction 12/14/2014 Flonase Anaphylaxis Severe 11/15/2015 Verapamil 06/03/2016 Medications Active Medications SIG Qnty Indications Ordering Provider Date Nystatin apply three 90gm B37.9 Palma Cotton, 06/30/2019 850382Jefh/GM times a day as M.D. Cream needed PLNT Whole Food 3 PO qd Palma Slaughter, 06/30/2019 Women's Multivitamin M.D. Potassium 1 PO qd Palma Slaughter, 06/14/2019 99mg Tablets M.D. Electric Wheelchair For daily use 1units G71.3 Palma Monahans, 2018 M.D. M51.36 M46.1 Nystatin 5cc, swish and 60ml Marcy Varinder, 05/19/2019 466257Glrq/ML spit, twice daily MD Suspension Furosemide 1-2 by mouth once 60tabs [facility], 04/12/2019 20mg Tablets daily as needed for M.D. edema Flovent Diskus 2 puff twice a day [facility], 04/11/2019 M.D. 50mcg/Blist Aerosol Lactobacillus 1 by mouth twice a 60tabs Other Ordering 03/11/2019 Tablets day Provider Carafate one tablet on empty 30tabs Other Ordering 03/11/2019 1gm Tablets stomach one hour Provider before meals daily. Hydrocodone-Acetaminop 1 or 2 tabs by 30tabs M25.552 [facility], hen mouth every 6-8 M.D. 5-325mg Tablets hours as needed for pain Ondansetron as needed 30tabs [facility], 08/30/2018 8mg Tablets M.D. Dispers Flonase Allergy Relief Twice Daily 1units Unknown 07/14/2018 50mcg/Act Suspension Megazymes 1 PO with every Palmajulia Slaughter, 05/28/2018 meal M.D. Cassie Allergy 1 by mouth every Isiah Goldsimth, 10/12/2017 60mg day prn DO FACC Tablets Roller Walker 4 wheel rolling M16.11 Miroslava Membreno, 04/08/2017 Misc walker with seat M.D. Verapamil HCL take 4 tablet in 540tabs Isiah Goldsmith, 09/05/2016 40mg the morning and 4 DO FACC Tablets tab at night daily Exedrin Migraine as needed Giulia Hanks, 04/03/2016 M.D. Oxygen 1 l nc at bedtime 1units Other Ordering 03/25/2016 [facility] Provider Nystatin-Triamcinolone apply small amount Unknown 02/12/2015 on affected areas 484206-2.1Unit/GM-% as needed Cream Folic Acid 1 by [...] needed Lactulose 15-30 ML PO qd 473ml [facility], 02/12/2015 10GM/15ML M.D. Solution Synthroid 4 by mouth every 150tabs [facility], 02/12/2015 50mcg Tablets day, 3.5 tablets sa M.D. and ferris. Guaifenesin-Codeine Take 5-10 Unknown Milliliters Every 100-10mg/5ML Solution 4-6 Hours as Needed For Cough. Epipen 2-Arnaldo use as directed Unknown 0.3mg/0.3ML Solution Auto-Inject Diltiazem Ointment 2% Apply bid for anal Unknown fissure Esomeprazole Magnesium 1 by mouth two Unknown times per day 20mg Capsules DR Simethicone [...] 1 vial every 4 36ml J45.41 Tejal Elizabeth, 1.25mg/3ML hours as needed- N.P. Nebulizer last [...] po qday Unknown (Phytonadione) Tablets History Medications Cephalexin three times a day 21caps Palma 06/17/2019 - 500mg Capsules for 7 days Sathish Slaughter 06/25/2019 Doxycycline Hyclate one tablet twice 14caps Marcy Varinder, 05/16/2019 - 100mg daily for 7 days. [...] Available Vital Signs Date Vital Result Comment 06/30/2019 4:40pm Height 66 inches 5'6" Weight 257.00 lb Heart Rate 90 /min BP Systolic 202 mmHg BP Diastolic 94 mmHg Body Temperature 98.0 F O2 % BldC Oximetry 96 % BMI (Body Mass Index) 41.5 kg/m2 06/14/2019 12:06pm Height 66 inches 5'6" Weight 264.00 lb Heart Rate 104 /min BP Systolic 187 mmHg BP Diastolic 93 mmHg O2 % BldC Oximetry 92 % BMI (Body Mass Index) 42.6 kg/m2 Results Test Date Facility Test Result H/L Range Note CBC Auto 06/12/2019 [facility] White Blood 7.4 10^3/uL Normal 3.5-10.[address] [place] [address] [phone] Red Blood Count 4.96 10^6/uL High 3.70-4.87 [...] Red Blood Cells % 0.1 Laboratory 06/12/2019 [facility] B-Type 54 pg/mL <=100 test finding [address] [place] [address] Peptide BNP [phone] Inr/Protime 06/12/2019 [facility] Inr 0.91 Normal 0.82-1.09 1 [address] [place] [address] [phone] Comp Metabolic 06/12/2019 [facility] Sodium 138 Normal 135- [address] mmol/[place] [address] [phone] Potassium 4.0 mmol/L Normal 3.5-5.0 Chloride 102 [...] Egfr 72.0 >60 2 Laboratory test 06/12/2019 [facility] Creatine 118 U/L Normal 10-223 finding [address] [facility] Kinase(CK) [place] [address] [phone] C Reactive Protein 6.42 mg/L Normal <8.01 Troponin-I (TnI) 0.02 ng/mL <0.04 3 CKMB 06/12/2019 [facility] CKMB ng/mL 4.3 ng/mL Normal 0.6- 6.3 [address] [place] [address] [phone] Urinalysis 06/12/2019 [facility] Urine Color Straw Profile [address] [place] [address] [phone] Urine Appearance Clear Urine Specific Mancos 1.006 Low 1.010-1.030 Urine pH 7.0 Normal [...] Present Abnormal Absent Urine Culture And 06/12/2019 [facility] Urine SEE RESULT [address] [place] [address] [phone] Laboratory test 03/14/2019 [facility] T3 Free 2.70 pg/mL Normal 2.5-[address] [place] [address] [phone] Basic Metabolic 03/14/2019 [facility] Sodium 141 mmol/L Normal 135-[address] [place] [address] [phone] Potassium 4.0 mmol/L Normal 3.5-5.0 Chloride 104 mmol/L Normal 101-111 Co2 Carbon Dioxide 28 mmol/L Normal 22-32 Anion Gap 9 mmol/L Normal 2-11 Glucose 107 mg/dL High 70-100 Blood Urea Nitrogen 10 mg/dL Normal 6-24 Creatinine 0.61 mg/dL Normal 0.51-0.95 BUN/Creatinine Ratio 16.4 Normal 8-20 Calcium 9.7 mg/dL Normal 8.6-10.3 Egfr Non- 95.6 >60 Egfr 115.7 >60 5 Laboratory 03/14/2019 [facility] TSH (Thyroid 1.66 Normal 0.34 -5.60 test finding [address] Stim Horm) mcIU/[place] [address] [phone] Free T4 (Free Thyroxine) 1.04 ng/dL Normal 0.61-1.12 CBC Auto 02/18/2019 [facility] White Blood 8.5 10^3/uL Normal 3.5-10.[address] [place] [address] [phone] Red Blood Count 5.02 10^6/uL High 3.70-4.87 [...] Red Blood Cells % 0.0 Inr/Protime 02/18/2019 [facility] Inr 0.91 Normal 0.82-1.[address] [place] [address] [phone] Laboratory 02/18/2019 [facility] D Dimer < 200 Normal Less Than 7 test finding [address] Quantitative ng/mL 230 [place] [address] [phone] Comp Metabolic 02/18/2019 [facility] Sodium 137 Normal 135- [address] mmol/[place] [address] [phone] Potassium 4.0 mmol/L Normal 3.5-5.0 Chloride 102 [...] Egfr Non- 77.7 >60 Egfr 94.0 >60 8 Laboratory test 02/18/2019 [facility] Troponin-I (TnI) 0.03 ng/ mL <0.04 [address] [place] [address] [phone] TSH (Thyroid Stim Horm) 1.29 mcIU/mL Normal 0.34-5.60 T3 Free 3.10 pg/mL Normal 2.5-3.9 Free T4 (Free Thyroxine) 1.02 ng/dL Normal 0.61-1.12 B-Type Natriuretic Peptide BNP 74 pg/mL <=100 Laboratory 02/18/2019 [facility] Troponin-I 0.02 <0.[address] (TnI) ng/[place] [address] [phone] Laboratory 02/15/2019 [facility] TSH (Thyroid 1.07 Normal 0.34 -5.6 11, test finding [address] Stim Horm) mcIU/mL 0 12 [place] [address] [phone] T3 Free 3.20 pg/mL Normal 2.5-3.9 13 Free T4 (Free Thyroxine) 0.91 ng/dL Normal 0.61-1.12 14 Laboratory test 02/15/2019 [facility] Gardnerella/Yeast: SEE 15, finding [address] Vaginal Dna RESULT 16 [place] [address] BELOW [phone] Urine Culture 02/15/2019 [facility] Urine Culture SEE 17, And [address] RESULT 18 [place] [address] BELOW [phone] Poc Urinalysis 02/15/2019 [facility] Poc Glucose, Urine Negative Negative [address] [place] [address] [phone] Poc Bilirubin, Urine Negative Negative Poc Ketone, Urine Negative Negative Poc Specific Mancos, Urine 1.015 Normal 1.010-1.030 Poc Blood, Urine Negative Negative Poc pH, Urine 7.0 Normal 5-9 Poc Protein, Urine Negative Negative Poc Urobilinogen, Urine 0.2 Negative Poc Nitrite, Urine Negative Negative Poc Leukocytes, Urine 1+ Abnormal Negative Poc Color, Urine Yellow Poc Clarity, Urine Clear 19 Laboratory test 01/27/2019 [facility] TSH (Thyroid 0.33 Low 0.34-5.60 [address] Stim Horm) mcIU/[place] [address] [phone] 1 Standard intensity warfarin therapeutic range: 2.0-3.0 [...] immediately to secondary confirmatory testing. Using the Rawporter DxI 800 Access Immunoassay systems, the 99th percentile upper reference limit was demonstrated to be < 0.03 ng/mL. 4 SEE RESULT BELOW Name: REJI ALMENDAREZ : [address]: Carlos Tapia MD Acct: [id number] Unit: [id number] AGE: 74 Location: ED Re06/12/19 SEX: F Status: DEP ER SPEC: [id number] BALDEV: 06/12/19-[address]: Carlos Tapia MD REQ: [id number] RECD: 06/12/19 STATUS: COMP [facility] DR: Palma Slaughter MD _ SOURCE: URINE SPDESC: ORDERED: Urine Culture Procedure Result Reported Site Urine Culture Final 06/13/19- 1558 ML No Growth (<1,000 CFU/mL) * ML - Main Lab . END OF REPORT DEPARTMENT OF PATHOLOGY, [address] [place] [address] Weston Laura M.D. Director [facility] # [id number] 5 Because ethnic data is not always [...] 5 Kidney failure <15 (or dialysis) 6 Standard intensity warfarin therapeutic range: 2.0-3.0 High intensity warfarin therapeutic range: 2.5-3.5 7 Please note: The following may produce a false positive D Dimer test: - Rheumatoid factor greater than 60 IU/ml - Plasma hemoglobin greater than 0.05 gm/dl - Bilirubin greater than 50 mg/dl - Lipids greater than 1000 mg/dl - FDP greater than 20 ug/ml 8 Because ethnic data is not always readily [...] 15-29 5 Kidney failure <15 (or dialysis) 9 Troponin-I testing on Plasma Separator Tubes (PST) has a known false positive rate of 0.20-0.40%. All positive troponins reflex immediately to secondary confirmatory testing. Using the Rawporter DxI 800 Access Immunoassay systems, the 99th percentile upper reference limit was demonstrated to be < 0.03 ng/mL. 10 Troponin-I testing on Plasma Separator Tubes (PST) has a known false positive rate of 0.20-0.40%. All positive troponins reflex immediately to secondary confirmatory testing. Using the Rawporter DxI 800 Access Immunoassay systems, the 99th percentile upper reference limit was demonstrated to be < 0.03 ng/mL. 11 [id number] 12 [id number] 13 [id number] 14 [id number] 15 Would you like to order Trichomonas Vaginalis RNA testing? N [id number] 16 SEE RESULT BELOW Name: ERICKSONREJI L : [address]: Alexandrea Cross MD Acct: [id number] Unit: [id number] AGE: 74 Location: [facility] Re02/15/19 SEX: F Status: DEP ER SPEC: [id number] BALDEV: 02/15/[address] [facility] [address]: Alexandrea Cross MD REQ: [id number] RECD: 02/16/19 STATUS: DAYNE ALVAREZ DR: Palma Slaughter MD _ SOURCE: VAGINAL SPDESC: ORDERED: Lane,Yeast DNA COMMENTS: Would you like to order Trichomonas Vaginalis RNA testing? N [id number] Procedure Result Reported Site Gardnerella/Yeast: Vaginal DNA [...] . END OF REPORT DEPARTMENT OF PATHOLOGY, [address] [place] [address] Weston Laura M.D. Director [facility] # [id number] 17 [id number] 18 SEE RESULT BELOW Name: REJI ALMENDAREZ : [address]: Alexandrea Cross MD Acct: [id number] Unit: [id number] AGE: 74 Location: [facility] Re02/15/19 SEX: F Status: DEP ER SPEC: [id number] BALDEV: 02/15/19-[address]: Alexandrea Cross MD REQ: [id number] RECD: 02/16/19 STATUS: DAYNE ALVAREZ DR: Palma Slaughter MD _ SOURCE: URINE SPDESC: ORDERED: Urine Culture COMMENTS: [id number] Procedure Result Reported Site Urine Culture Final 02/18/19- 0854 ML Organism 1 PROTEUS MIRABILIS [place] Count 10-25,000 (Moderate) CFU/ML Organism 2 NORMAL CHASTITY [place] Count 1-10,000 (Few) CFU/ML 1. PROTEUS MIRABILIS [...] . END OF REPORT DEPARTMENT OF PATHOLOGY, [address] [place] [address] Weston Laura M.D. Director [facility] # [id number] 19 Participant Administrator: [id number] 20 DO THIS IN ABOUT 6 WEEK - MID SEPTEMBER Procedures Date Code Description Status 06/14/2019 69376 Holter Monitor Review (24 hr)dr review & interp only Completed 06/14/2019 56298 ECG Monitor/Recording W/Visual Superimposition Completed Scanning 04/26/2019 86311 ECHO Transthoracic, Real-Time 2D With Doppler And Completed Color Flow 04/26/2019 95181 ECHO Transthoracic, Real-Time 2D With Doppler And Completed Color Flow 12/27/2018 054140677 Diabetic Retinal Eye Exam Completed 10/05/2017 122604545 Diabetic Retinal Eye Exam Completed 11/21/2015 295009033 Bone Mineral Density Test Completed 08/07/2015 64149794 Mammogram Completed 02/16/2013 66828453 Colonoscopy Completed Medical Devices Description No Information Available Encounters Type Date Location Provider Dx Diagnosis Office Visit 06/14/2019 [facility] Internal Palma Sukhjinder, R00.2 Palpitations 11:40a Medicine - Aileen Bower R60.0 Localized edema Office Visit 06/02/2019 10:20a [facility] Internal Palma Z00.00 Encntr for Medicine Gladys Slaughter M.D. general adult medical exam w/o abnormal findings K44.9 Diaphragmatic hernia without obstruction or gangrene Z12.31 Encntr screen mammogram for malignant neoplasm of breast I10 Essential (primary) hypertension 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, not elsewhere classified M51.36 Other intervertebral disc degeneration, lumbar region M46.1 Sacroiliitis, not elsewhere classified M54.30 Sciatica, unspecified side Office Visit 05/03/2019 11:40a [facility] Internal Tejal Johnson, J45.41 Moderate Medicine - Mirianob N.P. 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 unspecified [facility] G43.009 Migraine w/o aura, not intractable, w/o status migrainosus R07.9 Chest pain, unspecified I10 Essential (primary) hypertension N81.6 Rectocele Office Visit 02/16/2019 11:00a [facility] Internal Zsofia E03.9 Hypothyroidism, Medicine Gladys Ann, SOLID [employer]LECTION WORKER unspecified [facility]ob N39.0 Urinary tract infection, site not specified N81.89 Other female genital prolapse Office Visit 02/03/2019 10:30a [facility] Dermatology Mike Figueroa, L30.4 Erythema intertashwin L82.1 Other seborrheic keratosis L91.8 Other hypertrophic disorders of the skin Office 01/26/2019 Neurosurgery Vassilios 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 AT [facility] radiculopathy, lumbar region Office 01/21/2019 Moe Membreno, M16.12 Unilateral primary Visit 1:15p Orthopedics at [facility] osteoarthritis, [place] left hip M16.11 Unilateral primary osteoarthritis, right hip Z68.39 Body mass index (BMI) 39.0-39.9, adult E66.01 Morbid (severe) obesity due to excess calories M25.552 Pain in left hip M25.551 Pain in right hip M54.31 Sciatica, right side M54.32 Sciatica, left side Office Visit 01/04/2019 11:45a Pulmonology And Marcy G47.33 Obstructive sleep Sleep Services Of MD Varinder apnea (adult) [facility] (pediatric) J45.909 Unspecified asthma, uncomplicated Assessments Date Code Description Provider 06/30/2019 B37.9 Candidiasis, unspecified Palma Slaughter M.D. 06/30/2019 R21 Rash and other nonspecific skin eruption Palma Slaughter M.D. 06/30/2019 E03.9 Hypothyroidism, unspecified Palma Slaughter M.D. 06/14/2019 R00.2 Palpitations Im Nurse Holter Monitor 06/14/2019 R00.2 Palpitations Palma Slaughter M.D. 06/14/2019 [...] FACC 04/14/2019 I10 Essential (primary) hypertension Isiah Goldsmith, DO FACC 04/14/2019 I11.9 Hypertensive heart disease without heart Isiah Goldsmith DO FACC failure 04/14/2019 E66.8 Other obesity Isiah Goldsmith DO FACC 04/14/2019 G47.33 Obstructive sleep apnea (adult) Isiah Goldsmith, DO FAC (pediatric) 04/14/2019 I27.20 Pulmonary hypertension, unspecified Isiah Goldsmith, DO FACC 03/15/2019 E03.9 Hypothyroidism, unspecified Pete Schilling MD [...] M.D. 01/21/2019 M54.32 Sciatica, left side Miroslava Membrneo M.D. 01/04/2019 G47.33 Obstructive sleep apnea (adult) Marcy Reeder MD (pediatric) 01/04/2019 J45.909 Unspecified asthma, uncomplicated Marcy Reeder MD Plan of Treatment Future Appointment(s):08/11/2019 11:00 am - Tim Winchester M.D. at [facility]09/22/2019 10:40 am - Palma Slaughter M.D. at [facility] Internal Medicine - Ccmob07/07/2019 11:30 am - Marcy Reeder MD at [facility]06/30/2019 - Palma Slaughter M.D.B37.9 Candidiasis, unspecifiedNew Medication:Nystatin 117782 Unit/GM - apply three times a day as neededComments:Continue econazole and switch to Nystatin when neededCornstarch may be helpful in preventing moreR21 Rash and other nonspecific skin eruptionComments:See Dr. BradfordReferral:Milton Bradford MD, Allergy & PpfcwikulhO54.9 Hypothyroidism, unspecifiedNew Labs:TSH (Thyroid Stim Horm), Ordered: 06/30/19 Functional Status Functional Condition Comment Date Status Rolling walker is used to ambulate Active Mental Status Description No Information Available Referrals Refer to Dr Reason for Referral Status Appt Date Milton Bradford MD Created [address] [facility] [place] [address] [place] [address] [phone] Yaakov Vazquez MD hiatal hernia, used to see Dr. Putnam, Received Partial 07/06/[address] Vazquez Not scheduled yet 06/14/2019 D6 [address] [place], [place] [address] [phone] Tim Winchester MD Multiple pain issues. See [facility] Sent 2018 neuromuscular center evaluation for extensive blood testing for autoimmune and other disease [address] [place], [place] [address] [phone] Raj Garcia MD Refaxed referral 05/11/19 they didn't rec Sent before. S[address] [place] [address] [phone] Jose Luis Jarrell MD please call patient to schedule appointment -Thanks Sent [address] [place] [address] [phone] Corrie Christine M.D. Called referral office, automated machine Sent stated that pts are not seen at that office 04/29 [address] [facility] [address] [place], [place] [address] [phone] Kelley Guzman MD patient request; Sent [address] [place] [address] [phone] Pete Schilling MD Hypothyroidism and concerns about side Patient Notified 05/2019 effects from cortisone injection in the hip [address] [place] [id number] [phone] Jaylen Khan MD spine clinic Created [address] [place] [address] [phone] Keely Shahid MD patient request Sent [address] [place] [address] [phone] Michel Funk MD Sent 03/08/[address] [place] [address] [phone]
[2019-07-04 17:56] VITALS: BP 196/96
--- NOTE | 2019-07-04 19:26 | UC ---
Lower Extremity/Ankle HPI - HPI Summary HPI Summary: 74-year-old woman comes in with a chief complaint of left foot pain. 2 days ago the second third toes got struck by a metal door. Worst pain is in the third toe and it radiates up the dorsum of the foot at the ankle. Pain is worse with any type of weightbearing. No loss of sensation. No skin break. - History of Current Complaint Chief Complaint: UCLowerExtremity Stated Complaint: L FOOT INJURY Time Seen by Provider: 07/04/19 19:09 Pain Intensity: 8 - Allergies/Home Medications Allergies/Adverse Reactions: Allergies Allergy/AdvReac Type Severity Reaction Status Date / Time albuterol Allergy Severe Swelling Verified 06/12/19 15:35 Of Face,Lips,& Throat fluticasone Allergy Severe Swelling Verified 06/12/19 15:35 Of Face,Lips,& Throat lidocaine Allergy Severe Swelling Verified 06/12/19 15:35 pirbuterol Allergy Severe Swelling Verified 06/12/19 15:35 Of Face,Lips,& Throat salmeterol Allergy Severe Swelling Verified 06/12/19 15:35 Of Face,Lips,& Throat amlodipine Allergy Intermediate Swelling Verified 06/12/19 15:35 clindamycin Allergy Intermediate Hives Verified 06/12/19 15:35 Iodinated Contrast Media Allergy Intermediate Itching Verified 06/12/19 15:35 [Iodinated Contrast- Oral and IV Dye] iodine Allergy Intermediate Swelling Verified 06/12/19 15:35 latex Allergy Intermediate Rash Verified 06/12/19 15:35 levofloxacin Allergy Intermediate Hives Verified 06/12/19 15:35 metoprolol Allergy Intermediate Rash Verified 06/12/19 15:35 Penicillins Allergy Intermediate Hives Verified 06/12/19 15:35 rofecoxib Allergy Intermediate Hives Verified 06/12/19 15:35 streptomycin Allergy Intermediate Hives Verified 06/12/19 15:35 Sulfa (Sulfonamide Allergy Intermediate GI Upset Verified 06/12/19 15:35 Antibiotics) atenolol Allergy Unknown Unknown Verified 06/12/19 15:35 Reaction Details Beta-Adrenergic Agents Allergy Unknown Unknown Verified 06/12/19 15:35 Reaction Details epinephrine Allergy Unknown Unknown Verified 06/12/19 15:35 Reaction Details hydrochlorothiazide Allergy Unknown Unknown Verified 06/12/19 15:35 Reaction Details labetalol Allergy Unknown Unknown Verified 06/12/19 15:35 Reaction Details lisinopril Allergy Unknown Unknown Verified 06/12/19 15:35 Reaction Details losartan Allergy Unknown Unknown Verified 06/12/19 15:35 Reaction Details propofol Allergy Unknown Unknown Verified 06/12/19 15:35 Reaction Details sulfite Allergy Unknown Unknown Verified 06/12/19 15:35 Reaction Details terazosin Allergy Unknown Unknown Verified 06/12/19 15:35 Reaction Details valsartan Allergy Unknown Unknown Verified 06/12/19 15:35 Reaction Details doxycycline Allergy See Comment Verified 06/12/19 15:36 peanut Allergy Anaphylatic Verified 06/12/19 15:35 Shock sulfamethoxazole Allergy Hives/Diff. Verified 07/04/19 18:00 [From Bactrim] Breathing/I tching trimethoprim [From Bactrim] Allergy Hives/Diff. Verified 07/04/19 18:00 Breathing/I tching gluten AdvReac Intermediate GI Upset Verified 06/12/19 15:35 quinalones Allergy See Comment Uncoded 04/06/19 09:53 PMH/Surg Hx/FS Hx/Imm Hx Previously Healthy: Yes Endocrine History: Hypothyroidism Cardiovascular History: Hypertension, Congestive Heart Failure Respiratory History: COPD GI/ History: Gastroesophageal Reflux - Surgical History Surgical History: Yes Surgery Procedure, Year, and Place: REMOVAL OF OVARIAN CYST AND ADHESIONS IN FALLOPIAN TUBES (1971). CERVICAL POLYP REMOVAL (1974). TUBAL LIGATION (1974). GALLBLADDER. BLADDER REPAIR (1984). UPPER LUBE COLOSTOMY AND REVERSAL. PROLAPSE OF RECTUM. OPEN REDUCTION OF LT ELBOW. AORTIC VALVE REPLACEMENT 2018-SHAH GLENNA 3-PT WILL BRING CARD-CONDITIONAL UP 3T-INSTRUCTIONS SCANNED IN CHART - Family History Known Family History: Positive: Cardiac Disease, Respiratory Disease, Other - Cancer - Social History Alcohol Use: None Substance Use Type: Prescribed Smoking Status (MU): Never Smoked Tobacco Household Exposure Type: Cigarettes - Immunization History Most Recent Influenza Vaccination: unk Most Recent Tetanus Shot: within 5 yrs. Most Recent Pneumonia Vaccination: 2010 Review of Systems All Other Systems Reviewed And Are Negative: Yes Constitutional: Positive: Negative Skin: Positive: Bruising - LEFT 3RD TOE Eyes: Positive: Negative ENT: Positive: Negative Respiratory: Positive: Negative Cardiovascular: Positive: Negative Gastrointestinal: Positive: Other - CONSTIPATION Motor: Positive: Negative Neurovascular: Positive: Negative Musculoskeletal: Positive: Other: - SEE HPI Neurological: Positive: Negative Psychological: Positive: Negative Is Patient Immunocompromised?: No Physical Exam Triage Information Reviewed: Yes Appearance: Well-Appearing, No Pain Distress, Well-Nourished Vital Signs: Initial Vital Signs Temp 98.9 F 07/04/19 17:46 Pulse 96 07/04/19 17:46 Resp 18 07/04/19 17:46 BP 196/96 07/04/19 17:46 Pulse Ox 95 07/04/19 17:46 Vital Signs Reviewed: Yes Eye Exam: Normal Eyes: Positive: Conjunctiva Clear Neck: Positive: Supple Respiratory: Positive: No respiratory distress Musculoskeletal: Positive: Other: - Left third toe is ecchymotic. Patient's tender in the second and third toe and the second and third and fourth metatarsals. Is also tender up into the ankle. There is swelling at the second third toe. Achilles tendon is intact nontender. Neurological: Positive: Alert Psychological: Positive: Age Appropriate Behavior Skin: Positive: Other - Ecchymosis of the left third toe. Normal capillary refill normal sensation. Lower Extremity Course/Dx - Course Course Of Treatment: I see a nondisplaced fracture of the left third proximal phalanx of the left third toe. No other fractures seen radiologist reading is pending. In clinic the 2 toes were lawrence taped and patient placed in a cam boot by nursing patient neurovascular intact after placement. Plan is ice and rest and immobilization and follow-up with orthopedics. - Differential Dx/Diagnosis Provider Diagnosis: Fracture of third toe, left, closed Discharge ED - Sign-Out/Discharge Documenting (check all that apply): Patient Departure All imaging exams completed and their final reports reviewed: No - Discharge Plan Condition: Stable Disposition: HOME Patient Education Materials: Toe Fracture (ED) Referrals: Palma Slaughter MD [Primary Care Provider] - Lucio Al MD [Medical Doctor] - Additional Instructions: FOLLOW UP WITH ORTHOPEDICS IF NOT COMPLETELY IMPROVED. GET RECHECKED SOONER IF YOUR CONDITION WORSENS OR ANY QUESTIONS OR CONCERNS. - Billing Disposition and Condition Condition: STABLE Disposition: Home
== END 2019-07-04 20:20 | disposition home or self-care (01) ==
LOC: UCEAST 17:15
DX: S92.912A Unspecified fracture of left toe(s), initial encounter for closed fracture (principal); I10 Essential (primary) hypertension; J44.9 Chronic obstructive pulmonary disease, unspecified; Z88.8 Allergy status to other drugs, medicaments and biological substances; Z88.4 Allergy status to anesthetic agent; Z88.1 Allergy status to other antibiotic agents; Z91.041 Radiographic dye allergy status; Z91.09 Other allergy status, other than to drugs and biological substances; Z91.040 Latex allergy status; Z88.0 Allergy status to penicillin; Z88.2 Allergy status to sulfonamides; Z91.010 Allergy to peanuts; Z91.018 Allergy to other foods; W22.8XXA Striking against or struck by other objects, initial encounter; Y92.9 Unspecified place or not applicable
CPT/HCPCS: 99212; G0463

== ENCOUNTER 2019-09-02 13:50 | Emergency (ER) | payer MEDICARE ==
--- OUTSIDE RECORDS SUMMARY | 2019-09-02 13:59 | XMS REPORT ---
:1945 Author Organization [facility] Care Team Providers Name Role Phone Unavailable Unavailable Unavailable Problems This patient has no known problems. Allergies, Adverse Reactions, Alerts Allergy Allergy Type Status Severity Reaction(s) Onset Inactive Treating Comments Name Date Date Clinician sulfite Base Active Unknown Hives 2019-03 [employer] Ingredient -10 Medications Ordered Filled Start Stop Current Ordering Indication Dosage Frequency Signature Comments Components Medication Medication Date Date Medication? Clinician (SIG) Name Name No Known No Known No None None None Medications Medications For This For This Patient Patient Procedures This patient has no known procedures. Results This patient has no known results.
--- OUTSIDE RECORDS SUMMARY | 2019-09-02 13:59 | XMS REPORT ---
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 Clinician (SIG) Name Name No Known No Known No None None None Medications Medications For This For This Patient Patient Procedures This patient has no known procedures. Results This patient has no known results.
--- OUTSIDE RECORDS SUMMARY | 2019-09-02 13:59 | XMS REPORT ---
:1945 Author Organization [facility] Care Team Providers Name Role Phone Unavailable Unavailable Unavailable Problems This patient has no known problems. Allergies, Adverse Reactions, Alerts Allergy Allergy Type Status Severity Reaction(s) Onset Inactive Treating Comments Name Date Date Clinician sulfite Base Active Unknown Hives 2019-03 [employer] Ingredient -10 Medications Ordered Filled Start Stop Current Ordering Indication Dosage Frequency Signature Comments Components Medication Medication Date Date Medication? Clinician (SIG) Name Name No Known No Known No None None None Medications Medications For This For This Patient Patient Procedures This patient has no known procedures. Results This patient has no known results.
--- OUTSIDE RECORDS SUMMARY | 2019-09-02 13:59 | XMS REPORT ---
:1945 Author Organization [facility] Care Team Providers Name Role Phone Unavailable Unavailable Unavailable Problems This patient has no known problems. Allergies, Adverse Reactions, Alerts Allergy Allergy Type Status Severity Reaction(s) Onset Inactive Treating Comments Name Date Date Clinician sulfite Base Active Unknown Hives 2019-03 [employer] Ingredient -10 Medications Ordered Filled Start Stop Current Ordering Indication Dosage Frequency Signature Comments Components Medication Medication Date Date Medication? Clinician (SIG) Name Name No Known No Known No None None None Medications Medications For This For This Patient Patient Procedures This patient has no known procedures. Results This patient has no known results.
--- OUTSIDE RECORDS SUMMARY | 2019-09-02 13:59 | XMS REPORT ---
:1945 Author Organization [facility] Care Team Providers Name Role Phone Unavailable Unavailable Unavailable Problems Condition Condition Condition Status Onset Resolution Last Treating Comments Name Details Category Date Date Treatment Clinician Date Essential Essential Diagnosis Active 2019 Akilah (primary) (primary) 7-10 Wendela hypertensio hypertensio n n Unspecified Unspecified Diagnosis Active 2019 Akilah asthma, asthma, 7-10 Wendela uncomplicat uncomplicat ed ed Gastropares Gastropares Diagnosis Active Akilah is is 7-10 Wendela Raynaud's Raynaud's Diagnosis Active 2019 Akilah [...]
--- OUTSIDE RECORDS SUMMARY | 2019-09-02 13:59 | XMS REPORT ---
:1945 Author Organization [facility] Care Team Providers Name Role Phone Unavailable [...]
--- OUTSIDE RECORDS SUMMARY | 2019-09-02 13:59 | XMS REPORT ---
:1945 Author Organization [facility] Care Team Providers Name Role Phone Unavailable [...]
--- OUTSIDE RECORDS SUMMARY | 2019-09-02 13:59 | XMS REPORT ---
:1945 Author Organization [facility] Care Team Providers Name Role Phone Unavailable Unavailable Unavailable Problems Condition Condition Condition Status Onset Resolution Last Treating Comments Name Details Category Date Date Treatment Clinician Date Essential Essential Diagnosis Active 2019 Akilah (primary) (primary) 7- Wendela hypertensio hypertensio n n Unspecified Unspecified Diagnosis Active 2019 Aiklah asthma, asthma, 7-10 Wendela uncomplicat uncomplicat ed [...]
--- OUTSIDE RECORDS SUMMARY | 2019-09-02 13:59 | XMS REPORT ---
:1945 Author Organization [facility] Care Team Providers Name Role Phone Unavailable [...]
--- OUTSIDE RECORDS SUMMARY | 2019-09-02 13:59 | XMS REPORT | Continuity of Care Document ---
:1945 External Reference #:[id number] Author Name Marcela Palmer NP (transmitted by agent of provider Tiffanie Ackerman) Address [address], [address] [place] [address] Care Team Providers Name Role Phone Keith Pope MD - Internal Care Team Information [facility] Miroslava Membreno MD - Adult Care Team Information [place] [place] [phone] Reconstructive Orthopaedic Surgery Juan Garcia MD - Care Team Information [place] [place] [phone] Otolaryngology Jenelle Singleton MD - Surgery Care Team Information [place] [place] Milton Bradford MD - Allergy & Care Team Information [facility] Immunology Palma Slaughter MD - Internal Care Team Information [facility] - Pain Care Team Information [place] [phone] Michel Funk MD - Care Team Information [place] [phone] Gastroenterology Keely Shahid MD - Physical Care Team Information [place] [phone] Medicine & Rehabilitation Pete Schilling MD - Endocrinology, Care Team Information [place] [phone] Diabetes & Metabolism Kelley Guzman MD - Care Team Information [place] [phone] Obstetrics & Gynecology Nathaly Rizzo M.D. - Neurology Care Team Information [place] Raj Garcia MD - Care Team Information [place] [phone] Rheumatology Jose Luis Jarrell MD - Gastroenterology Care Team Information [place] Yaakov Vazquez MD - Gastroenterology Care Team Information [place] Tim Winchester MD - Rheumatology Care Team Information [place] [place] Problems Active Problems Provider Date Mitochondrial myopathy Jamal Sheridan M.D.,FACP Onset: 11/07/2016 Note: red ragged fibers Obstructive sleep apnea of adult Mady Maldonado DNP, RN, [employer]- Onset: 05/2015 Aortic stenosis, non-rheumatic Jamal Sheridan [...] Onset: 02/07/2016 Asthma without status asthmaticus Marcy eReder MD Onset: 02/14/2016 Peanut-induced anaphylaxis Giulia Hanks M.D. Onset: 03/06/2016 Celiac disease Jamal Sheridan M.D.,[facility] Onset: 11/07/2016 Localized, primary osteoarthritis of Miroslava Membreno M.D. Onset: 04/06/2017 the pelvic region and thigh History of Mohsen Slaughter M.D. Onset: 06/30/2019 Social History Type Date Description Comments Sex Unknown Tobacco Use Start: Unknown End: Former Cigarette Smoker Smoking Status Reviewed: 08/25/19 Former Cigarette Smoker ETOH Use 11/07/2016 Denies alcohol use Tobacco Use Start: Unknown End: Patient is a former smoker Unknown Recreational Drug Use Denies Drug Use Smoking when 17 years old for 2 years, then quit Exercise Type/Frequency arm chair exercises; yoga [place] Chi Exercise Type/Frequency Exercises sporadically Allergies, Adverse [...] mouth, sores on tongue Inactive Allergies Versed COMPLIANCE NURSE Reaction 12/14/2014 Flonase Anaphylaxis Severe 11/15/2015 Verapamil 06/03/2016 Medications Active Medications SIG Qnty Indications Ordering Provider Date Nystatin apply three 90gm B37.9 Palma Cotton, 06/30/2019 522166Ikqf/GM times a day as M.D. Cream needed PLNT Whole Food 3 PO qd Palmajulia Slaughter, 06/30/2019 Women's Multivitamin M.D. Potassium 1 PO qd Palmajulia Slaughter, 06/14/2019 99mg Tablets M.D. Electric Wheelchair For daily use 1units G71.3 [facility], 2018 M.D. M51.36 M46.1 Nystatin 5cc, swish and 60ml Marcy Varinder, 05/19/2019 283455Lbcz/ML spit, twice daily MD Suspension Furosemide 1-2 by mouth once 60tabs [facility], 04/12/2019 20mg Tablets daily as needed for M.D. edema Flovent Diskus 2 puff twice a day [facility], 04/11/2019 M.D. 50mcg/Blist Aerosol Lactobacillus 1 by mouth twice a 60tabs Other Ordering 03/11/2019 Tablets day Provider Carafate one tablet on empty 30tabs Other Ordering 03/11/2019 1gm Tablets stomach one hour Provider before meals daily. Hydrocodone-Acetaminop 1 or 2 tabs by 30tabs M25.552 [facility], hen mouth every 6-8 M.D. 5-325mg Tablets hours as needed for pain Ondansetron as needed 30tabs [facility], 08/30/2018 8mg Tablets M.D. Dispers Flonase Allergy Relief Twice Daily 1units Unknown 07/14/2018 50mcg/Act Suspension Megazymes 1 PO with every Palma Ellsworth, 05/28/2018 meal M.D. Cassie Allergy 1 by mouth every Isiah Goldsmith, 10/12/2017 60mg day prn DO FACC Tablets Roller Walker 4 wheel rolling M16.11 Miroslava Membreno, 04/08/2017 [facility] walker with seat M.D. Verapamil HCL take 4 tablet in 540tabs Isiah Goldsmith, 09/05/2016 40mg the morning and 4 DO FACC Tablets tab at night daily Exedrin Migraine as needed Giulia Hanks, 04/03/2016 M.D. Oxygen 1 l nc at bedtime 1units Other Ordering 03/25/2016 [facility] Provider Nystatin-Triamcinolone apply small amount Unknown 02/12/2015 on affected areas 379309-3.1Unit/GM-% as needed Cream Folic Acid 1 by [...] needed Lactulose 15-30 ML PO qd 473ml [facility], 02/12/2015 10GM/15ML M.D. Solution Synthroid 4 by mouth every 150tabs [facility], 02/12/2015 50mcg Tablets day, 3.5 [...] HFA 2 puffs four times 45gm Tejal Elizabeth, 45mcg/Act a day as needed N.P. Aerosol Xopenex 1 vial every 4 36ml J45.41 Tejal Johnson, 1.25mg/3ML hours as needed- N.P. Nebulizer last [...] every day for Provider 03/13/2019 urinary complaint Immunizations Description No Information Available Vital Signs Date Vital Result Comment 08/25/2019 1:42pm Height 66 inches 5'6" Heart Rate 88 /min O2 % BldC Oximetry 97 % Neck Circumference in inches 150 80 08/11/2019 11:36am Height 66 inches 5'6" Weight 264.00 lb Heart Rate 100 /min BP Systolic Sitting 157 mmHg BP Diastolic Sitting 76 mmHg Respiratory Rate 20 /min Body Temperature 98.0 F Pain Level 8 mostly in low back, along both sides of legs O2 % BldC Oximetry 92 % BMI (Body Mass Index) 42.6 kg/m2 Results Test Acquired Date Facility Test Result H/L Range Note Laboratory test 08/19/2019 [facility] Acth 7.3 pg/mL [address] [place] [address] [phone] Vitamin B12 And 08/11/2019 [facility] Vitamin B12 556 pg/mL Normal 180-914 2 [place] [address] [phone] Folic Acid (Folate) 5.49 ng/mL >3.99 Laboratory test 08/11/2019 [facility] Cryoglobulin Negative % ppt Negative [address] [place] [address] [phone] C Reactive Protein 8.60 mg/L High <8.01 Erythrocyte Sed Rate 10 mm/Hr Normal 0-29 Magnesium 1.9 mg/dL Normal 1.9-2.7 Vitamin B6 <pending> Laboratory test finding 08/11/[address] [facility] Acth <pending> [place] [address] [phone] Free Cortisol Serum <pending> Angiotensin Converting Enzyme <pending> Laboratory test 08/11/2019 [facility] Rheumatoid < 10 IU/mL Normal <[address] [place] [address] [phone] Cyclic Citrullinated Pep Igg <pending> Hla B27 <pending> Laboratory test 08/11/2019 [facility] Vitamin D 32.0 ng/mL Normal 20-50 4 finding [facility] Total 25(Oh) [place] [address] [phone] Laboratory test 08/11/2019 [facility] Aldolase <pending> finding [address] [place] [address] [phone] Laboratory test 08/11/2019 [facility] Creatine 219 U/L Normal 10-[address] Kinase(CK) [place] [address] [phone] Nuclear AB (Danita) By Ifa Igg <pending> Basic Metabolic 07/01/2019 [facility] Sodium 138 mmol/L Normal 135-[address] [place] [address] [phone] Potassium 4.4 mmol/L Normal 3.5-5.0 Chloride 102 mmol/L Normal 101-111 Co2 Carbon Dioxide 29 mmol/L Normal 22-32 Anion Gap 7 mmol/L Normal 2-11 Glucose 100 mg/dL Normal 70-100 Blood Urea Nitrogen 14 mg/dL Normal 6-24 Creatinine 0.72 mg/dL Normal 0.51-0.95 BUN/Creatinine Ratio 19.4 Normal 8-20 Calcium 9.2 mg/dL Normal 8.6-10.3 Egfr Non- 79.0 >60 Egfr 95.5 >60 5 Laboratory test 07/01/2019 [facility] TSH 1.11 Normal 0.34- 5.[address] (Thyroid mcIU/[place] [address] Stim Vkoc) [phone] Urine Culture And 06/12/2019 [facility] Urine SEE RESULT [address] [place] [address] [phone] Urinalysis 06/12/2019 [facility] Urine Color Straw Profile [address] [place] [address] [phone] Urine Appearance Clear Urine Specific [place] 1.006 Low 1.010-1.030 Urine pH 7.0 Normal [...] Urine Squamous Epithelial Cell Present Abnormal Absent CKMB 06/12/2019 [facility] CKMB ng/mL 4.3 ng/mL Normal 0.6- 6.[address] [place] [address] [phone] Laboratory test 06/12/2019 [facility] Creatine 118 U/L Normal 10-[address] Kinase(CK) [place] [address] [phone] C Reactive Protein 6.42 mg/L Normal <8.01 Troponin-I (TnI) 0.02 ng/mL <0.04 7 Comp Metabolic 06/12/2019 [facility] Sodium 138 mmol/L Normal 135-[address] [place] [address] [phone] Potassium 4.0 mmol/L Normal 3.5-5.0 Chloride 102 [...] Egfr Non- 59.5 >60 Egfr 72.0 >60 8 Inr/Protime 06/12/2019 [facility] Inr 0.91 Normal 0.82-1.[address] [place] [address] [phone] Laboratory test 06/12/2019 [facility] B-Type 54 <=[address] Natriuretic pg/[place] [address] Peptide BNP [phone] CBC Auto Diff 06/12/2019 [facility] White Blood 7.4 Normal 3.5 -10.[address] Count 10^3/[place] [address] [phone] Red Blood Count 4.96 10^6/uL High 3.70-4.87 [...] Nucleated Red Blood Cells % 0.1 Laboratory 03/14/2019 [facility] TSH (Thyroid 1.66 Normal 0.34 -5.60 test finding 101 [facility] Stim Horm) mcIU/[place] [address] [phone] Free T4 (Free Thyroxine) 1.04 ng/dL Normal 0.61-1.12 Basic Metabolic 03/14/2019 [facility] Sodium 141 mmol/L Normal 135-145 Panel [place] [address] [phone] Potassium 4.0 mmol/L Normal 3.5-5.0 Chloride 104 mmol/L Normal 101-111 Co2 Carbon Dioxide 28 mmol/L Normal 22-32 Anion Gap 9 mmol/L Normal 2-11 Glucose 107 mg/dL High 70-100 Blood Urea Nitrogen 10 mg/dL Normal 6-24 Creatinine 0.61 mg/dL Normal 0.51-0.95 BUN/Creatinine Ratio 16.4 Normal 8-20 Calcium 9.7 mg/dL Normal 8.6-10.3 Egfr Non- 95.6 >60 Egfr 115.7 >60 10 Laboratory test 03/14/2019 [facility] T3 Free 2.70 pg/mL Normal 2.5-3.9 finding [address] [place] [address] [phone] 1 REFERENCE VALUE 7.2-63 (a.m. collection) Test Performed by: [place] [address] Veterinary Anatomist: Ron Washington M.D. Ph.D.; CLIA# [id number] 2 Normal Range 180 to 914 Indeterminate Range 145 to 180 Deficient Range <145 3 This test is negative at 24 hours. All samples are held and reviewed again at 7 days. If delayed precipitation occurs after 7 days, Immunofixation will be performed and an additional report will follow. Test Performed by: [facility] [place] [address] Veterinary Anatomist: Ron Washington M.D. Ph.D.; CLIA# [id number] 4 Total 25-Hydroxyvitamin D2 and D3 (25-OH-VitD) <10 ng/mL (severe deficiency) 10-19 ng/mL (mild to moderate deficiency) 20-50 ng/mL (optimum levels) 51-80 ng/mL (increased risk of hypercalciuria) >80 ng/mL (toxicity possible) 5 Because ethnic data is not always [...] 5 Kidney failure <15 (or dialysis) 6 SEE RESULT BELOW Name: REJI ALMENDAREZ : [address]: Carlos Tapia MD Acct: [id number] Unit: [id number] AGE: 74 Location: ED Re06/12/19 SEX: F Status: DEP ER SPEC: [id number] BALDEV: 06/12/[address]: Carlos Tapia MD REQ: [id number] RECD: 06/12/19 STATUS: COMP PEMAHR DR: Palma Slaughter MD _ SOURCE: URINE SPDESC: ORDERED: Urine Culture Procedure Result Reported Site Urine Culture Final 06/13/19- 1558 ML No Growth (<1,000 CFU/mL) * ML - Main Lab . END OF REPORT DEPARTMENT OF PATHOLOGY, [address] [place] [address] Weston Laura M.D. Director [facility] # [id number] 7 Troponin-I testing on Plasma Separator Tubes (PST) has a known false positive rate of 0.20-0.40%. All positive troponins reflex immediately to secondary confirmatory testing. Using the [employer] DxI 800 Access Immunoassay systems, the 99th percentile upper reference limit was demonstrated to be < 0.03 ng/mL. 8 Because ethnic data is not always [...] 5 Kidney failure <15 (or dialysis) 9 Standard intensity warfarin therapeutic range: 2.0-3.0 High intensity warfarin therapeutic range: 2.5-3.5 10 Because ethnic data is not always [...] 15-29 5 Kidney failure <15 (or dialysis) Procedures Date Code Description Status 07/25/2019 29471389 Mammogram Completed 06/14/2019 25670 ECG Monitor/Recording W/Visual Superimposition Completed Scanning 04/26/2019 88818 ECHO Transthoracic, Real-Time 2D With Doppler And Completed Color Flow 04/26/2019 09650 ECHO Transthoracic, Real-Time 2D With Doppler And Completed Color Flow 12/27/2018 [id number] Diabetic Retinal Eye Exam Completed 10/05/2017 [id number] Diabetic Retinal Eye Exam Completed 11/21/2015 [id number] Bone Mineral Density Test Completed 02/16/2013 [id number] Colonoscopy Completed Medical Devices Description No Information Available Encounters Type Date Location Provider Dx Diagnosis Office Visit 08/25/2019 Pulmonology And Marcela J45.909 Unspecified asthma, 2:00p Sleep Services Of GINI Palmer Cma G47.33 Obstructive sleep apnea (adult) (pediatric) Office Visit 08/11/2019 11:00a Rheumatology Tim G72.9 Myopathy, Services Of Connie Winchester M.D. unspecified M46.1 Sacroiliitis, not elsewhere classified M85.89 Oth disrd of bone density and structure, multiple sites R20.8 Other disturbances of skin sensation M06.4 Inflammatory polyarthropathy M35.01 Sicca syndrome with keratoconjunctivitis E55.9 Vitamin D deficiency, unspecified Office Visit 06/30/2019 4:00p [facility] Internal Palma B37.9 Candidiasis, Leslie Slaughter M.D. unspecified Mirianob R21 Rash and other nonspecific skin eruption E03.9 Hypothyroidism, unspecified Office Visit 06/14/2019 11:40a [facility] Internal Palma Cotton, R00.2 Palpitations Leslie Gallagher M.D. R60.0 Localized edema Office Visit 06/02/2019 10:20a [facility] Internal Palma Z00.00 En[facility]tr for Medicine Gladys Slaughter M.D. general adult medical exam w/o abnormal findings K44.9 Diaphragmatic hernia without obstruction or gangrene Z12.31 Encntr screen mammogram for malignant neoplasm of breast I10 Essential (primary) hypertension 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, not elsewhere classified M51.36 Other intervertebral disc degeneration, lumbar region M46.1 Sacroiliitis, not elsewhere classified M54.30 Sciatica, unspecified side Office Visit 05/03/2019 11:40a [facility] Internal Tejal Elizabeth, J45.41 Moderate Medicine - Ccmob N.P. 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 w/o perforation Ccmob or abscess w/o bleeding M13.0 Polyarthritis, unspecified Assessments Date Code Description Provider 08/25/2019 J45.909 Unspecified asthma, uncomplicated Marcela Palmer, GINI 08/25/2019 G47.33 Obstructive sleep apnea (adult) Marcela Palmer NP (pediatric) 08/11/2019 G72.9 Myopathy, unspecified Tim Winchester M.D. 08/11/2019 M46.1 Sacroiliitis, not elsewhere classified Tim Winchester M.D. 08/11/2019 M85.89 Other specified disorders of bone density Tim Winchester M.D. and structure, multiple sites 08/11/2019 R20.8 Other disturbances of skin sensation Tim Winchester M.D. 08/11/2019 M06.4 Inflammatory polyarthropathy Tim Winchester M.D. 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 08/11/2019 E55.9 Vitamin D deficiency, unspecified Tim Winchester M.D. 06/30/2019 B37.9 Candidiasis, unspecified Palma Slaughter M.D. 06/30/2019 R21 Rash and other nonspecific skin eruption Palma Slaughter M.D. 06/30/2019 E03.9 Hypothyroidism, unspecified Palma Slaughter M.D. 06/15/2019 R00.2 Palpitations Im Nurse Holter Monitor 06/14/2019 R00.2 Palpitations Im Nurse Holter Monitor [...] J45.41 Moderate persistent asthma with (acute) Tejal Varifeoma, N.P. exacerbation 04/26/2019 Z95.2 Presence of prosthetic heart valve Isiah Goldsmith DO FACC 04/26/2019 Z95.2 Presence of prosthetic heart valve Ica ECHO Schedule 04/14/2019 Z95.2 Presence of prosthetic heart valve Isiah Goldsmith DO FACC 04/14/2019 I10 Essential (primary) hypertension Isiah Goldsmith, DO FACC 04/14/2019 I11.9 Hypertensive heart disease without heart Isiah Goldsmith DO FACC failure 04/14/2019 E66.8 Other obesity Isiah Goldsmith DO FACC 04/14/2019 G47.33 Obstructive sleep apnea (adult) Isiah Goldsmith, DO FACC (pediatric) 04/14/2019 I27.20 Pulmonary hypertension, unspecified Isiah Goldsmith DO FACC 03/15/2019 E03.9 Hypothyroidism, unspecified Pete Schilling MD 03/15/2019 M81.0 Age-related osteoporosis without current Pete Schilling MD pathological fractu 03/14/2019 K57.32 Diverticulitis of large intestine without Palma Slaughter M.D. perforation or abs 03/14/2019 M13.0 Polyarthritis, unspecified Palma Slaughter M.D. Plan of Treatment Future Appointment(s):12/26/2019 11:30 am - Marcela Palmer NP at [facility]ology [facility]09/08/2019 9:40 am - Tim Winchester M.D. at [facility]umatology [facility]09/22/2019 10:40 am - Palma Slaughter M.D. at [facility] - Marcela Palmer, GINIJ45.909 Unspecified asthma, uncomplicatedFollow up:4 umlxynD72.33 Obstructive sleep apnea (adult) (pediatric)Recommendations:Please use the new mask I gave you, Dreamwear Nasal Cushions. If you have difficulty with your equipment, or need to replace your mask or hoses, please contact your homecare agency, [facility] . If you have any further questions, please call the [facility] at [phone] If you have any sleepiness while driving you MUST avoid operating a vehicle or machinery. If you feel tired while driving, box puller and take a nap or switch drivers. If you know you are sleepy and need to go somewhere, arrange for a ride or use public transportation. It is very important to not risk your safety or the safety of others. Functional Status Functional Condition Comment Date Status Rolling walker is used to ambulate Active Mental Status Description No Information Available Referrals Refer to Reason for Referral Status Appt Date Milton Bradford MD Sent 07/06/[address] [place] [address] [place] [address] [phone] Tim Winchester MD Multiple pain issues. See [facility] Sent 2018 neuromuscular center evaluation for extensive blood testing for autoimmune and other disease [address] [place] [address] [place] [address] [phone] Yaakov Vazquez MD hiatal hernia, used to see Dr. Putnam, requests Closed consult with Dr. Vazquez Not scheduled yet 06/14/2019 D[address] [place] [address] [phone] Raj Garcia MD Refaxed referral 05/11/19 they didn't rec Sent before. [address] [place] [address] [phone] Jose Luis Jarrell MD please call patient to schedule appointment -Thanks Sent [address] [place] [address] [phone]
--- OUTSIDE RECORDS SUMMARY | 2019-09-02 13:59 | XMS REPORT | Continuity of Care Document ---
:1945 External Reference #:[id number] Author Name Tim Winchester M.D. (transmitted by agent of provider Ana Freeman) Address [address] [place] [address] Care Team Providers Name Role Phone Keith Pope MD - Internal Care Team Information Dermatology Procedural Physician [phone] Medicine Miroslava Membreno MD - Adult Care Team Information Dermatology Procedural Physician [phone] Reconstructive Orthopaedic Surgery Juan Garcia MD - Care Team Information Dermatology Procedural Physician [phone] Otolaryngology Jenelle Singleton MD - Surgery Care Team Information Dermatology Procedural Physician Milton Bradford MD - Allergy & Care Team Information Dermatology Procedural Physician Immunology Palma Slaughter MD - Internal Care Team Information Dermatology Procedural Physician Medicine [facility] - Pain Care Team Information Dermatology Procedural Physician [phone] Michel Funk MD - Care Team Information Dermatology Procedural Physician [phone] Gastroenterology Keely Shahid MD - Physical Care Team Information Dermatology Procedural Physician [phone] Medicine & Rehabilitation Pete Schilling MD - Endocrinology, Care Team Information Dermatology Procedural Physician [phone] Diabetes & Metabolism Kelley Guzman MD - Care Team Information Dermatology Procedural Physician [phone] Obstetrics & Gynecology Nathaly Rizzo M.D. - Neurology Care Team Information Dermatology Procedural Physician [phone] Raj Garcia MD - Care Team Information Dermatology Procedural Physician [phone] Rheumatology Jose Luis Jarrell MD - Gastroenterology Care Team Information Dermatology Procedural Physician Yaakov Vazquez MD - Gastroenterology Care Team Information Dermatology Procedural Physician Tim Winchester MD - Rheumatology Care Team Information Dermatology Procedural Physician Problems Active Problems Provider Date Mitochondrial myopathy Jamal Sheridan M.D.,FACP Onset: 11/07/2016 Note: red ragged fibers Obstructive sleep apnea of adult Mady Maldonado DNP, RN, [employer] COLON[employer]- Onset: 05/2015 Aortic stenosis, non-rheumatic Jamal Sheridan [...] End: Former Cigarette Smoker Smoking Status Reviewed: 08/11/19 Former Cigarette Smoker ETOH Use 11/07/2016 Denies [...] mouth, sores on tongue Inactive Allergies Versed ERECTOR OPERATOR Reaction 12/14/2014 Flonase Anaphylaxis Severe 11/15/2015 Verapamil 06/03/2016 Medications Active Medications SIG Qnty Indications Ordering Provider Date Nystatin apply three 90gm B37.9 Palma Cotton, 06/30/2019 370021Ndip/GM times a day as M.D. Cream needed PLNT Whole Food 3 PO qd Palma Slaughter, 06/30/2019 Women's Multivitamin M.D. Potassium 1 PO qd Palma Slaughter, 06/14/2019 99mg Tablets M.D. Electric Wheelchair For daily use 1units G71.3 Palma Newton [place], 2018 M.D. M51.36 M46.1 Nystatin 5cc, swish and 60ml Marcy Varinder, 05/19/2019 364066Lzab/ML spit, twice daily MD Suspension Furosemide 1-2 by mouth once 60tabs [facility], 04/12/2019 20mg Tablets daily as needed for M.D. edema Flovent Diskus 2 puff twice a day [facility], 04/11/2019 M.D. 50mcg/Blist Aerosol Lactobacillus 1 by mouth twice a 60tabs Other Ordering 03/11/2019 Tablets day Provider Carafate one tablet on empty 30tabs Other Ordering 03/11/2019 1gm Tablets stomach one hour Provider before meals daily. Hydrocodone-Acetaminop 1 or 2 tabs by 30tabs M25.552 [facility], hen mouth every 6-8 M.D. 5-325mg Tablets hours as needed for pain Ondansetron as needed 30tabs [facility], 08/30/2018 8mg Tablets M.D. Dispers Flonase Allergy Relief Twice Daily 1units Unknown 07/14/2018 50mcg/Act Suspension Megazymes 1 PO with every Palma Cotton, 05/28/2018 meal M.D. Cassie Allergy 1 by [...] small amount Unknown 02/12/2015 on affected areas 509939-6.1Unit/GM-% as needed Cream Folic Acid 1 by [...] needed Lactulose 15-30 ML PO qd 473ml [facility], 02/12/2015 10GM/15ML M.D. Solution Synthroid 4 by mouth every 150tabs [facility], 02/12/2015 50mcg Tablets day, 3.5 tablets sa M.D. and ferris. Guaifenesin-Codeine Take 5-10 Unknown Milliliters Every 100-10mg/5ML Solution 4-6 Hours as Needed For Cough. Epipen 2-Arnaldo use as directed Unknown 0.3mg/0.3ML Solution Auto-Inject Diltiazem Ointment 2% Apply bid for anal Unknown fissure Esomeprazole Magnesium 1 by mouth two Unknown times per day 20mg Capsules DR Gregoryethiconfitz once a day as Unknown 125mg needed [...] mouth every 30units Palma 02/22/2019 - 81mg ange Slaughter M.D. 02/22/2019 Chewtabs Immunizations Description No Information Available Vital Signs Date Vital Result Comment 08/11/2019 11:36am Height 66 inches 5'6" Weight 264.00 lb Heart Rate 100 /min BP Systolic Sitting 157 mmHg BP Diastolic Sitting 76 mmHg Respiratory Rate 20 /min Body Temperature 98.0 F Pain Level 8 mostly in low back, along both sides of legs O2 % BldC Oximetry 92 % BMI (Body Mass Index) 42.6 kg/m2 06/30/2019 4:40pm Height 66 inches 5'6" Weight 257.00 lb Heart Rate 90 /min BP Systolic 202 mmHg BP Diastolic 94 mmHg Body Temperature 98.0 F O2 % BldC Oximetry 96 % BMI (Body Mass Index) 41.5 kg/m2 Results Test Acquired Date Facility Test Result H/L Range Note Basic Metabolic 07/01/2019 [facility] Sodium 138 mmol/L Normal 135-145 [place] [address] [phone] Potassium 4.4 mmol/L Normal 3.5-5.0 Chloride 102 mmol/L Normal 101-111 Co2 Carbon Dioxide 29 mmol/L Normal 22-32 Anion Gap 7 mmol/L Normal 2-11 Glucose 100 mg/dL Normal 70-100 Blood Urea Nitrogen 14 mg/dL Normal 6-24 Creatinine 0.72 mg/dL Normal 0.51-0.95 BUN/Creatinine Ratio 19.4 Normal 8-20 Calcium 9.2 mg/dL Normal 8.6-10.3 Egfr Non- 79.0 >60 Egfr 95.5 >60 1 Laboratory 07/01/2019 [facility] TSH (Thyroid 1.11 Normal 0.34 -5.60 test finding [facility] Stim Horm) mcIU/[place] [address] [phone] CBC Auto Diff 06/12/2019 [facility] White Blood 7.4 10^3/uL Normal 3.5-10.[address] [place] [address] [phone] Red Blood Count 4.96 10^6/uL High 3.70-4.87 [...] Red Blood Cells % 0.1 Laboratory 06/12/2019 [facility] B-Type 54 pg/mL <=100 test finding [address] [place] [address] Peptide BNP [phone] Inr/Protime 06/12/2019 [facility] Inr 0.91 Normal 0.82-1.[address] [place] [address] [phone] Comp Metabolic 06/12/2019 [facility] Sodium 138 Normal 135- [address] mmol/[place] [address] [phone] Potassium 4.0 mmol/L Normal 3.5-5.0 Chloride 102 [...] Egfr Non- 59.5 >60 Egfr 72.0 >60 3 Laboratory test 06/12/2019 [facility] Creatine 118 U/L Normal 10-[address] Kinase(CK) [place] [address] [phone] C Reactive Protein 6.42 mg/L Normal <8.01 Troponin-I (TnI) 0.02 ng/mL <0.04 4 CKMB 06/12/2019 [facility] CKMB ng/mL 4.3 ng/mL Normal 0.6- 6.[address] [place] [address] [phone] Urinalysis 06/12/2019 [facility] Urine Color Straw Profile [address] [place] [address] [phone] Urine Appearance Clear Urine Specific [place] 1.006 Low 1.010-1.030 Urine pH 7.0 Normal [...] Present Abnormal Absent Urine Culture And 06/12/2019 [facility] Urine SEE RESULT 5 Sensitivities [address] [place] [address] [phone] Laboratory test 03/14/2019 [facility] T3 Free 2.70 pg/mL Normal 2.5-[address] [place] [address] [phone] Basic Metabolic 03/14/2019 [facility] Sodium 141 mmol/L Normal 135-[address] [place] [address] [phone] Potassium 4.0 mmol/L Normal 3.5-5.0 Chloride 104 mmol/L Normal 101-111 Co2 Carbon Dioxide 28 mmol/L Normal 22-32 Anion Gap 9 mmol/L Normal 2-11 Glucose 107 mg/dL High 70-100 Blood Urea Nitrogen 10 mg/dL Normal 6-24 Creatinine 0.61 mg/dL Normal 0.51-0.95 BUN/Creatinine Ratio 16.4 Normal 8-20 Calcium 9.7 mg/dL Normal 8.6-10.3 Egfr Non- 95.6 >60 Egfr 115.7 >60 6 Laboratory 03/14/2019 [facility] TSH (Thyroid 1.66 Normal 0.34 -5.60 test finding [address] Stim Horm) mcIU/[place] [address] [phone] Free T4 (Free Thyroxine) 1.04 ng/dL Normal 0.61-1.12 Inr/Protime 02/18/2019 [facility] Inr 0.91 Normal 0.82-1.[address] [place] [address] [phone] Laboratory 02/18/2019 [facility] D Dimer < 200 Normal Less Than [address] Quantitative ng/mL 230 [place], [place] [address] [phone] Comp Metabolic 02/18/2019 [facility] Sodium 137 Normal 135- [address] mmol/L [place], [place] [address] [phone] Potassium 4.0 mmol/L Normal 3.5-5.0 Chloride 102 [...] Egfr 94.0 >60 9 Laboratory test 02/18/2019 [facility] Troponin-I (TnI) 0.03 ng/ mL <0.04 [address] [place] [address] [phone] TSH (Thyroid Stim Horm) 1.29 mcIU/mL Normal 0.34-5.60 T3 Free 3.10 pg/mL Normal 2.5-3.9 Free T4 (Free Thyroxine) 1.02 ng/dL Normal 0.61-1.12 B-Type Natriuretic Peptide BNP 74 pg/mL <=100 CBC Auto 02/18/2019 [facility] White Blood 8.5 10^3/uL Normal 3.5-10.[address] [place] [address] [phone] Red Blood Count 5.02 10^6/uL High 3.70-4.87 [...] % Nucleated Red Blood Cells % 0.0 Laboratory 02/18/2019 [facility] Troponin-I 0.02 <0.04 11 test finding [address] (TnI) ng/[place] [address] [phone] Laboratory 02/15/2019 [facility] TSH (Thyroid 1.07 Normal 0.34 -5.6 12, test finding [address] Stim Horm) mcIU/mL 0 13 [place] [address] [phone] T3 Free 3.20 pg/mL Normal 2.5-3.9 14 Free T4 (Free Thyroxine) 0.91 ng/dL Normal 0.61-1.12 15 Laboratory test 02/15/2019 [facility] Gardnerella/Yeast: SEE 16, finding [address] Vaginal Dna RESULT 17 [place] [address] BELOW [phone] Urine Culture 02/15/2019 [facility] Urine Culture SEE 18, And [address] RESULT 19 [place] [address] BELOW [phone] Poc Urinalysis 02/15/2019 [facility] Poc Glucose, Urine Negative Negative [address] [place] [address] [phone] Poc Bilirubin, Urine Negative Negative Poc Ketone, Urine Negative Negative Poc Specific [place], Urine 1.015 Normal 1.010-1.030 Poc Blood, Urine Negative Negative Poc pH, Urine 7.0 Normal 5-9 Poc Protein, Urine Negative Negative Poc Urobilinogen, Urine 0.2 Negative Poc Nitrite, Urine Negative Negative Poc Leukocytes, Urine 1+ Abnormal Negative Poc Color, Urine Yellow Poc Clarity, Urine Clear 20 1 Because ethnic data is not always [...] 5 Kidney failure <15 (or dialysis) 2 Standard intensity warfarin therapeutic range: 2.0-3.0 High intensity warfarin therapeutic range: 2.5-3.5 3 Because ethnic data is not always [...] 5 Kidney failure <15 (or dialysis) 4 Troponin-I testing on Plasma Separator Tubes (PST) has a known false positive rate of 0.20-0.40%. All positive troponins reflex immediately to secondary confirmatory testing. Using the [employer] 800 Access Immunoassay systems, the 99th percentile upper reference limit was demonstrated to be < 0.03 ng/mL. 5 SEE RESULT BELOW Name: REJI ALMENDAREZ : [address]: Carlos Tapia MD Acct: [id number] Unit: [id number] AGE: 74 Location: ED Re06/12/19 SEX: F Status: DEP ER SPEC: [id number] BALDEV: 06/12/[address] [facility] [address]: Carlos Tapia MD REQ: [id number] RECD: 06/12/19 STATUS: DAYNE ALVAREZ DR: Palma Slaughter MD _ SOURCE: URINE [facility]: ORDERED: Urine Culture Procedure Result Reported Site Urine Culture Final 06/13/19- 1558 ML No Growth (<1,000 CFU/mL) * ML - Main Lab . END OF REPORT DEPARTMENT OF PATHOLOGY, [address] [place] [address] Weston Laura M.D. Director [facility] # [id number] 6 Because ethnic data is not always [...] 5 Kidney failure <15 (or dialysis) 7 Standard intensity warfarin therapeutic range: 2.0-3.0 [...] immediately to secondary confirmatory testing. Using the [employer] DxI 800 Access Immunoassay systems, the 99th percentile upper reference limit was demonstrated to be < 0.03 ng/mL. 11 Troponin-I testing on Plasma Separator Tubes (PST) has a known false positive rate of 0.20-0.40%. All positive troponins reflex immediately to secondary confirmatory testing. Using the [employer] DxI 800 Access Immunoassay systems, the 99th percentile upper reference limit was demonstrated to be < 0.03 ng/mL. 12 [id number] 13 [id number] 14 [id number] 15 [id number] 16 Would you like to order Trichomonas Vaginalis RNA testing? N [id number] 17 SEE RESULT BELOW Name: REJI ALMENDAREZ : [address]: Alexandrea Cross MD Acct: [id number] Unit: [id number] AGE: 74 Location: [facility] Re02/15/19 SEX: F Status: DEP ER SPEC: [id number] BALDEV: 02/15/19-[address] [facility] [address]: Alexandrea Cross MD REQ: [id number] RECD: 02/16/19 STATUS: DAYNE [facility] DR: Palma Slaughter MD _ SOURCE: VAGINAL SPDESC: ORDERED: Lane,Yeast DNA COMMENTS: Would you like to order Trichomonas Vaginalis RNA testing? N [id number] Procedure Result Reported Site Gardnerella/Yeast: Vaginal DNA [...] END OF REPORT DEPARTMENT OF PATHOLOGY, [address] [place] [address] Weston Laura M.D. Director [facility] # [id number] 18 [id number] 19 SEE RESULT BELOW Name: FEDERICO ALMENDAREZAMRIK Mendoza : [address]: Alexandrea Cross MD Acct: [id number] Unit: [id number] AGE: 74 Location: [facility] Re02/15/19 SEX: F Status: DEP ER SPEC: [id number] BALDEV: 02/15/19-[address] [facility] [address]: Alexandrea Cross MD REQ: [id number] RECD: 02/16/19 STATUS: DAYNE ALVAREZ DR: Palma Slaughter MD _ SOURCE: URINE [facility]: ORDERED: Urine Culture COMMENTS: [id number] Procedure Result Reported Site Urine Culture Final 02/18/19- 0854 ML Organism 1 PROTEUS MIRABILIS [place] Count 10-25,000 (Moderate) CFU/ML Organism 2 NORMAL CHASTITY [place] Count 1-10,000 (Few) CFU/ML 1. PROTEUS MIRABILIS [...] END OF REPORT DEPARTMENT OF PATHOLOGY, [address] [place] [address] Weston Laura M.D. Director [facility] # [id number] 20 Desktop Support Specialist: [id number] Procedures Date Code Description Status 07/25/2019 37473029 Mammogram Completed 06/14/2019 70711 ECG Monitor/Recording W/Visual Superimposition Completed Scanning 04/26/2019 72375 ECHO Transthoracic, Real-Time 2D With Doppler And Completed Color Flow 04/26/2019 99040 ECHO Transthoracic, Real-Time 2D With Doppler And Completed Color Flow 12/27/2018 [id number] Diabetic Retinal Eye Exam Completed 10/05/2017 [id number] Diabetic Retinal Eye Exam Completed 11/21/2015 043978333 Bone Mineral Density Test Completed 02/16/2013 78532155 Colonoscopy Completed Medical Devices Description No Information Available Encounters Type Date Location Provider Dx Diagnosis Office Visit 06/30/2019 Connie Slaughter B37.9 Candidiasis, 4:00p Leslie Gallagher M.D. unspecified R21 Rash and other nonspecific skin eruption E03.9 Hypothyroidism, unspecified Office Visit 06/14/2019 11:40a Connie Slaughter, R00.2 Palpitations Leslie Gallagher M.D. R60.0 Localized edema Office Visit 06/02/2019 10:20a Connie Waldrop Z00.00 Encntr for Leslie Slaughter M.D. general adult medical exam w/o abnormal findings K44.9 Diaphragmatic hernia without obstruction or gangrene Z12.31 Encntr screen mammogram for malignant neoplasm of breast I10 Essential (primary) hypertension 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, not elsewhere classified M51.36 Other intervertebral disc degeneration, lumbar region M46.1 Sacroiliitis, not elsewhere classified M54.30 Sciatica, unspecified side Office Visit 05/03/2019 11:40a [facility] Internal Tejal Varn, J45.41 Moderate Medicine - Ccmob N.P. 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 w/o perforation Ccm[facility] or abscess w/o bleeding M13.0 Polyarthritis, unspecified Office Visit 02/22/2019 [facility] Internal Palma E03.9 Hypothyroidism, 3:00p Leslie Slaughter M.D. unspecified Ccmob G43.009 Migraine w/o aura, not intractable, w/o status migrainosus R07.9 Chest pain, unspecified I10 Essential (primary) hypertension N81.6 Rectocele Office Visit 02/16/2019 11:00a [facility] Internal Zsofia E03.9 Hypothyroidism, Medicine - Seth, [employer]IE[employer]ENANT COLONEL unspecified Ccmob N39.0 Urinary tract infection, site not specified N81.89 Other female genital prolapse Assessments Date Code Description Provider 08/11/2019 G72.9 Myopathy, unspecified Tim Winchester M.D. [...] Slaughter M.D. 06/30/2019 E03.9 Hypothyroidism, unspecified Palma Slaughetr M.D. 06/15/2019 R00.2 Palpitations Im Nurse Holter [...] of prosthetic heart valve Isiah Goldsmith, DO FAC 04/26/2019 Z95.2 Presence of prosthetic heart valve Ica ECHO Schedule 04/14/2019 Z95.2 Presence of prosthetic heart valve Isiah Goldsmith, DO FACC 04/14/2019 I10 Essential (primary) hypertension Isiah Goldsmith, DO FAC 04/14/2019 I11.9 Hypertensive heart disease without heart Isiah Goldsmith, DO FACC failure 04/14/2019 E66.8 Other obesity Isiah Goldsmith, DO FACC 04/14/2019 G47.33 Obstructive sleep apnea (adult) Isiah Goldsmith, DO FAC (pediatric) 04/14/2019 I27.20 Pulmonary hypertension, unspecified Isiah Goldsmith, DO FACC 03/15/2019 E03.9 Hypothyroidism, unspecified Pete Schilling MD 03/15/2019 M81.0 Age-related osteoporosis without current Pete Schilling MD pathological fractu 03/14/2019 K57.32 Diverticulitis of large intestine without Palma Slaughter M.D. perforation or abs 03/14/2019 M13.0 Polyarthritis, stevenified Palma Slaughter M.D. 02/22/2019 E03.9 Hypothyroidism, unspecified [...] N81.89 Other female genital prolapse TASHA Art Plan of Treatment Future Appointment(s):09/08/2019 9:40 am - Tim Winchester M.D. at [facility]08/25/2019 2:00 pm - Marcela Palmer NP at [facility]09/22/2019 10:40 am - Palma Slaughter M.D. at [facility] Internal Medicine - Ccmob08/11/2019 - Tim Winchester M.D.G72.9 Myopathy, flewbcqjsabX52.1 Sacroiliitis, not elsewhere fipmtskeuoY11.89 Other specified disorders of bone density and structure, multiple sitesFollow up:Follow up in 3 to 4 weeks or sooner if qywcpzO26.8 Other disturbances of skin kroomdbybI88.4 Inflammatory yffnsvzdariobukZ63.01 Sicca syndrome with ojrmypqpcnevnbtmtggxB08.9 Vitamin D deficiency, unspecified Functional Status Functional Condition Comment Date Status Rolling walker is used to ambulate Active Mental Status Description No Information Available Referrals Refer to Dr Reason for Referral Status Appt Date Milton Bradford MD Sent 07/06/2019 [address] [place] [address] [place] [address] [phone] Tim Winchester MD Multiple pain issues. See [facility] Sent 2018 neuromuscular center evaluation for extensive blood testing for autoimmune and other disease [address] [place] [address] [place] [address] [phone] Yaakov Vazquez MD hiatal hernia, used to see Dr. Putnam, requests Closed consult with Dr. Vazquez Not scheduled yet 06/14/2019 [address] [place] [address] [phone] Raj Garcia MD Refaxed referral 05/11/19 they didn't rec Sent before. [address] [place], [place] [address] [phone] Jose Luis Jarrell MD please call patient to schedule appointment -Thanks Sent [address] [place] [address] [phone] Corrie Christine M.D. Called referral office, automated machine Sent stated that pts are not seen at that office 04/29 [address] [facility] [address] [place] [address] [phone] Kelley Guzman MD patient request; Sent [address] [place] [phone] [phone] Pete Schilling MD Hypothyroidism and concerns about side Patient Notified 05/2019 effects from cortisone injection in the hip [address] [place] [id number] [phone]
--- OUTSIDE RECORDS SUMMARY | 2019-09-02 13:59 | XMS REPORT ---
:1945 Author Organization [facility] Care Team Providers Name Role Phone Unavailable Unavailable Unavailable Problems This patient has no known problems. Allergies, Adverse Reactions, Alerts Allergy Allergy Type Status Severity Reaction(s) Onset Inactive Treating Comments Name Date Date Clinician sulfite Base Active Unknown Hives 2019-03 [employer] Ingredient -10 Medications Ordered Filled Start Stop Current Ordering Indication Dosage Frequency Signature Comments Components Medication Medication Date Date Medication? Clinician (SIG) Name Name No Known No Known No None None None Medications Medications For This For This Patient Patient Procedures This patient has no known procedures. Results This patient has no known results.
--- OUTSIDE RECORDS SUMMARY | 2019-09-02 13:59 | XMS REPORT ---
:1945 Author Organization [facility] Care Team Providers Name Role Phone Unavailable [...]
--- OUTSIDE RECORDS SUMMARY | 2019-09-02 13:59 | XMS REPORT ---
:1945 Author Organization [facility] Care Team Providers Name Role Phone Unavailable [...]
--- OUTSIDE RECORDS SUMMARY | 2019-09-02 13:59 | XMS REPORT ---
:1945 Author Organization [facility] Care Team Providers Name Role Phone [...]
--- OUTSIDE RECORDS SUMMARY | 2019-09-02 13:59 | XMS REPORT ---
:1945 Author Organization [facility] Care Team Providers Name Role Phone Unavailable Unavailable Unavailable Problems This patient has no known problems. Allergies, Adverse Reactions, Alerts Allergy Allergy Type Status Severity Reaction(s) Onset Inactive Treating Comments Name Date Date Clinician sulfite Base Active Unknown Hives 2019-03 [employer] Ingredient -10 Medications Ordered Filled Start Stop Current Ordering Indication Dosage Frequency Signature Comments Components Medication Medication Date Date Medication? Clinician (SIG) Name Name No Known No Known No None None None Medications Medications For This For This Patient Patient Procedures This patient has no known procedures. Results This patient has no known results.
--- NOTE | 2019-09-02 14:48 | ED ---
Adult Trauma - HPI Summary HPI Summary: The patient is a 74 y/o F arriving by ambulance to [facility] with a chief complaint of traumatic mechanical fall three days ago. She reports that she was reaching under a cabinet to turn a knob on the radiator when she lost balance and fell onto her right side. She is now suffering from pain in the sacrum/coccyx, right lateral ribs, and the fourth and fifth toes of the right foot. She denies LOC but is unsure if she hit her head but it would have been the right parietal if she did but not the posterior head. Currently her pain is rated 10/10 in severity. She states that since the event, she has been having pain with sitting and a sensation of rotating. She has not been ambulating well secondary to the pain. She states that she does not have frequent falls as this is the first she has had in over 20 years. PMHx: asthma, thyroid disease, anemia , CHF, HTN, aortic stenosis with valve replacement, arthritis, fibromyalgia, migraines, sleep apnea, peritonitis, cholecystectomy, GERD, René's esophagitis , diverticulosis. Nonsmoker, no EtOH, no substance use. Medications reviewed. Allergies noted. - History of Current Complaint Chief Complaint: EDFall Stated Complaint: RT SIDE/TAILBONE PAIN PER EMS Hx Obtained From: Patient Mechanism of Injury: Fall Loss of Consciousness: no loss of consciousness Onset/Duration: Started Days Ago, Traumatic, Still Present Onset of Pain: Immediate Onset Severity: Moderate Current Severity: Severe Pain Intensity: 10 Pain Scale Used: 0-10 Numeric Location: Other - sacrum/coccyx, right lateral ribs, and the fourth and fifth toes of the right foot Character: Aching Aggravating Factor(s): Movement, Ambulation, Other - sitting Alleviating Factor(s): Nothing Associated Signs & Symptoms: Positive: Other: - unsure if hit head. Negative: Loss of Consciousness - Additional Pertinent History Primary Care Physician: JEFFREY - Allergy/Home Medications Allergies/Adverse Reactions: Allergies Allergy/AdvReac Type Severity Reaction Status Date / Time albuterol Allergy Severe Swelling Verified 07/11/19 10:30 Of Face,Lips,& Throat fluticasone Allergy Severe Swelling Verified 07/11/19 10:30 Of Face,Lips,& Throat lidocaine Allergy Severe Swelling Verified 07/11/19 10:30 pirbuterol Allergy Severe Swelling Verified 07/11/19 10:30 Of Face,Lips,& Throat salmeterol Allergy Severe Swelling Verified 07/11/19 10:30 Of Face,Lips,& Throat amlodipine Allergy Intermediate Swelling Verified 07/11/19 10:30 clindamycin Allergy Intermediate Hives Verified 07/11/19 10:30 Iodinated Contrast Media Allergy Intermediate Itching Verified 07/11/19 10:30 [Iodinated Contrast- Oral and IV Dye] iodine Allergy Intermediate Swelling Verified 07/11/19 10:30 latex Allergy Intermediate Rash Verified 07/11/19 10:30 levofloxacin Allergy Intermediate Hives Verified 07/11/19 10:30 metoprolol Allergy Intermediate Rash Verified 07/11/19 10:30 Penicillins Allergy Intermediate Hives Verified 07/11/19 10:30 rofecoxib Allergy Intermediate Hives Verified 07/11/19 10:30 streptomycin Allergy Intermediate Hives Verified 07/11/19 10:30 Sulfa (Sulfonamide Allergy Intermediate GI Upset Verified 07/11/19 10:30 Antibiotics) atenolol Allergy Unknown Unknown Verified 07/11/19 10:30 Reaction Details Beta-Adrenergic Agents Allergy Unknown Unknown Verified 07/11/19 10:30 Reaction Details epinephrine Allergy Unknown Unknown Verified 07/11/19 10:30 Reaction Details hydrochlorothiazide Allergy Unknown Unknown Verified 07/11/19 10:30 Reaction Details labetalol Allergy Unknown Unknown Verified 07/11/19 10:30 Reaction Details lisinopril Allergy Unknown Unknown Verified 07/11/19 10:30 Reaction Details losartan Allergy Unknown Unknown Verified 07/11/19 10:30 Reaction Details propofol Allergy Unknown Unknown Verified 07/11/19 10:30 Reaction Details sulfite Allergy Unknown Unknown Verified 07/11/19 10:30 Reaction Details terazosin Allergy Unknown Unknown Verified 07/11/19 10:30 Reaction Details valsartan Allergy Unknown Unknown Verified 07/11/19 10:30 Reaction Details doxycycline Allergy See Comment Verified 07/11/19 10:30 peanut Allergy Anaphylatic Verified 07/11/19 10:30 Shock sulfamethoxazole Allergy Hives/Diff. Verified 07/11/19 10:30 [From Bactrim] Breathing/I tching trimethoprim [From Bactrim] Allergy Hives/Diff. Verified 07/11/19 10:30 Breathing/I tching gluten AdvReac Intermediate GI Upset Verified 07/11/19 10:30 quinalones Allergy See Comment Uncoded 07/11/19 10:30 Home Medications: Home Medications Acetaminophen [Tylenol Extra Strength] 1,000 mg PO QID PRN 09/02/19 [History Confirmed 09/02/19] Aspirin/Acetaminophen/Caffeine [Excedrin Migraine Caplet] 1 each PO DAILY PRN [History Confirmed 09/02/19] Calcium Carb, Citrate/Vit D3 [Calcium+D3 Gradual Releas] 1 tab PO DAILY [History Confirmed 09/02/19] Codeine Phosphate/Guaifenesin [Guaifen-Codeine 100-10 mg/5 ml] 5 - 10 ml PO .Q4- 6H PRN 09/02/19 [History Confirmed 09/02/19] Diltiazem Ointment 2% 1 applic TOPICAL BID 09/02/19 [History Confirmed 09/02/19] Docusate Sodium [Colace] 100 mg PO .2-3X/DAY PRN 09/02/19 [History Confirmed ] Enzymes,Digestive [Enzymatic Digestant] 1 each PO TID 09/02/19 [History Confirmed 09/02/19] Esomeprazole Magnesium [Heartburn Treatment] 20 mg PO BID 09/02/19 [History Confirmed 09/02/19] Fluorometholone 0.1% OPTH.ELISA* [Fml 0.1% Opth.susp*] 1 drop RIGHT EYE DAILY [History Confirmed 09/02/19] Fluticasone Propionate Diskus [Flovent Diskus] 2 puff INH BID 09/02/19 [History Confirmed 09/02/19] Fluticasone Propionate [Flonase Allergy Relief] 50 mcg BOTH NARES BID 09/02/19 [ History Confirmed 09/02/19] Furosemide TAB* [Lasix TAB*] 20 - 40 mg PO DAILY 09/02/19 [History Confirmed ] Hydrocortisone SUPP* [Anusol HC Supp*] 1 applic VT BID 09/02/19 [History Confirmed 09/02/19] Hydrocortisone [Cortisone] 1 applic TOPICAL DAILY PRN 09/02/19 [History Confirmed 09/02/19] Hypotears 1 applic BOTH EYES .3-5X/DAY PRN 09/02/19 [History Confirmed 09/02/19] Lactobacillus (NF) [Culturelle (NF)] 7 tab PO BID 09/02/19 [History Confirmed ] Levothyroxine TAB* [Synthroid TAB*] 175 mcg PO SUMO 09/02/19 [History Confirmed 09/02/19] Lidocaine 1 applic TOPICAL DAILY 09/02/19 [History Confirmed 09/02/19] Magnesium Hydroxide LIQ* [Milk of Magnesia LIQ*] 30 ml PO BID PRN 09/02/19 [ History Confirmed 09/02/19] Magnesium Oxide TAB* [MagOx 400 TAB*] 550 mg PO DAILY 09/02/19 [History Confirmed 09/02/19] Multivitamins/Minerals TAB* [Theragran/minerals TAB*] 1 tab PO DAILY 09/02/19 [ History Confirmed 09/02/19] Nystatin CREAM* [Nystatin Cream*] 1 applic TOPICAL TID 09/02/19 [History Confirmed 09/02/19] Potassium Gluconate [Potassium] 99 mg PO DAILY 09/02/19 [History Confirmed 09/02] Simethicone [Gas Relief] 125 mg PO DAILY 09/02/19 [History Confirmed 09/02/19] Sucralfate TAB* [Carafate*] 1 gm PO TID 09/02/19 [History Confirmed 09/02/19] Ubidecarenone [Coq-10 Tr] 400 mg PO DAILY 09/02/19 [History Confirmed 09/02/19] Vitamin K2 40 mcg PO DAILY 09/02/19 [History Confirmed 09/02/19] Zinc 50 mg PO DAILY 09/02/19 [History Confirmed 09/02/19] guaiFENesin [Tussin Mucus + Chest Oumar] 10 - 20 ml PO .Q4-6H PRN 09/02/19 [ History Confirmed 09/02/19] levOCARNitine tartrate [l-Carnitine] 500 mg PO DAILY 09/02/19 [History Confirmed 09/02/19] PMH/Surg Hx/FS Hx/Imm Hx Endocrine/Hematology History: Reports: Hx Thyroid Disease, Hx Anemia Denies: Hx Diabetes Cardiovascular History: Reports: Hx Congestive Heart Failure, Hx Deep Vein Thrombosis, Hx Hypertension, Hx Valvular Heart Disease - Artificial Valves, Other Cardiovascular Problems/Disorders - AORTIC STENOSIS, Mitral valve prolapse without regurgitation Denies: Hx Hypercholesterolemia, Hx Pacemaker/ICD Respiratory History: Reports: Hx Asthma, Hx Seasonal Allergies, Hx Sleep Apnea Denies: Hx Chronic Obstructive Pulmonary Disease (COPD) - pt denies GI History: Reports: Hx Gall Bladder Disease, Hx Gastroesophageal Reflux Disease , Hx Ileostomy, Hx Ulcer, Other GI Disorders - CELIAC, rectal prolapse, colostomy and reversal Liver Problems Denies: Hx Obstructive Bowel History: Reports: Other Problems/Disorders - "bladder repair" Denies: Hx Renal Disease Musculoskeletal History: Reports: Hx Arthritis, Hx Back Problems - Cervical Pain , Hx Osteoporosis, Other Musculoskeletal History - sciatica, saccroiliac joint dysfunction Denies: Hx Rheumatoid Arthritis Sensory History: Reports: Hx Cataracts - 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, 2015), Hx Contacts or Glasses Denies: Hx Hearing Aid, Hx Hearing Problem Opthamlomology History: Reports: Hx Cataracts - 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 CERVICAL POLYP REMOVAL (1974). TUBAL LIGATION (1974). GALLBLADDER. BLADDER REPAIR (1984). UPPER LUBE COLOSTOMY AND REVERSAL. PROLAPSE OF RECTUM. OPEN REDUCTION OF LT ELBOW. AORTIC VALVE REPLACEMENT 2018-[facility] GLENNA 3-PT WILL BRING CARD-CONDITIONAL UP 3T-INSTRUCTIONS SCANNED IN CHART Infectious Disease History: Yes Infectious Disease History: Reports: Hx Clostridium Difficile - from abx use Denies: Traveled Outside the [place] in Last 30 Days - Family History Known Family History: Positive: Cardiac Disease, Respiratory Disease, Other - Cancer - Social History Alcohol Use: None Hx Substance Use: No Substance Use Type: Reports: None Hx Tobacco Use: No Smoking Status (MU): Never Smoked Tobacco Review of Systems Positive: Other - pain in right lateral ribs, fourth and fifth toes on right foot, and sacrum/coccyx Neurological: Other - Negative: LOC; unsure of head injury All Other Systems Reviewed And Are Negative: Yes Physical Exam - Summary Physical Exam Summary: Constitutional: Well-developed, Well-nourished, Alert. (-) Distressed Skin: Warm, Dry HENT: Normocephalic; Atraumatic; Tenderness to the right lateral scalp/temporal area Eyes: Conjunctiva normal Neck: Tenderness to palpation of the right neck in the paraspinal muscles. Musculoskeletal ROM normal neck. (-) JVD, (-) Stridor, (-) Tracheal deviation Cardio: Rhythm regular, rate normal, Heart sounds normal; Intact distal pulses; The pedal pulses are 2+ and symmetric. Radial pulses are 2+ and symmetric. (-) Murmur Pulmonary/Chest wall: Tenderness in the chest wall at the mid-axillary wall extending posteriorly in the 8-11 ribs area. Effort normal. (-) Respiratory distress, (-) Wheezes, (-) Rales Abd: Soft, (+) tenderness to palpation of RUQ, (-) Distension, (-) Guarding, (- ) Rebound Musculoskeletal: Tenderness of the lateral right foot, Diffuse spinal tenderness that worsens going towards the tailbone, (-) Edema Lymph: (-) Cervical adenopathy Neuro: Alert, Oriented x3 Psych: Mood and affect Normal Triage Information Reviewed: Yes Vital Signs On Initial Exam: Initial Vitals Temp Pulse Resp BP Pulse Ox 98.3 F 95 18 183/74 94 09/02/19 14:05 09/02/19 14:05 09/02/19 14:05 09/02/19 14:05 09/02/19 14:05 Vital Signs Reviewed: Yes - Carin Coma Scale Best Eye Response: 4 - Spontaneous Best Motor Response: 6 - Obeys Commands Best Verbal Response: 5 - Oriented Coma Scale Total: 15 Procedures - Sedation Patient Received Moderate/Deep Sedation with Procedure: No Diagnostics - Vital Signs Vital Signs Temp Pulse Resp BP Pulse Ox 09/02/19 14:05 98.3 F 95 18 183/74 94 - Laboratory Result Diagrams: 09/02/19 15:13 09/02/19 15:13 Lab Statement: Any lab studies that have been ordered have been reviewed, and results considered in the medical decision making process. - Radiology R Foot XR Radiology Interpretation Completed By: Radiologist Summary of Radiographic Findings: Impression: Fracture of the head of the fifth metatarsal. ED physician has reviewed this report. Ribs w/ Chest XR Radiology Interpretation Completed By: Radiologist Summary of Radiographic Findings: Impression: No definite fracture of the right ribs are noted although visualization is suboptimal. ED physician has reviewed this report. Sacrum/Coccyx XR Radiology Interpretation Completed By: Radiologist Summary of Radiographic Findings: Impression: There is no radiographically apparent fracture or dislocation. If the patient's symptoms persist, follow-up imaging is recommended. ED physician has reviewed this report. L-Spine XR Radiology Interpretation Completed By: Radiologist Summary of Radiographic Findings: Impression: Degenerative disc disease and chronic vertebral body height loss relative to the April 06, 2019 radiograph. ED physician has reviewed this report. - CT Brain CT CT Interpretation Completed By: Radiologist Summary of CT Findings: Impression: 1. No CT apparent acute intracranial abnormality. 2. Chronic findings unchanged since the September 26, 2017 CT of the brain. ED physician has reviewed this report. - EKG 1504 Cardiac Rate: NL - 80 bpm EKG Rhythm: Sinus Rhythm Summary of EKG Findings: Normal sinus rhythm at 80 bpm, normal VT, normal QRS, normal QTc, normal axis, normal ST, normal T-waves, normal EKG. Overall nonspecific EKG. ED physician has reviewed and interpreted this EKG. Adult Trauma Course/Dx - Course Course Of Treatment: Patient is a 74 year-old female presenting with traumatic mechanical fall three days ago to which she is now sustaining pain in the sacrum /coccyx, right lateral ribs, and the fourth and fifth toes of the right foot. She denies LOC but is unsure if she hit her head. She is unable to ambulate well secondary to pain. Physical exam reveals tenderness to the right lateral scalp/temporal area, tenderness to palpation to the right neck in the paraspinal muscles, tenderness in the chest wall at the mid-axillary wall extending posteriorly in the 8-11 ribs area, tenderness of the RUQ, tenderness of the lateral right foot, and diffuse spinal tenderness that worsens going towards the tailbone. Blood work reveals RBCs of 5.05 and glucose of 106. First troponin of 0.02. Second troponin four hours later of 0.02. An EKG at 1504 reveals NSR at 80 bpm, overall nonspecific EKG. Right foot x-ray impression reveals fracture of the head of the fifth metatarsal. Ribs with chest x-ray is negative for fracture. Sacrum and coccyx x-ray is negative for fracture or dislocation. Lumbar spine x-ray reveals degenerative disc disease but is otherwise negative. Brain CT is negative for acute changes. Dr. Patel from orthopedics agrees with placing a boot on the patient's foot and discharging her. Patient understands and agrees with plan. Diagnosis of right foot fracture , rib contusion, fall. - Diagnoses Provider Diagnoses: Foot fracture, right, Contusion of rib on right side, Fall - Physician Notifications Discussed Care Of Patient With: Marcela Patel - orthopedics Time Discussed With Above Provider: 19:36 Instructed by Provider To: Other - I discussed the patient's case with Dr. Patel who argees with placing a boot on the patient's right foot for fracture. Discharge ED - Sign-Out/Discharge Documenting (check all that apply): Patient Departure - Patient will be discharged home. - Discharge Plan Condition: Stable Disposition: HOME Patient Education Materials: Foot Fracture in Adults (ED), Contusion in Adults (ED), Chest Wall Pain (ED), Rib Contusion (ED) Print Language: CROATIAN Referrals: Palma Slaughter MD [Primary Care Provider] - Marcela Patel MD [Medical Doctor] - - Billing Disposition and Condition Condition: STABLE Disposition: Home - Attestation Statements Document Initiated by Scribe: Yes Documenting Scribe: Ani Rodriguez Provider For Whom Kely is Documenting (Include Credential): Dr. Daniella Deshpande MD Scribe Attestation: Ani Collier scribed for Dr. Daniella Deshpande MD on 09/02/19 at 2307. Scribe Documentation Reviewed: Yes Provider Attestation: The documentation as recorded by the Ani chino accurately reflects the service I personally performed and the decisions made by me, Dr. Daniella Deshpande MD Status of Scribe Document: Viewed
[2019-09-02 15:20] LABS: ABS Eosinophils 0.1 10^3/ul (0-0.6); ABS Lymphocytes 1.3 10^3/ul (1.0-4.8); ABS Monocytes 0.5 10^3/ul (0-0.8); ABS Neutrophils 5.4 10^3/ul (1.5-7.7); Eosinophil % 0.9 %; Hematocrit 46 % (35-47); Hemoglobin 15.3 g/dL (12.0-16.0); Lymphocyte % 17.8 %; Mean Corpuscular HGB Conc 34 g/dL (31-36); Mean Corpuscular Hemoglobin 30 pg (27-31); Mean Corpuscular Volume 90 fL (80-97); Mean Platelet Volume 8.1 fL (7.4-10.4); Platelet Count 211 10^3/uL (150-450); Red Blood Count 5.05 10^6 /uL (3.70-4.87); Red Cell Distribution Width 14 % (10-15); White Blood Count 7.3 10^3/uL (3.5-10.8)
[2019-09-02 15:52] LABS: Troponin I 0.02 ng/mL (<0.03)
[2019-09-02 15:53] LABS: Albumin 4.2 g/dL (3.2-5.2); Albumin/Globulin Ratio 1.4 (1-3); BUN/Creatinine Ratio 15.5 (8-20); Calcium 9.4 mg/dL (8.6-10.3); EGFR African American 122.6 (>60); EGFR Non-African American 101.3 (>60); Total Bilirubin 0.5 mg/dL (0.2-1.0); Total Protein 7.2 g/dL (6.4-8.9)
[2019-09-02] MEDS ORDERED: fentaNYL* 50 MCG/ML 2 ML VIAL (100 MCG VIAL) IV SLOW PU ONE (16:22)
[2019-09-02 20:03] VITALS: BP 191/80
== END 2019-09-02 20:03 | disposition home or self-care (01) ==
LOC: ED 13:50
DX: S92.351A Displaced fracture of fifth metatarsal bone, right foot, initial encounter for closed fracture (principal); S20.211A Contusion of right front wall of thorax, initial encounter; W19.XXXA Unspecified fall, initial encounter; Y92.9 Unspecified place or not applicable; E03.9 Hypothyroidism, unspecified; D64.9 Anemia, unspecified; I11.0 Hypertensive heart disease with heart failure; I50.9 Heart failure, unspecified; I34.1 Nonrheumatic mitral (valve) prolapse; J45.909 Unspecified asthma, uncomplicated; K21.9 Gastro-esophageal reflux disease without esophagitis; F41.9 Anxiety disorder, unspecified; Z95.2 Presence of prosthetic heart valve; Z85.89 Personal history of malignant neoplasm of other organs and systems; Z86.718 Personal history of other venous thrombosis and embolism; Z79.890 Hormone replacement therapy; Z79.899 Other long term (current) drug therapy; Z88.0 Allergy status to penicillin; Z88.2 Allergy status to sulfonamides; Z88.8 Allergy status to other drugs, medicaments and biological substances; Z88.4 Allergy status to anesthetic agent; Z88.1 Allergy status to other antibiotic agents; Z91.041 Radiographic dye allergy status; Z91.040 Latex allergy status
CPT/HCPCS: 36415; 70450; 72100; 72220; 80053; 83605; 84484; 85025; 93005; 96374; 99284; J3010

== ENCOUNTER 2022-09-02 19:23 | Inpatient (IN) ==
[2022-09-02 20:59] LABS: Urine Appearance Clear; Urine Bilirubin Negative (Negative); Urine Blood Negative (Negative); Urine Color Yellow; Urine Glucose Negative (Negative); Urine Ketones Negative (Negative); Urine Nitrite Negative (Negative); Urine Protein Negative (Negative); Urine Specific Gravity 1.009 (1.002-1.030); Urine Urobilinogen Negative (Negative)
[2022-09-02 21:04] LABS: ABS Eosinophils 0.1 10^3/ul (0-0.6); ABS Lymphocytes 1.9 10^3/ul (1.0-4.8); ABS Monocytes 0.8 10^3/ul (0-0.8); ABS Neutrophils 5.6 10^3/ul (1.5-7.7); Eosinophil % 0.7 %; Hematocrit 45 % (35-47); Hemoglobin 14.9 g/dL (12.0-16.0); Lymphocyte % 22.3 %; Mean Corpuscular HGB Conc 33 g/dL (31-36); Mean Corpuscular Hemoglobin 30 pg (27-31); Mean Corpuscular Volume 89 fL (80-97); Mean Platelet Volume 8.5 fL (7.4-10.4); Platelet Count 191 10^3/uL (150-450); Red Cell Distribution Width 15 % (10-15); White Blood Count 8.4 10^3/uL (3.5-10.8)
[2022-09-02 21:37] LABS: Blood Urea Nitrogen 14 mg/dL (6-24); CO2 Carbon Dioxide 29 mmol/L (22-32); Calcium 9.1 mg/dL (8.6-10.3); Chloride 103 mmol/L (101-111); Glucose 93 mg/dL (70-100); Sodium 137 mmol/L (135-145); eGFR CKD-EPI 81.4 (>60)
[2022-09-02 21:52] LABS: Anion Gap 5 mmol/L (2-11)
[2022-09-02] MEDS ORDERED: Magnesium CITRATE LIQ 300 ML BTL PO ONE (22:07)
[2022-09-02 22:37] LABS: Potassium Redraw 4.4 mmol/L (3.5-5.0)
[2022-09-02 22:40] LABS: High Sens Troponin Baseline 61 pg/mL (<15)
[2022-09-02 23:33] LABS: High Sensitivity Troponin 1 Hr 69 pg/mL (<15)
[2022-09-03 02:18] LABS: ALT 22 U/L (7-52); AST 22 U/L (13-39); Albumin 3.8 g/dL (3.2-5.2); Albumin/Globulin Ratio 1.7 (1-3); Alkaline Phosphatase 66 U/L (35-149); Globulin 2.3 g/dL (2-4); Total Protein 6.1 g/dL (6.4-8.9)
[2022-09-03] MEDS ORDERED: D5W 1000 ml BAG 1,000 ML IV SCH (04:00)
[2022-09-03] MEDS ORDERED: hydrALAZINE 20 mg/ml 1 ML Vial IV IV SLOW PU PRN (04:19)
[2022-09-03 04:29] LABS: Magnesium 1.9 mg/dL (1.9-2.7)
[2022-09-03 04:55] LABS: ABS Eosinophils 0.1 10^3/ul (0-0.6); ABS Lymphocytes 2.1 10^3/ul (1.0-4.8); ABS Monocytes 0.8 10^3/ul (0-0.8); ABS Neutrophils 4.1 10^3/ul (1.5-7.7); Eosinophil % 1.3 %; Hematocrit 42 % (35-47); Hemoglobin 13.9 g/dL (12.0-16.0); Lymphocyte % 29.1 %; Mean Corpuscular HGB Conc 33 g/dL (31-36); Mean Corpuscular Hemoglobin 30 pg (27-31); Mean Corpuscular Volume 89 fL (80-97); Mean Platelet Volume 8.3 fL (7.4-10.4); Nucleated Red Blood Cells % 0.1; Platelet Count 177 10^3/uL (150-450); Red Blood Count 4.71 10^6 /uL (3.70-4.87); Red Cell Distribution Width 14 % (10-15); White Blood Count 7.2 10^3/uL (3.5-10.8)
[2022-09-03 05:57] LABS: Calcium 8.6 mg/dL (8.6-10.3); Potassium 4.2 mmol/L (3.5-5.0); eGFR CKD-EPI 80.2 (>60)
[2022-09-03] MEDS ORDERED: Levalbuterol HFA INHALER MDI INH PRN (06:22)
[2022-09-03] MEDS ORDERED: KETOTIFEN FUMARATE BOTH EYES PRN (07:54)
[2022-09-03] MEDS ORDERED: VERAPAMIL 40 MG PO SCH (09:00)
[2022-09-03] MEDS ORDERED: [UNRECOGNIZED DRUG - OTHER] PR SCH (09:00)
[2022-09-03] MEDS ORDERED: LIDOCAINE PR SCH (09:00)
[2022-09-03] MEDS ORDERED: Levalbuterol 1.25MG/0.5ML NEB.SOL INH PRN (10:44)
[2022-09-03] MEDS ORDERED: Regadenoson 0.4 MG/5 ML SYRINGE ONE (13:35)
[2022-09-03] MEDS: LEVOCARNITINE TARTRATE 500 MG PO SCH (13:51)
[2022-09-03] MEDS: NON FORMULARY MED (Magnesium Glycinate 100 mg Tablet) PO SCH (13:52)
[2022-09-03] MEDS: VITAMIN K2 40 MCG PO SCH (13:52)
[2022-09-03] MEDS: Senna TAB 8.6 mg TAB PO SCH ×2 (14:37→22:25)
[2022-09-03] MEDS: FLUOROMETHOLONE 0.1% RIGHT EYE SCH (14:38)
[2022-09-03 18:03] LABS: High Sensitivity Troponin 1 Hr 64 pg/mL (<15)
[2022-09-03 20:42] LABS: TSH Ultra Thyroid Stim Horm 3.46 mcIU/mL (0.34-5.60)
[2022-09-03 20:44] LABS: Free T4 1.01 ng/dL (0.61-1.12)
[2022-09-03] MEDS: [UNRECOGNIZED DRUG - OTHER] TOPICAL SCH (22:30)
[2022-09-03] MEDS: LIDOCAINE TOPICAL SCH (22:30)
[2022-09-04] MEDS: Coenzyme Q10 CAP (NF) ** ENTER STREGNTH IN LABEL DIRECTIONS PO SCH ×2 (03:49→09:05)
[2022-09-04 07:05] LABS: ABS Eosinophils 0.1 10^3/ul (0-0.6); ABS Lymphocytes 1.7 10^3/ul (1.0-4.8); ABS Monocytes 0.7 10^3/ul (0-0.8); ABS Neutrophils 3.8 10^3/ul (1.5-7.7); Eosinophil % 1.6 %; Hematocrit 42 % (35-47); Hemoglobin 13.6 g/dL (12.0-16.0); Lymphocyte % 26.9 %; Mean Corpuscular HGB Conc 33 g/dL (31-36); Mean Corpuscular Hemoglobin 30 pg (27-31); Mean Corpuscular Volume 91 fL (80-97); Platelet Count 166 10^3/uL (150-450); Red Blood Count 4.55 10^6 /uL (3.70-4.87); Red Cell Distribution Width 14 % (10-15); White Blood Count 6.4 10^3/uL (3.5-10.8)
[2022-09-04 07:25] LABS: Albumin 3.5 g/dL (3.2-5.2); Albumin/Globulin Ratio 1.6 (1-3); Calcium 8.5 mg/dL (8.6-10.3); Globulin 2.2 g/dL (2-4); Potassium 4.3 mmol/L (3.5-5.0); Total Bilirubin 0.6 mg/dL (0.2-1.0); Total Protein 5.7 g/dL (6.4-8.9); eGFR CKD-EPI 59.8 (>60)
[2022-09-04] MEDS: Senna TAB 8.6 mg TAB PO SCH ×2 (09:01→21:52)
[2022-09-04] MEDS: FLUOROMETHOLONE 0.1% RIGHT EYE SCH (09:05)
[2022-09-04] MEDS: LEVOCARNITINE TARTRATE 500 MG PO SCH (09:05)
[2022-09-04] MEDS: NON FORMULARY MED (Magnesium Glycinate 100 mg Tablet) PO SCH (09:06)
[2022-09-04] MEDS: [UNRECOGNIZED DRUG - OTHER] TOPICAL SCH ×2 (09:07→21:55)
[2022-09-04] MEDS: VITAMIN K2 40 MCG PO SCH (09:07)
[2022-09-04] MEDS: LIDOCAINE TOPICAL SCH ×2 (09:07→21:55)
[2022-09-04] MEDS: Lactulose 30 ml UDC PO SCH ×2 (14:36→21:54)
[2022-09-05 06:22] LABS: ABS Eosinophils 0.1 10^3/ul (0-0.6); ABS Lymphocytes 1.9 10^3/ul (1.0-4.8); ABS Monocytes 0.8 10^3/ul (0-0.8); Eosinophil % 1.5 %; Hematocrit 47 % (35-47); Hemoglobin 15.5 g/dL (12.0-16.0); Lymphocyte % 24.3 %; Mean Corpuscular HGB Conc 33 g/dL (31-36); Mean Corpuscular Hemoglobin 30 pg (27-31); Mean Corpuscular Volume 91 fL (80-97); Mean Platelet Volume 8.6 fL (7.4-10.4); Platelet Count 183 10^3/uL (150-450); Red Blood Count 5.15 10^6 /uL (3.70-4.87); Red Cell Distribution Width 14 % (10-15); White Blood Count 7.9 10^3/uL (3.5-10.8)
[2022-09-05 07:16] LABS: Albumin 4.1 g/dL (3.2-5.2); Albumin/Globulin Ratio 1.6 (1-3); Calcium 9.1 mg/dL (8.6-10.3); Globulin 2.6 g/dL (2-4); Potassium 4.3 mmol/L (3.5-5.0); Total Bilirubin 0.6 mg/dL (0.2-1.0); Total Protein 6.7 g/dL (6.4-8.9); eGFR CKD-EPI 82.8 (>60)
[2022-09-05] MEDS: [UNRECOGNIZED DRUG - OTHER] TOPICAL SCH ×2 (07:42→21:00)
[2022-09-05] MEDS: LIDOCAINE TOPICAL SCH ×2 (07:42→21:00)
[2022-09-05] MEDS: Coenzyme Q10 CAP (NF) ** ENTER STREGNTH IN LABEL DIRECTIONS PO SCH (07:42)
[2022-09-05] MEDS: NON FORMULARY MED (Magnesium Glycinate 100 mg Tablet) PO SCH (07:42)
[2022-09-05] MEDS: LEVOCARNITINE TARTRATE 500 MG PO SCH (07:42)
[2022-09-05] MEDS: VITAMIN K2 40 MCG PO SCH (07:42)
[2022-09-05] MEDS ORDERED: Sodium Phosphate ADULT ENEMA 133 ML BTL PR ONE (07:49)
[2022-09-05] MEDS: Senna TAB 8.6 mg TAB PO SCH ×2 (07:53→21:00)
[2022-09-05] MEDS: FLUOROMETHOLONE 0.1% RIGHT EYE SCH (07:53)
[2022-09-05] MEDS: Lactulose 30 ml UDC PO SCH ×3 (07:53→21:01)
[2022-09-05 10:53] LABS: HDL Cholesterol 61.1 mg/dL
[2022-09-05] MEDS ORDERED: Glycerin ADULT 2.4 gm SUPP PR PRN (14:55)
[2022-09-05] MEDS ORDERED: Acetaminophen IV 1 GM/100ML 1,000 MG/100 ML BAG IV SCH (22:30)
[2022-09-05] MEDS ORDERED: Acetaminophen IV 1 GM/100ML 1,000 MG/100 ML BAG IV PRN (22:30)
[2022-09-05] MEDS ORDERED: hydrALAZINE 20 mg/ml 1 ML Vial IV IV SLOW PU ONE (22:38)
[2022-09-06 06:15] LABS: ABS Eosinophils 0.1 10^3/ul (0-0.6); ABS Lymphocytes 2.2 10^3/ul (1.0-4.8); ABS Monocytes 0.8 10^3/ul (0-0.8); ABS Neutrophils 3.6 10^3/ul (1.5-7.7); Eosinophil % 1.7 %; Hematocrit 42 % (35-47); Hemoglobin 13.9 g/dL (12.0-16.0); Lymphocyte % 32.9 %; Mean Corpuscular HGB Conc 33 g/dL (31-36); Mean Corpuscular Hemoglobin 30 pg (27-31); Mean Corpuscular Volume 91 fL (80-97); Mean Platelet Volume 8.5 fL (7.4-10.4); Nucleated Red Blood Cells % 0.1; Platelet Count 155 10^3/uL (150-450); Red Blood Count 4.65 10^6 /uL (3.70-4.87); Red Cell Distribution Width 14 % (10-15); White Blood Count 6.8 10^3/uL (3.5-10.8)
[2022-09-06 07:01] LABS: Albumin 3.5 g/dL (3.2-5.2); Albumin/Globulin Ratio 1.7 (1-3); Calcium 8.5 mg/dL (8.6-10.3); Globulin 2.1 g/dL (2-4); Total Bilirubin 0.6 mg/dL (0.2-1.0); Total Protein 5.6 g/dL (6.4-8.9); eGFR CKD-EPI 88.8 (>60)
[2022-09-06] MEDS: Lactulose 30 ml UDC PO SCH ×2 (09:25→14:40)
[2022-09-06] MEDS: FLUOROMETHOLONE 0.1% RIGHT EYE SCH (09:25)
[2022-09-06] MEDS: Coenzyme Q10 CAP (NF) ** ENTER STREGNTH IN LABEL DIRECTIONS PO SCH (09:25)
[2022-09-06] MEDS: NON FORMULARY MED (Magnesium Glycinate 100 mg Tablet) PO SCH (09:26)
[2022-09-06] MEDS: VITAMIN K2 40 MCG PO SCH (09:26)
[2022-09-06] MEDS: Senna TAB 8.6 mg TAB PO SCH (09:26)
[2022-09-06] MEDS: LIDOCAINE TOPICAL SCH (09:26)
[2022-09-06] MEDS: [UNRECOGNIZED DRUG - OTHER] TOPICAL SCH (09:26)
[2022-09-06] MEDS: LEVOCARNITINE TARTRATE 500 MG PO SCH (09:26)
[2022-09-06 16:18] VITALS: BP 149/72
== END 2022-09-06 17:05 | disposition home or self-care (01) | DRG 313 ==
LOC: EDHOLD 19:23 → ED 19:23 → SUATTDRO 09-03 01:53 → EDHOLD 09-03 19:13 → MEDTELE 09-03 19:17 → SUATTDRO 09-05 10:24
PROVIDERS: ADMIT Internal Medicine; ATTEND Internal Medicine

== ENCOUNTER 2023-09-23 17:46 | Inpatient (IN) ==
[2023-09-23 18:25] LABS: ABS Basophils 0.1 10^3/uL (0.0-0.1); ABS Eosinophils 0.1 10^3/uL (0.0-0.5); ABS Neutrophils 5.8 10^3/uL (1.5-7.6); ABS Nucleated RBC 0.02 10^3/ul; Eosinophil % 1.2 %; Hematocrit 46.5 % (35-45); Hemoglobin 15.6 g/dL (11.5-14.3); Mean Corpuscular Hemoglobin 31.2 pg (27-33); Mean Corpuscular Hgb Conc 33.7 g/dL (31-36); Mean Corpuscular Volume 92.7 fL (80-97); Mean Platelet Volume 8.7 fL (7.5-11.2); Nucleated Red Blood Cells % 0.3 %/100WBC (0.0-0.8); Platelet Count 244 10^3/uL (150-450); Red Blood Count 5.01 10^6/uL (3.63-4.92); Red Cell Distribution Width 13.5 % (12-17); White Blood Count 8.9 10^3/uL (3.8-11.8)
[2023-09-23 18:43] LABS: Albumin 4.2 g/dL (3.2-5.2); Albumin/Globulin Ratio 1.2 (1-3); Calcium 9.5 mg/dL (8.6-10.3); Creatinine, Serum 0.74 mg/dL (0.51-0.95); Globulin 3.4 g/dL (2-4); Potassium 3.9 mmol/L (3.5-5.0); Total Bilirubin 0.4 mg/dL (0.2-1.0); Total Protein 7.6 g/dL (6.4-8.9); eGFR CKD-EPI 82.2 (>60)
[2023-09-23 21:04] LABS: High Sensitivity Troponin 1 Hr 196 pg/mL (<15)
[2023-09-23 21:28] LABS: C Reactive Protein 15.36 mg/L (<8.01)
[2023-09-23] MEDS ORDERED: Nitro 2% OINT (Nitroglycerin) 1 INCH/PAK TOPICAL ONE (22:57)
[2023-09-23] MEDS ORDERED: KETOTIFEN FUMARATE BOTH EYES PRN (23:10)
[2023-09-23] MEDS ORDERED: Ondansetron ODT 4 mg TAB 4 MG TAB PO PRN (23:10)
[2023-09-23] MEDS ORDERED: Lidocaine 4% CREAM (LMX) 5 GM TUBE TOPICAL PRN (23:29)
[2023-09-23] MEDS ORDERED: Levalbuterol HFA INHALER MDI INH PRN (23:45)
[2023-09-23] MEDS ORDERED: Mometasone 220 MCG MDI INH PRN (23:46)
[2023-09-24 01:00] LABS: Rapid COVID-19 Molecular Undetected (Undetected)
[2023-09-24 03:13] LABS: Influenza A Molecular Negative (Negative); Influenza B Molecular Negative (Negative)
[2023-09-24] MEDS: HYDROcodone/ACETAMIN 5/325 mg TAB PO PRN (04:17)
[2023-09-24 06:09] LABS: ABS Eosinophils 0.1 10^3/uL (0.0-0.5); ABS Lymphocytes 2.3 10^3/uL (1.0-4.8); ABS Monocytes 0.9 10^3/uL (0.0-0.9); ABS Neutrophils 4.5 10^3/uL (1.5-7.6); ABS Nucleated RBC 0.01 10^3/ul; Eosinophil % 1.3 %; Hematocrit 44.7 % (35-45); Hemoglobin 14.9 g/dL (11.5-14.3); Mean Corpuscular Hemoglobin 30.9 pg (27-33); Mean Corpuscular Hgb Conc 33.3 g/dL (31-36); Mean Corpuscular Volume 92.9 fL (80-97); Mean Platelet Volume 8.6 fL (7.5-11.2); Nucleated Red Blood Cells % 0.2 %/100WBC (0.0-0.8); Platelet Count 227 10^3/uL (150-450); Red Blood Count 4.81 10^6/uL (3.63-4.92); Red Cell Distribution Width 13.7 % (12-17); White Blood Count 7.8 10^3/uL (3.8-11.8)
[2023-09-24 07:29] LABS: Calcium 9.1 mg/dL (8.6-10.3); Creatinine, Serum 0.86 mg/dL (0.51-0.95); Potassium 4.1 mmol/L (3.5-5.0); eGFR CKD-EPI 68.7 (>60)
[2023-09-24 07:30] LABS: Magnesium 2.1 mg/dL (1.9-2.7)
[2023-09-24 08:05] LABS: TSH Ultra Thyroid Stim Horm 4.69 mcIU/mL (0.34-5.60)
[2023-09-24] MEDS: Fluorometholone 0.1% OPTH.SUS 5 ML BTL BOTH EYES SCH ×5 (09:08→21:10)
[2023-09-24] MEDS: Fluticasone NASAL SPRAY 50MCG 16 gm SPRAY BTL INTRANASAL SCH ×3 (09:11→21:24)
[2023-09-24] MEDS: Nystatin TOP POWDER 15 GM BTL TOPICAL SCH ×3 (14:31→21:11)
[2023-09-24] MEDS: [UNRECOGNIZED DRUG - OTHER] PR SCH ×2 (14:33→21:26)
[2023-09-24] MEDS: LIDOCAINE PR SCH ×2 (14:33→21:26)
[2023-09-24] MEDS: NF: Coenzyme Q10 CAP (NF) 100 MG PO SCH (14:34)
[2023-09-24] MEDS: Sucralfate 1 gm SUSP 1 GM/10 ML UDC PO PRN (17:44)
[2023-09-24] MEDS: Al Hydrox/Mg Hydrox/Simet LIQ 30 ML UDC PO PRN (19:04)
[2023-09-24 19:54] LABS: High Sensitivity Troponin 1 Hr 155 pg/mL (<15)
[2023-09-24] MEDS: Enoxaparin 40 MG/0.4 ML SYR SUBCUT SCH ×3 (21:10→21:25)
[2023-09-25] MEDS ORDERED: Aminophylline 25 MG/ML VIAL ONE (07:34)
[2023-09-25] MEDS ORDERED: Regadenoson 0.4 MG/5 ML SYRINGE ONE (07:34)
[2023-09-25] MEDS: Fluorometholone 0.1% OPTH.SUS 5 ML BTL BOTH EYES SCH ×4 (09:40→20:12)
[2023-09-25] MEDS: Fluticasone NASAL SPRAY 50MCG 16 gm SPRAY BTL INTRANASAL SCH ×2 (09:40→20:13)
[2023-09-25] MEDS ORDERED: Levalbuterol 0.63MG/3ML NEB UNIT OF USE INH PRN (11:24)
[2023-09-25] MEDS ORDERED: Levalbuterol 1.25MG/0.5ML NEB.SOL ONE (11:33)
[2023-09-25] MEDS: NF: Coenzyme Q10 CAP (NF) 100 MG PO SCH (13:02)
[2023-09-25] MEDS: Nystatin TOP POWDER 15 GM BTL TOPICAL SCH ×3 (13:02→20:13)
[2023-09-25] MEDS: [UNRECOGNIZED DRUG - OTHER] PR SCH ×2 (13:02→20:13)
[2023-09-25] MEDS: LIDOCAINE PR SCH ×2 (13:02→20:13)
[2023-09-25] MEDS: Mometasone 220 MCG MDI INH SCH (19:43)
[2023-09-25] MEDS: Al Hydrox/Mg Hydrox/Simet LIQ 30 ML UDC PO PRN (20:12)
[2023-09-25] MEDS: Senna TAB 8.6 mg TAB PO PRN (20:12)
[2023-09-25] MEDS: Sucralfate 1 gm SUSP 1 GM/10 ML UDC PO PRN (20:12)
[2023-09-25] MEDS: Enoxaparin 40 MG/0.4 ML SYR SUBCUT SCH (20:33)
[2023-09-26] MEDS: Mometasone 220 MCG MDI INH SCH ×2 (06:36→17:56)
[2023-09-26] MEDS: Fluticasone NASAL SPRAY 50MCG 16 gm SPRAY BTL INTRANASAL SCH ×2 (09:10→21:57)
[2023-09-26] MEDS: Fluorometholone 0.1% OPTH.SUS 5 ML BTL BOTH EYES SCH ×4 (09:10→21:58)
[2023-09-26] MEDS: NF: Coenzyme Q10 CAP (NF) 100 MG PO SCH (09:11)
[2023-09-26] MEDS: LIDOCAINE PR SCH ×2 (09:11→21:59)
[2023-09-26] MEDS: [UNRECOGNIZED DRUG - OTHER] PR SCH ×2 (09:11→21:59)
[2023-09-26 11:05] LABS: ABS Eosinophils 0.1 10^3/uL (0.0-0.5); ABS Lymphocytes 2.2 10^3/uL (1.0-4.8); ABS Monocytes 0.8 10^3/uL (0.0-0.9); ABS Neutrophils 3.3 10^3/uL (1.5-7.6); ABS Nucleated RBC 0.01 10^3/ul; Hematocrit 40.3 % (35-45); Hemoglobin 13.6 g/dL (11.5-14.3); Lymphocyte % 33.8 %; Mean Corpuscular Hemoglobin 31.3 pg (27-33); Mean Corpuscular Hgb Conc 33.8 g/dL (31-36); Mean Corpuscular Volume 92.5 fL (80-97); Mean Platelet Volume 8.6 fL (7.5-11.2); Nucleated Red Blood Cells % 0.1 %/100WBC (0.0-0.8); Platelet Count 210 10^3/uL (150-450); Red Blood Count 4.35 10^6/uL (3.63-4.92); Red Cell Distribution Width 13.2 % (12-17); White Blood Count 6.4 10^3/uL (3.8-11.8)
[2023-09-26 11:17] LABS: Calcium 8.7 mg/dL (8.6-10.3); Creatinine, Serum 0.68 mg/dL (0.51-0.95); Potassium 3.7 mmol/L (3.5-5.0); eGFR CKD-EPI 88.5 (>60)
[2023-09-26] MEDS: Nystatin TOP POWDER 15 GM BTL TOPICAL SCH ×3 (12:08→21:57)
[2023-09-26] MEDS: Senna TAB 8.6 mg TAB PO PRN (21:56)
[2023-09-26] MEDS: Enoxaparin 40 MG/0.4 ML SYR SUBCUT SCH (21:58)
[2023-09-27] MEDS: Mometasone 220 MCG MDI INH SCH ×3 (09:14→20:05)
[2023-09-27] MEDS: Nystatin TOP POWDER 15 GM BTL TOPICAL SCH ×3 (10:56→20:56)
[2023-09-27] MEDS: Fluticasone NASAL SPRAY 50MCG 16 gm SPRAY BTL INTRANASAL SCH ×2 (10:57→20:44)
[2023-09-27] MEDS: NF: Coenzyme Q10 CAP (NF) 100 MG PO SCH (10:58)
[2023-09-27] MEDS: LIDOCAINE PR SCH (10:59)
[2023-09-27] MEDS: Fluorometholone 0.1% OPTH.SUS 5 ML BTL BOTH EYES SCH ×4 (10:59→20:44)
[2023-09-27] MEDS: [UNRECOGNIZED DRUG - OTHER] PR SCH (10:59)
[2023-09-27] MEDS: Hemorrhoidal OINT 1 TUBE PR SCH ×2 (16:53→20:56)
[2023-09-27] MEDS: Enoxaparin 40 MG/0.4 ML SYR SUBCUT SCH (20:49)
[2023-09-27] MEDS: Senna TAB 8.6 mg TAB PO PRN (20:56)
[2023-09-28] MEDS: HYDROcodone/ACETAMIN 5/325 mg TAB PO PRN ×3 (01:06→15:04)
[2023-09-28 05:57] LABS: Hematocrit 41.5 % (35-45); Hemoglobin 14.1 g/dL (11.5-14.3); Mean Corpuscular Hemoglobin 31.5 pg (27-33); Mean Corpuscular Hgb Conc 33.9 g/dL (31-36); Mean Corpuscular Volume 92.9 fL (80-97); Mean Platelet Volume 8.7 fL (7.5-11.2); Platelet Count 202 10^3/uL (150-450); Red Blood Count 4.47 10^6/uL (3.63-4.92); Red Cell Distribution Width 13.6 % (12-17); White Blood Count 7.4 10^3/uL (3.8-11.8)
[2023-09-28] MEDS: Mometasone 220 MCG MDI INH SCH ×2 (06:58→20:13)
[2023-09-28 07:01] LABS: Creatinine, Serum 0.88 mg/dL (0.51-0.95); Phosphorus 3.4 mg/dL (2.5-5.0); Potassium 4.2 mmol/L (3.5-5.0); eGFR CKD-EPI 66.8 (>60)
[2023-09-28] MEDS: Nystatin TOP POWDER 15 GM BTL TOPICAL SCH ×4 (10:16→22:23)
[2023-09-28] MEDS: Fluorometholone 0.1% OPTH.SUS 5 ML BTL BOTH EYES SCH ×4 (10:17→22:00)
[2023-09-28] MEDS: Fluticasone NASAL SPRAY 50MCG 16 gm SPRAY BTL INTRANASAL SCH ×2 (10:17→22:01)
[2023-09-28] MEDS: Hemorrhoidal OINT 1 TUBE PR SCH ×2 (10:18→21:45)
[2023-09-28] MEDS: Al Hydrox/Mg Hydrox/Simet LIQ 30 ML UDC PO PRN (10:20)
[2023-09-28] MEDS: Sucralfate 1 gm SUSP 1 GM/10 ML UDC PO PRN (14:23)
[2023-09-28] MEDS ORDERED: metroNIDAZOLE VAGINAL 0.75% 70 GM VAGINAL SCH (21:00)
[2023-09-28] MEDS: Enoxaparin 40 MG/0.4 ML SYR SUBCUT SCH (21:59)
[2023-09-29 05:37] VITALS: BP 132/68
[2023-09-29] MEDS: Mometasone 220 MCG MDI INH SCH (07:52)
[2023-09-29] MEDS: Hemorrhoidal OINT 1 TUBE PR SCH (09:03)
[2023-09-29] MEDS: Fluticasone NASAL SPRAY 50MCG 16 gm SPRAY BTL INTRANASAL SCH (09:03)
[2023-09-29] MEDS: Fluorometholone 0.1% OPTH.SUS 5 ML BTL BOTH EYES SCH (09:03)
[2023-09-29] MEDS: Nystatin TOP POWDER 15 GM BTL TOPICAL SCH (09:04)
== END 2023-09-29 13:30 | disposition home or self-care (01) | DRG 292 ==
LOC: ED 17:46 → EDHOLD 17:46 → SUATTDRO 21:47 → EDHOLD 09-24 04:56 → MEDTELE 09-24 05:27 → SUATTDRO 09-27 12:59
PROVIDERS: ADMIT Internal Medicine; ATTEND Hospitalist